=== PATIENT | female | born 1955 | race Caucasian/White ===

== ENCOUNTER → 2017-11-30 16:09 | Outpatient (CLI) | payer OTHER, SELFPAY ==
[2017-11-30 17:14] LABS: Absolute Lymphocyte Count 2.24 X10^3/ul (0.83-4.51); Basophil# 0.03 X10^3/uL; Basophil% 0.5 % (0-1); Eosinophil# 0.04 X10^3/uL; Eosinophils% 0.7 % (0-5); Hemoglobin 11.7 g/dl (12.0-15.0); Lymphocyte # 2.24 X10^3/ul (4.0); Lymphocyte % 40.1 % (19-41); Mean Corp Hgb Conc 31.6 g/gl (32-36); Mean Corpuscular Hgb 29.2 pg (27.0-32.0); Mean Corpuscular Volume 92.3 fL (81-99); Mean Platelet Vol. 9.6 fl (6.2-12.0); Monocyte# 0.33 X10^3/uL; Monocyte% 5.9 % (0-10); Neutrophil # 2.95 X10^3/uL (2.7-7.7); Neutrophil % 52.8 % (47-70); Platelet Count 257 K/mm3 (150-450); RBC Distribution Width CV 13.3 % (11.6-14.6); RBC Distribution Width SD 44.4 fl (35.1-43.9); Red Blood Count 4.01 M/mm3 (4.2-5.4); White Blood Count 5.6 K/mm3 (4.4-11.0)
[2017-11-30 17:18] LABS: POSITIVE COUNT NO; POSITIVE DIFFERENTIAL NO; POSITIVE MORPHOLOGY NO
[2017-11-30 17:43] LABS: ALB/GLOB Ratio 1.3 RATIO (0.9-2.4); AST(SGOT) 21 U/L (15-37); Alanine Aminotransfer ALT/SGPT 30 U/L (13-56); Albumin, Serum 3.9 g/dL (3.2-5.0); Alkaline Phosphatase 46 U/L (45-117); Anion Gap 9 (5-15); BUN 23 mg/dL (7-18); BUN/Creat Ratio 29.6 RATIO (10-20); Calcium,Total 9.3 mg/dL (8.5-10.1); Chloride 105 mmol/L (98-107); Creatinine, Serum 0.78 mg/dL (0.55-1.02); EST Glomerular Filtration Rate 79 mL/min (>60); Est Glom Filt Rate - Afr Amer 96 mL/min (>60); Globulin 3.1 g/dL (2.2-4.2); Glucose 104 mg/dL (74-106); Potassium 4.7 mmol/L (3.5-5.1); Sodium Level 143 mmol/L (136-145); Thyroid Stim Hormone (TSH) 1.74 uIU/mL (0.358-3.74)
[2017-12-02 08:43] LABS: Hep C Antibodies <0.1 s/co ratio (0.0-0.9)
== END ==
PROVIDERS: Family Provider Family Medicine Geriatric Medicine; PCP Family Medicine Geriatric Medicine; Visit Provider Family Medicine Geriatric Medicine
DX: I10 Essential (primary) hypertension (principal); E11.9 Type 2 diabetes mellitus without complications; Z13.89 Encounter for screening for other disorder
CPT/HCPCS: 36415; 80053; 84443; 85025; 86803

== ENCOUNTER → 2017-11-30 18:14 | Outpatient (CLI) | payer OTHER, SELFPAY | PROVIDERS: Family Provider Family Medicine Geriatric Medicine; PCP Family Medicine Geriatric Medicine; Visit Provider Family Medicine Geriatric Medicine | DX: N39.0 Urinary tract infection, site not specified (principal); R63.4 Abnormal weight loss | CPT/HCPCS: 70470; 71260; 74177; 87086; 87088; Q9967 ==

== ENCOUNTER → 2017-12-01 09:45 | Outpatient (CLI) | payer OTHER, SELFPAY ==
[2017-12-01] MEDS: Cosyntropin 0.25 MG Vial IV (10:15)
[2017-12-01 11:11] VITALS: BP 126/64; PULSE 69; RESP 18; TEMP 36.6; O2SAT 100; BMI 17.1
== END ==
PROVIDERS: Family Provider Family Medicine Geriatric Medicine; PCP Family Medicine Geriatric Medicine; Visit Provider Family Medicine Geriatric Medicine
DX: E27.8 Other specified disorders of adrenal gland (principal)
CPT/HCPCS: 96374; 82533; A4216; J0834

== ENCOUNTER → 2018-01-17 12:06 | Outpatient (CLI) | payer OTHER, SELFPAY ==
--- NOTE | 2018-01-17 12:22 | RAD_ITS ---
STUDY: X-RAY - ABDOMEN/PELVIS REASON FOR EXAM: Female, 62 years old. Prominent weight loss from 185-96 pounds in 1 year. Constipation. TECHNIQUE: Frontal abdomen and pelvis upright and supine. COMPARISON: None. FINDINGS: Clear lung bases, no cardiomegaly. Course normal size and position of the solid organs of the abdomen. Prominent distributed stool burden of the large bowel, is consistent with constipation. Next line small bowel pattern unremarkable. Posterior skin folds present as vertical density stripe to the right and left of the spine. There is mild multilevel lumbar spondylosis with mild scoliosis. Mild degenerative changes of the hip joints. RAD/Abd Inc Decub and/or Erect IMPRESSION: Constipation. Electronically Signed: Se Kramer, at 12:42 EDT Tel , Service support ,
== END ==
PROVIDERS: Family Provider Family Medicine Geriatric Medicine; PCP Family Medicine Geriatric Medicine; Visit Provider Family Medicine Geriatric Medicine
DX: R10.9 Unspecified abdominal pain (principal)
CPT/HCPCS: 74019

== ENCOUNTER → 2018-01-24 08:06 | Outpatient (CLI) | payer OTHER, SELFPAY ==
[2018-01-24 09:17] LABS: Erythrocyte Sedimentation Rate 6 mm/hr (0-30)
[2018-01-24 09:56] LABS: ALB/GLOB Ratio 1.1 RATIO (0.9-2.4); AST(SGOT) 44 U/L (15-37); Alanine Aminotransfer ALT/SGPT 42 U/L (13-56); Albumin, Serum 3.6 g/dL (3.2-5.0); Alkaline Phosphatase 43 U/L (45-117); Anion Gap 9 (5-15); BUN 16 mg/dL (7-18); BUN/Creat Ratio 20.7 RATIO (10-20); Calcium,Total 8.8 mg/dL (8.5-10.1); Chloride 104 mmol/L (98-107); Creatinine, Serum 0.77 mg/dL (0.55-1.02); EST Glomerular Filtration Rate 80 mL/min (>60); Est Glom Filt Rate - Afr Amer 97 mL/min (>60); Ferritin 119 ng/mL (8-252); Globulin 3.2 g/dL (2.2-4.2); Glucose 110 mg/dL (74-106); Iron 89 ug/dL (50-170); Iron Binding Capacity,Total 298 ug/dL (250-450); Potassium 3.7 mmol/L (3.5-5.1); Protein, Total 6.8 g/dL (6.4-8.2); Rheumatoid Factor < 10.0 IU/mL (<15); Sodium Level 142 mmol/L (136-145); T4 Free Direct 0.84 ng/dL (0.76-1.46); Thyroid Stim Hormone (TSH) 3.42 uIU/mL (0.358-3.74)
[2018-01-25 14:05] LABS: ANTINUCLEAR ANTIBODIES DIRECT Negative (Negative)
[2018-01-26 14:49] LABS: Adrenocorticotropic Hormone 33.1 pg/mL (7.2-63.3)
== END ==
PROVIDERS: Family Provider Family Medicine Geriatric Medicine; PCP Family Medicine Geriatric Medicine; Referring Provider Internal Medicine Endocrinology, Diabetes & Metabolism; Visit Provider Internal Medicine Endocrinology, Diabetes & Metabolism
DX: R63.4 Abnormal weight loss (principal); E27.8 Other specified disorders of adrenal gland; D53.9 Nutritional anemia, unspecified
CPT/HCPCS: 36415; 80053; 82024; 82533; 82728; 83540; 83550; 84439; 84443; 84481; 85652; 86038; 86431

== ENCOUNTER → 2018-02-07 08:26 | Outpatient (CLI) | payer OTHER, SELFPAY | PROVIDERS: Family Provider Family Medicine Geriatric Medicine; PCP Family Medicine Geriatric Medicine; Referring Provider Internal Medicine Endocrinology, Diabetes & Metabolism; Visit Provider Internal Medicine Endocrinology, Diabetes & Metabolism | DX: E27.8 Other specified disorders of adrenal gland (principal); R79.89 Other specified abnormal findings of blood chemistry | CPT/HCPCS: 36415 ==

== ENCOUNTER → 2018-06-06 13:04 | Outpatient (CLI) | payer OTHER, SELFPAY ==
[2017-12-01 11:11] VITALS: BMI 17.1
[2018-06-06 14:57] LABS: Absolute Lymphocyte Count 2.25 X10^3/ul (0.83-4.51); Absolute Neutrophil Count 2.7 X10^3/uL (2.0-7.7); Basophil# 0.05 X10^3/uL; Basophil% 0.9 % (0-1); Eosinophil# 0.09 X10^3/uL; Eosinophils% 1.6 % (0-5); Hematocrit 39.2 % (37-47); Hemoglobin 12.7 g/dl (12.0-15.0); Lymphocyte # 2.25 X10^3/ul (4.0); Lymphocyte % 40.8 % (19-41); Mean Corp Hgb Conc 32.4 g/gl (32-36); Mean Corpuscular Hgb 30.2 pg (27.0-32.0); Mean Corpuscular Volume 93.1 fL (81-99); Mean Platelet Vol. 9.5 fl (6.2-12.0); Monocyte# 0.38 X10^3/uL; Monocyte% 6.9 % (0-10); Neutrophil # 2.74 X10^3/uL (2.7-7.7); Neutrophil % 49.6 % (47-70); Platelet Count 265 K/mm3 (150-450); RBC Distribution Width CV 12.8 % (11.6-14.6); RBC Distribution Width SD 42.7 fl (35.1-43.9); Red Blood Count 4.21 M/mm3 (4.2-5.4); White Blood Count 5.5 K/mm3 (4.4-11.0)
[2018-06-06 15:06] LABS: POSITIVE COUNT NO; POSITIVE DIFFERENTIAL NO; POSITIVE MORPHOLOGY NO
[2018-06-06 15:18] LABS: AST(SGOT) 34 U/L (15-37); Alanine Aminotransfer ALT/SGPT 56 U/L (13-56); Albumin, Serum 3.9 g/dL (3.2-5.0); Alkaline Phosphatase 95 U/L (45-117); Anion Gap 11 (5-15); BUN 34 mg/dL (7-18); BUN/Creat Ratio 30.9 RATIO (10-20); Calcium,Total 9.1 mg/dL (8.5-10.1); Chloride 95 mmol/L (98-107); EST Glomerular Filtration Rate 53 mL/min (>60); Est Glom Filt Rate - Afr Amer 64 mL/min (>60); Globulin 3.9 g/dL (2.2-4.2); Glucose 340 mg/dL (74-106); Potassium 5.2 mmol/L (3.5-5.1); Protein, Total 7.8 g/dL (6.4-8.2); Sodium Level 133 mmol/L (136-145)
== END ==
PROVIDERS: Family Provider Family Medicine Geriatric Medicine; PCP Family Medicine Geriatric Medicine; Visit Provider Family Medicine Geriatric Medicine
DX: I10 Essential (primary) hypertension (principal); E11.9 Type 2 diabetes mellitus without complications
CPT/HCPCS: 36415; 80053; 84443; 85025

== ENCOUNTER → 2018-07-28 | Outpatient (CLI) | payer OTHER, SELFPAY ==
[2018-07-28 16:16] LABS: Anion Gap 10 (5-15); BUN 24 mg/dL (7-18); BUN/Creat Ratio 20.9 RATIO (10-20); Chloride 101 mmol/L (98-107); Creatinine, Serum 1.15 mg/dL (0.55-1.02); EST Glomerular Filtration Rate 50 mL/min (>60); Est Glom Filt Rate - Afr Amer 61 mL/min (>60); Glucose 193 mg/dL (74-106); Potassium 4.4 mmol/L (3.5-5.1); Sodium Level 138 mmol/L (136-145)
== END | disposition home or self-care (01) ==
LOC: POLAB3 14:19
PROVIDERS: Family Provider Family Medicine Geriatric Medicine; PCP Family Medicine Geriatric Medicine; Visit Provider Family Medicine Geriatric Medicine
DX: E87.6 Hypokalemia (principal)
CPT/HCPCS: 36415; 80048

== ENCOUNTER → 2018-09-19 | Outpatient (CLI) | payer OTHER, SELFPAY ==
[2017-12-01 11:11] VITALS: BMI 17.1
[2018-09-19 12:37] LABS: Absolute Lymphocyte Count 2.25 X10^3/ul (0.83-4.51); Absolute Neutrophil Count 2.8 X10^3/uL (2.0-7.7); Basophil# 0.08 X10^3/uL; Basophil% 1.4 % (0-1); Eosinophil# 0.27 X10^3/uL; Eosinophils% 4.6 % (0-5); Hematocrit 35.5 % (37-47); Hemoglobin 11.3 g/dl (12.0-15.0); Lymphocyte # 2.25 X10^3/ul (4.0); Lymphocyte % 38.3 % (19-41); Mean Corp Hgb Conc 31.8 g/gl (32-36); Mean Corpuscular Hgb 30.1 pg (27.0-32.0); Mean Corpuscular Volume 94.4 fL (81-99); Mean Platelet Vol. 9.4 fl (6.2-12.0); Monocyte% 8.5 % (0-10); Neutrophil # 2.78 X10^3/uL (2.7-7.7); Neutrophil % 47.2 % (47-70); Platelet Count 342 K/mm3 (150-450); RBC Distribution Width CV 14.1 % (11.6-14.6); RBC Distribution Width SD 46.6 fl (35.1-43.9); Red Blood Count 3.76 M/mm3 (4.2-5.4); White Blood Count 5.9 K/mm3 (4.4-11.0)
[2018-09-19 12:42] LABS: POSITIVE COUNT NO; POSITIVE DIFFERENTIAL NO; POSITIVE MORPHOLOGY NO
[2018-09-19 13:07] LABS: AST(SGOT) 31 U/L (15-37); Alanine Aminotransfer ALT/SGPT 59 U/L (13-56); Albumin, Serum 3.7 g/dL (3.2-5.0); Alkaline Phosphatase 72 U/L (45-117); Anion Gap 7 (5-15); BUN 30 mg/dL (7-18); BUN/Creat Ratio 27.8 RATIO (10-20); Calcium,Total 9.2 mg/dL (8.5-10.1); Chloride 97 mmol/L (98-107); Creatinine, Serum 1.08 mg/dL (0.55-1.02); EST Glomerular Filtration Rate 54 mL/min (>60); Est Glom Filt Rate - Afr Amer 66 mL/min (>60); Globulin 3.8 g/dL (2.2-4.2); Glucose 266 mg/dL (74-106); Potassium 4.8 mmol/L (3.5-5.1); Protein, Total 7.5 g/dL (6.4-8.2); Sodium Level 134 mmol/L (136-145); Thyroid Stim Hormone (TSH) 3.04 uIU/mL (0.358-3.74)
== END | disposition home or self-care (01) ==
LOC: POLAB3 10:25
PROVIDERS: Family Provider Family Medicine Geriatric Medicine; PCP Family Medicine Geriatric Medicine; Visit Provider Family Medicine Geriatric Medicine
DX: I10 Essential (primary) hypertension (principal); E11.9 Type 2 diabetes mellitus without complications
CPT/HCPCS: 36415; 80053; 84443; 85025

== ENCOUNTER → 2018-09-27 | Outpatient (CLI) | payer OTHER, SELFPAY ==
--- NOTE | 2018-09-27 10:40 | RAD_ITS ---
STUDY: X-RAY - PELVIS AND RIGHT HIP REASON FOR EXAM: Female, 63 years old. Pain TECHNIQUE: 3 views of the pelvis and hip. One view of the pelvis 2 views of the right hip. COMPARISON: Pelvis CT November 30, 2017 FINDINGS: There is a non-specific bowel gas pattern. Normal visualized soft tissue structures. There is narrowing with cortical sclerosis and osteophyte formation of the sacroiliac joint consistent with degenerative osteoarthritic changes. Normal bilateral superior and inferior pubic rami. Normal pubic symphysis. Normal bilateral ischial tuberosities. There is similar-appearing bilateral right greater than left degenerative change. There is moderate narrowing of the right joint space with subchondral cyst formation. There is [id number] narrowing of the left. There is degenerative change in the visualized lower lumbar spine. RAD/HIP, UNI W/ Pelvis 2-3 Views IMPRESSION: Degenerative change of the bilateral hip joints right greater than left. Moderate degenerative change right hip joint. [id number] left hip joint. Electronically Signed: Bella Mazariegos MD at 17:35 EDT Tel , Service support ,
== END | disposition home or self-care (01) ==
LOC: RAD 10:37
PROVIDERS: Family Provider Family Medicine Geriatric Medicine; PCP Family Medicine Geriatric Medicine; Referring Provider Family Medicine Geriatric Medicine; Visit Provider Family Medicine Geriatric Medicine
DX: M25.551 Pain in right hip (principal)
CPT/HCPCS: 73502

== ENCOUNTER → 2018-12-05 | Outpatient (CLI) | payer OTHER, SELFPAY ==
[2017-12-01 11:11] VITALS: BMI 17.1
[2018-12-05 11:27] LABS: Absolute Lymphocyte Count 2.64 X10^3/uL (0.83-4.51); Absolute Neutrophil Count 2.8 X10^3/uL (2.0-7.7); Basophil# 0.06 X10^3/uL; Eosinophil# 0.16 X10^3/uL; Eosinophils% 2.6 % (0-5); Hemoglobin 11.8 g/dL (12.0-15.0); Lymphocyte # 2.64 X10^3/ul (4.0); Lymphocyte % 42.9 % (19-41); Mean Corp Hgb Conc 31.1 g/dL (32-36); Mean Corpuscular Hgb 29.9 pg (27.0-32.0); Mean Corpuscular Volume 96.2 fL (81-99); Mean Platelet Vol. 10.1 fl (6.2-12.0); Monocyte# 0.46 X10^3/uL; Monocyte% 7.5 % (0-10); NRBC Flagged by Analyzer 0 % (0-5); Neutrophil # 2.81 X10^3/uL (2.7-7.7); Neutrophil % 45.7 % (47-70); Platelet Count 268 K/mm3 (150-450); RBC Distribution Width CV 13.6 % (11.6-14.6); RBC Distribution Width SD 48.3 fl (35.1-43.9); Red Blood Count 3.95 M/mm3 (4.2-5.4); White Blood Count 6.2 K/mm3 (4.4-11.0)
[2018-12-05 11:47] LABS: Vitamin D,25 Hydroxy 48.4 ng/mL (29.95-100.01)
[2018-12-05 11:52] LABS: AST(SGOT) 25 U/L (15-37); Alanine Aminotransfer ALT/SGPT 30 U/L (13-56); Albumin, Serum 3.7 g/dL (3.2-5.0); Alkaline Phosphatase 60 U/L (45-117); Anion Gap 5 (5-15); BUN 23 mg/dL (7-18); BUN/Creat Ratio 21.7 RATIO (10-20); Calcium,Total 9.1 mg/dL (8.5-10.1); Chloride 104 mmol/L (98-107); Creatinine, Serum 1.06 mg/dL (0.55-1.02); EST Glomerular Filtration Rate 55 mL/min (>60); Est Glom Filt Rate - Afr Amer 67 mL/min (>60); Globulin 3.7 g/dL (2.2-4.2); Glucose 121 mg/dL (74-106); Potassium 4.9 mmol/L (3.5-5.1); Protein, Total 7.4 g/dL (6.4-8.2); Sodium Level 137 mmol/L (136-145); Thyroid Stim Hormone (TSH) 3.62 uIU/mL (0.358-3.74)
== END | disposition home or self-care (01) ==
LOC: POLAB3 08:55
PROVIDERS: Family Provider Family Medicine Geriatric Medicine; PCP Family Medicine Geriatric Medicine; Visit Provider Family Medicine Geriatric Medicine
DX: E11.9 Type 2 diabetes mellitus without complications (principal); E55.9 Vitamin D deficiency, unspecified; I10 Essential (primary) hypertension
CPT/HCPCS: 36415; 80053; 82306; 84443; 85025

== ENCOUNTER → 2019-03-06 11:55 | Outpatient (CLI) | payer OTHER, SELFPAY ==
[2017-12-01 11:11] VITALS: BMI 17.1
[2019-03-06 12:22] LABS: Absolute Lymphocyte Count 2.45 X10^3/uL (0.83-4.51); Absolute Neutrophil Count 4.6 X10^3/uL (2.0-7.7); Basophil# 0.07 X10^3/uL; Basophil% 0.9 % (0-1); Eosinophil# 0.07 X10^3/uL; Eosinophils% 0.9 % (0-5); Hematocrit 41.2 % (37-47); Hemoglobin 12.8 g/dL (12.0-15.0); Lymphocyte # 2.45 X10^3/ul (4.0); Lymphocyte % 31.8 % (19-41); Mean Corp Hgb Conc 31.1 g/dL (32-36); Mean Corpuscular Hgb 29.8 pg (27.0-32.0); Mean Platelet Vol. 9.6 fl (6.2-12.0); Monocyte# 0.45 X10^3/uL; Monocyte% 5.8 % (0-10); NRBC Flagged by Analyzer 0 % (0-5); Neutrophil # 4.64 X10^3/uL (2.7-7.7); Neutrophil % 60.3 % (47-70); Platelet Count 309 K/mm3 (150-450); RBC Distribution Width CV 14.2 % (11.6-14.6); RBC Distribution Width SD 49.6 fl (35.1-43.9); Red Blood Count 4.29 M/mm3 (4.2-5.4); White Blood Count 7.7 K/mm3 (4.4-11.0)
[2019-03-06 12:48] LABS: ALB/GLOB Ratio 1.1 RATIO (0.9-2.4); AST(SGOT) 27 U/L (15-37); Alanine Aminotransfer ALT/SGPT 28 U/L (13-56); Albumin, Serum 4.1 g/dL (3.2-5.0); Alkaline Phosphatase 53 U/L (45-117); Anion Gap 12 (5-15); BUN 20 mg/dL (7-18); BUN/Creat Ratio 17.5 RATIO (10-20); Calcium,Total 9.6 mg/dL (8.5-10.1); Chloride 101 mmol/L (98-107); Creatinine, Serum 1.14 mg/dL (0.55-1.02); EST Glomerular Filtration Rate 51 mL/min (>60); Est Glom Filt Rate - Afr Amer 61 mL/min (>60); Globulin 3.7 g/dL (2.2-4.2); Glucose 165 mg/dL (74-106); Potassium 4.5 mmol/L (3.5-5.1); Protein, Total 7.8 g/dL (6.4-8.2); Sodium Level 137 mmol/L (136-145); Thyroid Stim Hormone (TSH) 2.76 uIU/mL (0.358-3.74)
[2019-03-06 13:13] LABS: Vitamin D,25 Hydroxy 74.1 ng/mL (29.95-100.01)
== END ==
PROVIDERS: Family Provider Family Medicine Geriatric Medicine; PCP Family Medicine Geriatric Medicine; Visit Provider Family Medicine Geriatric Medicine
DX: E11.9 Type 2 diabetes mellitus without complications (principal); E55.9 Vitamin D deficiency, unspecified; I10 Essential (primary) hypertension
CPT/HCPCS: 36415; 80053; 82306; 84443; 85025

== ENCOUNTER → 2019-06-12 | Outpatient (CLI) | payer OTHER, SELFPAY ==
[2017-12-01 11:11] VITALS: BMI 17.1
[2019-06-12 12:26] LABS: Absolute Lymphocyte Count 2.79 X10^3/uL (0.83-4.51); Absolute Neutrophil Count 4.3 X10^3/uL (2.0-7.7); Basophil# 0.07 X10^3/uL; Basophil% 0.9 % (0-1); Eosinophil# 0.13 X10^3/uL; Eosinophils% 1.7 % (0-5); Hematocrit 38.3 % (37-47); Hemoglobin 11.9 g/dL (12.0-15.0); Lymphocyte # 2.79 X10^3/ul (4.0); Lymphocyte % 35.5 % (19-41); Mean Corp Hgb Conc 31.1 g/dL (32-36); Mean Corpuscular Hgb 30.1 pg (27.0-32.0); Mean Corpuscular Volume 96.7 fL (81-99); Mean Platelet Vol. 9.5 fl (6.2-12.0); Monocyte# 0.58 X10^3/uL; Monocyte% 7.4 % (0-10); NRBC Flagged by Analyzer 0 % (0-5); Neutrophil # 4.26 X10^3/uL (2.7-7.7); Neutrophil % 54.1 % (47-70); Platelet Count 316 K/mm3 (150-450); RBC Distribution Width SD 49.8 fl (35.1-43.9); Red Blood Count 3.96 M/mm3 (4.2-5.4); White Blood Count 7.9 K/mm3 (4.4-11.0)
[2019-06-12 12:50] LABS: ALB/GLOB Ratio 1.1 RATIO (0.9-2.4); AST(SGOT) 24 U/L (15-37); Alanine Aminotransfer ALT/SGPT 32 U/L (13-56); Alkaline Phosphatase 52 U/L (45-117); Anion Gap 9 (5-15); BUN 28 mg/dL (7-18); BUN/Creat Ratio 22.8 RATIO (10-20); Calcium,Total 9.6 mg/dL (8.5-10.1); Chloride 98 mmol/L (98-107); Creatinine, Serum 1.23 mg/dL (0.55-1.02); EST Glomerular Filtration Rate 46 mL/min (>60); Est Glom Filt Rate - Afr Amer 56 mL/min (>60); Globulin 3.7 g/dL (2.2-4.2); Glucose 118 mg/dL (74-106); Potassium 4.7 mmol/L (3.5-5.1); Protein, Total 7.7 g/dL (6.4-8.2); Sodium Level 136 mmol/L (136-145); Thyroid Stim Hormone (TSH) 3.13 uIU/mL (0.358-3.74)
== END | disposition home or self-care (01) ==
LOC: POLAB3 10:20
PROVIDERS: PCP Family Medicine Geriatric Medicine; Visit Provider Family Medicine Geriatric Medicine
DX: I10 Essential (primary) hypertension (principal); E55.9 Vitamin D deficiency, unspecified; E11.65 Type 2 diabetes mellitus with hyperglycemia
CPT/HCPCS: 36415; 80053; 82306; 84443; 85025

== ENCOUNTER → 2019-12-25 | Outpatient (CLI) | payer MEDICARE, SELFPAY ==
[2019-12-25 12:17] LABS: Absolute Lymphocyte Count 2.74 X10^3/uL (0.83-4.51); Absolute Neutrophil Count 2.7 X10^3/uL (2.0-7.7); Basophil# 0.07 X10^3/uL; Basophil% 1.1 % (0-1); Eosinophil# 0.17 X10^3/uL; Eosinophils% 2.8 % (0-5); Hematocrit 37.9 % (37-47); Hemoglobin 11.5 g/dL (12.0-15.0); Lymphocyte # 2.74 X10^3/ul (4.0); Lymphocyte % 44.7 % (19-41); Mean Corp Hgb Conc 30.3 g/dL (32-36); Mean Corpuscular Volume 95.7 fL (81-99); Mean Platelet Vol. 9.7 fl (6.2-12.0); Monocyte# 0.42 X10^3/uL; Monocyte% 6.9 % (0-10); NRBC Flagged by Analyzer 0 % (0-5); Neutrophil # 2.71 X10^3/uL (2.7-7.7); Neutrophil % 44.2 % (47-70); Platelet Count 312 K/mm3 (150-450); RBC Distribution Width SD 49.6 fl (35.1-43.9); Red Blood Count 3.96 M/mm3 (4.2-5.4); White Blood Count 6.1 K/mm3 (4.4-11.0)
[2019-12-25 12:32] LABS: Vitamin D,25 Hydroxy 70.2 ng/mL
[2019-12-25 14:17] LABS: ALB/GLOB Ratio 0.9 RATIO (0.9-2.4); AST(SGOT) 21 U/L (15-37); Alanine Aminotransfer ALT/SGPT 32 U/L (13-56); Albumin, Serum 3.5 g/dL (3.2-5.0); Alkaline Phosphatase 69 U/L (45-117); Anion Gap 6 (5-15); BUN 16 mg/dL (7-18); BUN/Creat Ratio 16.1 RATIO (10-20); Calcium,Total 9.4 mg/dL (8.5-10.1); Chloride 103 mmol/L (98-107); EST Glomerular Filtration Rate 59 mL/min (>60); Est Glom Filt Rate - Afr Amer 72 mL/min (>60); Glucose 141 mg/dL (74-106); Protein, Total 7.5 g/dL (6.4-8.2); Sodium Level 134 mmol/L (136-145)
== END | disposition home or self-care (01) ==
PROVIDERS: PCP Family Medicine Geriatric Medicine; Visit Provider Family Medicine Geriatric Medicine
DX: E55.9 Vitamin D deficiency, unspecified (principal); I10 Essential (primary) hypertension
CPT/HCPCS: 36415; 80053; 82306; 84443; 85025

== ENCOUNTER → 2020-02-08 | Outpatient (CLI) | payer MEDICARE, SELFPAY ==
[2017-12-01 11:11] VITALS: BMI 17.1
[2020-02-08 16:22] LABS: Thyroid Stim Hormone (TSH) 1.83 uIU/mL (0.358-3.74)
== END | disposition home or self-care (01) ==
LOC: POLAB3 14:29
PROVIDERS: PCP Family Medicine Geriatric Medicine; Visit Provider Family Medicine Geriatric Medicine
DX: E03.9 Hypothyroidism, unspecified (principal)
CPT/HCPCS: 36415; 84443

== ENCOUNTER → 2020-06-24 10:50 | Outpatient (CLI) | payer MEDICARE, SELFPAY ==
[2017-12-01 11:11] VITALS: BMI 17.1
[2020-06-24 12:20] LABS: Absolute Lymphocyte Count 2.41 X10^3/uL (0.83-4.51); Basophil# 0.06 X10^3/uL; Eosinophil# 0.15 X10^3/uL; Eosinophils% 2.5 % (0-5); Hematocrit 38.1 % (37-47); Hemoglobin 11.5 g/dL (12.0-15.0); Lymphocyte # 2.41 X10^3/ul (4.0); Lymphocyte % 40.4 % (19-41); Mean Corp Hgb Conc 30.2 g/dL (32-36); Mean Corpuscular Hgb 28.8 pg (27.0-32.0); Mean Corpuscular Volume 95.5 fL (81-99); Mean Platelet Vol. 9.6 fl (6.2-12.0); Monocyte# 0.39 X10^3/uL; Monocyte% 6.5 % (0-10); NRBC Flagged by Analyzer 0 % (0-5); Neutrophil # 2.95 X10^3/uL (2.7-7.7); Neutrophil % 49.4 % (47-70); Platelet Count 316 K/mm3 (150-450); RBC Distribution Width CV 14.6 % (11.6-14.6); Red Blood Count 3.99 M/mm3 (4.2-5.4)
[2020-06-24 12:31] LABS: Vitamin D,25 Hydroxy 60.3 ng/mL
[2020-06-24 12:33] LABS: AST(SGOT) 20 U/L (15-37); Alanine Aminotransfer ALT/SGPT 32 U/L (13-56); Albumin, Serum 3.8 g/dL (3.2-5.0); Alkaline Phosphatase 63 U/L (45-117); Anion Gap 7 (5-15); BUN 22 mg/dL (7-18); BUN/Creat Ratio 19.6 RATIO (10-20); Calcium,Total 9.6 mg/dL (8.5-10.1); Chloride 101 mmol/L (98-107); Creatinine, Serum 1.12 mg/dL (0.55-1.02); EST Glomerular Filtration Rate 52 mL/min (>60); Est Glom Filt Rate - Afr Amer 62 mL/min (>60); Globulin 3.8 g/dL (2.2-4.2); Glucose 182 mg/dL (74-106); Potassium 4.7 mmol/L (3.5-5.1); Protein, Total 7.6 g/dL (6.4-8.2); Sodium Level 136 mmol/L (136-145); Thyroid Stim Hormone (TSH) 2.87 uIU/mL (0.358-3.74)
== END ==
PROVIDERS: PCP Family Medicine Geriatric Medicine; Visit Provider Family Medicine Geriatric Medicine
DX: E11.9 Type 2 diabetes mellitus without complications (principal); E55.9 Vitamin D deficiency, unspecified; I10 Essential (primary) hypertension
CPT/HCPCS: 36415; 80053; 82306; 84443; 85025

== ENCOUNTER → 2020-12-30 10:31 | Outpatient (CLI) | payer MEDICARE, SELFPAY ==
[2020-12-30 12:03] LABS: Absolute Lymphocyte Count 3.09 X10^3/uL (0.83-4.51); Absolute Neutrophil Count 2.9 X10^3/uL (2.0-7.7); Basophil# 0.16 X10^3/uL; Basophil% 1.7 % (0-1); Eosinophils% 28.6 % (0-5); Hematocrit 36.8 % (37-47); Hemoglobin 11.2 g/dL (12.0-15.0); Lymphocyte # 3.09 X10^3/ul (0.83-4.51); Lymphocyte % 32.6 % (19-41); Mean Corp Hgb Conc 30.4 g/dL (32-36); Mean Corpuscular Hgb 29.2 pg (27.0-32.0); Mean Corpuscular Volume 95.8 fL (81-99); Mean Platelet Vol. 9.1 fl (6.2-12.0); Monocyte# 0.57 X10^3/uL; NRBC Flagged by Analyzer 0 % (0-5); Neutrophil # 2.91 X10^3/uL (2.7-7.7); Neutrophil % 30.8 % (47-70); POSITIVE DIFFERENTIAL YES; Platelet Count 350 K/mm3 (150-450); RBC Distribution Width CV 16.1 % (11.6-14.6); RBC Distribution Width SD 56.7 fl (35.1-43.9); Red Blood Count 3.84 M/mm3 (4.2-5.4); White Blood Count 9.5 K/mm3 (4.4-11.0)
[2020-12-30 12:24] LABS: ALB/GLOB Ratio 0.8 RATIO (0.9-2.4); AST(SGOT) 18 U/L (15-37); Alanine Aminotransfer ALT/SGPT 27 U/L (13-56); Albumin, Serum 3.4 g/dL (3.2-5.0); Alkaline Phosphatase 68 U/L (45-117); Anion Gap 3 (5-15); BUN 21 mg/dL (7-18); BUN/Creat Ratio 19.3 RATIO (10-20); Calcium,Total 9.4 mg/dL (8.5-10.1); Chloride 101 mmol/L (98-107); Creatinine, Serum 1.09 mg/dL (0.55-1.02); EST Glomerular Filtration Rate 53 mL/min (>60); Est Glom Filt Rate - Afr Amer 64 mL/min (>60); Globulin 4.4 g/dL (2.2-4.2); Glucose 236 mg/dL (74-106); Protein, Total 7.8 g/dL (6.4-8.2); Sodium Level 134 mmol/L (136-145); Thyroid Stim Hormone (TSH) 3.01 uIU/mL (0.358-3.74)
[2020-12-30 12:25] LABS: Differential Indicated SCAN CRITERIA MET; Eosinophil# 2.71 X10^3/uL
[2020-12-30 12:36] LABS: Vitamin D,25 Hydroxy 76.7 ng/mL
[2020-12-31 13:27] LABS: Pathologist Review Reviewed
== END ==
PROVIDERS: PCP Family Medicine Geriatric Medicine; Visit Provider Family Medicine Geriatric Medicine
DX: E11.9 Type 2 diabetes mellitus without complications (principal); E55.9 Vitamin D deficiency, unspecified; I10 Essential (primary) hypertension
CPT/HCPCS: 36415; 80053; 82306; 84443; 85025

== ENCOUNTER 2021-06-03 10:39 | Outpatient (CLI) | payer MEDICARE, SELFPAY ==
[2021-06-03 11:40] LABS: Absolute Lymphocyte Count 2.49 X10^3/uL (0.83-4.51); Absolute Neutrophil Count 3.7 X10^3/uL (2.0-7.7); Basophil# 0.06 X10^3/uL; Basophil% 0.9 % (0-1); Eosinophil# 0.12 X10^3/uL; Eosinophils% 1.7 % (0-5); Hematocrit 39.1 % (37-47); Hemoglobin 12.9 g/dL (12.0-15.0); Lymphocyte # 2.49 X10^3/ul (0.83-4.51); Lymphocyte % 35.7 % (19-41); Mean Corpuscular Hgb 29.7 pg (27.0-32.0); Mean Corpuscular Volume 90.1 fL (81-99); Monocyte# 0.54 X10^3/uL; Monocyte% 7.7 % (0-10); NRBC Flagged by Analyzer 0 % (0-5); Neutrophil # 3.74 X10^3/uL (2.7-7.7); Neutrophil % 53.7 % (47-70); Platelet Count 384 K/mm3 (150-450); RBC Distribution Width CV 13.5 % (11.6-14.6); RBC Distribution Width SD 44.7 fl (35.1-43.9); Red Blood Count 4.34 M/mm3 (4.2-5.4)
[2021-06-03 11:56] LABS: Vitamin D,25 Hydroxy 66.6 ng/mL
[2021-06-03 12:02] LABS: ALB/GLOB Ratio 0.9 RATIO (0.9-2.4); AST(SGOT) 22 U/L (15-37); Alanine Aminotransfer ALT/SGPT 30 U/L (13-56); Albumin, Serum 3.8 g/dL (3.2-5.0); Alkaline Phosphatase 57 U/L (45-117); Anion Gap 7 (5-15); BUN 29 mg/dL (7-18); BUN/Creat Ratio 26.9 RATIO (10-20); Calcium,Total 10.1 mg/dL (8.5-10.1); Chloride 99 mmol/L (98-107); Creatinine, Serum 1.08 mg/dL (0.55-1.02); EST Glomerular Filtration Rate 54 mL/min (>60); Est Glom Filt Rate - Afr Amer 65 mL/min (>60); Globulin 4.1 g/dL (2.2-4.2); Glucose 157 mg/dL (74-106); Potassium 4.7 mmol/L (3.5-5.1); Protein, Total 7.9 g/dL (6.4-8.2); Sodium Level 135 mmol/L (136-145); Thyroid Stim Hormone (TSH) 2.28 uIU/mL (0.358-3.74)
== END 2021-06-03 23:59 | disposition home or self-care (01) ==
LOC: POLAB3 10:45
PROVIDERS: PCP Family Medicine Geriatric Medicine; Visit Provider Family Medicine Geriatric Medicine
DX: E11.9 Type 2 diabetes mellitus without complications (principal); E55.9 Vitamin D deficiency, unspecified; I10 Essential (primary) hypertension
CPT/HCPCS: 36415; 80053; 82306; 84443; 85025

== ENCOUNTER → 2021-12-31 | Outpatient (CLI) | payer MEDICARE, SELFPAY ==
[2021-12-31 12:20] LABS: Absolute Lymphocyte Count 2.44 X10^3/uL (0.83-4.51); Absolute Neutrophil Count 4.1 X10^3/uL (2.0-7.7); Basophil# 0.08 X10^3/uL; Basophil% 1.1 % (0-1); Eosinophil# 0.13 X10^3/uL; Eosinophils% 1.8 % (0-5); Hematocrit 38.5 % (37-47); Hemoglobin 12.2 g/dL (12.0-15.0); Lymphocyte # 2.44 X10^3/ul (0.83-4.51); Lymphocyte % 33.6 % (19-41); Mean Corp Hgb Conc 31.7 g/dL (32-36); Mean Corpuscular Hgb 30.1 pg (27.0-32.0); Mean Corpuscular Volume 95.1 fL (81-99); Mean Platelet Vol. 9.5 fl (6.2-12.0); Monocyte% 6.9 % (0-10); NRBC Flagged by Analyzer 0 % (0-5); Neutrophil # 4.09 X10^3/uL (2.7-7.7); Neutrophil % 56.3 % (47-70); Platelet Count 373 K/mm3 (150-450); RBC Distribution Width CV 13.3 % (11.6-14.6); RBC Distribution Width SD 46.6 fl (35.1-43.9); Red Blood Count 4.05 M/mm3 (4.2-5.4); White Blood Count 7.3 K/mm3 (4.4-11.0)
[2021-12-31 12:36] LABS: Vitamin D,25 Hydroxy 73.4 ng/mL
[2021-12-31 12:42] LABS: ALB/GLOB Ratio 0.8 RATIO (0.9-2.4); AST(SGOT) 17 U/L (15-37); Alanine Aminotransfer ALT/SGPT 26 U/L (13-56); Albumin, Serum 3.3 g/dL (3.2-5.0); Alkaline Phosphatase 64 U/L (45-117); Anion Gap 9 (5-15); BUN 24 mg/dL (7-18); BUN/Creat Ratio 24.2 RATIO (10-20); Calcium,Total 9.4 mg/dL (8.5-10.1); Chloride 102 mmol/L (98-107); Creatinine, Serum 0.99 mg/dL (0.55-1.02); EST Glomerular Filtration Rate 59 mL/min (>60); Est Glom Filt Rate - Afr Amer 71 mL/min (>60); Globulin 4.4 g/dL (2.2-4.2); Glucose 151 mg/dL (74-106); Potassium 5.1 mmol/L (3.5-5.1); Protein, Total 7.7 g/dL (6.4-8.2); Sodium Level 136 mmol/L (136-145); Thyroid Stim Hormone (TSH) 2.15 uIU/mL (0.358-3.74)
== END | disposition home or self-care (01) ==
LOC: POLAB3 09:20
PROVIDERS: PCP Family Medicine Geriatric Medicine; Visit Provider Family Medicine Geriatric Medicine
DX: I10 Essential (primary) hypertension (principal); E11.9 Type 2 diabetes mellitus without complications; E55.9 Vitamin D deficiency, unspecified
CPT/HCPCS: 36415; 80053; 82306; 84443; 85025

== ENCOUNTER → 2022-07-23 | Outpatient (CLI) | payer MEDICARE, SELFPAY ==
[2022-07-23 13:11] LABS: Absolute Lymphocyte Count 2.69 X10^3/uL (0.83-4.51); Absolute Neutrophil Count 3.2 X10^3/uL (2.0-7.7); Basophil# 0.08 X10^3/uL; Basophil% 1.2 % (0-1); Eosinophil# 0.13 X10^3/uL; Lymphocyte # 2.69 X10^3/ul (0.83-4.51); Lymphocyte % 40.9 % (19-41); Mean Corp Hgb Conc 30.8 g/dL (32-36); Mean Corpuscular Hgb 28.8 pg (27.0-32.0); Mean Corpuscular Volume 93.5 fL (81-99); Mean Platelet Vol. 9.7 fl (6.2-12.0); Monocyte# 0.43 X10^3/uL; Monocyte% 6.5 % (0-10); NRBC Flagged by Analyzer 0 % (0-5); Neutrophil # 3.22 X10^3/uL (2.7-7.7); Neutrophil % 48.9 % (47-70); Platelet Count 376 K/mm3 (150-450); RBC Distribution Width CV 13.2 % (11.6-14.6); RBC Distribution Width SD 44.9 fl (35.1-43.9); Red Blood Count 4.17 M/mm3 (4.2-5.4); White Blood Count 6.6 K/mm3 (4.4-11.0)
[2022-07-23 13:25] LABS: Vitamin D,25 Hydroxy 66.8 ng/mL
[2022-07-23 13:45] LABS: ALB/GLOB Ratio 1.1 RATIO (0.9-2.4); AST(SGOT) 17 U/L (15-37); Alanine Aminotransfer ALT/SGPT 23 U/L (13-56); Albumin, Serum 3.8 g/dL (3.2-5.0); Alkaline Phosphatase 63 U/L (45-117); Anion Gap 7 (5-15); BUN 19 mg/dL (7-18); BUN/Creat Ratio 20.1 RATIO (10-20); Calcium,Total 9.6 mg/dL (8.5-10.1); Chloride 98 mmol/L (98-107); Creatinine, Serum 0.94 mg/dL (0.55-1.02); EST Glomerular Filtration Rate 63 mL/min (>60); Est Glom Filt Rate - Afr Amer 76 mL/min (>60); Globulin 3.5 g/dL (2.2-4.2); Glucose 271 mg/dL (74-106); Potassium 4.6 mmol/L (3.5-5.1); Protein, Total 7.3 g/dL (6.4-8.2); Sodium Level 133 mmol/L (136-145); Thyroid Stim Hormone (TSH) 2.18 uIU/mL (0.358-3.74)
== END | disposition home or self-care (01) ==
LOC: POLAB3 10:48
PROVIDERS: PCP Family Medicine Geriatric Medicine; Visit Provider Family Medicine Geriatric Medicine
DX: I10 Essential (primary) hypertension (principal); E11.65 Type 2 diabetes mellitus with hyperglycemia; E55.9 Vitamin D deficiency, unspecified
CPT/HCPCS: 36415; 80053; 82306; 84443; 85025

== ENCOUNTER → 2022-10-22 | Outpatient (CLI) | payer MEDICARE, SELFPAY ==
--- NOTE | 2022-10-22 11:27 | RAD_ITS ---
STUDY: X-RAY - PELVIS AND LEFT HIP REASON FOR EXAM: Female, 67 years old. OSTEOARTHRITIS. Left hip pain. No evidence of trauma. TECHNIQUE: 3 views of the pelvis and hip. COMPARISON: Comparison is made with prior study dated September 27, 2018. FINDINGS: There is a non-specific bowel gas pattern. Normal visualized soft tissue structures. There is narrowing with cortical sclerosis and osteophyte formation of the sacroiliac joint consistent with degenerative osteoarthritic changes. Normal bilateral superior and inferior pubic rami. Normal pubic symphysis. Normal bilateral ischial tuberosities. Marked degree of bilateral hip osteoarthritis with spur formation. No fracture seen. RAD/HIP, UNI W/ Pelvis 2-3 Views IMPRESSION: Marked degree of osteoarthritis and joint space narrowing of the hip joints bilaterally. Electronically Signed: Zander Strickland MD at 12:37 EDT ,
[2022-10-22 12:04] LABS: Absolute Lymphocyte Count 2.21 X10^3/uL (0.83-4.51); Absolute Neutrophil Count 4.5 X10^3/uL (2.0-7.7); Basophil% 1.4 % (0-1); Eosinophil# 0.11 X10^3/uL; Eosinophils% 1.5 % (0-5); Hematocrit 41.8 % (37-47); Hemoglobin 13.1 g/dL (12.0-15.0); Lymphocyte # 2.21 X10^3/ul (0.83-4.51); Lymphocyte % 29.9 % (19-41); Mean Corp Hgb Conc 31.3 g/dL (32-36); Mean Corpuscular Hgb 29.1 pg (27.0-32.0); Mean Corpuscular Volume 92.9 fL (81-99); Mean Platelet Vol. 9.9 fl (6.2-12.0); Monocyte# 0.44 X10^3/uL; NRBC Flagged by Analyzer 0 % (0-5); Neutrophil % 60.9 % (47-70); Platelet Count 363 K/mm3 (150-450); RBC Distribution Width CV 12.8 % (11.6-14.6); RBC Distribution Width SD 43.7 fl (35.1-43.9); White Blood Count 7.4 K/mm3 (4.4-11.0)
[2022-10-22 12:22] LABS: Vitamin D,25 Hydroxy 76.1 ng/mL
[2022-10-22 12:34] LABS: ALB/GLOB Ratio 0.9 RATIO (0.9-2.4); AST(SGOT) 15 U/L (15-37); Alanine Aminotransfer ALT/SGPT 25 U/L (13-56); Albumin, Serum 3.7 g/dL (3.2-5.0); Alkaline Phosphatase 73 U/L (45-117); Anion Gap 8 (5-15); BUN 21 mg/dL (7-18); BUN/Creat Ratio 18.9 RATIO (10-20); Calcium,Total 9.4 mg/dL (8.5-10.1); Chloride 100 mmol/L (98-107); Creatinine, Serum 1.11 mg/dL (0.55-1.02); EST Glomerular Filtration Rate 52 mL/min (>60); Est Glom Filt Rate - Afr Amer 63 mL/min (>60); Globulin 4.1 g/dL (2.2-4.2); Glucose 293 mg/dL (74-106); Potassium 4.3 mmol/L (3.5-5.1); Protein, Total 7.8 g/dL (6.4-8.2); Sodium Level 135 mmol/L (136-145); Thyroid Stim Hormone (TSH) 2.73 uIU/mL (0.358-3.74)
== END | disposition home or self-care (01) ==
PROVIDERS: PCP Family Medicine Geriatric Medicine; Referring Provider Family Medicine Geriatric Medicine; Visit Provider Family Medicine Geriatric Medicine
DX: I10 Essential (primary) hypertension (principal); E11.65 Type 2 diabetes mellitus with hyperglycemia; E55.9 Vitamin D deficiency, unspecified
CPT/HCPCS: 36415; 73502; 80053; 82306; 84443; 85025

== ENCOUNTER → 2023-02-17 | Outpatient (CLI) | payer MEDICARE, SELFPAY ==
[2023-02-17 12:14] LABS: Absolute Lymphocyte Count 2.36 X10^3/uL (0.83-4.51); Absolute Neutrophil Count 3.1 X10^3/uL (2.0-7.7); Basophil# 0.07 X10^3/uL; Basophil% 1.2 % (0-1); Eosinophils% 1.6 % (0-5); Hematocrit 37.1 % (37-47); Hemoglobin 11.2 g/dL (12.0-15.0); Lymphocyte # 2.36 X10^3/ul (0.83-4.51); Lymphocyte % 38.9 % (19-41); Mean Corp Hgb Conc 30.2 g/dL (32-36); Mean Corpuscular Hgb 29.1 pg (27.0-32.0); Mean Corpuscular Volume 96.4 fL (81-99); Mean Platelet Vol. 9.4 fl (6.2-12.0); Monocyte# 0.39 X10^3/uL; Monocyte% 6.4 % (0-10); NRBC Flagged by Analyzer 0 % (0-5); Neutrophil # 3.11 X10^3/uL (2.7-7.7); Neutrophil % 51.2 % (47-70); Platelet Count 338 K/mm3 (150-450); RBC Distribution Width CV 12.9 % (11.6-14.6); RBC Distribution Width SD 45.9 fl (35.1-43.9); Red Blood Count 3.85 M/mm3 (4.2-5.4); White Blood Count 6.1 K/mm3 (4.4-11.0)
[2023-02-17 12:18] LABS: Vitamin D,25 Hydroxy 65.2 ng/mL
[2023-02-17 12:28] LABS: ALB/GLOB Ratio 0.9 RATIO (0.9-2.4); AST(SGOT) 16 U/L (15-37); Alanine Aminotransfer ALT/SGPT 22 U/L (13-56); Albumin, Serum 3.5 g/dL (3.2-5.0); Alkaline Phosphatase 56 U/L (45-117); Anion Gap 7 (5-15); BUN 20 mg/dL (7-18); BUN/Creat Ratio 24.4 RATIO (10-20); Calcium,Total 8.9 mg/dL (8.5-10.1); Chloride 105 mmol/L (98-107); Creatinine, Serum 0.82 mg/dL (0.55-1.02); EST Glomerular Filtration Rate 74 mL/min (>60); Est Glom Filt Rate - Afr Amer 89 mL/min (>60); Globulin 3.9 g/dL (2.2-4.2); Glucose 116 mg/dL (74-106); Protein, Total 7.4 g/dL (6.4-8.2); Sodium Level 139 mmol/L (136-145); Thyroid Stim Hormone (TSH) 1.88 uIU/mL (0.358-3.74)
== END | disposition home or self-care (01) ==
LOC: POLAB3 11:15
PROVIDERS: PCP Family Medicine Geriatric Medicine; Visit Provider Family Medicine Geriatric Medicine
DX: I10 Essential (primary) hypertension (principal); E11.65 Type 2 diabetes mellitus with hyperglycemia; E55.9 Vitamin D deficiency, unspecified
CPT/HCPCS: 36415; 80053; 82306; 84443; 85025

== ENCOUNTER → 2023-08-17 | Outpatient (CLI) | payer MEDICARE, SELFPAY ==
[2023-08-17 12:37] LABS: Absolute Lymphocyte Count 2.04 X10^3/uL (0.83-4.51); Absolute Neutrophil Count 3.6 X10^3/uL (2.0-7.7); Basophil# 0.07 X10^3/uL; Basophil% 1.1 % (0-1); Eosinophil# 0.12 X10^3/uL; Eosinophils% 1.9 % (0-5); Hematocrit 37.2 % (37-47); Hemoglobin 11.7 g/dL (12.0-15.0); Lymphocyte # 2.04 X10^3/ul (0.83-4.51); Lymphocyte % 32.5 % (19-41); Mean Corp Hgb Conc 31.5 g/dL (32-36); Mean Corpuscular Hgb 29.2 pg (27.0-32.0); Mean Corpuscular Volume 92.8 fL (81-99); Mean Platelet Vol. 9.5 fl (6.2-12.0); Monocyte# 0.39 X10^3/uL; Monocyte% 6.2 % (0-10); NRBC Flagged by Analyzer 0 % (0-5); Neutrophil # 3.63 X10^3/uL (2.7-7.7); Platelet Count 381 K/mm3 (150-450); RBC Distribution Width SD 44.1 fl (35.1-43.9); Red Blood Count 4.01 M/mm3 (4.2-5.4); White Blood Count 6.3 K/mm3 (4.4-11.0)
[2023-08-17 13:02] LABS: Vitamin D,25 Hydroxy 54.8 ng/mL
[2023-08-17 13:21] LABS: ALB/GLOB Ratio 0.9 RATIO (0.9-2.4); AST(SGOT) 16 U/L (15-37); Alanine Aminotransfer ALT/SGPT 22 U/L (13-56); Albumin, Serum 3.6 g/dL (3.2-5.0); Alkaline Phosphatase 59 U/L (45-117); Anion Gap 6 (5-15); BUN 22 mg/dL (7-18); BUN/Creat Ratio 24.7 RATIO (10-20); Calcium,Total 9.5 mg/dL (8.5-10.1); Chloride 102 mmol/L (98-107); Cholesterol 198 mg/dL (200); Creatinine, Serum 0.89 mg/dL (0.55-1.02); EST Glomerular Filtration Rate 67 mL/min (>60); Est Glom Filt Rate - Afr Amer 81 mL/min (>60); Globulin 3.8 g/dL (2.2-4.2); Glucose 269 mg/dL (74-106); High Density Lipoprotein 93 mg/dL; Potassium 4.2 mmol/L (3.5-5.1); Protein, Total 7.4 g/dL (6.4-8.2); Sodium Level 136 mmol/L (136-145); Thyroid Stim Hormone (TSH) 2.66 uIU/mL (0.358-3.74); Triglycerides 78 mg/dL; Very Low Density Lipoprotein 16 mg/dL (5-40)
[2023-08-17 13:37] LABS: Hemoglobin A1c 7.7 % (3.8-5.6)
== END | disposition home or self-care (01) ==
LOC: LAB 11:25
PROVIDERS: PCP Family Medicine Geriatric Medicine; Referring Provider Family Medicine Geriatric Medicine; Visit Provider Family Medicine Geriatric Medicine
DX: E78.5 Hyperlipidemia, unspecified (principal); E11.65 Type 2 diabetes mellitus with hyperglycemia; I10 Essential (primary) hypertension; E55.9 Vitamin D deficiency, unspecified
CPT/HCPCS: 36415; 80053; 80061; 82306; 83036; 84443; 85025

== ENCOUNTER → 2024-02-21 | Outpatient (CLI) | payer MEDICARE, SELFPAY ==
[2024-02-21 11:05] LABS: Absolute Lymphocyte Count 2.67 X10^3/uL (0.83-4.51); Absolute Neutrophil Count 3.9 X10^3/uL (2.0-7.7); Basophil# 0.08 X10^3/uL; Basophil% 1.1 % (0-1); Eosinophil# 0.12 X10^3/uL; Eosinophils% 1.6 % (0-5); Hematocrit 39.6 % (37-47); Hemoglobin 12.2 g/dL (12.0-15.0); Lymphocyte # 2.67 X10^3/ul (0.83-4.51); Lymphocyte % 36.7 % (19-41); Mean Corp Hgb Conc 30.8 g/dL (32-36); Mean Corpuscular Hgb 28.9 pg (27.0-32.0); Mean Corpuscular Volume 93.8 fL (81-99); Mean Platelet Vol. 9.2 fl (6.2-12.0); Monocyte# 0.49 X10^3/uL; Monocyte% 6.7 % (0-10); NRBC Flagged by Analyzer 0 % (0-5); Neutrophil % 53.6 % (47-70); Platelet Count 413 K/mm3 (150-450); RBC Distribution Width CV 13.3 % (11.6-14.6); RBC Distribution Width SD 45.5 fl (35.1-43.9); Red Blood Count 4.22 M/mm3 (4.2-5.4); White Blood Count 7.3 K/mm3 (4.4-11.0)
[2024-02-21 11:28] LABS: Vitamin D,25 Hydroxy 48.9 ng/mL
[2024-02-21 11:35] LABS: AST(SGOT) 18 U/L (15-37); Alanine Aminotransfer ALT/SGPT 17 U/L (13-56); Albumin, Serum 3.9 g/dL (3.2-5.0); Alkaline Phosphatase 98 U/L (45-117); Anion Gap 8 (5-15); BUN 20 mg/dL (7-18); BUN/Creat Ratio 18.7 RATIO (10-20); Calcium,Total 9.9 mg/dL (8.5-10.1); Chloride 102 mmol/L (98-107); Cholesterol 178 mg/dL (200); Creatinine, Serum 1.07 mg/dL (0.55-1.02); EST Glomerular Filtration Rate 54 mL/min (>60); Est Glom Filt Rate - Afr Amer 65 mL/min (>60); Globulin 4.1 g/dL (2.2-4.2); Glucose 187 mg/dL (74-106); High Density Lipoprotein 88 mg/dL; Potassium 4.8 mmol/L (3.5-5.1); Sodium Level 138 mmol/L (136-145); Triglycerides 83 mg/dL; Very Low Density Lipoprotein 17 mg/dL (5-40)
[2024-02-21 12:05] LABS: Hemoglobin A1c 7.3 % (3.8-5.6)
[2024-02-21 12:58] LABS: Microalbumin,Random Urine 60.1 mg/L (NO RANGE EST.)
== END | disposition home or self-care (01) ==
LOC: POLAB3 10:38
PROVIDERS: PCP Family Medicine Geriatric Medicine; Visit Provider Family Medicine Geriatric Medicine
DX: E78.5 Hyperlipidemia, unspecified (principal); E11.65 Type 2 diabetes mellitus with hyperglycemia; I10 Essential (primary) hypertension; E55.9 Vitamin D deficiency, unspecified
CPT/HCPCS: 36415; 80053; 80061; 82043; 82306; 83036; 84443; 85025

== ENCOUNTER → 2024-03-07 | Outpatient (CLI) | payer MEDICARE, SELFPAY ==
[2024-03-07 11:05] LABS: Absolute Lymphocyte Count 2.66 X10^3/uL (0.83-4.51); Absolute Neutrophil Count 2.8 X10^3/uL (2.0-7.7); Basophil# 0.08 X10^3/uL; Basophil% 1.3 % (0-1); Eosinophil# 0.15 X10^3/uL; Eosinophils% 2.4 % (0-5); Hematocrit 39.3 % (37-47); Hemoglobin 11.8 g/dL (12.0-15.0); Lymphocyte # 2.66 X10^3/ul (0.83-4.51); Lymphocyte % 43.2 % (19-41); Mean Corpuscular Hgb 28.8 pg (27.0-32.0); Mean Corpuscular Volume 95.9 fL (81-99); Monocyte# 0.45 X10^3/uL; Monocyte% 7.3 % (0-10); NRBC Flagged by Analyzer 0 % (0-5); Neutrophil % 45.5 % (47-70); Platelet Count 374 K/mm3 (150-450); RBC Distribution Width CV 13.4 % (11.6-14.6); RBC Distribution Width SD 47.6 fl (35.1-43.9); White Blood Count 6.2 K/mm3 (4.4-11.0)
[2024-03-07 11:38] LABS: ALB/GLOB Ratio 0.9 RATIO (0.9-2.4); AST(SGOT) 21 U/L (15-37); Alanine Aminotransfer ALT/SGPT 21 U/L (13-56); Albumin, Serum 3.6 g/dL (3.2-5.0); Alkaline Phosphatase 69 U/L (45-117); Anion Gap 6 (5-15); BUN 28 mg/dL (7-18); BUN/Creat Ratio 25.7 RATIO (10-20); Calcium,Total 9.1 mg/dL (8.5-10.1); Chloride 105 mmol/L (98-107); Cholesterol 180 mg/dL (200); Creatinine, Serum 1.09 mg/dL (0.55-1.02); EST Glomerular Filtration Rate 53 mL/min (>60); Est Glom Filt Rate - Afr Amer 64 mL/min (>60); Globulin 3.9 g/dL (2.2-4.2); Glucose 154 mg/dL (74-106); High Density Lipoprotein 81 mg/dL; Potassium 4.6 mmol/L (3.5-5.1); Protein, Total 7.5 g/dL (6.4-8.2); Sodium Level 140 mmol/L (136-145); T4 Free Direct 0.86 ng/dL (0.76-1.46); Triglycerides 70 mg/dL; Very Low Density Lipoprotein 14 mg/dL (5-40)
== END | disposition home or self-care (01) ==
LOC: LAB 10:26
PROVIDERS: PCP Family Medicine Geriatric Medicine
DX: F33.1 Major depressive disorder, recurrent, moderate (principal); E88.810 Metabolic syndrome
CPT/HCPCS: 36415; 80053; 80061; 84439; 84443; 85025

== ENCOUNTER 2025-01-02 05:00 | Inpatient (IN) | payer MEDICARE, SELFPAY ==
[2025-01-02] VITALS (11 sets, daily range): BP systolic 119–152; BP diastolic 48–71; PULSE 74–96; RESP 16–18; TEMP 36.6–36.9; O2SAT 99–100; BMI 21.4; BMI 20.7
--- OUTSIDE RECORDS SUMMARY | 2025-01-02 05:28 | XMS RPT_ITS | CCD ---
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 Name Role Phone Gurjit, John Chi Primary [facility] Unavailable Gurjit, John Chi Referring Unavailable Gurjit, John Chi Attending Unavailable Gurjit, John Chi [facility] Unavailable CRISTÓBAL HERNANDEZ Referring Unavailable CRISTÓBAL HERNANDEZ Attending Unavailable Gurjit, John Chi Primary [facility] Unavailable Gurjit, John Chi Attending Unavailable Allergies Allergy Classification Reported Allergen(s) Allergy Type Date of Onset Reaction(s) Facility (3 sources) Penicillins Allergy to substance 12-01-2017 Rash [facility] (1 source) Penicillins Drug allergy (disorder) 12-01-2017 [facility] Repository Problems Problem Classification Problem Date Documented Da te Episodic/Chronic Disorders of lipid metabolism (1 source) Hyperlipidemia, unspecified; Translations: [Hyperlipidemia, unspecified] Onset: 03-20-2024 Chronic Mood disorders (1 source) Major depressive disorder, recurrent, moderate; Translations: [Major depressive disorder, recurrent, moderate] Onset: 04-04-2024 Chronic Results Test Name Value Interpretation Reference Range Facility CBC W/Diff, Automatedon 11-2 Absolute Lymph 2.66 X10 3/uL Normal 0.83-4.51 [facility] Comment on above: Performed By: #### L 506.0400, L100.0100, L500.4050, L500.4100, L501.9520 #### [facility] [address] [place], [address] Absolute Neut 2.8 X10 3/uL Normal 2.0-7.7 [facility] Comment on above: Performed By: #### L 506.0400, L100.0100, L500.4050, L500.4100, L501.9520 #### [facility] [address] [place], [address] Basophils/100 WBC (Bld) 1.3 % High 0-1 [facility] Comment on above: Performed By: #### L 506.0400, L100.0100, L500.4050, L500.4100, L501.9520 #### [facility] [address] [place], [address] Eosinophils/100 WBC (Bld) 2.4 % Normal 0-5 [facility] Comment on above: Performed By: #### L 506.0400, L100.0100, L500.4050, L500.4100, L501.9520 #### [facility] [address] [place], [address] Erythrocyte distribution width (RBC) [Ratio] 13.4 % Normal 11.6-14.6 [facility] Comment on above: Performed By: #### L 506.0400, L100.0100, L500.4050, L500.4100, L501.9520 #### [facility] [address] [place], [address] Hematocrit (Bld) [Volume fraction] 39.3 % Normal 37-47 [facility] Comment on above: Performed By: #### L 506.0400, L100.0100, L500.4050, L500.4100, L501.9520 #### [facility] [address] [place], [address] Hemoglobin (Bld) [Mass/Vol] 11.8 g/dL Low 12.0-15.0 [facility] Comment on above: Performed By: #### L 506.0400, L100.0100, L500.4050, L500.4100, L501.9520 #### [facility] [address] [place], [address] IG% 0.300 Normal 0.0-0.9 [facility] Comment on above: Result Comment: IG% - Immature Granulocytes (promyelocytes, myelocytes and metamyelocytes) > 1% indicates that a LEFT SHIFT is Present. Performed By: #### L 506.0400, L100.0100, L500.4050, L500.4100, L501.9520 #### [facility] [address] [place], [address] Lymphocytes/100 WBC (Bld) 43.2 % High 19-41 [facility] Comment on above: Performed By: #### L 506.0400, L100.0100, L500.4050, L500.4100, L501.9520 #### [facility] [address] [place], [address] MCH (RBC) [Entitic mass] 28.8 pg Normal 27.0-32.0 [facility] Comment on above: Performed By: #### L 506.0400, L100.0100, L500.4050, L500.4100, L501.9520 #### [facility] [address] [place], [address] MCHC (RBC) [Mass/Vol] 30.0 g/dL Low 32-36 [facility] Comment on above: Performed By: #### L 506.0400, L100.0100, L500.4050, L500.4100, L501.9520 #### [facility] [address] [place], [address] MCV (RBC) [Entitic vol] 95.9 fL Normal 81-99 [facility] Comment on above: Performed By: #### L 506.0400, L100.0100, L500.4050, L500.4100, L501.9520 #### [facility] [address] [place], [address] Monocytes/100 WBC (Bld) 7.3 % Normal 0-10 [facility] Comment on above: Performed By: #### L 506.0400, L100.0100, L500.4050, L500.4100, L501.9520 #### [facility] [address] [place], [address] Neutrophils/100 WBC (Bld) 45.5 % Low 47-70 [facility] Comment on above: Performed By: #### L 506.0400, L100.0100, L500.4050, L500.4100, L501.9520 #### [facility] [address] [place], [address] Nucleated RBC (Bld) [#/Vol] 0 10*3/uL Normal 0-5 [facility] Comment on above: Performed By: #### L 506.0400, L100.0100, L500.4050, L500.4100, L501.9520 #### [facility] [address] [place], [address] Platelet mean volume (Bld) [Entitic vol] 9.0 fL Normal 6.2-12.0 [facility] Comment on above: Performed By: #### L 506.0400, L100.0100, L500.4050, L500.4100, L501.9520 #### [facility] [address] [place], [address] Platelets (Bld) [#/Vol] 374 10*3/uL Normal 150-450 [facility] Comment on above: Performed By: #### L 506.0400, L100.0100, L500.4050, L500.4100, L501.9520 #### [facility] [address] [place], [address] RBC (Bld) [#/Vol] 4.10 10*6/uL Low 4.2-5.4 [facility] Comment on above: Performed By: #### L 506.0400, L100.0100, L500.4050, L500.4100, L501.9520 #### [facility] [address] [place], [address] RDW SD 47.6 fl High 35.1-43.9 [facility] Comment on above: Performed By: #### L 506.0400, L100.0100, L500.4050, L500.4100, L501.9520 #### [facility] [address] [place], [address] WBC (Bld) [#/Vol] 6.2 10*3/uL Normal 4.4-11.0 [facility] Comment on above: Performed By: #### L 506.0400, L100.0100, L500.4050, L500.4100, L501.9520 #### [facility] [address] [place], [address] Comprehensive Metabolic [facility] 03-07-2024 Albumin [Mass/Vol] 3.6 g/dL Normal 3.2-5.0 [facility] Comment on above: Performed By: #### L 506.0400, L100.0100, L500.4050, L500.4100, L501.9520 #### [facility] [address] [place], [address] Albumin/Globulin [Mass ratio] 0.9 {ratio} Normal 0.9-2.4 [facility] Comment on above: Performed By: #### L 506.0400, L100.0100, L500.4050, L500.4100, L501.9520 #### [facility] [address] [place], [address] ALK P 69 U/L Normal 45-117 [facility] Comment on above: Performed By: #### L 506.0400, L100.0100, L500.4050, L500.4100, L501.9520 #### [facility] [address] [place], [address] ALT [Catalytic activity/Vol] 21 U/L Normal 13-56 [facility] Comment on above: Performed By: #### L 506.0400, L100.0100, L500.4050, L500.4100, L501.9520 #### [facility] [address] [place], [address] AST [Catalytic activity/Vol] 21 U/L Normal 15-37 [facility] Comment on above: Result Comment: Mode rate Hemolysis, Result may be falsely increased. Performed By: #### L 506.0400, L100.0100, L500.4050, L500.4100, L501.9520 #### [facility] [address] [place], [address] Bilirubin [Mass/Vol] 0.40 mg/dL Normal 0.20-1.00 [facility] Comment on above: Result Comment: For patients on eltrombopag therapy, use of Dimension [place] TBIL is not recommended. Performed By: #### L 506.0400, L100.0100, L500.4050, L500.4100, L501.9520 #### [facility] [address] [place], [address] BUN/CRE 25.7 RATIO High 10-20 [facility] Comment on above: Performed By: #### L 506.0400, L100.0100, L500.4050, L500.4100, L501.9520 #### [facility] [address] [place], [address] CA,Total 9.1 mg/dL Normal 8.5-10.1 [facility] Comment on above: Performed By: #### L 506.0400, L100.0100, L500.4050, L500.4100, L501.9520 #### [facility] [address] [place], [address] Chloride [Moles/Vol] 105 mmol/L Normal 98-107 [facility] Comment on above: Performed By: #### L 506.0400, L100.0100, L500.4050, L500.4100, L501.9520 #### [facility] [address] [place], [address] CO2 [Moles/Vol] 29.0 mmol/L Normal 21.0-32.0 [facility] Comment on above: Performed By: #### L 506.0400, L100.0100, L500.4050, L500.4100, L501.9520 #### [facility] [address] [place], [address] Creatinine [Mass/Vol] 1.09 mg/dL High 0.55-1.02 [facility] Comment on above: Result Comment: The validity of the calculated GFR GFRAA in patients over 70 years has not been determined. Clinical correlation is essential. Performed By: #### L 506.0400, L100.0100, L500.4050, L500.4100, L501.9520 #### [facility] [address] [place], [address] EST GFR - AA 64 mL/min Normal >60 [facility] Comment on above: Result Comment: Afri can Macedonian GFR Calc Performed By: #### L 506.0400, L100.0100, L500.4050, L500.4100, L501.9520 #### [facility] [address] [place], [address] GAP 6 Normal 5-15 [facility] Comment on above: Performed By: #### L 506.0400, L100.0100, L500.4050, L500.4100, L501.9520 #### [facility] [address] [place], [address] GFR/1.73 sq M.predicted among non-blacks MDRD (S/P/Bld) [Vol rate/Area] 53 mL/min/{1.73_m2} Low >60 [facility] Comment on above: Result Comment: Non- GFR Calc Performed By: #### L 506.0400, L100.0100, L500.4050, L500.4100, L501.9520 #### [facility] [address] [place], [address] Globulin (S) [Mass/Vol] 3.9 g/dL Normal 2.2-4.2 [facility] Comment on above: Performed By: #### L 506.0400, L100.0100, L500.4050, L500.4100, L501.9520 #### [facility] [address] [place], [address] Glucose [Mass/Vol] 154 mg/dL High 74-106 [facility] Comment on above: Result Comment: Fast ing Glucose result greater than or equal to 126 mg/dL suggests DIABETES MELLITUS per A.D.A. criteria. Performed By: #### L 506.0400, L100.0100, L500.4050, L500.4100, L501.9520 #### [facility] [address] [place], [address] Potassium [Moles/Vol] 4.6 mmol/L Normal 3.5-5.1 [facility] Comment on above: Result Comment: Mode rate Hemolysis, Result may be falsely increased. Performed By: #### L 506.0400, L100.0100, L500.4050, L500.4100, L501.9520 #### [facility] [address] [place], [address] Sodium [Moles/Vol] 140 mmol/L Normal 136-145 [facility] Comment on above: Performed By: #### L 506.0400, L100.0100, L500.4050, L500.4100, L501.9520 #### [facility] [address] [place], [address] T PROT 7.5 g/dL Normal 6.4-8.2 [facility] Comment on above: Performed By: #### L 506.0400, L100.0100, L500.4050, L500.4100, L501.9520 #### [facility] [address] [place], [address] Urea nitrogen [Mass/Vol] 28 mg/dL High 10-27 [facility] Comment on above: Performed By: #### L 506.0400, L100.0100, L500.4050, L500.4100, L501.9520 #### [facility] [address] [place], [address] Lipid Profileon 03-07-2024 Cholesterol [Mass/Vol] 180 mg/dL Normal 200 [facility] Comment on above: Result Comment: <200 mg/dL Desirable 200-240 mg/dL Borderline >240 mg/dL High Risk Performed By: #### L 506.0400, L100.0100, L500.4050, L500.4100, L501.9520 #### [facility] [address] [place], [address] Cholesterol in HDL [Mass/Vol] 81 mg/dL Normal [facility] Comment on above: Result Comment: The drugs N-Acetylcysteine and Metamizole may falsely depress this assay. Reference Range HDL <40 mg/dL Low HDL Cholesterol HDL >or= 60 mg/dL High HDL Cholesterol Performed By: #### L 506.0400, L100.0100, L500.4050, L500.4100, L501.9520 #### [facility] [address] [place], [address] Cholesterol in LDL [Mass/Vol] 85 mg/dL Normal 0-130 [facility] Comment on above: Performed By: #### L 506.0400, L100.0100, L500.4050, L500.4100, L501.9520 #### [facility] [address] [place], [address] Cholesterol in VLDL [Mass/Vol] 14 mg/dL Normal 5-40 [facility] Comment on above: Performed By: #### L 506.0400, L100.0100, L500.4050, L500.4100, L501.9520 #### [facility] [address] [place], [address] Triglyceride [Mass/Vol] 70 mg/dL Normal [facility] Comment on above: Result Comment: The drugs N-Acetylcysteine and Metamizole may falsely depress this assay. Serum Triglycerides Reference Interval Normal <150 mg/dL Borderline high 150 - 199 mg/dL High 200 - 499 mg/dL Very High > or = 500 mg/dL Performed By: #### L 506.0400, L100.0100, L500.4050, L500.4100, L501.9520 #### [facility] [address] [place], [address] T4 Free Directon 03-07-2024 T4 FREE DIRECT 0.86 ng/dL Normal 0.76-1.46 [facility] Comment on above: Performed By: #### L 100.0100, L501.9985, L501.9520, L506.1000, L500.4100, L500.4050 #### [facility] [address] [place], [address] Thyroid Stim Hormone (TSH)on 03-07-2024 TSH 1.610 uIU/mL Normal 0.358-3.740 [facility] Comment on above: Performed By: #### L 506.0400, L100.0100, L500.4050, L500.4100, L501.9520 #### [facility] [address] [place], [address] CBC W/Diff, Automatedon 11-04 12-2023 Absolute Lymph 2.67 X10 3/uL Normal 0.83-4.51 [facility] Comment on above: Performed By: #### L 100.0100, L501.9985, L501.9520, L506.1000, L500.4100, L500.4050 #### [facility] [address] [place], [address] Absolute Neut 3.9 X10 3/uL Normal 2.0-7.7 [facility] Comment on above: Performed By: #### L 100.0100, L501.9985, L501.9520, L506.1000, L500.4100, L500.4050 #### [facility] [address] [place], [address] Basophils/100 WBC (Bld) 1.1 % High 0-1 [facility] Comment on above: Performed By: #### L 100.0100, L501.9985, L501.9520, L506.1000, L500.4100, L500.4050 #### [facility] [address] [place], [address] Eosinophils/100 WBC (Bld) 1.6 % Normal 0-5 [facility] Comment on above: Performed By: #### L 100.0100, L501.9985, L501.9520, L506.1000, L500.4100, L500.4050 #### [facility] [address] [place], [address] Erythrocyte distribution width (RBC) [Ratio] 13.3 % Normal 11.6-14.6 [facility] Comment on above: Performed By: #### L 100.0100, L501.9985, L501.9520, L506.1000, L500.4100, L500.4050 #### [facility] [address] [place], [address] Hematocrit (Bld) [Volume fraction] 39.6 % Normal 37-47 [facility] Comment on above: Performed By: #### L 100.0100, L501.9985, L501.9520, L506.1000, L500.4100, L500.4050 #### [facility] [address] [place], [address] Hemoglobin (Bld) [Mass/Vol] 12.2 g/dL Normal 12.0-15.0 [facility] Comment on above: Performed By: #### L 100.0100, L501.9985, L501.9520, L506.1000, L500.4100, L500.4050 #### [facility] [address] [place], [address] IG% 0.300 Normal 0.0-0.9 [facility] Comment on above: Result Comment: IG% - Immature Granulocytes (promyelocytes, myelocytes and metamyelocytes) > 1% indicates that a LEFT SHIFT is Present. Performed By: #### L 100.0100, L501.9985, L501.9520, L506.1000, L500.4100, L500.4050 #### [facility] [address] [place], [address] Lymphocytes/100 WBC (Bld) 36.7 % Normal 19-41 [facility] Comment on above: Performed By: #### L 100.0100, L501.9985, L501.9520, L506.1000, L500.4100, L500.4050 #### [facility] [address] [place], [address] MCH (RBC) [Entitic mass] 28.9 pg Normal 27.0-32.0 [facility] Comment on above: Performed By: #### L 100.0100, L501.9985, L501.9520, L506.1000, L500.4100, L500.4050 #### [facility] [address] [place], [address] MCHC (RBC) [Mass/Vol] 30.8 g/dL Low 32-36 [facility] Comment on above: Performed By: #### L 100.0100, L501.9985, L501.9520, L506.1000, L500.4100, L500.4050 #### [facility] [address] [place], [address] MCV (RBC) [Entitic vol] 93.8 fL Normal 81-99 [facility] Comment on above: Performed By: #### L 100.0100, L501.9985, L501.9520, L506.1000, L500.4100, L500.4050 #### [facility] [address] [place], [address] Monocytes/100 WBC (Bld) 6.7 % Normal 0-10 [facility] Comment on above: Performed By: #### L 100.0100, L501.9985, L501.9520, L506.1000, L500.4100, L500.4050 #### [facility] [address] [place], [address] Neutrophils/100 WBC (Bld) 53.6 % Normal 47-70 [facility] Comment on above: Performed By: #### L 100.0100, L501.9985, L501.9520, L506.1000, L500.4100, L500.4050 #### [facility] [address] [place], [address] Nucleated RBC (Bld) [#/Vol] 0 10*3/uL Normal 0-5 [facility] Comment on above: Performed By: #### L 100.0100, L501.9985, L501.9520, L506.1000, L500.4100, L500.4050 #### [facility] [address] [place], [address] Platelet mean volume (Bld) [Entitic vol] 9.2 fL Normal 6.2-12.0 [facility] Comment on above: Performed By: #### L 100.0100, L501.9985, L501.9520, L506.1000, L500.4100, L500.4050 #### [facility] [address] [place], [address] Platelets (Bld) [#/Vol] 413 10*3/uL Normal 150-450 [facility] Comment on above: Performed By: #### L 100.0100, L501.9985, L501.9520, L506.1000, L500.4100, L500.4050 #### [facility] [address] [place], [address] RBC (Bld) [#/Vol] 4.22 10*6/uL Normal 4.2-5.4 [facility] Comment on above: Performed By: #### L 100.0100, L501.9985, L501.9520, L506.1000, L500.4100, L500.4050 #### [facility] [address] [place], [address] RDW SD 45.5 fl High 35.1-43.9 [facility] Comment on above: Performed By: #### L 100.0100, L501.9985, L501.9520, L506.1000, L500.4100, L500.4050 #### [facility] [address] [place], [address] WBC (Bld) [#/Vol] 7.3 10*3/uL Normal 4.4-11.0 [facility] Comment on above: Performed By: #### L 100.0100, L501.9985, L501.9520, L506.1000, L500.4100, L500.4050 #### [facility] [address] [place], [address] Comprehensive Metabolic Prof ilon 02-21-2024 Albumin [Mass/Vol] 3.9 g/dL Normal 3.2-5.0 [facility] Comment on above: Performed By: #### L 100.0100, L501.9985, L501.9520, L506.1000, L500.4100, L500.4050 #### [facility] [address] [place], [address] Albumin/Globulin [Mass ratio] 1.0 {ratio} Normal 0.9-2.4 [facility] Comment on above: Performed By: #### L 100.0100, L501.9985, L501.9520, L506.1000, L500.4100, L500.4050 #### [facility] [address] [place], [address] ALK P 98 U/L Normal 45-117 [facility] Comment on above: Performed By: #### L 100.0100, L501.9985, L501.9520, L506.1000, L500.4100, L500.4050 #### [facility] [address] [place], [address] ALT [Catalytic activity/Vol] 17 U/L Normal 13-56 [facility] Comment on above: Performed By: #### L 100.0100, L501.9985, L501.9520, L506.1000, L500.4100, L500.4050 #### [facility] [address] [place], [address] AST [Catalytic activity/Vol] 18 U/L Normal 15-37 [facility] Comment on above: Performed By: #### L 100.0100, L501.9985, L501.9520, L506.1000, L500.4100, L500.4050 #### [facility] [address] [place], [address] Bilirubin [Mass/Vol] 0.40 mg/dL Normal 0.20-1.00 [facility] Comment on above: Result Comment: For patients on eltrombopag therapy, use of Dimension [place] TBIL is not recommended. Performed By: #### L 100.0100, L501.9985, L501.9520, L506.1000, L500.4100, L500.4050 #### [facility] [address] [place], [address] BUN/CRE 18.7 RATIO Normal 10-20 [facility] Comment on above: Performed By: #### L 100.0100, L501.9985, L501.9520, L506.1000, L500.4100, L500.4050 #### [facility] [address] [place], [address] CA,Total 9.9 mg/dL Normal 8.5-10.1 [facility] Comment on above: Performed By: #### L 100.0100, L501.9985, L501.9520, L506.1000, L500.4100, L500.4050 #### [facility] [address] [place], [address] Chloride [Moles/Vol] 102 mmol/L Normal 98-107 [facility] Comment on above: Performed By: #### L 100.0100, L501.9985, L501.9520, L506.1000, L500.4100, L500.4050 #### [facility] [address] [place], [address] CO2 [Moles/Vol] 27.0 mmol/L Normal 21.0-32.0 [facility] Comment on above: Performed By: #### L 100.0100, L501.9985, L501.9520, L506.1000, L500.4100, L500.4050 #### [facility] [address] [place], [place], [id number] ([phone]) Creatinine [Mass/Vol] 1.07 mg/dL High 0.55-1.02 [facility] Comment on above: Result Comment: The validity of the calculated GFR GFRAA in patients over 70 years has not been determined. Clinical correlation is essential. Performed By: #### L 100.0100, L501.9985, L501.9520, L506.1000, L500.4100, L500.4050 #### [facility] [address] [place], [place], [id number] ([phone]) EST GFR - AA 65 mL/min Normal >60 [facility] Comment on above: Result Comment: Afri can Macedonian GFR Calc Performed By: #### L 100.0100, L501.9985, L501.9520, L506.1000, L500.4100, L500.4050 #### [facility] [address] [place], [place], [id number] [phone] Normal 5-15 [facility] Comment on above: Performed By: #### L 100.0100, L501.9985, L501.9520, L506.1000, L500.4100, L500.4050 #### [facility] [address] [place], [place], [id number] (806) GFR/1.73 sq M.predicted among non-blacks MDRD (S/P/Bld) [Vol rate/Area] 54 mL/min/{1.73_m2} Low >60 [facility] Comment on above: Result Comment: Non- GFR Calc Performed By: #### L 100.0100, L501.9985, L501.9520, L506.1000, L500.4100, L500.4050 #### [facility] [address] [place], [address] Globulin (S) [Mass/Vol] 4.1 g/dL Normal 2.2-4.2 [facility] Comment on above: Performed By: #### L 100.0100, L501.9985, L501.9520, L506.1000, L500.4100, L500.4050 #### [facility] [address] [place], [address] Glucose [Mass/Vol] 187 mg/dL High 74-106 [facility] Comment on above: Result Comment: Fast ing Glucose result greater than or equal to 126 mg/dL suggests DIABETES MELLITUS per A.D.A. criteria. Performed By: #### L 100.0100, L501.9985, L501.9520, L506.1000, L500.4100, L500.4050 #### [facility] [address] [place], [address] Potassium [Moles/Vol] 4.8 mmol/L Normal 3.5-5.1 [facility] Comment on above: Performed By: #### L 100.0100, L501.9985, L501.9520, L506.1000, L500.4100, L500.4050 #### [facility] [address] [place], [address] Sodium [Moles/Vol] 138 mmol/L Normal 136-145 [facility] Comment on above: Performed By: #### L 100.0100, L501.9985, L501.9520, L506.1000, L500.4100, L500.4050 #### [facility] [address] [place], [address] T PROT 8.0 g/dL Normal 6.4-8.2 [facility] Comment on above: Performed By: #### L 100.0100, L501.9985, L501.9520, L506.1000, L500.4100, L500.4050 #### [facility] [address] [place], [address] Urea nitrogen [Mass/Vol] 20 mg/dL High 7-18 [facility] Comment on above: Performed By: #### L 100.0100, L501.9985, L501.9520, L506.1000, L500.4100, L500.4050 #### [facility] [address] [place], [address] Hemoglobin A1con 02-21-2024 HbA1c (Bld) [Mass fraction] 7.3 % High 3.8-5.6 [facility] Comment on above: Result Comment: Norm al < 5.7 % Prediabetic 5.7 - 6.4 % Diabetic >or= 6.5 % Please note range changes. Performed By: #### L 100.0100, L501.9985, L501.9520, L506.1000, L500.4100, L500.4050 #### [facility] [address] [place], [address] Lipid Profileon 02-21-2024 Cholesterol [Mass/Vol] 178 mg/dL Normal 200 [facility] Comment on above: Result Comment: <200 mg/dL Desirable 200-240 mg/dL Borderline >240 mg/dL High Risk Performed By: #### L 100.0100, L501.9985, L501.9520, L506.1000, L500.4100, L500.4050 #### [facility] [address] [place], [address] Cholesterol in HDL [Mass/Vol] 88 mg/dL Normal [facility] Comment on above: Result Comment: The drugs N-Acetylcysteine and Metamizole may falsely depress this assay. Reference Range HDL <40 mg/dL Low HDL Cholesterol HDL >or= 60 mg/dL High HDL Cholesterol Performed By: #### L 100.0100, L501.9985, L501.9520, L506.1000, L500.4100, L500.4050 #### [facility] [address] [place], [address] Cholesterol in LDL [Mass/Vol] 73 mg/dL Normal 0-130 [facility] Comment on above: Performed By: #### L 100.0100, L501.9985, L501.9520, L506.1000, L500.4100, L500.4050 #### [facility] [address] [place], [address] Cholesterol in VLDL [Mass/Vol] 17 mg/dL Normal 5-40 [facility] Comment on above: Performed By: #### L 100.0100, L501.9985, L501.9520, L506.1000, L500.4100, L500.4050 #### [facility] [address] [place], [address] Triglyceride [Mass/Vol] 83 mg/dL Normal [facility] Comment on above: Result Comment: The drugs N-Acetylcysteine and Metamizole may falsely depress this assay. Serum Triglycerides Reference Interval Normal <150 mg/dL Borderline high 150 - 199 mg/dL High 200 - 499 mg/dL Very High > or = 500 mg/dL Performed By: #### L 100.0100, L501.9985, L501.9520, L506.1000, L500.4100, L500.4050 #### [facility] [address] [place], [address] Microalbumin,Random Urineon 02-21-2024 MICROALBUMIN,UR 60.1 mg/L Normal NO RANGE EST. [facility] Comment on above: Performed By: #### L 100.0100, L501.9985, L501.9520, L506.1000, L500.4100, L500.4050 #### [facility] [address] [place], [address] Thyroid Stim Hormone (TSH)on 02-21-2024 TSH 3.250 uIU/mL Normal 0.358-3.740 [facility] Comment on above: Performed By: #### L 100.0100, L501.9985, L501.9520, L506.1000, L500.4100, L500.4050 #### [facility] [address] [place], [address] Vitamin D,25 Hydroxyon 02-20 Vitamin D 25-OH 48.9 ng/mL Normal [facility] Comment on above: Result Comment: Nela min D 25(OH) Status Range Deficiency <20 ng/mL (50nmol/L) Insufficiency 20 - 30 ng/mL (50 - 75 nmol/L) Sufficiency 30 - 100 ng/mL (75 - 250 nmol/L) Toxicity >100 ng/mL (>250 nmol/L) Performed By: #### L 100.0100, L501.9985, L501.9520, L506.1000, L500.4100, L500.4050 #### [facility] [address] [place], [address] CBC W/Diff, Automatedon 05-0 -2023 Absolute Lymph 2.04 X10 3/uL Normal 0.83-4.51 [facility] Comment on above: Performed By: #### L 100.0100, L501.9985, L501.9520, L506.1000, L500.4100, L500.4050 #### [facility] [address] [place], [address] Absolute Neut 3.6 X10 3/uL Normal 2.0-7.7 [facility] Comment on above: Performed By: #### L 100.0100, L501.9985, L501.9520, L506.1000, L500.4100, L500.4050 #### [facility] [address] [place], [address] Basophils/100 WBC (Bld) 1.1 % High 0-1 [facility] Comment on above: Performed By: #### L 100.0100, L501.9985, L501.9520, L506.1000, L500.4100, L500.4050 #### [facility] [address] [place], [address] Eosinophils/100 WBC (Bld) 1.9 % Normal 0-5 [facility] Comment on above: Performed By: #### L 100.0100, L501.9985, L501.9520, L506.1000, L500.4100, L500.4050 #### [facility] [address] [place], [address] Erythrocyte distribution width (RBC) [Ratio] 13.0 % Normal 11.6-14.6 [facility] Comment on above: Performed By: #### L 100.0100, L501.9985, L501.9520, L506.1000, L500.4100, L500.4050 #### [facility] [address] [place], [address] Hematocrit (Bld) [Volume fraction] 37.2 % Normal 37-47 [facility] Comment on above: Performed By: #### L 100.0100, L501.9985, L501.9520, L506.1000, L500.4100, L500.4050 #### [facility] [address] [place], [address] Hemoglobin (Bld) [Mass/Vol] 11.7 g/dL Low 12.0-15.0 [facility] Comment on above: Performed By: #### L 100.0100, L501.9985, L501.9520, L506.1000, L500.4100, L500.4050 #### [facility] [address] [place], [address] IG% 0.300 Normal 0.0-0.9 [facility] Comment on above: Result Comment: IG% - Immature Granulocytes (promyelocytes, myelocytes and metamyelocytes) > 1% indicates that a LEFT SHIFT is Present. Performed By: #### L 100.0100, L501.9985, L501.9520, L506.1000, L500.4100, L500.4050 #### [facility] [address] [place], [address] Lymphocytes/100 WBC (Bld) 32.5 % Normal 19-41 [facility] Comment on above: Performed By: #### L 100.0100, L501.9985, L501.9520, L506.1000, L500.4100, L500.4050 #### [facility] [address] [place], [address] MCH (RBC) [Entitic mass] 29.2 pg Normal 27.0-32.0 [facility] Comment on above: Performed By: #### L 100.0100, L501.9985, L501.9520, L506.1000, L500.4100, L500.4050 #### [facility] [address] [place], [address] MCHC (RBC) [Mass/Vol] 31.5 g/dL Low 32-36 [facility] Comment on above: Performed By: #### L 100.0100, L501.9985, L501.9520, L506.1000, L500.4100, L500.4050 #### [facility] [address] [place], [address] MCV (RBC) [Entitic vol] 92.8 fL Normal 81-99 [facility] Comment on above: Performed By: #### L 100.0100, L501.9985, L501.9520, L506.1000, L500.4100, L500.4050 #### [facility] [address] [place], [address] Monocytes/100 WBC (Bld) 6.2 % Normal 0-10 [facility] Comment on above: Performed By: #### L 100.0100, L501.9985, L501.9520, L506.1000, L500.4100, L500.4050 #### [facility] [address] [place], [address] Neutrophils/100 WBC (Bld) 58.0 % Normal 47-70 [facility] Comment on above: Performed By: #### L 100.0100, L501.9985, L501.9520, L506.1000, L500.4100, L500.4050 #### [facility] [address] [place], [address] Nucleated RBC (Bld) [#/Vol] 0 10*3/uL Normal 0-5 [facility] Comment on above: Performed By: #### L 100.0100, L501.9985, L501.9520, L506.1000, L500.4100, L500.4050 #### [facility] [address] [place], [address] Platelet mean volume (Bld) [Entitic vol] 9.5 fL Normal 6.2-12.0 [facility] Comment on above: Performed By: #### L 100.0100, L501.9985, L501.9520, L506.1000, L500.4100, L500.4050 #### [facility] [address] [place], [address] Platelets (Bld) [#/Vol] 381 10*3/uL Normal 150-450 [facility] Comment on above: Performed By: #### L 100.0100, L501.9985, L501.9520, L506.1000, L500.4100, L500.4050 #### [facility] [address] [place], [address] RBC (Bld) [#/Vol] 4.01 10*6/uL Low 4.2-5.4 [facility] Comment on above: Performed By: #### L 100.0100, L501.9985, L501.9520, L506.1000, L500.4100, L500.4050 #### [facility] [address] [place], [address] RDW SD 44.1 fl High 35.1-43.9 [facility] Comment on above: Performed By: #### L 100.0100, L501.9985, L501.9520, L506.1000, L500.4100, L500.4050 #### [facility] [address] [place], [address] WBC (Bld) [#/Vol] 6.3 10*3/uL Normal 4.4-11.0 [facility] Comment on above: Performed By: #### L 100.0100, L501.9985, L501.9520, L506.1000, L500.4100, L500.4050 #### [facility] [address] [place], [address] [facility] 08-17-2023 Albumin [Mass/Vol] 3.6 g/dL Normal 3.2-5.0 [facility] Comment on above: Performed By: #### L 100.0100, L501.9985, L501.9520, L506.1000, L500.4100, L500.4050 #### [facility] [address] [place], [address] Albumin/Globulin [Mass ratio] 0.9 {ratio} Normal 0.9-2.4 [facility] Comment on above: Performed By: #### L 100.0100, L501.9985, L501.9520, L506.1000, L500.4100, L500.4050 #### [facility] [address] [place], [address] ALK P 59 U/L Normal 45-117 [facility] Comment on above: Performed By: #### L 100.0100, L501.9985, L501.9520, L506.1000, L500.4100, L500.4050 #### [facility] [address] [place], [address] ALT [Catalytic activity/Vol] 22 U/L Normal 13-56 [facility] Comment on above: Performed By: #### L 100.0100, L501.9985, L501.9520, L506.1000, L500.4100, L500.4050 #### [facility] [address] [place], [address] AST [Catalytic activity/Vol] 16 U/L Normal 15-37 [facility] Comment on above: Performed By: #### L 100.0100, L501.9985, L501.9520, L506.1000, L500.4100, L500.4050 #### [facility] [address] [place], [address] Bilirubin [Mass/Vol] 0.30 mg/dL Normal 0.20-1.00 [facility] Comment on above: Result Comment: For patients on eltrombopag therapy, use of Dimension [place] TBIL is not recommended. Performed By: #### L 100.0100, L501.9985, L501.9520, L506.1000, L500.4100, L500.4050 #### [facility] [address] [place], [address] BUN/CRE 24.7 RATIO High 10-20 [facility] Comment on above: Performed By: #### L 100.0100, L501.9985, L501.9520, L506.1000, L500.4100, L500.4050 #### [facility] [address] [place], [address] CA,Total 9.5 mg/dL Normal 8.5-10.1 [facility] Comment on above: Performed By: #### L 100.0100, L501.9985, L501.9520, L506.1000, L500.4100, L500.4050 #### [facility] [address] [place], [address] Chloride [Moles/Vol] 102 mmol/L Normal 98-107 [facility] Comment on above: Performed By: #### L 100.0100, L501.9985, L501.9520, L506.1000, L500.4100, L500.4050 #### [facility] [address] [place], [address] CO2 [Moles/Vol] 28.0 mmol/L Normal 21.0-32.0 [facility] Comment on above: Performed By: #### L 100.0100, L501.9985, L501.9520, L506.1000, L500.4100, L500.4050 #### [facility] [address] [place], [address] Creatinine [Mass/Vol] 0.89 mg/dL Normal 0.55-1.02 [facility] Comment on above: Result Comment: The validity of the calculated GFR GFRAA in patients over 70 years has not been determined. Clinical correlation is essential. Performed By: #### L 100.0100, L501.9985, L501.9520, L506.1000, L500.4100, L500.4050 #### [facility] [address] [place], [address] EST GFR - AA 81 mL/min Normal >60 [facility] Comment on above: Result Comment: Afri can Macedonian GFR Calc Performed By: #### L 100.0100, L501.9985, L501.9520, L506.1000, L500.4100, L500.4050 #### [facility] [address] [place], [address] GAP 6 Normal 5-15 [facility] Comment on above: Performed By: #### L 100.0100, L501.9985, L501.9520, L506.1000, L500.4100, L500.4050 #### [facility] [address] [place], [address] GFR/1.73 sq M.predicted among non-blacks MDRD (S/P/Bld) [Vol rate/Area] 67 mL/min/{1.73_m2} Normal >60 [facility] Comment on above: Result Comment: Non- GFR Calc Performed By: #### L 100.0100, L501.9985, L501.9520, L506.1000, L500.4100, L500.4050 #### [facility] [address] [place], [address] Globulin (S) [Mass/Vol] 3.8 g/dL Normal 2.2-4.2 [facility] Comment on above: Performed By: #### L 100.0100, L501.9985, L501.9520, L506.1000, L500.4100, L500.4050 #### [facility] [address] [place], [address] Glucose [Mass/Vol] 269 mg/dL High 74-106 [facility] Comment on above: Result Comment: Gluc ose result greater than or equal to 200 mg/dL suggests DIABETES MELLITUS per A.D.A. criteria. Performed By: #### L 100.0100, L501.9985, L501.9520, L506.1000, L500.4100, L500.4050 #### [facility] [address] [place], [address] Potassium [Moles/Vol] 4.2 mmol/L Normal 3.5-5.1 [facility] Comment on above: Performed By: #### L 100.0100, L501.9985, L501.9520, L506.1000, L500.4100, L500.4050 #### [facility] [address] [place], [address] Sodium [Moles/Vol] 136 mmol/L Normal 136-145 [facility] Comment on above: Performed By: #### L 100.0100, L501.9985, L501.9520, L506.1000, L500.4100, L500.4050 #### [facility] [address] [place], [address] T PROT 7.4 g/dL Normal 6.4-8.2 [facility] Comment on above: Performed By: #### L 100.0100, L501.9985, L501.9520, L506.1000, L500.4100, L500.4050 #### [facility] [address] [place], [address] Urea nitrogen [Mass/Vol] 22 mg/dL High 7-18 [facility] Comment on above: Performed By: #### L 100.0100, L501.9985, L501.9520, L506.1000, L500.4100, L500.4050 #### [facility] [address] [place], [address] Hemoglobin A1con 08-17-2023 HbA1c (Bld) [Mass fraction] 7.7 % High 3.8-5.6 [facility] Comment on above: Result Comment: Norm al < 5.7 % Prediabetic 5.7 - 6.4 % Diabetic >or= 6.5 % Please note range changes. Performed By: #### L 100.0100, L501.9985, L501.9520, L506.1000, L500.4100, L500.4050 #### [facility] [address] [place], [address] Lipid Profileon 08-17-2023 Cholesterol [Mass/Vol] 198 mg/dL Normal 200 [facility] Comment on above: Result Comment: <200 mg/dL Desirable 200-240 mg/dL Borderline >240 mg/dL High Risk Performed By: #### L 100.0100, L501.9985, L501.9520, L506.1000, L500.4100, L500.4050 #### [facility] [address] [place], [address] Cholesterol in HDL [Mass/Vol] 93 mg/dL Normal [facility] Comment on above: Result Comment: The drugs N-Acetylcysteine and Metamizole may falsely depress this assay. Reference Range HDL <40 mg/dL Low HDL Cholesterol HDL >or= 60 mg/dL High HDL Cholesterol Performed By: #### L 100.0100, L501.9985, L501.9520, L506.1000, L500.4100, L500.4050 #### [facility] [address] [place], [address] Cholesterol in LDL [Mass/Vol] 89 mg/dL Normal 0-130 [facility] Comment on above: Performed By: #### L 100.0100, L501.9985, L501.9520, L506.1000, L500.4100, L500.4050 #### [facility] [address] [place], [address] Cholesterol in VLDL [Mass/Vol] 16 mg/dL Normal 5-40 [facility] Comment on above: Performed By: #### L 100.0100, L501.9985, L501.9520, L506.1000, L500.4100, L500.4050 #### [facility] [address] [place], [address] Triglyceride [Mass/Vol] 78 mg/dL Normal [facility] Comment on above: Result Comment: The drugs N-Acetylcysteine and Metamizole may falsely depress this assay. Serum Triglycerides Reference Interval Normal <150 mg/dL Borderline high 150 - 199 mg/dL High 200 - 499 mg/dL Very High > or = 500 mg/dL Performed By: #### L 100.0100, L501.9985, L501.9520, L506.1000, L500.4100, L500.4050 #### [facility] [address] [place], [address] Thyroid Stim Hormone (TSH)on 08-17-2023 TSH 2.66 uIU/mL Normal 0.358-3.74 [facility] Comment on above: Performed By: #### L 100.0100, L501.9985, L501.9520, L506.1000, L500.4100, L500.4050 #### [facility] [address] [place], [address] Vitamin D,25 Hydroxyon 08-16 Vitamin D 25-OH 54.8 ng/mL Normal [facility] Comment on above: Result Comment: Nela min D 25(OH) Status Range Deficiency <20 ng/mL (50nmol/L) Insufficiency 20 - 30 ng/mL (50 - 75 nmol/L) Sufficiency 30 - 100 ng/mL (75 - 250 nmol/L) Toxicity >100 ng/mL (>250 nmol/L) Performed By: #### L 100.0100, L501.9985, L501.9520, L506.1000, L500.4100, L500.4050 #### [facility] [address] [place], [address] Absolute lymphocyte countOrd ered By: John Cagle on 02-17-2023 Lymphocytes Auto (Unsp spec) [#/Vol] 2.36 10*3/uL 0.83-4.51 [facility] Basophil percentageOrdered B y: John Cagle on 02-17-2023 Basophils/100 WBC (Bld) 1.2 % 0-1 [facility] Bilirubin [Mass/Vol] 0.30 mg/dL 0.20-1.00 [facility] Comment on above: For patients on eltr ombopag therapy, use of Dimension [place] TBIL is not recommended. Chloride [Moles/Vol] 105 mmol/L 98-107 [facility] Eosinophils/100 WBC (Bld) 1.6 % 0-5 [facility] Glucose [Mass/Vol] 116 mg/dL 74-106 [facility] Comment on above: Fasting Glucose resu lt from 100 to 125 mg/dL suggests IMPAIRED HOMEOSTASIS per A.D.A. criteria. Neutrophils (Bld) [#/Vol] 3.1 10*3/uL 2.0-7.7 [facility] Neutrophils/100 WBC (Bld) 51.2 % 47-70 [facility] Potassium [Moles/Vol] 4.0 mmol/L 3.5-5.1 [facility] Protein [Mass/Vol] 7.4 g/dL 6.4-8.2 [facility] Sodium [Moles/Vol] 139 mmol/L 136-145 [facility] WBC (Bld) [#/Vol] 6.1 10*3/uL 4.4-11.0 [facility] Blood erythrocytes count (nu mber/volume)Ordered By: John Cagle on 02-17-2023 RBC (Bld) [#/Vol] 3.85 10*6/uL 4.2-5.4 [facility] Blood hemoglobin measurement (mass/volume)Ordered By: John Cagle on 02-17-2023 Hemoglobin (Bld) [Mass/Vol] 11.2 g/dL 12.0-15.0 [facility] Blood lymphocytes/100 leukoc ytesOrdered By: John Cagle on 02-17-2023 Lymphocytes/100 WBC (Bld) 38.9 % 19-41 [facility] Blood monocytes/100 leukocyt esOrdered By: John Cagle on 02-17-2023 Monocytes/100 WBC (Bld) 6.4 % 0-10 [facility] Blood platelet mean volumeOr dered By: John Cagle on 02-17-2023 Platelet mean volume (Bld) [Entitic vol] 9.4 fL 6.2-12.0 [facility] Determination of erythrocyte mean corpuscular volume (MCV)Ordered By: John Cagle on 02-17-2023 MCV (RBC) [Entitic vol] 96.4 fL 81-99 [facility] Hematocrit Auto (Bld) [Volum e fraction]Ordered By: John Cagle on 02-17-2023 Hematocrit (Bld) [Volume fraction] 37.1 % 37-47 [facility] - Chemistry and C hemistry - challengeOrdered By: John Calge on 02-17-2023 ALP [Catalytic activity/Vol] 56 U/L 45-117 [facility] ALT [Catalytic activity/Vol] 22 U/L 13-56 [facility] CO2 [Moles/Vol] 27.0 mmol/L 21.0-32.0 [facility] Globulin (S) [Mass/Vol] 3.9 g/dL 2.2-4.2 [facility] Urea nitrogen/Creatinine [Mass ratio] 24.4 mg/mg 10-20 [facility] - Hematology and Cell countsOrdered By: John Cagle on 02-17-2023 Erythrocyte distribution width (RBC) [Entitic vol] 45.9 fL 35.1-43.9 [facility] Erythrocyte distribution width (RBC) [Ratio] 12.9 % 11.6-14.6 [facility] Immature granulocytes/100 WBC (Bld) 0.700 % 0.0-0.9 [facility] Comment on above: IG% - Immature Granu locytes (promyelocytes, myelocytes and metamyelocytes) > 1% indicates that a LEFT SHIFT is Present. MCH (RBC) [Entitic mass] 29.1 pg 27.0-32.0 [facility] Nucleated RBC/100 WBC (Bld) [Ratio] 0 % 0-5 [facility] MCHC Auto (RBC) [Mass/Vol]Or dered By: John Cagle on 02-17-2023 MCHC (RBC) [Mass/Vol] 30.2 g/dL 32-36 [facility] No Panel InformationOrdered By: John Cagle on 02-17-2023 Estimated GFR (MDRD) Amer 89 mL/min >60 [facility] Comment on above: GFR Calc Estimated GFR (MDRD) Non-Af Amer 74 mL/min >60 [facility] Comment on above: Non- GFR Calc Thyroid Stimulating Hormone (TSH) 1.88 uIU/mL 0.358-3.74 [facility] Vitamin D 25-Hydroxy 65.2 ng/mL [facility] Comment on above: Vitamin D 25(OH) Sta tus Range Deficiency <20 ng/mL (50nmol/L) Insufficiency 20 - 30 ng/mL (50 - 75 nmol/L) Sufficiency 30 - 100 ng/mL (75 - 250 nmol/L) Toxicity >100 ng/mL (>250 nmol/L) Platelets bldOrdered By: John Cagle on 02-17-2023 Platelets (Bld) [#/Vol] 338 10*3/uL 150-450 [facility] Serum or plasma albumin rony urement (mass/volume)Ordered By: John Cagle on 02-17-2023 Albumin [Mass/Vol] 3.5 g/dL 3.2-5.0 [facility] Serum or plasma albumin/glob ulin mass ratioOrdered By: John Cagle on 02-17-2023 Albumin/Globulin [Mass ratio] 0.9 {ratio} 0.9-2.4 [facility] Serum or plasma calcium rony urement (mass/volume)Ordered By: John Cagle on 02-17-2023 Calcium [Mass/Vol] 8.9 mg/dL 8.5-10.1 [facility] Serum or plasma creatinine m easurement (mass/volume)Ordered By: John Cagle on 02-17-2023 Creatinine [Mass/Vol] 0.82 mg/dL 0.55-1.02 [facility] Comment on above: The validity of the calculated GFR & GFRAA in patients over 70 years has not been determined. Clinical correlation is essential. Serum or plasma urea nitroge n measurement (mass/volume)Ordered By: John Cagle on 02-17-2023 Urea nitrogen [Mass/Vol] 20 mg/dL 7-18 [facility] Thin prep Papanicolaou smear with manual screeningOrdered By: John Cagle on 02-17-2023 Thin prep Papanicolaou smear with manual screening 16 U/L 15-37 [facility] Thin prep Papanicolaou smear with manual screening 7 5-15 [facility] Absolute lymphocyte countOrd ered By: John Cagle on 10-22-2022 Lymphocytes Auto (Unsp spec) [#/Vol] 2.21 10*3/uL 0.83-4.51 [facility] Basophil percentageOrdered B y: John Cagle on 10-22-2022 Basophils/100 WBC (Bld) 1.4 % 0-1 [facility] Bilirubin [Mass/Vol] 0.40 mg/dL 0.20-1.00 [facility] Comment on above: For patients on eltr ombopag therapy, use of Dimension [place] TBIL is not recommended. Chloride [Moles/Vol] 100 mmol/L 98-107 [facility] Eosinophils/100 WBC (Bld) 1.5 % 0-5 [facility] Glucose [Mass/Vol] 293 mg/dL 74-106 [facility] Comment on above: Glucose result great er than or equal to 200 mg/dLsuggests DIABETES MELLITUS per A.D.A. criteria. Neutrophils (Bld) [#/Vol] 4.5 10*3/uL 2.0-7.7 [facility] Neutrophils/100 WBC (Bld) 60.9 % 47-70 [facility] Potassium [Moles/Vol] 4.3 mmol/L 3.5-5.1 [facility] Protein [Mass/Vol] 7.8 g/dL 6.4-8.2 [facility] Sodium [Moles/Vol] 135 mmol/L 136-145 [facility] WBC (Bld) [#/Vol] 7.4 10*3/uL 4.4-11.0 [facility] Blood erythrocytes count (nu mber/volume)Ordered By: John Cagle on 10-22-2022 RBC (Bld) [#/Vol] 4.50 10*6/uL 4.2-5.4 [facility] Blood hemoglobin measurement (mass/volume)Ordered By: John Cagle on 10-22-2022 Hemoglobin (Bld) [Mass/Vol] 13.1 g/dL 12.0-15.0 [facility] Blood lymphocytes/100 leukoc ytesOrdered By: John Cagle on 10-22-2022 Lymphocytes/100 WBC (Bld) 29.9 % 19-41 [facility] Blood monocytes/100 leukocyt esOrdered By: John Cagle on 10-22-2022 Monocytes/100 WBC (Bld) 6.0 % 0-10 [facility] Blood platelet mean volumeOr dered By: John Cagle on 10-22-2022 Platelet mean volume (Bld) [Entitic vol] 9.9 fL 6.2-12.0 [facility] Determination of erythrocyte mean corpuscular volume (MCV)Ordered By: John Cagle 10-22-2022 MCV (RBC) [Entitic vol] 92.9 fL 81-99 [facility] Hematocrit Auto (Bld) [Volum e fraction]Ordered By: John Cagle on 10-22-2022 Hematocrit (Bld) [Volume fraction] 41.8 % 37-47 [facility] Laboratory - Chemistry and C hemistry - challengeOrdered By: John Cagle 10-22-2022 ALP [Catalytic activity/Vol] 73 U/L 45-117 [facility] ALT [Catalytic activity/Vol] 25 U/L 13-56 [facility] CO2 [Moles/Vol] 27.0 mmol/L 21.0-32.0 [facility] Globulin (S) [Mass/Vol] 4.1 g/dL 2.2-4.2 [facility] Urea nitrogen/Creatinine [Mass ratio] 18.9 mg/mg 10-20 [facility] Laboratory - Hematology and Cell countsOrdered By: John Cagle 10-22-2022 Erythrocyte distribution width (RBC) [Entitic vol] 43.7 fL 35.1-43.9 [facility] Erythrocyte distribution width (RBC) [Ratio] 12.8 % 11.6-14.6 [facility] Immature granulocytes/100 WBC (Bld) 0.300 % 0.0-0.9 [facility] Comment on above: IG% - Immature Granu locytes (promyelocytes, myelocytes and metamyelocytes) > 1% indicates that a LEFT SHIFT is Present. MCH (RBC) [Entitic mass] 29.1 pg 27.0-32.0 [facility] Nucleated RBC/100 WBC (Bld) [Ratio] 0 % 0-5 [facility] MCHC Auto (RBC) [Mass/Vol]Or dered By: John Cagle on 10-22-2022 MCHC (RBC) [Mass/Vol] 31.3 g/dL 32-36 [facility] No Panel InformationOrdered By: John Cagle on 10-22-2022 Estimated GFR (MDRD) Amer 63 mL/min >60 [facility] Comment on above: GFR Calc Estimated GFR (MDRD) Non-Af Amer 52 mL/min >60 [facility] Comment on above: Non- GFR Calc Thyroid Stimulating Hormone (TSH) 2.73 uIU/mL 0.358-3.74 [facility] Vitamin D 25-Hydroxy 76.1 ng/mL [facility] Comment on above: Vitamin D 25(OH) Sta tus Range Deficiency <20 ng/mL (50nmol/L) Insufficiency 20 - 30 ng/mL (50 - 75 nmol/L) Sufficiency 30 - 100 ng/mL (75 - 250 nmol/L) Toxicity >100 ng/mL (>250 nmol/L) Platelets bldOrdered By: John Cagle on 10-22-2022 Platelets (Bld) [#/Vol] 363 10*3/uL 150-450 [facility] Serum or plasma albumin rony urement (mass/volume)Ordered By: John Cagle on 10-22-2022 Albumin [Mass/Vol] 3.7 g/dL 3.2-5.0 [facility] Serum or plasma albumin/glob ulin mass ratioOrdered By: John Cagle 10-22-2022 Albumin/Globulin [Mass ratio] 0.9 {ratio} 0.9-2.4 [facility] Serum or plasma calcium rony urement (mass/volume)Ordered By: John Cagle on 10-22-2022 Calcium [Mass/Vol] 9.4 mg/dL 8.5-10.1 [facility] Serum or plasma creatinine m easurement (mass/volume)Ordered By: John Cagle 10-22-2022 Creatinine [Mass/Vol] 1.11 mg/dL 0.55-1.02 [facility] Comment on above: The validity of the calculated GFR & GFRAA in patients over 70 years has not been determined. Clinical correlation is essential. Serum or plasma urea nitroge n measurement (mass/volume)Ordered By: John Cagle on 07-13-2023 Urea nitrogen [Mass/Vol] 21 mg/dL 7-18 [facility] Thin prep Papanicolaou smear with manual screeningOrdered By: John Cagle on 10-22-2022 Thin prep Papanicolaou smear with manual screening 15 U/L 15-37 [facility] Thin prep Papanicolaou smear with manual screening 8 5-15 [facility] Absolute lymphocyte countOrd ered By: John Cagle on 07-23-2022 Lymphocytes Auto (Unsp spec) [#/Vol] 2.69 10*3/uL 0.83-4.51 [facility] Basophil percentageOrdered B y: John Cagle on 07-23-2022 Basophils/100 WBC (Bld) 1.2 % 0-1 [facility] Bilirubin [Mass/Vol] 0.30 mg/dL 0.20-1.00 [facility] Comment on above: For patients on eltr ombopag therapy, use of Dimension [place] TBIL is not recommended. Chloride [Moles/Vol] 98 mmol/L 98-107 [facility] Eosinophils/100 WBC (Bld) 2.0 % 0-5 [facility] Glucose [Mass/Vol] 271 mg/dL 74-106 [facility] Comment on above: Glucose result great er than or equal to 200 mg/dLsuggests DIABETES MELLITUS per A.D.A. criteria. Neutrophils (Bld) [#/Vol] 3.2 10*3/uL 2.0-7.7 [facility] Neutrophils/100 WBC (Bld) 48.9 % 47-70 [facility] Potassium [Moles/Vol] 4.6 mmol/L 3.5-5.1 [facility] Protein [Mass/Vol] 7.3 g/dL 6.4-8.2 [facility] Sodium [Moles/Vol] 133 mmol/L 136-145 [facility] WBC (Bld) [#/Vol] 6.6 10*3/uL 4.4-11.0 [facility] Blood erythrocytes count (nu mber/volume)Ordered By: John Cagle on 07-23-2022 RBC (Bld) [#/Vol] 4.17 10*6/uL 4.2-5.4 [facility] Blood hemoglobin measurement (mass/volume)Ordered By: [facility] Gurjit on 07-23-2022 Hemoglobin (Bld) [Mass/Vol] 12.0 g/dL 12.0-15.0 [facility] Blood lymphocytes/100 leukoc ytesOrdered By: [facility] Gurjit on 07-23-2022 Lymphocytes/100 WBC (Bld) 40.9 % 19-41 [facility] Blood monocytes/100 leukocyt esOrdered By: [facility] Monocytes/100 WBC (Bld) 6.5 % 0-10 [facility] Blood platelet mean volumeOr dered By: [facility]22 Platelet mean volume (Bld) [Entitic vol] 9.7 fL 6.2-12.0 [facility] Determination of erythrocyte mean corpuscular volume (MCV)Or[facility] 07-[facility] MCV (RBC) [Entitic vol] 93.5 fL 81-99 [facility] Hematocrit Auto (Bld) [Volum e fraction][facility]: [facility]22 Hematocrit (Bld) [Volume fraction] 39.0 % 37-47 [facility] Laboratory - Chemistry and C hemistry - challengeOrdered By: [facility] 07-23-2022 ALP [Catalytic activity/Vol] 63 U/L 45-117 [facility] ALT [Catalytic activity/Vol] 23 U/L 13-56 [facility] CO2 [Moles/Vol] 28.0 mmol/L 21.0-32.0 [facility] Globulin (S) [Mass/Vol] 3.5 g/dL 2.2-4.2 [facility] Urea nitrogen/Creatinine [Mass ratio] 20.1 mg/mg 10-20 [facility] Laboratory - Hematology and Cell countsOrdered By: [facility] 07-23-2022 Erythrocyte distribution width (RBC) [Entitic vol] 44.9 fL 35.1-43.9 [facility] Erythrocyte distribution width (RBC) [Ratio] 13.2 % 11.6-14.6 [facility] Immature granulocytes/100 WBC (Bld) 0.500 % 0.0-0.9 [facility] Comment on above: IG% - Immature Granu locytes (promyelocytes, myelocytes and metamyelocytes) > 1% indicates that a LEFT SHIFT is Present. MCH (RBC) [Entitic mass] 28.8 pg 27.0-32.0 [facility] Nucleated RBC/100 WBC (Bld) [Ratio] 0 % 0-5 [facility] MCHC Auto (RBC) [Mass/Vol]Or dered By: John Cagle on 07-23-2022 MCHC (RBC) [Mass/Vol] 30.8 g/dL 32-36 [facility] No Panel InformationOrdered By: John Cagle on 07-23-2022 Estimated GFR (MDRD) Amer 76 mL/min >60 [facility] Comment on above: GFR Calc Estimated GFR (MDRD) Non-Af Amer 63 mL/min >60 [facility] Comment on above: Non- GFR Calc Thyroid Stimulating Hormone (TSH) 2.18 uIU/mL 0.358-3.74 [facility] Vitamin D 25-Hydroxy 66.8 ng/mL [facility] Comment on above: Vitamin D 25(OH) Sta tus Range Deficiency <20 ng/mL (50nmol/L) Insufficiency 20 - 30 ng/mL (50 - 75 nmol/L) Sufficiency 30 - 100 ng/mL (75 - 250 nmol/L) Toxicity >100 ng/mL (>250 nmol/L) Platelets bldOrdered By: John Cagle on 07-23-2022 Platelets (Bld) [#/Vol] 376 10*3/uL 150-450 [facility] Serum or plasma albumin rony urement (mass/volume)Ordered By: John Cagle on 07-23-2022 Albumin [Mass/Vol] 3.8 g/dL 3.2-5.0 [facility] Serum or plasma albumin/glob ulin mass ratioOrdered By: John Cagle 07-23-2022 Albumin/Globulin [Mass ratio] 1.1 {ratio} 0.9-2.4 [facility] Serum or plasma calcium rony urement (mass/volume)Ordered By: John Cagle 07-23-2022 Calcium [Mass/Vol] 9.6 mg/dL 8.5-10.1 [facility] Serum or plasma creatinine m easurement (mass/volume)Ordered By: Jhon Cagle on 07-23-2022 Creatinine [Mass/Vol] 0.94 mg/dL 0.55-1.02 [facility] Comment on above: The validity of the calculated GFR & GFRAA in patients over 70 years has not been determined. Clinical correlation is essential. Serum or plasma urea nitroge n measurement (mass/volume)Ordered By: John Cagle on 07-23-2022 Urea nitrogen [Mass/Vol] 19 mg/dL 7-18 [facility] Thin prep Papanicolaou smear with manual screeningOrdered By: John Cagle on 07-23-2022 Thin prep Papanicolaou smear with manual screening 17 U/L 15-37 [facility] Thin prep Papanicolaou smear with manual screening 7 5-15 [facility] Absolute lymphocyte counton 12-31-2021 Lymphocytes Auto (Unsp spec) [#/Vol] 2.44 10*3/uL 0.83-4.51 [facility] Work Phone: Basophil percentageon 2021 Basophils/100 WBC (Bld) 1.1 % 0-1 [facility] Work Phone: Bilirubin [Mass/Vol] 0.20 mg/dL 0.20-1.00 [facility] Work Phone: Comment on above: For patients on eltr ombopag therapy, use of Dimension [place] TBIL is not recommended. Chloride [Moles/Vol] 102 mmol/L 98-107 [facility] Work Phone: Eosinophils/100 WBC (Bld) 1.8 % 0-5 [facility] Work Phone: Glucose [Mass/Vol] 151 mg/dL 74-106 [facility] Work Phone: Comment on above: Fasting Glucose resu lt greater than or equal to 126 mg/dL suggests DIABETES MELLITUS per A.D.A. criteria. Neutrophils (Bld) [#/Vol] 4.1 10*3/uL 2.0-7.7 [facility] Work Phone: Neutrophils/100 WBC (Bld) 56.3 % 47-70 [facility] Work Phone: Potassium [Moles/Vol] 5.1 mmol/L 3.5-5.1 [facility] Work Phone: Protein [Mass/Vol] 7.7 g/dL 6.4-8.2 [facility] Work Phone: Sodium [Moles/Vol] 136 mmol/L 136-[facility] Work Phone: WBC (Bld) [#/Vol] 7.3 10*3/uL 4.4-11.0 [facility] Work Phone: Blood erythrocytes count (nu mber/volume)on 12-31-2021 RBC (Bld) [#/Vol] 4.05 10*6/uL 4.2-5.4 [facility]: Blood hemoglobin measurement (mass/volume)on 12-31-2021 Hemoglobin (Bld) [Mass/Vol] 12.2 g/dL 12.0-15.0 [facility] Work Phone: Blood lymphocytes/100 leukoc yteson 12-31-2021 Lymphocytes/100 WBC (Bld) 33.6 % 19-41 [facility] Work Phone: Blood monocytes/100 leukocyt eson 12-31-2021 Monocytes/100 WBC (Bld) 6.9 % 0-10 [facility] Work Phone: Blood platelet mean volumeon 12-31-2021 Platelet mean volume (Bld) [Entitic vol] 9.5 fL 6.2-12.0 [facility] Work Phone: Determination of erythrocyte mean corpuscular volume (MCV)on 12-31-2021 MCV (RBC) [Entitic vol] 95.1 fL 81-99 [facility] Work Phone: Hematocrit Auto (Bld) [Volum e fraction]on 12-31-2021 Hematocrit (Bld) [Volume fraction] 38.5 % 37-47 [facility] Work Phone: Laboratory - Chemistry and C hemistry - challengeon 12-31-2021 ALP [Catalytic activity/Vol] 64 U/L 45-117 [facility] Work Phone: ALT [Catalytic activity/Vol] 26 U/L 13-56 [facility] Work Phone: CO2 [Moles/Vol] 25.0 mmol/L 21.0-32.0 [facility] Work Phone: Globulin (S) [Mass/Vol] 4.4 g/dL 2.2-4.2 [facility] Work Phone: Urea nitrogen/Creatinine [Mass ratio] 24.2 mg/mg 10-20 [facility] Work Phone: Laboratory - Hematology and Cell countson 12-31-2021 Erythrocyte distribution width (RBC) [Entitic vol] 46.6 fL 35.1-43.9 [facility] Work Phone: Erythrocyte distribution width (RBC) [Ratio] 13.3 % 11.6-14.6 [facility] Work Phone: Immature granulocytes/100 WBC (Bld) 0.300 % 0.0-0.9 [facility] Work Phone: Comment on above: IG% - Immature Granu locytes (promyelocytes, myelocytes and metamyelocytes) > 1% indicates that a LEFT SHIFT is Present. MCH (RBC) [Entitic mass] 30.1 pg 27.0-32.0 [facility] Work Phone: Nucleated RBC/100 WBC (Bld) [Ratio] 0 % 0-5 [facility] Work Phone: MCHC Auto (RBC) [Mass/Vol]on 12-31-2021 MCHC (RBC) [Mass/Vol] 31.7 g/dL 32-36 [facility] Work Phone: No Panel Informationon 12-31 Estimated GFR (MDRD) Amer 71 mL/min >60 [facility] Work Phone: Comment on above: GFR Calc Estimated GFR (MDRD) Non-Af Amer 59 mL/min >60 [facility] Work Phone: Comment on above: Non- GFR Calc Thyroid Stimulating Hormone (TSH) 2.15 uIU/mL 0.358-3.74 [facility] Work Phone: Vitamin D 25-Hydroxy 73.4 ng/mL [facility] Work Phone: Comment on above: Vitamin D 25(OH) Sta tus Range Deficiency <20 ng/mL (50nmol/L) Insufficiency 20 - 30 ng/mL (50 - 75 nmol/L) Sufficiency 30 - 100 ng/mL (75 - 250 nmol/L) Toxicity >100 ng/mL (>250 nmol/L) Platelets bldon 12-31-2021 Platelets (Bld) [#/Vol] 373 10*3/uL 150-450 [facility] Work Phone: Serum or plasma albumin rony urement (mass/volume)on 12-31-2021 Albumin [Mass/Vol] 3.3 g/dL 3.2-5.0 [facility] Work Phone: Serum or plasma albumin/glob ulin mass ratioon 12-31-2021 Albumin/Globulin [Mass ratio] 0.8 {ratio} 0.9-2.4 [facility] Work Phone: Serum or plasma calcium rony urement (mass/volume)on 12-31-2021 Calcium [Mass/Vol] 9.4 mg/dL 8.5-10.1 [facility] Work Phone: Serum or plasma creatinine m easurement (mass/volume)on 12-31-2021 Creatinine [Mass/Vol] 0.99 mg/dL 0.55-1.02 [facility] Work Phone: Comment on above: The validity of the calculated GFR & GFRAA in patients over 70 years has not been determined. Clinical correlation is essential. Serum or plasma urea nitroge n measurement (mass/volume)on 12-31-2021 Urea nitrogen [Mass/Vol] 24 mg/dL 7-18 [facility] Work Phone: Thin prep Papanicolaou smear with manual screeningon 12-31-2021 Thin prep Papanicolaou smear with manual screening 17 U/L 15-37 [facility] Work Phone: Thin prep Papanicolaou smear with manual screening 9 5-15 [facility] Work Phone: Encounters Encounter Date Encounter Type Care Provider Facility Start: 03-07-2024 End: 03-07-2024 ambulatory [facility] Facility:[facility] Start: 02-21-2024 End: 02-21-2024 ambulatory [facility] Facility:[facility] Start: 08-17-2023 End: 08-17-2023 ambulatory [facility] Facility:[facility] Start: 02-17-2023 End: 02-17-2023 ambulatory [facility] [employer] Work Phone: Start: 02-17-2023 End: 02-17-[facility]23 [facility] Start: 10-22-2022 End: 10-22-2022 ambulatory [facility] Work Phone: Start: 10-22-2022 End: 10-22-2022 [facility] Start: 07-23-2022 End: 07-23-2022 [facility] Start: 12-31-2021 End: 12-31-2021 ambulatory [facility] Work Phone: Start: 12-31-2021 End: 12-31-2021 [facility] Procedures Date Procedure Procedure Detail Performing Clinician Start: 10-22-2022 Plain x-ray of pelvi s and lower extremity Payers Date Payer Category Payer Medicare [id number] 2023 Self-pay [id number] 2011 Private Health Insurance [employer] [id number] Unknown [id number] Unknown [id number] Unknown [id number] Social History Date Type Detail [facility] Work Phone: Start: 1955 Sex Assigned At Female [facility] Evaluation note Note Date & Type Note Facility Evaluation note No assessment information availa ble [facility] Work Phone: Summary Purpose Family History No Family History Records Found Advance Directives No Advanced Directives Records Found Additional Source Comments Goals (unrecognized section and content) Goals may be documented in a n alternate sectionGoals may be documented in an alternate sectionGoals may be documented in an alternate section Care Teams (unrecognized sec tion and content) Team Status: Active Member Role Status Dates Dr. John Cagle MD Family Provider Active Dr. John Cagle MD Primary Care Provider Active Team Status: Inactive Member Role Status Dates Dr. John Cagle MD Primary Care Provider, Attending Provider Active Team Status: Inactive Member Role Status Dates Dr. John Cagle MD Primary Care Provi micah, Attending Provider, Referring Provider Active INFORMATION SOURCE (unrecogn ized section and content) DATE CREATED AUTHOR 04/06/2024 [facility] FOR RECORDS PERTAINING TO PATIENTS WHO ARE OR HAVE BEEN ENROLLED IN A CHEMICAL DEPENDENCY/SUBSTANCEABUSE PROGRAM, SOME INFORMATION MAY BE OMITTED. This clinical summary was aggregated from multiple sources. Caution should be exercised in using it in the provision of clinical care. This summary normalizes information from multiple sources, and as a consequence, information in this document may materially change the coding, format and clinical context of patient data. In addition, data may be omitted in some cases. CLINICAL DECISIONS SHOULD BE BASED ON THE PRIMARY CLINICAL RECORDS. [employer] [facility]. provides no warranty or guarantee of the accuracy or completeness of information in this document.
[2025-01-02 05:48] LABS: Hematocrit 29.3 % (37-47); Hemoglobin 9.5 g/dL (12.0-15.0); Immature Granulocytes Count 0.040 X10^3/uL (0.0-0.0); Mean Corp Hgb Conc 32.4 g/dL (32-36); Mean Corpuscular Volume 91.8 fL (81-99); Mean Platelet Vol. 9.6 fl (6.2-12.0); NRBC Flagged by Analyzer 0 % (0-5); Platelet Count 312 K/mm3 (150-450); RBC Distribution Width CV 13.5 % (11.6-14.6); RBC Distribution Width SD 45.5 fl (35.1-43.9); Red Blood Count 3.19 M/mm3 (4.2-5.4); White Blood Count 7.0 K/mm3 (4.4-11.0)
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
[2025-01-02 05:57] LABS: Mucous, Urine 0 SEEN /hpf (<or=2+)
[2025-01-02 05:58] LABS: Color, Urine Yellow (Yellow); Glucose, Dipstick Normal (Normal); Ketone-Dipstick Negative (Negative); Leukocyte Esterase-Dipstick 500 /ul (Negative); Nitrite-Dipstick Positive (Negative); Occult Blood-Urine 25 /ul (Negative); Protein-Dipstick 30 mg/dl (Negative); Specific Gravity, Urine 1.020 (1.002-1.030); Urine Bilirubin Dipstick Negative (Negative)
--- NOTE | 2025-01-02 06:03 | CT_ITS ---
EXAM: NONCONTRAST CT SCAN OF THE HEAD CLINICAL HISTORY: Altered mental status COMPARISON: None TECHNIQUE: Serial axial series through the head were obtained without contrast. 2-D coronal and sagittal reformats were then obtained. FINDINGS: Brain: There is no acute large territorial infarct, intracranial hemorrhage, midline shift or mass effect. There are atherosclerotic vascular calcifications involving the bilateral carotid siphons. The sella and pineal gland regions appear unremarkable. There is no evidence of cerebellar tonsillar herniation. Ventricles: There is no acute hydrocephalus. Basilar cisterns are patent. Paranasal sinuses: There is complete opacification of the right maxillary sinus and a portion of the right ethmoid air cells and right frontal sinus. Mucosal thickening is noted in the left maxillary sinus and left aspect of the sphenoid sinus. Mastoid air cells: Well-aerated. Calvarium: The bony calvarium is intact. Orbits: The bilateral globes are symmetric, without retrobulbar compressive mass lesion or hemorrhage. CT/Brain/Head without Contrast IMPRESSION: There is complete opacification of the right maxillary sinus and a portion of t he right ethmoid air cells and right frontal sinus. Mucosal thickening is noted in the left maxillary sinus and left aspect of the sphenoid sinus. No acute intracranial pathology. Reading Location: [facility]
[2025-01-02 06:04] LABS: Acetaminophen (Tylenol) Level < 5.0 ug/mL (8.0-19.0); Alcohol, Blood (Medical)-Serum < 10.1 mg/dL (<=10.0); Salicylate < 0.5 mg/dL (2.8-20.0)
[2025-01-02 06:10] LABS: Magnesium 1.8 mg/dL (1.5-2.2)
[2025-01-02 06:17] LABS: AST(SGOT) 20 U/L (<=31); Alanine Aminotransfer ALT/SGPT 10 U/L (<=34); Albumin, Serum 4.0 g/dL (3.4-4.8); Alkaline Phosphatase 50 U/L (35-104); Anion Gap 16 (5-15); BUN 27 mg/dL (4-19); BUN/Creat Ratio 18.8 RATIO (10-20); Bilirubin, Direct < 0.08 mg/dL (0.00-0.30); Calcium,Total 9.5 mg/dL (7.6-11.0); Carbon Dioxide 21.6 mmol/L (21.0-32.0); Chloride 98 mmol/L (98-108); Estimated Creatinine Clearance 32.24 ml/min (50-250); Globulin 2.7 g/dL (2.2-4.2); Glucose 222 mg/dL (70-99); Potassium 4.5 mmol/L (3.3-5.1)
--- NOTE | 2025-01-02 06:20 | RAD_ITS ---
PROCEDURE: KNEE 3 VIEWS 01/02/2025 REASON FOR EXAM: PAIN TECHNIQUE: Procedure Code: RADPAT Modality: DX Procedure: KNEE 3 VIEWS Left knee three views COMPARISON: None FINDINGS: There is no fracture or dislocation identified there is mild medial joint space narrowing. Mineralization is normal. There is no visible effusion. There is no visible atherosclerosis. RAD/Knee 3 Views IMPRESSION: There is no fracture or dislocation identified. Reading Location: [facility]
--- NOTE | 2025-01-02 06:20 | RAD_ITS ---
PROCEDURE: KNEE 3 VIEWS 01/02/2025 REASON FOR EXAM: PAIN TECHNIQUE: Procedure Code: RADPAT Modality: DX Procedure: KNEE 3 VIEWS Laterality: Right COMPARISON: None FINDINGS: Bones: No fracture or suspicious osseous lesion Joints: Mild narrowing of the medial and posterior patellar joint spaces, the lateral compartment is well-maintained Effusion: No effusion Soft tissues: No suspicious soft tissue swelling or foreign body Other: RAD/Knee 3 Views IMPRESSION: Mild, age consistent changes, no acute abnormalities Reading Location: [id number]
[2025-01-02 06:23] LABS: Ammonia < 10.0 umol/L (11-51)
[2025-01-02 06:24] LABS: Barbiturate Urine NEGATIVE (< 200 ng/mL); Benzodiazepine Urine NEGATIVE (< 200 ng/mL); PCP Urine PRESUMPTIVE POSITIVE (< 25 ng/mL); THC Urine NEGATIVE (< 50 ng/mL)
[2025-01-02 06:40] LABS: Red Blood Cells-Urine 0-5 SEEN /hpf (0-5); Squamous Epithelial Cells - UA 0-5 SEEN /hpf (5-10)
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
--- NOTE | 2025-01-02 16:02 | CHAPLAIN ---
Type of Pastoral Visit _x__ Initial Visit ___ Follow-up Visit ___ On-call Visit ___ General Patient Visit ___ Spiritual Assessment ___ Family Conference ___ Bereavement ___ Rapid Response ___ Code Blue ___ Other (describe below) Pastoral Care Referral From _x__ Patient ___ Family ___ Nurse ___ Physician ___ Collateral Analyst ___ Cigarette Catcher ___ Other (describe below) Sacrament/Intervention _x__ Active listening ___ Anointing ___ Faith ___ Bereavement ___ Communion ___ Priyanka exploration ___ ___ Life review _x__ Prayer ___ Reconciliation ___ Sacrament of Sick _x__ Supportive presence ___ Wedding ___ Other (describe below) Pastoral Comments patient admits to some anxious moments thinking about coming to the hospital but is feeling some better and more settled at this time; pt requests prayer and presence
[2025-01-03 02:59] VITALS: BP 113/60; PULSE 81; RESP 15; TEMP 36.2; O2SAT 100
[2025-01-03 03:00] VITALS: O2SAT 99
[2025-01-03 06:56] LABS: Hematocrit 29.6 % (37-47); Hemoglobin 9.5 g/dL (12.0-15.0); Immature Granulocytes Count 0.010 X10^3/uL (0.0-0.0); Mean Corp Hgb Conc 32.1 g/dL (32-36); Mean Corpuscular Volume 91.9 fL (81-99); Mean Platelet Vol. 9.3 fl (6.2-12.0); NRBC Flagged by Analyzer 0 % (0-5); Platelet Count 302 K/mm3 (150-450); RBC Distribution Width CV 13.5 % (11.6-14.6); RBC Distribution Width SD 45.4 fl (35.1-43.9); Red Blood Count 3.22 M/mm3 (4.2-5.4); White Blood Count 6.0 K/mm3 (4.4-11.0)
[2025-01-03 07:45] LABS: Anion Gap 11 (5-15); BUN 20 mg/dL (4-19); BUN/Creat Ratio 22.1 RATIO (10-20); Calcium,Total 9.1 mg/dL (7.6-11.0); Carbon Dioxide 25.6 mmol/L (21.0-32.0); Chloride 100 mmol/L (98-108); Estimated Creatinine Clearance 50.75 ml/min (50-250); Glucose 159 mg/dL (70-99); Potassium 4.0 mmol/L (3.3-5.1)
[2025-01-03 08:10] VITALS: BP 134/63; PULSE 80; RESP 16; TEMP 37; O2SAT 100
--- NOTE | 2025-01-03 09:22 | PN.HOSP_ITS ---
Subjective Subjective Doing much better today, still little bit confused, she tells 2025 however much better than when she presented to the ER yesterday morning Objective Data Objective Data Vital Signs: Vital Signs Temp Pulse Resp BP Pulse Ox O2 Del Method 98.6 F 80 16 134/63 H 100 Room Air 01/03/25 08:10 01/03/25 08:10 01/03/25 08:10 01/03/25 08:10 01/03/25 08:10 01/03/25 08:13 Oxygen Delivery Method Room Air Weight: 125 lb 0.034 oz Body Mass Index (BMI) 20.7 Intake & Output: Intake and Output for Last 24 Hours 01/02/25 01/03/25 01/04/25 03:59 03:59 03:59 Intake Total 110 / 110 Balance 110 / 110 Lab / Micro Data 01/03/25 06:22 01/03/25 06:22 Labs: Laboratory Results - last 24 hr 01/02/25 15:55: POC Glucose 111 H 01/02/25 20:50: POC Glucose 224 H 01/03/25 06:18: POC Glucose 158 H 01/03/25 06:22: WBC 6.0, RBC 3.22 L, Hgb 9.5 L, Hct 29.6 L, MCV 91.9, MCH 29.5, MCHC 32.1, RDW Std Deviation 45.4 H, RDW Coeff of Radha 13.5, Plt Count 302, MPV 9.3, Immature Gran % (Auto) 0.200, Neut % (Auto) 58.3, Lymph % (Auto) 27.5, [place] % (Auto) 8.7, Eos % (Auto) 4.3, Baso % (Auto) 1.0, Absolute Neuts (auto) 3.5, Absolute Lymphs (auto) 1.65, Nucleated RBC % 0, Sodium 137, Potassium 4.0, Chloride 100, Carbon Dioxide 25.6, Anion Gap 11, BUN 20 H, Creatinine 0.91, Estim Creat Clear Calc 50.75, Est GFR (MDRD) Non-Af 68, BUN/Creatinine Ratio 22.1 H, Glucose 159 H, Calcium 9.1 Physical Exam Narrative General: Alert, Oriented x2, Cooperative, No apparent distress HEENT: Atraumatic, PERRLA, EOMI, Normocephalic Oral: Moist Mucosa Neck: Supple, No JVD Lungs: Diminished, Normal air movement, No rhonchi, No wheeze, No rales Cardiovascular: Regular rate, Regular Rhythm, Normal S1, Normal S2, No murmurs Abdomen: Soft, Non Tender, Non-Distended, No Hepato-splenomegaly Extremities: No edema, Capillary Refill Less than 3 Seconds Skin: No rashes, No breakdown Musculoskeletal: No Tenderness to Palpation of Joints or Extremities Neurological: No focal neurological deficits, moves all extremities Psych/Mental Status: Normal Affect, Appropriate Assessment & Plan Assessment/Plan (1) Urinary tract infection: (2) Altered mental status: PLAN: Plan 1. Acute metabolic encephalopathy secondary to UTI ? Continue with Rocephin, not septic ? Urine cultures pending ? Consult case management for discharge planning ?Encephalopathy has essentially resolved 2. DM2 ? Hold her home medications ? Sliding scale insulin ? Accu-Cheks ACHS ? Will monitor make adjustments as necessary 3. Hyperlipidemia ? Stable ? Continue with statin 4. Hypothyroidism ? Stable Continue Synthroid 5. Anxiety/depression ? Stable ? Continue with her home medications DVT: Lovenox Charges/Coding Visit Charges Inpatient E&M: 27933 Subs Hosp L2
[2025-01-03] MEDS: buPROPion (XL) 300 MG TABLET.XL PO (09:51)
[2025-01-03] MEDS: 0.9% Saline Lock 10 ML Syringe IV (09:51)
[2025-01-03] MEDS: 0.9% Normal Saline (250mL Bag) 250 ML 15 ML IV (09:51)
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
--- NOTE | 2025-01-03 13:35 | CASEMGMT ---
Addendum entered by Heather Powers 01/03/25 14:29: Provided pt with medic alert information at this time. Original Note: RN CM into pt room, pt dtr visiting. Discussed options with pt and dtr. Pt is adamant to return home. She denies any services. Pt and dtr are agreeable to taking medic alert information. Pt states she feels that it is time to give up driving. Pt and dtr discussed pt moving her bedroom downstairs where pt has a full bathroom. Pt is agreeable to doing this at some point. Pt and dtr deny any further needs at this time.
[2025-01-03 14:25] VITALS: BP 92/63; PULSE 84; RESP 16; TEMP 36.9; O2SAT 99
[2025-01-03 20:40] VITALS: BP 119/57; PULSE 78; RESP 17; TEMP 36.9; O2SAT 100
[2025-01-04 00:39] VITALS: BP 130/48; PULSE 80; RESP 16; TEMP 36.7; O2SAT 100
[2025-01-04 06:30] VITALS: BP 129/65; PULSE 77; RESP 15; TEMP 36.7; O2SAT 100
[2025-01-04] MEDS: 0.9% Saline Lock 10 ML Syringe IV ×2 (06:30→10:27)
[2025-01-04 08:16] VITALS: BP 147/63; PULSE 80; RESP 16; TEMP 36.7; O2SAT 100
[2025-01-04] MEDS: Glucerna Shake 120 ML LIQUID PO ×2 (08:43→11:16)
--- NOTE | 2025-01-04 10:00 | DCINST_ITS ---
Discharge Instructions DC O2, CPAP, BIPAP needs Home O2 Discharge instructions: No Dressing / Incision Discharge Activity: Return to Normal Activity Dressing / Incision Call your doctor if you observe: Fever of 101 or Higher, Shortness of breath, Dizziness, Fainting spells, Swelling in the ankles, Chest pain and Increased palpitations (irregular heartbeat) Follow Up Care Test Results: Test results from this visit will be discussed in further detail at your follow- up appointment, if applicable. Discharge Plan Admission Admit Date/Time: 01/02/25 09:37 Attending Provider: Colby Mendoza Primary Care Provider: John Cagle Chi Discharge Orders/Prescriptions Prescriptions: New cefdinir 300 mg capsule 300 mg PO BID 4 Days Qty: 8 0RF Continued bupropion HCl 300 mg tablet extended release 24 hr 300 mg PO DAILY levothyroxine 25 mcg tablet 25 mcg PO DAILY pioglitazone 30 mg tablet 30 mg PO DAILY pravastatin 40 mg tablet 40 mg PO DAILY metformin 1,000 mg tablet 1,000 mg PO BID venlafaxine 150 mg capsule,extended release 24hr 300 mg PO QHS Referrals / Follow Up: John Cagle Chi, MD [Primary Care Provider, Geriatrics] - Within 1 Week Disposition Disposition (needs filled in before D/C Order can be placed): Home, Self Care
[2025-01-04] MEDS: buPROPion (XL) 300 MG TABLET.XL PO (10:29)
--- NOTE | 2025-01-04 10:57 | PHA.DC.COU.R ---
Pharmacy [facility] has performed discharge medication counseling for this patient. The patient was counseled on the following discharge medications and changes in medications for homegoing review. - Cefdinir 300 mg capsule The Reason for Use, instructions for use, and potential side effects were reviewed for all new medications. The patient's questions regarding all of their medications were answered. The patient was able to verbally demonstrate an understanding of their discharge medications. Medications at Discharge Home Medications bupropion HCl 300 mg 24 hr tablet, extended release 300 mg PO DAILY Dep 01/02/25 levothyroxine 25 mcg tablet 25 mcg PO DAILY thyroid 01/02/25 metformin 1,000 mg tablet 1,000 mg PO BID DM 01/02/25 pioglitazone 30 mg tablet 30 mg PO DAILY DM 01/02/25 pravastatin 40 mg tablet 40 mg PO DAILY cholesterol 01/02/25 venlafaxine 150 mg capsule,extended release 24 hr 300 mg PO QHS ANXIETY 01/02/25 cefdinir 300 mg capsule 300 mg PO BID 4 days #8 caps 01/04/25
--- NOTE | 2025-01-04 13:08 | CASEMGMT ---
Spoke with Pt regarding eval. RN CM into pt room, pt sitting up in chair and dtr at bedside. Pt is declining any type of therapy, states she will be fine once home. Pt very adamant about the happenings in the last couple of days. Pt dtr expressed concerns regarding pt confusion. She is aware that it is recommended for someone to be with pt at all times for safety. Pt states she does not want anyone at her home all the time. Pt dtr interested in private duty options, provided. Discussed AL options and pt adamantly denied need for this. Pt and dtr deny any further questions. Pt ready for dc.
--- NOTE | 2025-01-04 15:01 | PCM.DC.SUM ---
Providers Date of Admission: 01/02/25 Primary Care Physician: Dr. John Cagle MD Reason For Visit: UTI WITH AMS Diagnosis Discharge Diagnosis (1) Urinary tract infection: Status: Acute Code(s): N39.0 - Urinary tract infection, site not specified (2) Altered mental status: Status: Acute Code(s): R41.82 - Altered mental status, unspecified Medications at Discharge Home Medications bupropion HCl 300 mg 24 hr tablet, extended release 300 mg PO DAILY Dep 01/02/25 levothyroxine 25 mcg tablet 25 mcg PO DAILY thyroid 01/02/25 metformin 1,000 mg tablet 1,000 mg PO BID DM 01/02/25 pioglitazone 30 mg tablet 30 mg PO DAILY DM 01/02/25 pravastatin 40 mg tablet 40 mg PO DAILY cholesterol 01/02/25 venlafaxine 150 mg capsule,extended release 24 hr 300 mg PO QHS ANXIETY 01/02/25 cefdinir 300 mg capsule 300 mg PO BID 4 days #8 caps 01/04/25 Hospital Course Operations None Procedures None Summary of Care Provided Minutes Spent on Discharge: 36 Hospital Course: Per HPI: ABBY JAEGER, is a 69 F who presents to the hospital confused and found wandering the streets. She did not know where her house was and she was making statements that her nephew had been kidnapped when in fact he was in OB with his for the of his child. According to family this is not her baseline and that she is slowly becoming more confused over the last week. In the emergency room she had a white count of 7 but was found to have a UTI on UA. And given her confusion and her altered mental status she was started on Rocephin. Urine cultures pending. She does appear little bit dry with a creatinine of 1.44 though her baseline is 1.07 so does not meet criteria for an NILDA. Ammonia was less than 10 and her TSH was 4.42. Tox screen was also negative. Hospital Course: 1. Acute metabolic encephalopathy secondary to UTI? 69-year-old female presented to the hospital with acute metabolic encephalopathy. The initial impetus in the emergency room was to consult [facility] given her behaviors, as she was found wandering and could not figure out where her home was. Urine analysis in the emergency room was significant for UTI, cultures showed a mixed rosey as well as E. coli 1000-10,000 CFU's however she had received 2 doses of antibiotics with significant improvement in her mental status therefore elected to continue to treat her with cefdinir 300 mg p.o. twice daily for 4 more days to complete treatment. I discussed with her the plan for discharge today she expressed understanding of the risks and benefits of going home and would like to go home today, I do feel like she may be better served with staying with one of her children for the weekend prior to going home alone however with physical therapy standpoint she does not meet criteria for SNF. I do recommend that she follow-up with her PCP in 3 to 5 days. 2. Type 2 diabetes, hyperlipidemia, hypothyroidism, anxiety, depression are all chronic medical conditions which complicate her care. Her home medications were continued where appropriate. Physical Exam Narrative General: Alert, Oriented x3, Cooperative, No apparent distress HEENT: Atraumatic, PERRLA, EOMI, Normocephalic Oral: Moist Mucosa Neck: Supple, No JVD Lungs: Diminished, Normal air movement, No rhonchi, No wheeze, No rales Cardiovascular: Regular rate, Regular Rhythm, Normal S1, Normal S2, No murmurs Abdomen: Soft, Non Tender, Non-Distended, No Hepato-splenomegaly Extremities: No edema, Capillary Refill Less than 3 Seconds Skin: No rashes, No breakdown Musculoskeletal: No Tenderness to Palpation of Joints or Extremities Neurological: No focal neurological deficits, moves all extremities Psych/Mental Status: Normal Affect, Appropriate Weight / BMI Weight Weight: 125 lb 0.034 oz Body Mass Index (BMI) 20.7 ABG / Lab / Microbiology Data 01/03/25 06:22 01/03/25 06:22 Laboratory: Laboratory Results - last 24 hr 01/03/25 16:27: POC Glucose 125 H 01/03/25 21:40: POC Glucose 145 H 01/04/25 06:33: POC Glucose 201 H 01/04/25 11:14: POC Glucose 204 H Microbiology: Microbiology 01/02/25 05:45 Urine, Clean Catch Urine Culture - Final Presumptive E. coli Mixed Gram Positive Organisms D/C Instructions Call your doctor if you observe: Fever of 101 or Higher, Shortness of breath, Dizziness, Fainting spells, Swelling in the ankles, Chest pain and Increased palpitations (irregular heartbeat) DC O2, CPAP, BIPAP Needs Home O2 Discharge instructions: No Meaningful Use Info Meaningful Use Meaningful Use Diagnoses (Choose all that apply): None applicable Discharge Plan Admission Admit Date/Time: 01/02/25 09:37 Attending Provider: Colby Mendoza Primary Care Provider: John Cagle Chi Discharge Orders/Prescriptions Prescriptions: New cefdinir 300 mg capsule 300 mg PO BID 4 Days Qty: 8 0RF Continued bupropion HCl 300 mg tablet extended release 24 hr 300 mg PO DAILY levothyroxine 25 mcg tablet 25 mcg PO DAILY pioglitazone 30 mg tablet 30 mg PO DAILY pravastatin 40 mg tablet 40 mg PO DAILY metformin 1,000 mg tablet 1,000 mg PO BID venlafaxine 150 mg capsule,extended release 24hr 300 mg PO QHS Referrals / Follow Up: John Cagle Chi, MD [Primary Care Provider, Geriatrics] - Within 1 Week Disposition Disposition (needs filled in before D/C Order can be placed): Home, Self Care Charges/Coding Visit Charges Inpatient E&M: 58580 Disch Hosp >30min
== END 2025-01-04 13:28 | disposition home or self-care (01) | DRG 689 ==
LOC: ED 05:57 → MS3 09:47
PROVIDERS: Admitting Provider Family Medicine; Emergency Provider Emergency Medicine; PCP Family Medicine Geriatric Medicine; Visit Provider Family Medicine
DX: N39.0 Urinary tract infection, site not specified (principal); G93.41 Metabolic encephalopathy; E11.9 Type 2 diabetes mellitus without complications; E03.9 Hypothyroidism, unspecified; F32.A Depression, unspecified; E78.5 Hyperlipidemia, unspecified; S80.211A Abrasion, right knee, initial encounter; S80.212A Abrasion, left knee, initial encounter; F41.9 Anxiety disorder, unspecified; W19.XXXA Unspecified fall, initial encounter; S00.81XA Abrasion of other part of head, initial encounter; Z87.891 Personal history of nicotine dependence; Z79.84 Long term (current) use of oral hypoglycemic drugs
CPT/HCPCS: 36415; 70450; 73562; 80048; 80076; 80143; 80179; 80307; 81001; 82077; 82140; 82962; 83735; 84443; 85025; 87086; 87088; 97161; 97166; 97802; 99283; A4216; J2405

== ENCOUNTER → 2025-01-13 | Outpatient (CLI) | payer MEDICARE, SELFPAY ==
--- OUTSIDE RECORDS SUMMARY | 2025-01-13 10:19 | XMS RPT_ITS | CCD ---
Author Organization [facility] CliniSyfl Care Team Providers Care Remarketing Manager Name Role Phone Colby Mendoza Admitting Unavailable Gurjit, John Chi Primary Care Unavailable Colby Mendoza Consulting Unavailable Colby Mendoza Attending Unavailable Colby Mendoza Admitting Unavailable Gurjit, John Chi Primary Care Unavailable Colby Mendoza Attending Unavailable DY, FERNIE Attending Unavailable DY, FERNIE Referring Unavailable Gurjit, John Chi Primary Care Unavailable Gurjit, John Chi Attending Unavailable Gurjit, John Chi Primary Care Unavailable Colby Mendoza Admitting Unavailable Gurjit, John Chi Primary Care Unavailable Colby Mendoza Consulting Unavailable Colby Mendoza Attending Unavailable Gurjit, John Chi Primary Care Unavailable Colby Mendoza Admitting Unavailable Colby Mendoza Consulting Unavailable Colby Mendoza Attending Unavailable GurjitDr. John alonso MD, Chi Primary Care Physician [phone] Dr. David Lemos DO Emergency Department Physic yu Dr. Colby Mendoza MD Admitting Physician Dr. Colby Mendoza MD Attending Physician Dr. Colby Mendoza MD Nurse Practitioner Allergies Allergy Classification Reported Allergen(s) Allergy Type Date of Onset Reaction(s) Facility (5 sources) Penicillins Allergy to substance 12-01-2017 Rash [facility] Comment on above: TOLERATED ER CEFTRIA XONE 01/02/25 (1 source) Penicillins Drug allergy (disorder) 01-02-2025 [facility] Repository Medications Current Medications Medication Drug Class(es) Dates Sig (Normalized) Sig (Original) 24 hr buPROPion hydrochloride 300 mg extended release oral tablet (2 sources) Aminoketone Start: 01-02-2025 take 1 tablet by mouth once daily cefdinir 300 mg oral capsule (2 sources) Cephalosporin Antibacterial Start: 01-04-2025 take 1 capsule by mouth twice daily Start: 01-04-2025 take 1 capsule by mouth twice daily levothyroxine sodium 0.025 mg oral tablet (2 sources) l-Thyroxine Start: 01-02-2025 take 1 tablet by mouth once daily metFORMIN hydrochloride 1000 mg oral tablet (2 sources) Biguanide Start: 01-02-2025 take 1 tablet by mouth twice daily pioglitazone 30 mg oral tablet (2 sources) Peroxisome Proliferator Receptor alpha Agonist, Peroxisome Proliferator Receptor gamma Agonist, Thiazolidinedione Start: 01-02-2025 take 1 tablet by mouth once daily pravastatin sodium 40 mg oral tablet (2 sources) HMG-CoA Reductase Inhibitor Start: 01-02-2025 take 1 tablet by mouth once daily 24 hr venlafaxine 150 mg extended release oral capsule (2 sources) Serotonin and Norepinephrine Reuptake Inhibitor Start: 01-02-2025 take 1 capsule by mouth every twenty-four hours at bedtime Problems Problem Classification Problem Date Documented Da te Episodic/Chronic Disorders of lipid metabolism (1 source) Hyperlipidemia, unspecified; Translations: [Hyperlipidemia, unspecified] Onset: 03-20-2024 Chronic Mood disorders (1 source) Major depressive disorder, recurrent, moderate; Translations: [Major depressive disorder, recurrent, moderate] Onset: 04-04-2024 Chronic Residual codes; unclassified (2 sources) Altered mental status, unspecified; Translations: [Altered mental status, unspecified] Onset: 01-04-2025 Episodic Residual codes; unclassified (4 sources) Altered mental status; Translations: [Altered mental status, unspecified] 01-02-2025 Episodic Urinary tract infections (6 sources) Urinary tract infection, site not specified; Translations: [Urinary tract infectious disease] Onset: 01-04-2025 01-02-2025 Episodic Results Test Name Value Interpretation Reference Range Facility Bedside Glucoseon 01-04-2025 FINGERSTICK GLU 204 mg/dL High 74-106 [facility] Comment on above: Result Comment: WOODY MERINO OF PATIENT CARE PER NURSING PROTOCOL Performed By: #### L 501.9520, L501.9985, L500.4100, L100.0100, L502.0500, L500.4050, L506.1000 #### [facility] [address] [place], [address] FINGERSTICK GLU 201 mg/dL High 74-106 [facility] Comment on above: Result Comment: WOODY MERINO OF PATIENT CARE PER NURSING PROTOCOL Performed By: #### L [id number], L501.9985, L500.4100, L100.0100, L502.0500, L500.4050, L506.1000 #### [facility] [address] [place], [address] Discharge Instructionon 12-12 Discharge Instruction [facility] Medical Records Department [address] [place] [address] Instructions for Home/Discharge Instructions 01/04/25 1000 MR#: [id number] Acct: [id number] Name: ABBY JAEGER Rep #: [id number] : 1955 69 From: Colby Mendoza MD PCP: Dr. John Cagle MD Status:ADM IN Discharge Instructions DC O2, CPAP, BIPAP needs Home O2 Discharge instructions: No Dressing / Incision Discharge Activity: Return to Normal Activity Dressing / Incision Call your doctor if you observe: Fever of 101 or Higher, Shortness of breath, Dizziness, Fainting spells, Swelling in the ankles, Chest pain and Increased palpitations (irregular heartbeat) Follow Up Care Test Results: Test results from this visit will be discussed in further detail at your follow-up appointment, if applicable. Discharge Plan Admission Admit Date/Time: 01/02/25 09:37 Attending Provider: Colby Mendoza Primary Care Provider: John Cagle Chi Discharge Orders/Prescriptions Prescriptions: New cefdinir 300 mg capsule 300 mg PO BID 4 Days Qty: 8 0RF Continued bupropion HCl 300 mg tablet extended release 24 hr 300 mg PO DAILY levothyroxine 25 mcg tablet 25 mcg PO DAILY pioglitazone 30 mg tablet 30 mg PO DAILY pravastatin 40 mg tablet 40 mg PO DAILY metformin 1,000 mg tablet 1,000 mg PO BID venlafaxine 150 mg capsule,extended release 24hr 300 mg PO QHS Referrals / Follow Up: John Cagle Chi, MD [Primary Care Provider, Geriatrics] - Within 1 Week Disposition Disposition (needs filled in before D/C Order can be placed): Home, Self Care 01/04/25 1004 Colby Mendoza MD CC: Dr. John Cagle MD Signed Normal [facility] Glucose measurement at [facility] deOrdered By: Colby Mendoza on 01-04-2025 Glucose [Mass/Vol] 204 mg/dL High 74-106 [facility] Comment on above: MANAGEMENT OF PATIEN T CARE PER NURSING PROTOCOL Urine Cultureon 01-04-2025 URC #1 Below infection level. Presumptive E. coli [place] Count 1000-10,000 Mixed Gram Positive Organisms Mixed Gram Positive Organisms MIXC Mixed contaminants. Submit a new specimen if indicated. Normal [facility] Comment on above: Performed By: #### L 501.9520, L501.9985, L500.4100, L100.0100, L502.0500, L500.4050, L506.1000 #### [facility] [address] [place], [address] Absolute lymphocyte countOrd ered By: Colby Mendoza on 01-03-2025 Lymphocytes Auto (Unsp spec) [#/Vol] 1.65 10*3/uL 0.83-4.51 [facility] Absolute neutrophil countOrd ered By: Colby Mendoza on 01-03-2025 Neutrophils (Bld) [#/Vol] 3.5 10*3/uL 2.0-7.7 [facility] Anion gap in Serum or Plasma Ordered By: Colby Mendoza on 01-03-2025 Anion gap [Moles/Vol] 11 mmol/L 5-[address] [facility] Automated lymphocyte count a s percentage of total leukocytesOrdered By: Colby Mendoza on 01-03-2025 Lymphocytes/100 WBC Auto (Unsp spec) 27.5 % 19-41 [facility] BUN/creatinine ratioOrdered By: Colby Mendoza on 01-03-2025 Urea nitrogen/Creatinine [Mass ratio] 22.1 mg/mg High 01-29 [facility] Basic Metabolic Profile (BMP )on 01-03-2025 BUN/CRE 22.1 RATIO High 01-29 [facility] Comment on above: Performed By: #### L 501.9520, L501.9985, L500.4100, L100.0100, L502.0500, L500.4050, L506.1000 #### [facility] [address] [place], [address] Calcium [Mass/Vol] 9.1 mg/dL Normal 7.6-11.0 [facility] Comment on above: Performed By: #### L 501.9520, L501.9985, L500.4100, L100.0100, L502.0500, L500.4050, L506.1000 #### [facility] [address] [place], [address] Chloride [Moles/Vol] 100 mmol/L Normal 98-108 [facility] Comment on above: Performed By: #### L 501.9520, L501.9985, L500.4100, L100.0100, L502.0500, L500.4050, L506.1000 #### [facility] [address] [place], [address] CO2 [Moles/Vol] 25.6 mmol/L Normal 21.0-32.0 [facility] Comment on above: Performed By: #### L 501.9520, L501.9985, L500.4100, L100.0100, L502.0500, L500.4050, L506.1000 #### [facility] [address] [place], [address] Creatinine [Mass/Vol] 0.91 mg/dL Normal 0.70-1.[address] [facility] Comment on above: Performed By: #### L 501.9520, L501.9985, L500.4100, L100.0100, L502.0500, L500.4050, L506.1000 #### [facility] [address] [place], [address] ECRCL 50.75 ml/min Normal 50-250 [facility] Comment on above: Performed By: #### L 501.9520, L501.9985, L500.4100, L100.0100, L502.0500, L500.4050, L506.1000 #### [facility] [address] [place], [address] GAP 11 Normal 5-15 [facility] Comment on above: Performed By: #### L 501.9520, L501.9985, L500.4100, L100.0100, L502.0500, L500.4050, L506.1000 #### [facility] [address] [place], [address] GFR/1.73 sq M.predicted among non-blacks MDRD (S/P/Bld) [Vol rate/Area] 68 mL/min/{1.73_m2} Normal >60 [facility] Comment on above: Result Comment: mL/m in/1.73m2 CKD-EPI Creatinine Equation (2020) Performed By: #### L 501.9520, L501.9985, L500.4100, L100.0100, L502.0500, L500.4050, L506.1000 #### [facility] [address] [place], [address] Glucose [Mass/Vol] 159 mg/dL High 70-99 [facility] Comment on above: Performed By: #### L 501.9520, L501.9985, L500.4100, L100.0100, L502.0500, L500.4050, L506.1000 #### [facility] [address] [place], [address] Potassium [Moles/Vol] 4.0 mmol/L Normal 3.3-5.[address] [facility] Comment on above: Performed By: #### L 501.9520, L501.9985, L500.4100, L100.0100, L502.0500, L500.4050, L506.1000 #### [facility] [address] [place], [address] Sodium [Moles/Vol] 137 mmol/L Normal 133-145 [facility] Comment on above: Performed By: #### L 501.9520, L501.9985, L500.4100, L100.0100, L502.0500, L500.4050, L506.1000 #### [facility] [address] [place], [address] Urea nitrogen [Mass/Vol] 20 mg/dL High 4-19 [facility] Comment on above: Performed By: #### L 501.9520, L501.9985, L500.4100, L100.0100, L502.0500, L500.4050, L506.1000 #### [facility] [address] [place], [address] Basophil percentageOrdered B y: Colby Mendoza on 01-03-2025 Basophils/100 WBC (Bld) 1.0 % 0-1 [facility] Bedside Glucoseon 01-03-2025 FINGERSTICK GLU 145 mg/dL High 74-106 [facility] Comment on above: Result Comment: WOODY MERINO OF PATIENT CARE PER NURSING PROTOCOL Performed By: #### L 501.9520, L501.9985, L500.4100, L100.0100, L502.0500, L500.4050, L506.1000 #### [facility] [address] [place], [address] FINGERSTICK GLU 125 mg/dL High 74-106 [facility] Comment on above: Result Comment: WOODY GEMENT OF PATIENT CARE PER NURSING PROTOCOL Performed By: #### L 501.9520, L501.9985, L500.4100, L100.0100, L502.0500, L500.4050, L506.1000 #### [facility] [address] [place], [address] FINGERSTICK GLU 181 mg/dL High 74-106 [facility] Comment on above: Result Comment: WOODY GEMENT OF PATIENT CARE PER NURSING PROTOCOL Performed By: #### L 501.9520, L501.9985, L500.4100, L100.0100, L502.0500, L500.4050, L506.1000 #### [facility] [address] [place], [address] FINGERSTICK GLU 158 mg/dL High 74-106 [facility] Comment on above: Result Comment: WOODY GEMENT OF PATIENT CARE PER NURSING PROTOCOL Performed By: #### L 501.080 #### [facility] [address] [place], [address] CBC W/Diff, Automatedon 09-2 -2024 Absolute Lymph 1.65 X10 3/uL Normal 0.83-4.51 [facility] Comment on above: Performed By: #### L 500.2500, L100.0100 #### [facility] [address] [place], [address] Absolute Neut 3.5 X10 3/uL Normal 2.0-7.7 [facility] Comment on above: Performed By: #### L 500.2500, L100.0100 #### [facility] [address] [place], [address] Basophils/100 WBC (Bld) 1.0 % Normal 0-1 [facility] Comment on above: Performed By: #### L 500.2500, L100.0100 #### [facility] [address] [place], [address] Eosinophils/100 WBC (Bld) 4.3 % Normal 0-5 [facility] Comment on above: Performed By: #### L 500.2500, L100.0100 #### [facility] [address] [place], [address] Erythrocyte distribution width (RBC) [Ratio] 13.5 % Normal 11.6-14.6 [facility] Comment on above: Performed By: #### L 500.2500, L100.0100 #### [facility] [address] [place], [address] Hematocrit (Bld) [Volume fraction] 29.6 % Low 37-47 [facility] Comment on above: Performed By: #### L 500.2500, L100.0100 #### [facility] [address] [place], [address] Hemoglobin (Bld) [Mass/Vol] 9.5 g/dL Low 12.0-15.0 [facility] Comment on above: Performed By: #### L 500.2500, L100.0100 #### [facility] [address] [place], [address] IG% 0.200 Normal 0.0-0.9 [facility] Comment on above: Result Comment: IG% - Immature Granulocytes (promyelocytes, myelocytes and metamyelocytes) > 1% indicates that a LEFT SHIFT is Present. Performed By: #### L 500.2500, L100.0100 #### [facility] [address] [place], [address] Lymphocytes/100 WBC (Bld) 27.5 % Normal 19-41 [facility] Comment on above: Performed By: #### L 500.2500, L100.0100 #### [facility] [address] [place], [address] MCH (RBC) [Entitic mass] 29.5 pg Normal 27.0-32.0 [facility] Comment on above: Performed By: #### L 500.2500, L100.0100 #### [facility] [address] [place], [address] MCHC (RBC) [Mass/Vol] 32.1 g/dL Normal 32-[address] [facility] Comment on above: Performed By: #### L 500.2500, L100.0100 #### [facility] [address] [place], [address] MCV (RBC) [Entitic vol] 91.9 fL Normal 81-99 [facility] Comment on above: Performed By: #### L 500.2500, L100.0100 #### [facility] [address] [place], [address] Monocytes/100 WBC (Bld) 8.7 % Normal 0-10 [facility] Comment on above: Performed By: #### L 500.2500, L100.0100 #### [facility] [address] [place], [address] Neutrophils/100 WBC (Bld) 58.3 % Normal 47-70 [facility] Comment on above: Performed By: #### L 500.2500, L100.0100 #### [facility] [address] [place], [address] Nucleated RBC (Bld) [#/Vol] 0 10*3/uL Normal 0-5 [facility] Comment on above: Performed By: #### L 500.2500, L100.0100 #### [facility] [address] [place], [address] Platelet mean volume (Bld) [Entitic vol] 9.3 fL Normal 6.2-12.0 [facility] Comment on above: Performed By: #### L 500.2500, L100.0100 #### [facility] [address] [place], [address] Platelets (Bld) [#/Vol] 302 10*3/uL Normal 150-450 [facility] Comment on above: Performed By: #### L 500.2500, L100.0100 #### [facility] [address] [place], [address] RBC (Bld) [#/Vol] 3.22 10*6/uL Low 4.2-5.4 [facility] Comment on above: Performed By: #### L 500.2500, L100.0100 #### [facility] [address] [place], [address] RDW SD 45.4 fl High 35.1-43.9 [facility] Comment on above: Performed By: #### L 500.2500, L100.0100 #### [facility] [address] [place], [address] WBC (Bld) [#/Vol] 6.0 10*3/uL Normal 4.4-11.0 [facility] Comment on above: Performed By: #### L 500.2500, L100.0100 #### [facility] [address] [place], [address] Carbon dioxide, total [Moles /volume] in Central venous bloodOrdered By: Colby Mendoza on 01-03-2025 CO2 [Moles/Vol] 25.6 mmol/L 21.0-32.0 [facility] Chloride assayOrdered By: Kailey Mendoza on 01-03-2025 Chloride [Moles/Vol] 100 mmol/L 98-108 [facility] Eosinophil percentageOrdered By: Colby Mendoza on 01-03-2025 Eosinophils/100 WBC (Bld) 4.3 % 0-5 [facility] Erythrocyte distribution wid th ratioOrdered By: Colby Mendoza on 01-03-2025 Erythrocyte distribution width (RBC) [Ratio] 13.5 % 11.6-14.6 [facility] Erythrocyte distribution wid th standard deviationOrdered By: Colby Mendoza on 01-03-2025 Erythrocyte distribution width (RBC) [Ratio] 45.4 fl High 35.1-43.9 [facility] Glomerular filtration rate ( GFR) estimation/1.73 sq m using serum, plasma, or whole bOrdered By: Colby Mendoza on 01-03-2025 GFR/1.73 sq M.predicted among non-blacks MDRD (S/P/Bld) [Vol rate/Area] 68 mL/min/{1.73_m2} >60 [facility] Comment on above: mL/min/1.73m2 CKD-EP I Creatinine Equation (2020) Hematocrit Auto (Bld) [Volum e fraction]Ordered By: Colby Mendoza on 01-03-2025 Hematocrit (Bld) [Volume fraction] 29.6 % Low 37-47 [facility] Hemoglobin measurementOrdere d By: Colby Mendoza on 01-03-2025 Hemoglobin (Bld) [Mass/Vol] 9.5 g/dL Low 12.0-15.0 [facility] Immature granulocytes/100 WB C Auto (Bld)Ordered By: Colby Mendoza on 01-03-2025 Immature granulocytes/100 WBC (Bld) 0.200 % 0.0-0.9 [facility] Comment on above: IG% - Immature Granu locytes (promyelocytes, myelocytes and metamyelocytes) > 1% indicates that a LEFT SHIFT is Present. MCV (mean corpuscular volume ) determinationOrdered By: Colby Mendoza on 01-03-2025 MCV (RBC) [Entitic vol] 91.9 fL 81-99 [facility] Mean corpuscular hemoglobin (MCH) determinationOrdered By: Colby Mendoza on 01-03-2025 MCH (RBC) [Entitic mass] 29.5 pg 27.0-32.0 [facility] Mean corpuscular hemoglobin concentration (MCHC) determinationOrdered By: Colby Mendoza on 01-03-2025 MCHC (RBC) [Mass/Vol] 32.1 g/dL 32-[address] [facility] Mean platelet volume determi nationOrdered By: Colby Mendoza on 01-03-2025 Platelet mean volume (Bld) [Entitic vol] 9.3 fL 6.2-12.0 [facility] Monocyte percentageOrdered B y: Colby Mendoza on 01-03-2025 Monocytes/100 WBC (Bld) 8.7 % 0-10 [facility] Neutrophil percentageOrdered By: Colby Mendoza on 01-03-2025 Neutrophils/100 WBC (Bld) 58.3 % 47-70 [facility] Nucleated red blood cell per centageOrdered By: Colby Mendoza on 01-03-2025 Nucleated RBC/100 WBC (Bld) [Ratio] 0 % 0-5 [facility] Platelet countOrdered By: Kailey Mendoza on 01-03-2025 Platelets (Bld) [#/Vol] 302 10*3/uL 150-450 [facility] Potassium measurement (mass/ volume)Ordered By: Colby Mendoza on 01-03-2025 Potassium (Unsp spec) [Mass/Vol] 4.0 mmol/L 3.3-5.1 [facility] RBC Auto (Bld) [#/Vol]Ordere d By: Colby Mendoza on 01-03-2025 RBC (Bld) [#/Vol] 3.22 10*6/uL Low 4.2-5.4 [facility] Serum creatinine measurement (mass/volume)Ordered By: Colby Mendoza on 01-03-2025 Creatinine [Mass/Vol] 0.91 mg/dL 0.70-1.[address] [facility] Serum glucose measurement (m ass/volume)Ordered By: Colby Mendoza on 01-03-2025 Glucose [Mass/Vol] 159 mg/dL High 70-99 [facility] Serum or plasma calcium rony urement (mass/volume)Ordered By: Colby Mendoza on 01-03-2025 Calcium [Mass/Vol] 9.1 mg/dL 7.6-11.0 [facility] Serum or plasma urea nitroge n measurement (mass/volume)Ordered By: Colby Mendoza on 01-03-2025 Urea nitrogen [Mass/Vol] 20 mg/dL High 4-19 [facility] Sodium levelOrdered By: Endy Mendoza on 01-03-2025 Sodium [Moles/Vol] 137 mmol/L 133-145 [facility] White blood cell (WBC) count Ordered By: Colby Mendoza on 01-03-2025 WBC (Bld) [#/Vol] 6.0 10*3/uL 4.4-11.0 [facility] Acetaminophen (Tylenol) Leve yfn 01-02-2025 Acetaminophen [Mass/Vol] ug/mL Low 8.0-19.0 [facility] Comment on above: Result Comment: Acet aminophen concentrations > 200 ug/mL four hours after ingestion, > 100 ug/mL eight hours after ingestion, and > 50 ug/mL 12 hours after ingestion are potentially toxic. Performed By: #### L 501.9520, L501.9985, L500.4100, L100.0100, L502.0500, L500.4050, L506.1000 #### [facility] [address] [place], [place], [address] Alcohol, Blood (Medical)-Ser umon 01-02-2025 SERUM ETOH < 10.1 Normal <=10.0 [facility] Comment on above: Result Comment: This test is for medical purposes only. The legal definition of intoxication varies according to local law. Performed By: #### L 501.9520, L501.9985, L500.4100, L100.0100, L502.0500, L500.4050, L506.1000 #### [facility] [address] [place], [address] Ammoniaon 01-02-2025 Ammonia (P) [Mass/Vol] ug/dL Low 11-51 [facility] Comment on above: Performed By: #### L 501.9520, L501.9985, L500.4100, L100.0100, L502.0500, L500.4050, L506.1000 #### [facility] [address] [place], [address] Amphetamine detection with 1 000 ng/mL as cutoffOrdered By: David Lemos on 01-02-2025 Amphetamines Screen method >1000 ng/mL Ql (U) Negative < 200 ng/mL [facility] Basic Metabolic Profile (BMP )on 01-02-2025 BUN/CRE 18.8 RATIO Normal 10-20 [facility] Comment on above: Performed By: #### L 501.9520, L501.9985, L500.4100, L100.0100, L502.0500, L500.4050, L506.1000 #### [facility] [address] [place], [address] Calcium [Mass/Vol] 9.5 mg/dL Normal 7.6-11.0 [facility] Comment on above: Performed By: #### L 501.9520, L501.9985, L500.4100, L100.0100, L502.0500, L500.4050, L506.1000 #### [facility] [address] [place], [address] Chloride [Moles/Vol] 98 mmol/L Normal 98-108 [facility] Comment on above: Performed By: #### L 501.9520, L501.9985, L500.4100, L100.0100, L502.0500, L500.4050, L506.1000 #### [facility] [address] [place], [address] CO2 [Moles/Vol] 21.6 mmol/L Normal 21.0-32.0 [facility] Comment on above: Performed By: #### L 501.9520, L501.9985, L500.4100, L100.0100, L502.0500, L500.4050, L506.1000 #### [facility] [address] [place], [address] Creatinine [Mass/Vol] 1.44 mg/dL High 0.70-1.[address] [facility] Comment on above: Performed By: #### L 501.9520, L501.9985, L500.4100, L100.0100, L502.0500, L500.4050, L506.1000 #### [facility] [address] [place], [address] ECRCL 32.24 ml/min Low 50-250 [facility] Comment on above: Performed By: #### L 501.9520, L501.9985, L500.4100, L100.0100, L502.0500, L500.4050, L506.1000 #### [facility] [address] [place], [address] GAP 16 High 5-15 [facility] Comment on above: Performed By: #### L 501.9520, L501.9985, L500.4100, L100.0100, L502.0500, L500.4050, L506.1000 #### [facility] [address] [place], [address] GFR/1.73 sq M.predicted among non-blacks MDRD (S/P/Bld) [Vol rate/Area] 39 mL/min/{1.73_m2} Low >60 [facility] Comment on above: Result Comment: mL/m in/1.73m2 CKD-EPI Creatinine Equation (2020) Performed By: #### L 501.9520, L501.9985, L500.4100, L100.0100, L502.0500, L500.4050, L506.1000 #### [facility] [address] [place], [address] Glucose [Mass/Vol] 222 mg/dL High 70-99 [facility] Comment on above: Performed By: #### L 501.9520, L501.9985, L500.4100, L100.0100, L502.0500, L500.4050, L506.1000 #### [facility] [address] [place], [address] Potassium [Moles/Vol] 4.5 mmol/L Normal 3.3-5.[address] [facility] Comment on above: Result Comment: Hemo lysis present, Results??could be affected. ?? Performed By: #### L 501.9520, L501.9985, L500.4100, L100.0100, L502.0500, L500.4050, L506.1000 #### [facility] [address] [place], [address] Sodium [Moles/Vol] 136 mmol/L Normal 133-145 [facility] Comment on above: Performed By: #### L 501.9520, L501.9985, L500.4100, L100.0100, L502.0500, L500.4050, L506.1000 #### [facility] [address] [place], [address] Urea nitrogen [Mass/Vol] 27 mg/dL High 4-19 [facility] Comment on above: Performed By: #### L 501.9520, L501.9985, L500.4100, L100.0100, L502.0500, L500.4050, L506.1000 #### [facility] [address] [place], [address] Bedside Glucoseon 01-02-2025 FINGERSTICK GLU 224 mg/dL High 74-106 [facility] Comment on above: Result Comment: WOODY MERINO OF PATIENT CARE PER NURSING PROTOCOL Performed By: #### L 501.9520, L501.9985, L500.4100, L100.0100, L502.0500, L500.4050, L506.1000 #### [facility] [address] [place], [address] FINGERSTICK GLU 111 mg/dL High 74-106 [facility] Comment on above: Result Comment: WOODY WILBER OF PATIENT CARE PER NURSING PROTOCOL Performed By: #### L 501.9520, L501.9985, L500.4100, L100.0100, L502.0500, L500.4050, L506.1000 #### [facility] [address] [place], [address] Bilirubin Test strip Ql (U)O rdered By: David Lemos on 01-02-2025 Bilirubin Ql (U) Negative Negative [facility] Bilirubin directOrdered By: David Lemos on 01-02-2025 Bilirubin.direct [Mass/Vol] mg/dL 0.00-0.30 [facility] Comment on above: Hemolysis present, R esults could be affected. Bilirubin, totalOrdered By: David Lemos on 01-02-2025 Bilirubin [Mass/Vol] 0.30 mg/dL 0.00-1.30 [facility] Brain/Head without Contrasto n 01-02-2025 Brain/Head without Contrast [facility] [address] [place], [place] [address] Brain/Head without Contrast MR#: [id number] Acct: [id number] Name: ABBY JAEGER Rep #: [id number] : 1955 F 69 From: Paul Johnson MD PCP: Dr. John Cagle MD Status: REG ER Study: Brain/Head without Contrast Date of Exam: 12/12 07/04 Exam# [id number] Ordering Dr: David Lemos DO EXAM: NONCONTRAST CT SCAN OF THE HEAD CLINICAL HISTORY: Altered mental status COMPARISON: None TECHNIQUE: Serial axial series through the head were obtained without contrast. 2-D coronal and sagittal reformats were then obtained. FINDINGS: Brain: There is no acute large territorial infarct, intracranial hemorrhage, midline shift or mass effect. There are atherosclerotic vascular calcifications involving the bilateral carotid siphons. The sella and pineal gland regions appear unremarkable. There is no evidence of cerebellar tonsillar herniation. Ventricles: There is no acute hydrocephalus. Basilar cisterns are patent. Paranasal sinuses: There is complete opacification of the right maxillary sinus and a portion of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 Comment on above: Performed By: #### L 501.9520, L501.9985, L500.4100, L100.0100, L502.0500, L500.4050, L506.1000 #### [facility] [address] [place], [facility] BARBITIURATES Negative Normal < 200 ng/mL [facility] Comment on above: Performed By: #### L 501.9520, L501.9985, L500.4100, L100.0100, L502.0500, L500.4050, L506.1000 #### [facility] [address] [place], [facility] BENZODIAZIPINE Negative Normal < 200 ng/mL [facility] Comment on above: Performed By: #### L 501.9520, L501.9985, L500.4100, L100.0100, L502.0500, L500.4050, L506.1000 #### [facility] [place], [place], [facility] BUP Ur Drug Scr Negative Normal < 200 ng/mL [facility] Comment on above: Performed By: #### L 501.9520, L501.9985, L500.4100, L100.0100, L502.0500, L500.4050, L506.1000 #### [facility] [place], [facility] COCAINE Negative Normal < 300 ng/mL [facility] Comment on above: Performed By: #### L 501.9520, L501.9985, L500.4100, L100.0100, L502.0500, L500.4050, L506.1000 #### [facility] [address] [place], [facility] Fentanyl Negative Normal <5 ng/mL [facility] Comment on above: Result Comment: CONF IRMATORY TESTING FOR ALL POSITIVE URINE DRUG SCREEN RESULTS WILL ONLY BE SENT OUT UPON PHYSICIAN ORDER. Lazaro Pro Urine Drug Screen methods provide only preliminary analytical test results. A more specific alternate chemical method must be used in order to obtain a confirmed analytical result. Gas chromatography/mass spectrometery (GC/MS) is the preferred confirmatory method. Clinical consideration and professional judgement should be applied to any drug of abuse test result, particularly when preliminary positive results are used. Urine TCA testing must be ordered separately. Use test mnemonic: UTCA Performed By: #### L 501.9520, L501.9985, L500.4100, L100.0100, L502.0500, L500.4050, L506.1000 #### [facility] [address] [place], [address] METHADONE Negative Normal < 300 ng/mL [facility] Comment on above: Performed By: #### L 501.9520, L501.9985, L500.4100, L100.0100, L502.0500, L500.4050, L506.1000 #### [facility] [address] [place] [address] OPIATES Negative Normal < 300 ng/mL [facility] Comment on above: Performed By: #### L 501.9520, L501.9985, L500.4100, L100.0100, L502.0500, L500.4050, L506.1000 #### [facility] [address] [place], [address] OXYCODONE Negative Normal < 100 ng/mL [facility] Comment on above: Performed By: #### L 501.9520, L501.9985, L500.4100, L100.0100, L502.0500, L500.4050, L506.1000 #### [facility] [address] [place], [address] PCP Positive Normal < 25 ng/mL [facility] Comment on above: Result Comment: If c onfirmation testing is needed, a separate order will be required to send out testing to the reference laboratory. Performed By: #### L 501.9520, L501.9985, L500.4100, L100.0100, L502.0500, L500.4050, L506.1000 #### [facility] [address] [place], [place], [address] THC Negative Normal < 50 ng/mL [facility] Comment on above: Performed By: #### L 501.9520, L501.9985, L500.4100, L100.0100, L502.0500, L500.4050, L506.1000 #### [facility] [address] [place], [place], [id number] Urine benzodiazepine levelOr dered By: David Lemos on 01-02-2025 Benzodiazepines Ql (U) Negative < 200 ng/mL [facility] Urine clarityOrdered By: Christian Lemos on 01-02-2025 Clarity (U) Clear Clear [facility] Urine cocaine levelOrdered B y: David Lemos on 01-02-2025 Cocaine Ql (U) Negative < 300 ng/mL [facility] Urine color determinationOrd ered By: David Lemos on 01-02-2025 Color (U) Yellow Yellow [facility] Urine cultureOrdered By: Christian Lemos on 01-02-2025 Bacteria identified Cx Nom (U) Presumptive E. coli Abnormal [facility] Bacteria identified Cx Nom (U) Positive Abnormal [facility] Urine agkfz-2-vylbvvxzvijpvh abinol (THC) measurementOrdered By: David Lemos on 01-02-2025 Cannabinoids Screen Ql (U) Negative < 50 ng/mL [facility] Urine glucose detectionOrder ed By: David Lemos on 01-02-2025 Glucose Ql (U) Normal mg/dl Normal [facility] Urine leukocyte esterase det ection by dipstickOrdered By: David Lemos on 01-02-2025 Leukocyte esterase Test strip Ql (U) 500 /ul High Negative [facility] Urine pHOrdered By: David Poe ndes on 01-02-2025 pH (U) 5.0 [pH] 5.0 - 8.0 [facility] Urine phencyclidine (PCP) de tectionOrdered By: David Lemos on 01-02-2025 Phencyclidine Ql (U) Positive < 25 ng/mL [facility] Comment on above: If confirmation test ing is needed, a separate order will be required to send out testing to the reference laboratory. Urine sediment bacteria coun t by microscopy (number/high power field)Ordered By: David Lemos on 01-02-2025 Bacteria LM.HPF (Urine sed) [#/Area] 3 /[HPF] None Seen [facility] Urine specific gravity measu rementOrdered By: David Lemos on 01-02-2025 Specific gravity (U) [Rel density] 1.020 1.002-1.030 [facility] Urine urobilinogen measureme ntOrdered By: David Lemos on 01-02-2025 Urobilinogen Ql (U) Normal mg/dl Normal [facility] Venous blood ammonia measure mentOrdered By: David Lemos on 01-02-2025 Venous blood ammonia measurement < 10.0 umol/L Low 11-51 [facility] White blood cell countOrdere d By: David Lemos on 01-02-2025 White blood cell count 25-50 SEEN /hpf 0-5 [facility] CBC W/Diff, Automatedon 02-11 Absolute Lymph 2.66 X10 3/uL Normal 0.83-4.51 [facility] Comment on above: Performed By: #### L 501.9520, L501.9985, L500.4100, L100.0100, L502.0500, L500.4050, L506.1000 #### [facility] [address] [place], [place], [id number] Absolute Neut 2.8 X10 3/uL Normal 2.0-7.7 [facility] Comment on above: Performed By: #### L 501.9520, L501.9985, L500.4100, L100.0100, L502.0500, L500.4050, L506.1000 #### [facility] [address] [place], [address] Basophils/100 WBC (Bld) 1.3 % High 0-1 [facility] Comment on above: Performed By: #### L 501.9520, L501.9985, L500.4100, L100.0100, L502.0500, L500.4050, L506.1000 #### [facility] [address] [place], [address] Eosinophils/100 WBC (Bld) 2.4 % Normal 0-5 [facility] Comment on above: Performed By: #### L 501.9520, L501.9985, L500.4100, L100.0100, L502.0500, L500.4050, L506.1000 #### [facility] [address] [place], [address] Erythrocyte distribution width (RBC) [Ratio] 13.4 % Normal 11.6-14.6 [facility] Comment on above: Performed By: #### L 501.9520, L501.9985, L500.4100, L100.0100, L502.0500, L500.4050, L506.1000 #### [facility] [address] [place], [address] Hematocrit (Bld) [Volume fraction] 39.3 % Normal 37-47 [facility] Comment on above: Performed By: #### L 501.9520, L501.9985, L500.4100, L100.0100, L502.0500, L500.4050, L506.1000 #### [facility] [address] [place], [address] Hemoglobin (Bld) [Mass/Vol] 11.8 g/dL Low 12.0-15.0 [facility] Comment on above: Performed By: #### L 501.9520, L501.9985, L500.4100, L100.0100, L502.0500, L500.4050, L506.1000 #### [facility] [address] [place], [address] IG% 0.300 Normal 0.0-0.9 [facility] Comment on above: Result Comment: IG% - Immature Granulocytes (promyelocytes, myelocytes and metamyelocytes) > 1% indicates that a LEFT SHIFT is Present. Performed By: #### L 501.9520, L501.9985, L500.4100, L100.0100, L502.0500, L500.4050, L506.1000 #### [facility] [address] [place], [address] Lymphocytes/100 WBC (Bld) 43.2 % High 19-41 [facility] Comment on above: Performed By: #### L 501.9520, L501.9985, L500.4100, L100.0100, L502.0500, L500.4050, L506.1000 #### [facility] [address] [place], [address] MCH (RBC) [Entitic mass] 28.8 pg Normal 27.0-32.0 [facility] Comment on above: Performed By: #### L 501.9520, L501.9985, L500.4100, L100.0100, L502.0500, L500.4050, L506.1000 #### [facility] [address] [place], [address] MCHC (RBC) [Mass/Vol] 30.0 g/dL Low 32-[address] [facility] Comment on above: Performed By: #### L 501.9520, L501.9985, L500.4100, L100.0100, L502.0500, L500.4050, L506.1000 #### [facility] [address] [place], [address] MCV (RBC) [Entitic vol] 95.9 fL Normal 81-99 [facility] Comment on above: Performed By: #### L 501.9520, L501.9985, L500.4100, L100.0100, L502.0500, L500.4050, L506.1000 #### [facility] [address] [place], [address] Monocytes/100 WBC (Bld) 7.3 % Normal 0-10 [facility] Comment on above: Performed By: #### L 501.9520, L501.9985, L500.4100, L100.0100, L502.0500, L500.4050, L506.1000 #### [facility] [address] [place], [address] Neutrophils/100 WBC (Bld) 45.5 % Low 47-70 [facility] Comment on above: Performed By: #### L 501.9520, L501.9985, L500.4100, L100.0100, L502.0500, L500.4050, L506.1000 #### [facility] [address] [place], [address] Nucleated RBC (Bld) [#/Vol] 0 10*3/uL Normal 0-5 [facility] Comment on above: Performed By: #### L 501.9520, L501.9985, L500.4100, L100.0100, L502.0500, L500.4050, L506.1000 #### [facility] [address] [place], [address] Platelet mean volume (Bld) [Entitic vol] 9.0 fL Normal 6.2-12.0 [facility] Comment on above: Performed By: #### L 501.9520, L501.9985, L500.4100, L100.0100, L502.0500, L500.4050, L506.1000 #### [facility] [address] [place], [address] Platelets (Bld) [#/Vol] 374 10*3/uL Normal 150-450 [facility] Comment on above: Performed By: #### L 501.9520, L501.9985, L500.4100, L100.0100, L502.0500, L500.4050, L506.1000 #### [facility] [address] [place], [address] RBC (Bld) [#/Vol] 4.10 10*6/uL Low 4.2-5.4 [facility] Comment on above: Performed By: #### L 501.9520, L501.9985, L500.4100, L100.0100, L502.0500, L500.4050, L506.1000 #### [facility] [address] [place], [address] RDW SD 47.6 fl High 35.1-43.9 [facility] Comment on above: Performed By: #### L 501.9520, L501.9985, L500.4100, L100.0100, L502.0500, L500.4050, L506.1000 #### [facility] [address] [place], [address] WBC (Bld) [#/Vol] 6.2 10*3/uL Normal 4.4-11.0 [facility] Comment on above: Performed By: #### L 501.9520, L501.9985, L500.4100, L100.0100, L502.0500, L500.4050, L506.1000 #### [facility] [address] [place], [address] Comprehensive Metabolic Prof ilon 03-07-2024 Albumin [Mass/Vol] 3.6 g/dL Normal 3.2-5.0 [facility] Comment on above: Performed By: #### L 501.9520, L501.9985, L500.4100, L100.0100, L502.0500, L500.4050, L506.1000 #### [facility] [address] [place], [address] Albumin/Globulin [Mass ratio] 0.9 {ratio} Normal 0.9-2.4 [facility] Comment on above: Performed By: #### L 501.9520, L501.9985, L500.4100, L100.0100, L502.0500, L500.4050, L506.1000 #### [facility] [address] [place], [address] ALK P 69 U/L Normal 45-117 [facility] Comment on above: Performed By: #### L 501.9520, L501.9985, L500.4100, L100.0100, L502.0500, L500.4050, L506.1000 #### [facility] [address] [place], [address] ALT [Catalytic activity/Vol] 21 U/L Normal 13-56 [facility] Comment on above: Performed By: #### L 501.9520, L501.9985, L500.4100, L100.0100, L502.0500, L500.4050, L506.1000 #### [facility] [address] [place], [address] AST [Catalytic activity/Vol] 21 U/L Normal 15-37 [facility] Comment on above: Result Comment: Mode rate Hemolysis, Result may be falsely increased. Performed By: #### L 501.9520, L501.9985, L500.4100, L100.0100, L502.0500, L500.4050, L506.1000 #### [facility] [address] [place], [address] Bilirubin [Mass/Vol] 0.40 mg/dL Normal 0.20-1.00 [facility] Comment on above: Result Comment: For patients on eltrombopag therapy, use of Dimension [place] TBIL is not recommended. Performed By: #### L 501.9520, L501.9985, L500.4100, L100.0100, L502.0500, L500.4050, L506.1000 #### [facility] [address] [place], [address] BUN/CRE 25.7 RATIO High 10-20 [facility] Comment on above: Performed By: #### L 501.9520, L501.9985, L500.4100, L100.0100, L502.0500, L500.4050, L506.1000 #### [facility] [address] [place], [address] CA,Total 9.1 mg/dL Normal 8.5-10.1 [facility] Comment on above: Performed By: #### L 501.9520, L501.9985, L500.4100, L100.0100, L502.0500, L500.4050, L506.1000 #### [facility] [address] [place], [address] Chloride [Moles/Vol] 105 mmol/L Normal 98-107 [facility] Comment on above: Performed By: #### L 501.9520, L501.9985, L500.4100, L100.0100, L502.0500, L500.4050, L506.1000 #### [facility] [address] [place], [address] CO2 [Moles/Vol] 29.0 mmol/L Normal 21.0-32.0 [facility] Comment on above: Performed By: #### L 501.9520, L501.9985, L500.4100, L100.0100, L502.0500, L500.4050, L506.1000 #### [facility] [address] [facility] [id number] ([phone]) Creatinine [Mass/Vol] 1.09 mg/dL High 0.55-1.[address] [facility] Comment on above: Result Comment: The validity of the calculated GFR GFRAA in patients over 70 years has not been determined. Clinical correlation is essential. Performed By: #### L 501.9520, L501.9985, L500.4100, L100.0100, L502.0500, L500.4050, L506.1000 #### [facility] [address] [place], [address] EST GFR - AA 64 mL/min Normal >60 [facility] Comment on above: Result Comment: Afri can Ukrainian GFR Calc Performed By: #### L 501.9520, L501.9985, L500.4100, L100.0100, L502.0500, L500.4050, L506.1000 #### [facility] [address] [place], [place], [phone] (702) GAP 6 Normal 5-15 [facility] Comment on above: Performed By: #### L 501.9520, L501.9985, L500.4100, L100.0100, L502.0500, L500.4050, L506.1000 #### [facility] [address] [place], [place], [phone] (412) GFR/1.73 sq M.predicted among non-blacks MDRD (S/P/Bld) [Vol rate/Area] 53 mL/min/{1.73_m2} Low >60 [facility] Comment on above: Result Comment: Non- GFR Calc Performed By: #### L 501.9520, L501.9985, L500.4100, L100.0100, L502.0500, L500.4050, L506.1000 #### [facility] [address] [place], [place], [id number] (633) Globulin (S) [Mass/Vol] 3.9 g/dL Normal 2.2-4.2 [facility] Comment on above: Performed By: #### L 501.9520, L501.9985, L500.4100, L100.0100, L502.0500, L500.4050, L506.1000 #### [facility] [address] [place], [address] Glucose [Mass/Vol] 154 mg/dL High 74-106 [facility] Comment on above: Result Comment: Fast ing Glucose result greater than or equal to 126 mg/dL suggests DIABETES MELLITUS per A.D.A. criteria. Performed By: #### L 501.9520, L501.9985, L500.4100, L100.0100, L502.0500, L500.4050, L506.1000 #### [facility] [address] [place], [address] Potassium [Moles/Vol] 4.6 mmol/L Normal 3.5-5.[address] [facility] Comment on above: Result Comment: Mode rate Hemolysis, Result may be falsely increased. Performed By: #### L 501.9520, L501.9985, L500.4100, L100.0100, L502.0500, L500.4050, L506.1000 #### [facility] [address] [place], [address] Sodium [Moles/Vol] 140 mmol/L Normal 136-145 [facility] Comment on above: Performed By: #### L 501.9520, L501.9985, L500.4100, L100.0100, L502.0500, L500.4050, L506.1000 #### [facility] [address] [place], [address] T PROT 7.5 g/dL Normal 6.4-8.2 [facility] Comment on above: Performed By: #### L [id number], L501.9985, L500.4100, L100.0100, L502.0500, L500.4050, L506.1000 #### [facility] [address] [place], [address] Urea nitrogen [Mass/Vol] 28 mg/dL High 7-18 [facility] Comment on above: Performed By: #### L [id number], L501.9985, L500.4100, L100.0100, L502.0500, L500.4050, L506.1000 #### [facility] [address] [place], [address] Lipid Profileon 03-07-2024 Cholesterol [Mass/Vol] 180 mg/dL Normal 200 [facility] Comment on above: Result Comment: <200 mg/dL Desirable 200-240 mg/dL Borderline >240 mg/dL High Risk Performed By: #### L [id number], L501.9985, L500.4100, L100.0100, L502.0500, L500.4050, L506.1000 #### [facility] [address] [place], [address] Cholesterol in HDL [Mass/Vol] 81 mg/dL Normal [facility] Comment on above: Result Comment: The drugs N-Acetylcysteine and Metamizole may falsely depress this assay. Reference Range HDL <40 mg/dL Low HDL Cholesterol HDL >or= 60 mg/dL High HDL Cholesterol Performed By: #### L 501.9520, L501.9985, L500.4100, L100.0100, L502.0500, L500.4050, L506.1000 #### [facility] [address] [place], [address] Cholesterol in LDL [Mass/Vol] 85 mg/dL Normal 0-130 [facility] Comment on above: Performed By: #### L [id number], L501.9985, L500.4100, L100.0100, L502.0500, L500.4050, L506.1000 #### [facility] [address] [place], [address] Cholesterol in VLDL [Mass/Vol] 14 mg/dL Normal 5-40 [facility] Comment on above: Performed By: #### L [id number], L501.9985, L500.4100, L100.0100, L502.0500, L500.4050, L506.1000 #### [facility] [address] [place], [address] Triglyceride [Mass/Vol] 70 mg/dL Normal [facility] Comment on above: Result Comment: The drugs N-Acetylcysteine and Metamizole may falsely depress this assay. Serum Triglycerides Reference Interval Normal <150 mg/dL Borderline high 150 - 199 mg/dL High 200 - 499 mg/dL Very High > or = 500 mg/dL Performed By: #### L [id number], L501.9985, L500.4100, L100.0100, L502.0500, L500.4050, L506.1000 #### [facility] [address] [place], [address] T4 Free Directon 03-07-2024 T4 FREE DIRECT 0.86 ng/dL Normal 0.76-1.46 [facility] Comment on above: Performed By: #### L [id number], L501.9985, L500.4100, L100.0100, L502.0500, L500.4050, L506.1000 #### [facility] [address] [place], [address] Thyroid Stim Hormone (TSH)on 03-07-2024 TSH 1.610 uIU/mL Normal 0.358-3.740 [facility] Comment on above: Performed By: #### L 501.9520, L501.9985, L500.4100, L100.0100, L502.0500, L500.4050, L506.1000 #### [facility] [address] [place], [address] CBC W/Diff, Automatedon 11-1 -2023 Absolute Lymph 2.67 X10 3/uL Normal 0.83-4.51 [facility] Comment on above: Performed By: #### L [id number], L501.9985, L500.4100, L100.0100, L502.0500, L500.4050, L506.1000 #### [facility] [address] [place], [address] Absolute Neut 3.9 X10 3/uL Normal 2.0-7.7 [facility] Comment on above: Performed By: #### L [id number], L501.9985, L500.4100, L100.0100, L502.0500, L500.4050, L506.1000 #### [facility] [address] [place], [address] Basophils/100 WBC (Bld) 1.1 % High 0-1 [facility] Comment on above: Performed By: #### L [id number], L501.9985, L500.4100, L100.0100, L502.0500, L500.4050, L506.1000 #### [facility] [address] [place], [address] Eosinophils/100 WBC (Bld) 1.6 % Normal 0-5 [facility] Comment on above: Performed By: #### L 501.9520, L501.9985, L500.4100, L100.0100, L502.0500, L500.4050, L506.1000 #### [facility] [address] [place], [address] Erythrocyte distribution width (RBC) [Ratio] 13.3 % Normal 11.6-14.6 [facility] Comment on above: Performed By: #### L 501.9520, L501.9985, L500.4100, L100.0100, L502.0500, L500.4050, L506.1000 #### [facility] [address] [place], [address] Hematocrit (Bld) [Volume fraction] 39.6 % Normal 37-47 [facility] Comment on above: Performed By: #### L [id number], L501.9985, L500.4100, L100.0100, L502.0500, L500.4050, L506.1000 #### [facility] [address] [place], [address] Hemoglobin (Bld) [Mass/Vol] 12.2 g/dL Normal 12.0-15.0 [facility] Comment on above: Performed By: #### L [id number], L501.9985, L500.4100, L100.0100, L502.0500, L500.4050, L506.1000 #### [facility] [address] [facility], [address] IG% 0.300 Normal 0.0-0.9 [facility] Comment on above: Result Comment: IG% - Immature Granulocytes (promyelocytes, myelocytes and metamyelocytes) > 1% indicates that a LEFT SHIFT is Present. Performed By: #### L 501.9520, L501.9985, L500.4100, L100.0100, L502.0500, L500.4050, L506.1000 #### [facility] [address] [place], [address] Lymphocytes/100 WBC (Bld) 36.7 % Normal 19-41 [facility] Comment on above: Performed By: #### L [id number], L501.9985, L500.4100, L100.0100, L502.0500, L500.4050, L506.1000 #### [facility] [address] [place], [address] MCH (RBC) [Entitic mass] 28.9 pg Normal 27.0-32.0 [facility] Comment on above: Performed By: #### L 501.9520, L501.9985, L500.4100, L100.0100, L502.0500, L500.4050, L506.1000 #### [facility] [address] [place], [address] MCHC (RBC) [Mass/Vol] 30.8 g/dL Low 32-[address] [facility] Comment on above: Performed By: #### L 501.9520, L501.9985, L500.4100, L100.0100, L502.0500, L500.4050, L506.1000 #### [facility] [address] [place], [address] MCV (RBC) [Entitic vol] 93.8 fL Normal 81-99 [facility] Comment on above: Performed By: #### L 501.9520, L501.9985, L500.4100, L100.0100, L502.0500, L500.4050, L506.1000 #### [facility] [address] [place], [address] Monocytes/100 WBC (Bld) 6.7 % Normal 0-10 [facility] Comment on above: Performed By: #### L 501.9520, L501.9985, L500.4100, L100.0100, L502.0500, L500.4050, L506.1000 #### [facility] [address] [place], [address] Neutrophils/100 WBC (Bld) 53.6 % Normal 47-70 [facility] Comment on above: Performed By: #### L 501.9520, L501.9985, L500.4100, L100.0100, L502.0500, L500.4050, L506.1000 #### [facility] [address] [place], [address] Nucleated RBC (Bld) [#/Vol] 0 10*3/uL Normal 0-5 [facility] Comment on above: Performed By: #### L 501.9520, L501.9985, L500.4100, L100.0100, L502.0500, L500.4050, L506.1000 #### [facility] [address] [place], [address] Platelet mean volume (Bld) [Entitic vol] 9.2 fL Normal 6.2-12.0 [facility] Comment on above: Performed By: #### L 501.9520, L501.9985, L500.4100, L100.0100, L502.0500, L500.4050, L506.1000 #### [facility] [address] [place], [address] Platelets (Bld) [#/Vol] 413 10*3/uL Normal 150-450 [facility] Comment on above: Performed By: #### L 501.9520, L501.9985, L500.4100, L100.0100, L502.0500, L500.4050, L506.1000 #### [facility] [address] [place], [address] RBC (Bld) [#/Vol] 4.22 10*6/uL Normal 4.2-5.4 [facility] Comment on above: Performed By: #### L 501.9520, L501.9985, L500.4100, L100.0100, L502.0500, L500.4050, L506.1000 #### [facility] [address] [place], [address] RDW SD 45.5 fl High 35.1-43.9 [facility] Comment on above: Performed By: #### L 501.9520, L501.9985, L500.4100, L100.0100, L502.0500, L500.4050, L506.1000 #### [facility] [address] [place], [address] WBC (Bld) [#/Vol] 7.3 10*3/uL Normal 4.4-11.0 [facility] Comment on above: Performed By: #### L 501.9520, L501.9985, L500.4100, L100.0100, L502.0500, L500.4050, L506.1000 #### [facility] [address] [place], [address] Comprehensive Metabolic Prof [facility] 02-21-2024 Albumin [Mass/Vol] 3.9 g/dL Normal 3.2-5.0 [facility] Comment on above: Performed By: #### L 501.9520, L501.9985, L500.4100, L100.0100, L502.0500, L500.4050, L506.1000 #### [facility] [address] [place], [address] Albumin/Globulin [Mass ratio] 1.0 {ratio} Normal 0.9-2.4 [facility] Comment on above: Performed By: #### L 501.9520, L501.9985, L500.4100, L100.0100, L502.0500, L500.4050, L506.1000 #### [facility] [address] [place], [address] ALK P 98 U/L Normal 45-117 [facility] Comment on above: Performed By: #### L 501.9520, L501.9985, L500.4100, L100.0100, L502.0500, L500.4050, L506.1000 #### [facility] [address] [place], [address] ALT [Catalytic activity/Vol] 17 U/L Normal 13-56 [facility] Comment on above: Performed By: #### L 501.9520, L501.9985, L500.4100, L100.0100, L502.0500, L500.4050, L506.1000 #### [facility] [address] [place], [address] AST [Catalytic activity/Vol] 18 U/L Normal 15-37 [facility] Comment on above: Performed By: #### L 501.9520, L501.9985, L500.4100, L100.0100, L502.0500, L500.4050, L506.1000 #### [facility] [address] [place], [address] Bilirubin [Mass/Vol] 0.40 mg/dL Normal 0.20-1.00 [facility] Comment on above: Result Comment: For patients on eltrombopag therapy, use of Dimension [place] TBIL is not recommended. Performed By: #### L 501.9520, L501.9985, L500.4100, L100.0100, L502.0500, L500.4050, L506.1000 #### [facility] [address] [place], [address] BUN/CRE 18.7 RATIO Normal 10-20 [facility] Comment on above: Performed By: #### L 501.9520, L501.9985, L500.4100, L100.0100, L502.0500, L500.4050, L506.1000 #### [facility] [address] [place], [address] CA,Total 9.9 mg/dL Normal 8.5-10.1 [facility] Comment on above: Performed By: #### L 501.9520, L501.9985, L500.4100, L100.0100, L502.0500, L500.4050, L506.1000 #### [facility] [address] [place], [address] Chloride [Moles/Vol] 102 mmol/L Normal 98-107 [facility] Comment on above: Performed By: #### L 501.9520, L501.9985, L500.4100, L100.0100, L502.0500, L500.4050, L506.1000 #### [facility] [address] [place], [address] CO2 [Moles/Vol] 27.0 mmol/L Normal 21.0-32.0 [facility] Comment on above: Performed By: #### L 501.9520, L501.9985, L500.4100, L100.0100, L502.0500, L500.4050, L506.1000 #### [facility] [address] [place], [address] Creatinine [Mass/Vol] 1.07 mg/dL High 0.55-1.[address] [facility] Comment on above: Result Comment: The validity of the calculated GFR GFRAA in patients over 70 years has not been determined. Clinical correlation is essential. Performed By: #### L 501.9520, L501.9985, L500.4100, L100.0100, L502.0500, L500.4050, L506.1000 #### [facility] [address] [place], [address] EST GFR - AA 65 mL/min Normal >60 [facility] Comment on above: Result Comment: Afri can Ukrainian GFR Calc Performed By: #### L 501.9520, L501.9985, L500.4100, L100.0100, L502.0500, L500.4050, L506.1000 #### [facility] [address] [place], [address] GAP 8 Normal 5-15 [facility] Comment on above: Performed By: #### L 501.9520, L501.9985, L500.4100, L100.0100, L502.0500, L500.4050, L506.1000 #### [facility] [address] [place], [address] GFR/1.73 sq M.predicted among non-blacks MDRD (S/P/Bld) [Vol rate/Area] 54 mL/min/{1.73_m2} Low >60 [facility] Comment on above: Result Comment: Non- GFR Calc Performed By: #### L 501.9520, L501.9985, L500.4100, L100.0100, L502.0500, L500.4050, L506.1000 #### [facility] [address] [place], [address] Globulin (S) [Mass/Vol] 4.1 g/dL Normal 2.2-4.2 [facility] Comment on above: Performed By: #### L 501.9520, L501.9985, L500.4100, L100.0100, L502.0500, L500.4050, L506.1000 #### [facility] [address] [place], [address] Glucose [Mass/Vol] 187 mg/dL High 74-106 [facility] Comment on above: Result Comment: Fast ing Glucose result greater than or equal to 126 mg/dL suggests DIABETES MELLITUS per A.D.A. criteria. Performed By: #### L 501.9520, L501.9985, L500.4100, L100.0100, L502.0500, L500.4050, L506.1000 #### [facility] [address] [place], [address] Potassium [Moles/Vol] 4.8 mmol/L Normal 3.5-5.[address] [facility] Comment on above: Performed By: #### L 501.9520, L501.9985, L500.4100, L100.0100, L502.0500, L500.4050, L506.1000 #### [facility] [address] [place], [address] Sodium [Moles/Vol] 138 mmol/L Normal 136-145 [facility] Comment on above: Performed By: #### L 501.9520, L501.9985, L500.4100, L100.0100, L502.0500, L500.4050, L506.1000 #### [facility] [address] [place], [address] T PROT 8.0 g/dL Normal 6.4-8.2 [facility] Comment on above: Performed By: #### L 501.9520, L501.9985, L500.4100, L100.0100, L502.0500, L500.4050, L506.1000 #### [facility] [address] [place], [address] Urea nitrogen [Mass/Vol] 20 mg/dL High 7-18 [facility] Comment on above: Performed By: #### L 501.9520, L501.9985, L500.4100, L100.0100, L502.0500, L500.4050, L506.1000 #### [facility] [address] [place], [address] Hemoglobin A1con 02-21-2024 HbA1c (Bld) [Mass fraction] 7.3 % High 3.8-5.6 [facility] Comment on above: Result Comment: Norm al < 5.7 % Prediabetic 5.7 - 6.4 % Diabetic >or= 6.5 % Please note range changes. Performed By: #### L 501.9520, L501.9985, L500.4100, L100.0100, L502.0500, L500.4050, L506.1000 #### [facility] [address] [place], [address] Lipid Profileon 02-21-2024 Cholesterol [Mass/Vol] 178 mg/dL Normal 200 [facility] Comment on above: Result Comment: <200 mg/dL Desirable 200-240 mg/dL Borderline >240 mg/dL High Risk Performed By: #### L 501.9520, L501.9985, L500.4100, L100.0100, L502.0500, L500.4050, L506.1000 #### [facility] [address] [place], [address] Cholesterol in HDL [Mass/Vol] 88 mg/dL Normal [facility] Comment on above: Result Comment: The drugs N-Acetylcysteine and Metamizole may falsely depress this assay. Reference Range HDL <40 mg/dL Low HDL Cholesterol HDL >or= 60 mg/dL High HDL Cholesterol Performed By: #### L 501.9520, L501.9985, L500.4100, L100.0100, L502.0500, L500.4050, L506.1000 #### [facility] [address] [place], [address] Cholesterol in LDL [Mass/Vol] 73 mg/dL Normal 0-130 [facility] Comment on above: Performed By: #### L 501.9520, L501.9985, L500.4100, L100.0100, L502.0500, L500.4050, L506.1000 #### [facility] [address] [place], [address] Cholesterol in VLDL [Mass/Vol] 17 mg/dL Normal 5-40 [facility] Comment on above: Performed By: #### L 501.9520, L501.9985, L500.4100, L100.0100, L502.0500, L500.4050, L506.1000 #### [facility] [address] [place], [address] Triglyceride [Mass/Vol] 83 mg/dL Normal [facility] Comment on above: Result Comment: The drugs N-Acetylcysteine and Metamizole may falsely depress this assay. Serum Triglycerides Reference Interval Normal <150 mg/dL Borderline high 150 - 199 mg/dL High 200 - 499 mg/dL Very High > or = 500 mg/dL Performed By: #### L 501.9520, L501.9985, L500.4100, L100.0100, L502.0500, L500.4050, L506.1000 #### [facility] [address] [place], [address] Microalbumin,Random Urineon 02-21-2024 MICROALBUMIN,UR 60.1 mg/L Normal NO RANGE EST. [facility] Comment on above: Performed By: #### L 501.9520, L501.9985, L500.4100, L100.0100, L502.0500, L500.4050, L506.1000 #### [facility] [address] [place], [address] Thyroid Stim Hormone (TSH)on 02-21-2024 TSH 3.250 uIU/mL Normal 0.358-3.740 [facility] Comment on above: Performed By: #### L 501.9520, L501.9985, L500.4100, L100.0100, L502.0500, L500.4050, L506.1000 #### [facility] [address] [place], [address] Vitamin D,25 Hydroxyon 02-20 Vitamin D 25-OH 48.9 ng/mL Normal [facility] Comment on above: Result Comment: Nela min D 25(OH) Status Range Deficiency <20 ng/mL (50nmol/L) Insufficiency 20 - 30 ng/mL (50 - 75 nmol/L) Sufficiency 30 - 100 ng/mL (75 - 250 nmol/L) Toxicity >100 ng/mL (>250 nmol/L) Performed By: #### L 501.9520, L501.9985, L500.4100, L100.0100, L502.0500, L500.4050, L506.1000 #### [facility] [address] [place], [address] Absolute lymphocyte countOrd ered By: John Cagle on 02-17-2023 Lymphocytes Auto (Unsp spec) [#/Vol] 2.36 10*3/uL 0.83-4.51 [facility] Basophil percentageOrdered B y: John Cagle on 02-17-2023 Basophils/100 WBC (Bld) 1.2 % 0-1 [facility] Bilirubin [Mass/Vol] 0.30 mg/dL 0.20-1.00 [facility] Comment on above: For patients on eltr ombopag therapy, use of Dimension [place] TBIL is not recommended. Chloride [Moles/Vol] 105 mmol/L 98-107 [facility] Eosinophils/100 WBC (Bld) 1.6 % 0-5 [facility] Glucose [Mass/Vol] 116 mg/dL 74-106 [facility] Comment on above: Fasting Glucose resu lt from 100 to 125 mg/dL suggests IMPAIRED HOMEOSTASIS per A.D.A. criteria. Neutrophils (Bld) [#/Vol] 3.1 10*3/uL 2.0-7.7 [facility] Neutrophils/100 WBC (Bld) 51.2 % 47-70 [facility] Potassium [Moles/Vol] 4.0 mmol/L 3.5-5.[address] [facility] Protein [Mass/Vol] 7.4 g/dL 6.4-8.2 [facility] Sodium [Moles/Vol] 139 mmol/L 136-145 [facility] WBC (Bld) [#/Vol] 6.1 10*3/uL 4.4-11.0 [facility] Blood erythrocytes count (nu mber/volume)Ordered By: John Cagle on 02-17-2023 RBC (Bld) [#/Vol] 3.85 10*6/uL 4.2-5.4 [facility] Blood hemoglobin measurement (mass/volume)Ordered By: John Cagle on 02-17-2023 Hemoglobin (Bld) [Mass/Vol] 11.2 g/dL 12.0-15.0 [facility] Blood lymphocytes/100 leukoc ytesOrdered By: [facility] Lymphocytes/100 WBC (Bld) 38.9 % 19-41 [facility] Blood monocytes/100 leukocyt esOrdered By: [facility] on [facility]23 Monocytes/100 WBC (Bld) 6.4 % 0-10 [facility] Blood platelet mean volumeOr dered By: [facility] on 02-17-2023 Platelet mean volume (Bld) [Entitic vol] 9.4 fL 6.2-12.0 [facility] Determination of erythrocyte mean corpuscular volume (MCV)Ordered By[facility]23 MCV (RBC) [Entitic vol] 96.4 fL 81-99 [facility] Hematocrit Auto (Bld) [Volum e fraction]Ordered By: [facility]23 Hematocrit (Bld) [Volume fraction] 37.1 % 37-47 [facility] - Chemistry and C hemistry - challengeOrdered By: [facility] on 02-17-2023 ALP [Catalytic activity/Vol] 56 U/L 45-117 [facility] ALT [Catalytic activity/Vol] 22 U/L 13-56 [facility] CO2 [Moles/Vol] 27.0 mmol/L 21.0-32.0 [facility] Globulin (S) [Mass/Vol] 3.9 g/dL 2.2-4.2 [facility] Urea nitrogen/Creatinine [Mass ratio] 24.4 mg/mg 10-20 [facility] - Hematology and Cell countsOrdered By: [facility] on 02-17-2023 Erythrocyte distribution width (RBC) [Entitic vol] 45.9 fL 35.1-43.9 [facility] Erythrocyte distribution width (RBC) [Ratio] 12.9 % 11.6-14.6 [facility] Immature granulocytes/100 WBC (Bld) 0.700 % 0.0-0.9 [facility] Comment on above: IG% - Immature Granu locytes (promyelocytes, myelocytes and metamyelocytes) > 1% indicates that a LEFT SHIFT is Present. MCH (RBC) [Entitic mass] 29.1 pg 27.0-32.0 [facility] Nucleated RBC/100 WBC (Bld) [Ratio] 0 % 0-5 [facility] MCHC Auto (RBC) [Mass/Vol]Or dered By: John Cagle on 02-17-2023 MCHC (RBC) [Mass/Vol] 30.2 g/dL 32-[address] [facility] No Panel InformationOrdered By: John Cagle on 02-17-2023 Estimated GFR (MDRD) Amer 89 mL/min >60 [facility] Comment on above: GFR Calc Estimated GFR (MDRD) Non-Af Amer 74 mL/min >60 [facility] Comment on above: Non- GFR Calc Thyroid Stimulating Hormone (TSH) 1.88 uIU/mL 0.358-3.74 [facility] Vitamin D 25-Hydroxy 65.2 ng/mL [facility] Comment on above: Vitamin D 25(OH) Sta tus Range Deficiency <20 ng/mL (50nmol/L) Insufficiency 20 - 30 ng/mL (50 - 75 nmol/L) Sufficiency 30 - 100 ng/mL (75 - 250 nmol/L) Toxicity >100 ng/mL (>250 nmol/L) Platelets bldOrdered By: John Cagle on 02-17-2023 Platelets (Bld) [#/Vol] 338 10*3/uL 150-450 [facility] Serum or plasma albumin rony urement (mass/volume)Ordered By: John Cagle on 02-17-2023 Albumin [Mass/Vol] 3.5 g/dL 3.2-5.0 [facility] Serum or plasma albumin/glob ulin mass ratioOrdered By: John Cagle on 02-17-2023 Albumin/Globulin [Mass ratio] 0.9 {ratio} 0.9-2.4 [facility] Serum or plasma calcium rony urement (mass/volume)Ordered By: John Cagle on 02-17-2023 Calcium [Mass/Vol] 8.9 mg/dL 8.5-10.1 [facility] Serum or plasma creatinine m easurement (mass/volume)Ordered By: John Cagle on 02-17-2023 Creatinine [Mass/Vol] 0.82 mg/dL 0.55-1.[address] [facility] Comment on above: The validity of the calculated GFR & GFRAA in patients over 70 years has not been determined. Clinical correlation is essential. Serum or plasma urea nitroge n measurement (mass/volume)Ordered By: John Gurjit on 02-17-2023 Urea nitrogen [Mass/Vol] 20 mg/dL 7-18 [facility] Thin prep Papanicolaou smear with manual screeningOrdered By: John Cagle on 02-17-2023 Thin prep Papanicolaou smear with manual screening 16 U/L 15-37 [facility] Thin prep Papanicolaou smear with manual screening 7 5-15 [facility] Absolute lymphocyte countOrd ered By: John Cagle on 10-22-2022 Lymphocytes Auto (Unsp spec) [#/Vol] 2.21 10*3/uL 0.83-4.51 [facility] Basophil percentageOrdered B y: John Cagle on 10-22-2022 Basophils/100 WBC (Bld) 1.4 % 0-1 [facility] Bilirubin [Mass/Vol] 0.40 mg/dL 0.20-1.00 [facility] Comment on above: For patients on eltr ombopag therapy, use of Dimension [place] TBIL is not recommended. Chloride [Moles/Vol] 100 mmol/L 98-107 [facility] Eosinophils/100 WBC (Bld) 1.5 % 0-5 [facility] Glucose [Mass/Vol] 293 mg/dL 74-106 [facility] Comment on above: Glucose result great er than or equal to 200 mg/dLsuggests DIABETES MELLITUS per A.D.A. criteria. Neutrophils (Bld) [#/Vol] 4.5 10*3/uL 2.0-7.7 [facility] Neutrophils/100 WBC (Bld) 60.9 % 47-70 [facility] Potassium [Moles/Vol] 4.3 mmol/L 3.5-5.[address] [facility] Protein [Mass/Vol] 7.8 g/dL 6.4-8.2 [facility] Sodium [Moles/Vol] 135 mmol/L 136-145 [facility] WBC (Bld) [#/Vol] 7.4 10*3/uL 4.4-11.0 [facility] Blood erythrocytes count (nu mber/volume)Ordered By: John Cagle on 10-22-2022 RBC (Bld) [#/Vol] 4.50 10*6/uL 4.2-5.4 [facility] Blood hemoglobin measurement (mass/volume)Ordered By: John Cagle on 10-22-2022 Hemoglobin (Bld) [Mass/Vol] 13.1 g/dL 12.0-15.0 [facility] Blood lymphocytes/100 leukoc ytesOrdered By: John Cagle on 10-22-2022 Lymphocytes/100 WBC (Bld) 29.9 % 19-41 [facility] Blood monocytes/100 leukocyt esOrdered By: [facility] on 10-[facility]22 Monocytes/100 WBC (Bld) 6.0 % 0-10 [facility] Blood platelet mean volumeOr dered By: John Cagle on 10-22-2022 Platelet mean volume (Bld) [Entitic vol] 9.9 fL 6.2-12.0 [facility] Determination of erythrocyte mean corpuscular volume (MCV)Ordered By: John Cagle on 10-22-2022 MCV (RBC) [Entitic vol] 92.9 fL 81-99 [facility] Hematocrit Auto (Bld) [Volum e fraction]Ordered By: [facility] 10-22-2022 Hematocrit (Bld) [Volume fraction] 41.8 % 37-47 [facility] Laboratory - Chemistry and C hemistry - challengeOrdered By: John Gurjit 10-22-2022 ALP [Catalytic activity/Vol] 73 U/L 45-117 [facility] ALT [Catalytic activity/Vol] 25 U/L 13-56 [facility] CO2 [Moles/Vol] 27.0 mmol/L 21.0-32.0 [facility] Globulin (S) [Mass/Vol] 4.1 g/dL 2.2-4.2 [facility] Urea nitrogen/Creatinine [Mass ratio] 18.9 mg/mg 10-20 [facility] Laboratory - Hematology and Cell countsOrdered By: John Gurjit 10-22-2022 Erythrocyte distribution width (RBC) [Entitic vol] 43.7 fL 35.1-43.9 [facility] Erythrocyte distribution width (RBC) [Ratio] 12.8 % 11.6-14.6 [facility] Immature granulocytes/100 WBC (Bld) 0.300 % 0.0-0.9 [facility] Comment on above: IG% - Immature Granu locytes (promyelocytes, myelocytes and metamyelocytes) > 1% indicates that a LEFT SHIFT is Present. MCH (RBC) [Entitic mass] 29.1 pg 27.0-32.0 [facility] Nucleated RBC/100 WBC (Bld) [Ratio] 0 % 0-5 [facility] MCHC Auto (RBC) [Mass/Vol]Or dered By: John Cagle on 10-22-2022 MCHC (RBC) [Mass/Vol] 31.3 g/dL 32-[address] [facility] No Panel InformationOrdered By: John Cagle on 10-22-2022 Estimated GFR (MDRD) Amer 63 mL/min >60 [facility] Comment on above: GFR Calc Estimated GFR (MDRD) Non-Af Amer 52 mL/min >60 [facility] Comment on above: Non- GFR Calc Thyroid Stimulating Hormone (TSH) 2.73 uIU/mL 0.358-3.74 [facility] Vitamin D 25-Hydroxy 76.1 ng/mL [facility] Comment on above: Vitamin D 25(OH) Sta tus Range Deficiency <20 ng/mL (50nmol/L) Insufficiency 20 - 30 ng/mL (50 - 75 nmol/L) Sufficiency 30 - 100 ng/mL (75 - 250 nmol/L) Toxicity >100 ng/mL (>250 nmol/L) Platelets bldOrdered By: John Cagle on 10-22-2022 Platelets (Bld) [#/Vol] 363 10*3/uL 150-450 [facility] Serum or plasma albumin rony urement (mass/volume)Ordered By: John aCgle on 10-22-2022 Albumin [Mass/Vol] 3.7 g/dL 3.2-5.0 [facility] Serum or plasma albumin/glob ulin mass ratioOrdered By: John Cagle on 10-22-2022 Albumin/Globulin [Mass ratio] 0.9 {ratio} 0.9-2.4 [facility] Serum or plasma calcium rony urement (mass/volume)Ordered By: John Cagle on 10-22-2022 Calcium [Mass/Vol] 9.4 mg/dL 8.5-10.1 [facility] Serum or plasma creatinine m easurement (mass/volume)Ordered By: John Cagle on 10-22-2022 Creatinine [Mass/Vol] 1.11 mg/dL 0.55-1.[address] [facility] Comment on above: The validity of the calculated GFR & GFRAA in patients over 70 years has not been determined. Clinical correlation is essential. Serum or plasma urea nitroge n measurement (mass/volume)Ordered By: John Cagle on 10-22-2022 Urea nitrogen [Mass/Vol] 21 mg/dL 7-18 [facility] Thin prep Papanicolaou smear with manual screeningOrdered By: John Cagle on 10-22-2022 Thin prep Papanicolaou smear with manual screening 15 U/L 15-37 [facility] Thin prep Papanicolaou smear with manual screening 8 5-15 [facility] Absolute lymphocyte countOrd ered By: John Cagle on 07-23-2022 Lymphocytes Auto (Unsp spec) [#/Vol] 2.69 10*3/uL 0.83-4.51 [facility] Basophil percentageOrdered B y: John Cagle on 07-23-2022 Basophils/100 WBC (Bld) 1.2 % 0-1 [facility] Bilirubin [Mass/Vol] 0.30 mg/dL 0.20-1.00 [facility] Comment on above: For patients on eltr ombopag therapy, use of Dimension [place] TBIL is not recommended. Chloride [Moles/Vol] 98 mmol/L 98-107 [facility] Eosinophils/100 WBC (Bld) 2.0 % 0-5 [facility] Glucose [Mass/Vol] 271 mg/dL 74-106 [facility] Comment on above: Glucose result great er than or equal to 200 mg/dLsuggests DIABETES MELLITUS per A.D.A. criteria. Neutrophils (Bld) [#/Vol] 3.2 10*3/uL 2.0-7.7 [facility] Neutrophils/100 WBC (Bld) 48.9 % 47-70 [facility] Potassium [Moles/Vol] 4.6 mmol/L 3.5-5.[address] [facility] Protein [Mass/Vol] 7.3 g/dL 6.4-8.2 [facility] Sodium [Moles/Vol] 133 mmol/L 136-145 [facility] WBC (Bld) [#/Vol] 6.6 10*3/uL 4.4-11.0 [facility] Blood erythrocytes count (nu mber/volume)Ordered By: John Cagle on 07-23-2022 RBC (Bld) [#/Vol] 4.17 10*6/uL 4.2-5.4 [facility] Blood hemoglobin measurement (mass/volume)Ordered By: John Cagle on 07-23-2022 Hemoglobin (Bld) [Mass/Vol] 12.0 g/dL 12.0-15.0 [facility] Blood lymphocytes/100 leukoc ytesOrdered By: John Cagle on 07-23-2022 Lymphocytes/100 WBC (Bld) 40.9 % 19-41 [facility] Blood monocytes/100 leukocyt esOrdered By: John Cagle on 07-23-2022 Monocytes/100 WBC (Bld) 6.5 % 0-10 [facility] Blood platelet mean volumeOr dered By: John Cagle on 07-23-2022 Platelet mean volume (Bld) [Entitic vol] 9.7 fL 6.2-12.0 [facility] Determination of erythrocyte mean corpuscular volume (MCV)Ordered By: John Cagle 07-23-2022 MCV (RBC) [Entitic vol] 93.5 fL 81-99 [facility] Hematocrit Auto (Bld) [Volum e fraction]Ordered By: John Cagle on 07-23-2022 Hematocrit (Bld) [Volume fraction] 39.0 % 37-47 [facility] Laboratory - Chemistry and C hemistry - challengeOrdered By: John Cagle on 07-23-2022 ALP [Catalytic activity/Vol] 63 U/L 45-117 [facility] ALT [Catalytic activity/Vol] 23 U/L 13-56 [facility] CO2 [Moles/Vol] 28.0 mmol/L 21.0-32.0 [facility] Globulin (S) [Mass/Vol] 3.5 g/dL 2.2-4.2 [facility] Urea nitrogen/Creatinine [Mass ratio] 20.1 mg/mg 10-20 [facility] Laboratory - Hematology and Cell countsOrdered By: John Cagle on 07-23-2022 Erythrocyte distribution width (RBC) [Entitic vol] 44.9 fL 35.1-43.9 [facility] Erythrocyte distribution width (RBC) [Ratio] 13.2 % 11.6-14.6 [facility] Immature granulocytes/100 WBC (Bld) 0.500 % 0.0-0.9 [facility] Comment on above: IG% - Immature Granu locytes (promyelocytes, myelocytes and metamyelocytes) > 1% indicates that a LEFT SHIFT is Present. MCH (RBC) [Entitic mass] 28.8 pg 27.0-32.0 [facility] Nucleated RBC/100 WBC (Bld) [Ratio] 0 % 0-5 [facility] MCHC Auto (RBC) [Mass/Vol]Or dered By: John Cagle on 07-23-2022 MCHC (RBC) [Mass/Vol] 30.8 g/dL 32-[address] [facility] No Panel InformationOrdered By: John Cagle on 07-23-2022 Estimated GFR (MDRD) Amer 76 mL/min >60 [facility] Comment on above: GFR Calc Estimated GFR (MDRD) Non-Af Amer 63 mL/min >60 [facility] Comment on above: Non- GFR Calc Thyroid Stimulating Hormone (TSH) 2.18 uIU/mL 0.358-3.74 [facility] Vitamin D 25-Hydroxy 66.8 ng/mL [facility] Comment on above: Vitamin D 25(OH) Sta tus Range Deficiency <20 ng/mL (50nmol/L) Insufficiency 20 - 30 ng/mL (50 - 75 nmol/L) Sufficiency 30 - 100 ng/mL (75 - 250 nmol/L) Toxicity >100 ng/mL (>250 nmol/L) Platelets bldOrdered By: John Cagle on 07-23-2022 Platelets (Bld) [#/Vol] 376 10*3/uL 150-450 [facility] Serum or plasma albumin rony urement (mass/volume)Ordered By: John Cagle on 07-23-2022 Albumin [Mass/Vol] 3.8 g/dL 3.2-5.0 [facility] Serum or plasma albumin/glob ulin mass ratioOrdered By: John Cagle on 07-23-2022 Albumin/Globulin [Mass ratio] 1.1 {ratio} 0.9-2.4 [facility] Serum or plasma calcium rony urement (mass/volume)Ordered By: John Cagle on 07-23-2022 Calcium [Mass/Vol] 9.6 mg/dL 8.5-10.1 [facility] Serum or plasma creatinine m easurement (mass/volume)Ordered By: John Cagle on 07-23-2022 Creatinine [Mass/Vol] 0.94 mg/dL 0.55-1.[address] [facility] Comment on above: The validity of the calculated GFR & GFRAA in patients over 70 years has not been determined. Clinical correlation is essential. Serum or plasma urea nitroge n measurement (mass/volume)Ordered By: John Cagle on 07-23-2022 Urea nitrogen [Mass/Vol] 19 mg/dL 7-18 [facility] Thin prep Papanicolaou smear with manual screeningOrdered By: John Cagle 07-23-2022 Thin prep Papanicolaou smear with manual screening 17 U/L 15-37 [facility] Thin prep Papanicolaou smear with manual screening 7 5-15 [facility] Absolute lymphocyte counton 12-31-2021 Lymphocytes Auto (Unsp spec) [#/Vol] 2.44 10*3/uL 0.83-4.51 [facility] Work Phone: Basophil percentageon 2021 Basophils/100 WBC (Bld) 1.1 % 0-1 [facility] Work Phone: Bilirubin [Mass/Vol] 0.20 mg/dL 0.20-1.00 [facility] Work Phone: Comment on above: For patients on eltr ombopag therapy, use of Dimension [place] TBIL is not recommended. Chloride [Moles/Vol] 102 mmol/L 98-107 [facility] Work Phone: Eosinophils/100 WBC (Bld) 1.8 % 0-5 [facility] Work Phone: Glucose [Mass/Vol] 151 mg/dL 74-106 [facility] Work Phone: Comment on above: Fasting Glucose resu lt greater than or equal to 126 mg/dL suggests DIABETES MELLITUS per A.D.A. criteria. Neutrophils (Bld) [#/Vol] 4.1 10*3/uL 2.0-7.7 [facility] Work Phone: Neutrophils/100 WBC (Bld) 56.3 % 47-70 [facility] Work Phone: Potassium [Moles/Vol] 5.1 mmol/L 3.5-5.[address] [facility] Work Phone: Protein [Mass/Vol] 7.7 g/dL 6.4-8.2 [facility] Work Phone: Sodium [Moles/Vol] 136 mmol/L 136-145 [facility] Work Phone: WBC (Bld) [#/Vol] 7.3 10*3/uL 4.4-11.0 [facility] Work Phone: [phone] Blood erythrocytes count (nu mber/volume)on 12-31-2021 RBC (Bld) [#/Vol] 4.05 10*6/uL 4.2-5.4 [facility]: Blood hemoglobin measurement (mass/volume)on 12-31-2021 Hemoglobin (Bld) [Mass/Vol] 12.2 g/dL 12.0-15.0 [facility] Work Phone: [phone] Blood lymphocytes/100 leukoc yteson 12-31-2021 Lymphocytes/100 WBC (Bld) 33.6 % 19-41 [facility] Work Phone: [phone] Blood monocytes/100 leukocyt eson 12-31-2021 Monocytes/100 WBC (Bld) 6.9 % 0-10 [facility] Work Phone: Blood platelet mean volumeon 12-31-2021 Platelet mean volume (Bld) [Entitic vol] 9.5 fL 6.2-12.0 [facility] Work Phone: Determination of erythrocyte mean corpuscular volume (MCV)on 12-31-2021 MCV (RBC) [Entitic vol] 95.1 fL 81-99 [facility] Work Phone: Hematocrit Auto (Bld) [Volum e fraction]on 12-31-2021 Hematocrit (Bld) [Volume fraction] 38.5 % 37-47 [facility] Work Phone: Laboratory - Chemistry and C hemistry - challengeon 12-31-2021 ALP [Catalytic activity/Vol] 64 U/L 45-117 [facility] Work Phone: ALT [Catalytic activity/Vol] 26 U/L 13-56 [facility] Work Phone: CO2 [Moles/Vol] 25.0 mmol/L 21.0-32.0 [facility] Work Phone: Globulin (S) [Mass/Vol] 4.4 g/dL 2.2-4.2 [facility] Work Phone: Urea nitrogen/Creatinine [Mass ratio] 24.2 mg/mg 10-20 [facility] Work Phone: Laboratory - Hematology and Cell countson 12-31-2021 Erythrocyte distribution width (RBC) [Entitic vol] 46.6 fL 35.1-43.9 [facility] Work Phone: Erythrocyte distribution width (RBC) [Ratio] 13.3 % 11.6-14.6 [facility] Work Phone: Immature granulocytes/100 WBC (Bld) 0.300 % 0.0-0.9 [facility] Work Phone: Comment on above: IG% - Immature Granu locytes (promyelocytes, myelocytes and metamyelocytes) > 1% indicates that a LEFT SHIFT is Present. MCH (RBC) [Entitic mass] 30.1 pg 27.0-32.0 [facility] Work Phone: Nucleated RBC/100 WBC (Bld) [Ratio] 0 % 0-5 [facility] Work Phone: MCHC Auto (RBC) [Mass/Vol]on 12-31-2021 MCHC (RBC) [Mass/Vol] 31.7 g/dL 32-[address] [facility] Work Phone: No Panel Informationon 12-31 Estimated GFR (MDRD) Amer 71 mL/min >60 [facility] Work Phone: Comment on above: GFR Calc Estimated GFR (MDRD) Non-Af Amer 59 mL/min >60 [facility] Work Phone: Comment on above: Non- GFR Calc Thyroid Stimulating Hormone (TSH) 2.15 uIU/mL 0.358-3.74 [facility] Work Phone: Vitamin D 25-Hydroxy 73.4 ng/mL [facility] Work Phone: Comment on above: Vitamin D 25(OH) Sta tus Range Deficiency <20 ng/mL (50nmol/L) Insufficiency 20 - 30 ng/mL (50 - 75 nmol/L) Sufficiency 30 - 100 ng/mL (75 - 250 nmol/L) Toxicity >100 ng/mL (>250 nmol/L) Platelets bldon 12-31-2021 Platelets (Bld) [#/Vol] 373 10*3/uL 150-450 [facility] Work Phone: Serum or plasma albumin rony urement (mass/volume)on 12-31-2021 Albumin [Mass/Vol] 3.3 g/dL 3.2-5.0 [facility] Work Phone: Serum or plasma albumin/glob ulin mass ratioon 12-31-2021 Albumin/Globulin [Mass ratio] 0.8 {ratio} 0.9-2.4 [facility] Work Phone: Serum or plasma calcium rony urement (mass/volume)on 12-31-2021 Calcium [Mass/Vol] 9.4 mg/dL 8.5-10.1 [facility] Work Phone: Serum or plasma creatinine m easurement (mass/volume)on 12-31-2021 Creatinine [Mass/Vol] 0.99 mg/dL 0.55-1.[address] [facility] Work Phone: Comment on above: The validity of the calculated GFR & GFRAA in patients over 70 years has not been determined. Clinical correlation is essential. Serum or plasma urea nitroge n measurement (mass/volume)on 12-31-2021 Urea nitrogen [Mass/Vol] 24 mg/dL 7-18 [facility] Work Phone: Thin prep Papanicolaou smear with manual screeningon 12-31-2021 Thin prep Papanicolaou smear with manual screening 17 U/L 15-37 [facility] Work Phone: Thin prep Papanicolaou smear with manual screening 9 5-15 [facility] Work Phone: Vital Signs Date Time Vital Sign Value Performing Clinician Faci lity 01-04-2025 08:16-0400 Body temperature 98.1 [degF] Dr. John Cagle MD Work Phone: [facility] 01-04-2025 08:16-0400 Diastolic blood pressure 63 mm[Hg] Dr. John Cagle MD Work Phone: [facility] 01-04-2025 08:16-0400 Heart rate 80 /min Dr. John Cagle MD Work Phone: [facility] 01-04-2025 08:16-0400 Respiratory rate 16 /min Dr. John Cagle MD Work Phone: [facility] 01-04-2025 08:16-0400 SaO2% (BldA) [Mass fraction] 100 % Dr. John Cagle MD Work Phone: [facility] 01-04-2025 08:16-0400 Systolic blood pressure 147 mm[Hg] Dr. John Cagle MD Work Phone: [facility] 01-02-2025 11:58-0400 Body height 165.[address] John Cagle MD Work Phone: [facility] 01-02-2025 11:58-0400 Body weight 56.[address] John Cagle MD Work Phone: [facility] 01-02-2025 10:02-0400 Body mass index (BMI) [Ratio] 20.7 kg/m2 Dr. John Cagle MD Work Phone: [facility] Encounters Encounter Date Encounter Type Care Provider Facility Start: 01-04-2025 Non-patient / Non-visit Dr. Kailey Mendoza MD [facility] Work Phone: Start: 01-03-2025 Non-patient / Non-visit Dr. Kailey Mendoza MD [facility] Work Phone: Start: 01-02-2025 Non-patient / Non-visit Dr. Kailey Mendoza MD [facility] Work Phone: Start: 01-02-2025 ambulatory Colby Mendoza Fac ility:[facility] Start: 01-02-2025 End: 01-04-2025 Evaluation and management of inpatient Colby Mendoza Facility:[facility] Start: 03-07-2024 End: 03-07-2024 ambulatory FERNIE LAI Facility:[facility] Start: 02-21-2024 End: 02-21-2024 ambulatory John Garcia Gurjit Facility:[facility] Start: 02-17-2023 End: 02-17-2023 ambulatory [facility] Work Phone: Start: 02-17-2023 End: 02-17-2023 Patient encounter procedure [facility] Phy Office 3rd Flr Start: 10-22-2022 End: 10-22-2022 ambulatory [facility] Work Phone: Start: 10-22-2022 End: 10-22-2022 Patient encounter procedure [facility], Phy Office 3rd Nyr Start: 07-23-2022 End: 07-23-2022 Patient encounter procedure [facility], y Office 3rd Flr Start: 12-31-2021 End: 12-31-2021 ambulatory [facility] Work Phone: Start: 12-31-2021 End: 12-31-2021 Patient encounter procedure [facility], [facility] Office 3rd Flr Procedures Date Procedure Procedure Detail Performing Clinician Start: 01-03-[address] John Cagle MD Work Phone: Start: 01-02-[address] John loya MD Work Phone: Start: 01-02-2025 Radiologic examinati on knee [address] John Cagle MD Work Phone: Start: 01-02-2025 CT of head without contrast Dr. John Cagle MD Work Phone: Start: 01-02-2025 Methadone measuremen t, urine Dr. John Cagle MD Work Phone: Start: 01-02-2025 Urnls dip stick/tabl et reagent auto microscopy Dr. John Cagle MD Work Phone: Start: 10-22-2022 Plain x-ray of pelvi s and lower extremity Plan of Treatment Date Care Activity Detail Author Start: 01-04-2025 Patient discharge [facility] Start: 01-03-2025 [facility] Start: 01-03-2025 Referral to occupati onal therapist [facility] Start: 01-03-2025 Referral for physical therapy [facility] Start: 01-02-2025 End: 01-02-2025 [facility] Start: 01-02-2025 Care regimes management [facility] Start: 01-02-2025 Notification of physician [facility] Start: 01-02-2025 End: 01-02-2025 Following clinical pathway protocol [facility] Start: 01-02-2025 Ambulation without limitation [facility] Start: 01-02-2025 Assessment of risk o f venous thromboembolism [facility] Start: 01-02-2025 Insertion of cathete r into peripheral vein [facility] Start: 01-02-2025 Providing care accor ding to standard [facility] Start: 01-02-2025 Referral to service [facility] Start: 01-02-2025 [facility] Start: 01-02-2025 Admission procedure [facility] Start: 01-02-2025 Consultation [facility] Start: 01-02-2025 Patient referral to dietitian [facility] Payers Date Payer Category Payer Medicare [id number] 2024 Self-pay [id number] 2011 Private Health Insurance [facility] [id number] Unknown [id number] [id number] Unknown [id number] Unknown [id number] [id number] Unknown [id number] [id number] [id number] Unknown [id number] 2.16.8 [id number] Unknown [id number] 2.16.8 [id number] Social History Date Type Detail [facility] Work Phone: Start: 1955 Sex Assigned At Female [facility] Start: 01-02-2025 [facility] Sex Female [facility] Goals Date Patient Goal Desired Activity /State Functional Status Date Assessment Result Facility 01-04-2025 Functional status Ambulates [facility] Work Phone: Mental Status Date Assessment Result Facility 01-04-2025 Cognitive function Voice/Name [facility] Work Phone: Clinical Notes 01-02-2025 to 01-04-2025 Note Date & Type Note Facility 01-04-2025 Note [facility] Medical Records Department [address] [place] [address] Discharge Summary 01/04/25 1501 MR#: [id number] Acct: [id number] Name: ABBY JAEGER Rep #: [id number] : 1955 69 From: Colby Mendoza MD PCP: Dr. John Cagle MD Status:DIS IN Location: [facility] CM782-3 Providers Date of Admission: 01/02/25 Primary Care Physician: Dr. John Cagle MD Reason For Visit: UTI WITH AMS Diagnosis Discharge Diagnosis (1) Urinary tract infection: Status: Acute Code(s): N39.0 - Urinary tract infection, site not specified (2) Altered mental status: Status: Acute Code(s): R41.82 - Altered mental status, unspecified Medications at Discharge Home Medications bupropion HCl 300 mg 24 hr tablet, extended release 300 mg PO DAILY Dep 01/02/25 levothyroxine 25 mcg tablet 25 mcg PO DAILY thyroid 01/02/25 metformin 1,000 mg tablet 1,000 mg PO BID DM 01/02/25 pioglitazone 30 mg tablet 30 mg PO DAILY DM 01/02/25 pravastatin 40 mg tablet 40 mg PO DAILY cholesterol 01/02/25 venlafaxine 150 mg capsule,extended release 24 hr 300 mg PO QHS ANXIETY 01/02/25 cefdinir 300 mg capsule 300 mg PO BID 4 days #8 caps 01/04/25 Hospital Course Operations None Procedures None Summary of Care Provided Minutes Spent on Discharge: 36 Hospital Course: Per HPI: ABBY JAEGER, is a 69 F who presents to the hospital confused and found wandering the streets. She did not know where her house was and she was making statements that her nephew had been kidnapped when in fact he was in OB with his for the of his child. According to family this is not her baseline and that she is slowly becoming more confused over the last week. In the emergency room she had a white count of 7 but was found to have a UTI on UA. And given her confusion and her altered mental status she was started on Rocephin. Urine cultures pending. She does appear little bit dry with a creatinine of 1.44 though her baseline is 1.07 so does not meet criteria for an NILDA. Ammonia was less than 10 and her TSH was 4.42. Tox screen was also negative. Hospital Course: 1. Acute metabolic encephalopathy secondary to UTI??? 69-year-old female presented to the hospital with acute metabolic encephalopathy. The initial impetus in the emergency room was to consult [facility] given her behaviors, as she was found wandering and could not figure out where her home was. Urine analysis in the emergency room was significant for UTI, cultures showed a mixed rosey as well as E. coli 1000-10,000 CFU's however she had received 2 doses of antibiotics with significant improvement in her mental status therefore elected to continue to treat her with cefdinir 300 mg p.o. twice daily for 4 more days to complete treatment. I discussed with her the plan for discharge today she expressed understanding of the risks and benefits of going home and would like to go home today, I do feel like she may be better served with staying with one of her children for the weekend prior to going home alone however with physical therapy standpoint she does not meet criteria for SNF. I do recommend that she follow-up with her PCP in 3 to 5 days. 2. Type 2 diabetes, hyperlipidemia, hypothyroidism, anxiety, depression are all chronic medical conditions which complicate her care. Her home medications were continued where appropriate. Physical Exam Narrative General: Alert, Oriented x3, Cooperative, No apparent distress HEENT: Atraumatic, PERRLA, EOMI, Normocephalic Oral: Moist Mucosa Neck: Supple, No JVD Lungs: Diminished, Normal air movement, No rhonchi, No wheeze, No rales Cardiovascular: Regular rate, Regular Rhythm, Normal S1, Normal S2, No murmurs Abdomen: Soft, Non Tender, Non-Distended, No Hepato-splenomegaly Extremities: No edema, Capillary Refill Less than 3 Seconds Skin: No rashes, No breakdown Musculoskeletal: No Tenderness to Palpation of Joints or Extremities Neurological: No focal neurological deficits, moves all extremities Psych/Mental Status: Normal Affect, Appropriate Weight / BMI Weight Weight: 125 lb 0.034 oz Body Mass Index (BMI) 20.7 ABG / Lab / Microbiology Data 01/03/25 06:22 01/03/25 06:22 Laboratory: Laboratory Results - last 24 hr 01/03/25 16:27: POC Glucose 125 H 01/03/25 21:40: POC Glucose 145 H 01/04/25 06:33: POC Glucose 201 H 01/04/25 11:14: POC Glucose 204 H Microbiology: Microbiology 01/02/25 05:45 Urine, Clean Catch Urine Culture - Final Presumptive E. coli Mixed Gram Positive Organisms D/C Instructions Call your doctor if you observe: Fever of 101 or Higher, Shortness of breath, Dizziness, Fainting spells, Swelling in the ankles, Chest pain and Increased palpitations (irregular heartbeat) DC O2, CPAP, BIPAP Needs Home O2 Discharge instructions: No Meaningful Use Info (more content not included)... [facility] 01-04-2025 Consult note [facility] 01-04-2025 Consult note Note Date/Time January 04, 2025 1:28pm [facility] Medical Records Department [address] [place] [address] Counseling Note - Pharmacy 01/04/25 1057 MR#: [id number] Acct: [id number] Name: ABBY JAEGER Rep #:[id number] : 1955 69 From: Roger gray PCP: Dr. John Cagle MD Status:ADM I N Y Location: [place] [address] [facility]acy [place] [facility] has performed discharge medication counseling for this patient. The patient was counseled on the following discharge medications and changes in medications for homegoing review. - Cefdinir 300 mg capsule The Reason for Use, instructions for use, and potential side effects were reviewed for all new medications. The patient's questions regarding all of their medications were answered. The patient was able to verbally demonstrate an understanding of their dischargemedications. Medications at Discharge Home Medications bupropion HCl 300 mg 24 hr tablet, extended release 300 mg PO DAILY Dep 01/02/25 levothyroxine 25 mcg tablet 25 mcg PO DAILY thyroid 01/02/25 metformin 1,000 mg tablet 1,000 mg PO BID DM 01/02/25 pioglitazone 30 mg tablet 30 mg PO DAILY DM 01/02/25 pravastatin 40 mg tablet 40 mg PO DAILY cholesterol 01/02/25 venlafaxine 150 mg capsule,extended release 24 hr 300 mg PO QHS ANXIETY 01/02/25 cefdinir 300 mg capsule 300 mg PO BID 4 days #8 caps 01/04/25 01/04/25 1057 <Electronically signed by Roger Quinonez> Date _ Roger Wang Signature (if applicable): Date CC: ~ Signed [facility] Work Phone: 1(917) 219-653209-25-2025 Discharge summary Author Colby Mendoza [facility] Note Date/Time January 04, 2025 10:04am [facility] Medical Records Department [address] [place] [address] Instructions for Home/Discharge Instructions 01/04/25 1000 MR#: [id number] Acct: [id number] Name: ABBY JAEGER Rep #:[id number] : 1955 69 From: Colby urena MD PCP: Dr. John Cagle MD Status:ADM I N Discharge Instructions DC O2, CPAP, BIPAP needs Home O2 Discharge instructions: No Dressing / Incision Discharge Activity: Return to Normal Activity Dressing / Incision Call your doctor if you observe: Fever of 101 or Higher, Shortness of breath, Dizziness, Fainting spells, Swelling in the ankles, Chest pain and Increased palpitations (irregular heartbeat) Follow Up Care Test Results: Test results from this visit will be discussed in further detail at your follow- up appointment, if applicable. Discharge Plan Admission Admit Date/Time: 01/02/25 09:37 Attending Provider: Colby Mendoza Primary Care Provider: John Cagle Chi Discharge Orders/Prescriptions Prescriptions: New cefdinir 300 mg capsule 300 mg PO BID 4 Days Qty: 8 0RF Continued bupropion HCl 300 mg tablet extended release 24 hr 300 mg PO DAILY levothyroxine 25 mcg tablet 25 mcg PO DAILY pioglitazone 30 mg tablet 30 mg PO DAILY pravastatin 40 mg tablet 40 mg PO DAILY metformin 1,000 mg tablet 1,000 mg PO BID venlafaxine 150 mg capsule,extended release 24hr 300 mg PO QHS Referrals / Follow Up: John Cagle Chi, MD [Primary Care Provider, Geriatrics] - Within 1 Week Disposition Disposition (needs filled in before D/C Order can be placed): Home, Self Care 01/04/25 1004<Electronically signed by Colby Mendoza MD>Colby Mendoza MD CC: Dr. John Cagle MD ~ Signed [facility] Work Phone: 1([phone]) 656-306909-25-2025 Discharge summary [facility] Medical Records Department [address] [place] [address] Instructions for Home/Discharge Instructions 01/04/25 1000 MR#: [id number] Acct: [id number] Name: ABBY JAEGER Rep #:[id number] : 1955 69 From: Colby urena MD PCP: Dr. John Cagle MD Status:ADM I N Discharge Instructions DC O2, CPAP, BIPAP needs Home O2 Discharge instructions: No Dressing / Incision Discharge Activity: Return to Normal Activity Dressing / Incision Call your doctor if you observe: Fever of 101 or Higher, Shortness of breath, Dizziness, Fainting spells, Swelling in the ankles, Chest pain and Increased palpitations (irregular heartbeat) Follow Up Care Test Results: Test results from this visit will be discussed in further detail at your follow- up appointment, if applicable. Discharge Plan Admission Admit Date/Time: 01/02/25 09:37 Attending Provider: Colby Mendoza Primary Care Provider: John Cagle Chi Discharge Orders/Prescriptions Prescriptions: New cefdinir 300 mg capsule 300 mg PO BID 4 Days Qty: 8 0RF Continued bupropion HCl 300 mg tablet extended release 24 hr 300 mg PO DAILY levothyroxine 25 mcg tablet 25 mcg PO DAILY pioglitazone 30 mg tablet 30 mg PO DAILY pravastatin 40 mg tablet 40 mg PO DAILY metformin 1,000 mg tablet 1,000 mg PO BID venlafaxine 150 mg capsule,extended release 24hr 300 mg PO QHS Referrals / Follow Up: John Cagle Chi, MD [Primary Care Provider, Geriatrics] - Within 1 Week Disposition Disposition (needs filled in before D/C Order can be placed): Home, Self Care 01/04/25 1004Colby Mendoza MD CC: Dr. John Cagle MD ~ Signed [facility]09-24-2025 Progress note Author Colby Mendoza [facility] Note Date/Time January 03, 2025 9:30am [facility] Medical Records Department [address] [facility] [place] [address] Progress Note - Hospitalist 01/03/25921 MR#: [id number] Acct: [id number] Name: ABBY JAEGER Rep #:[id number] : 1955 69 From: Colby urena MD PCP: Dr. John Cagle MD Status:ADM I N Location: [place] [id number] Subjective Subjective Doing much better today, still little bit confused, she tells 2025 however much better than when she presented to the ER yesterday morning Objective Data Objective Data Vital Signs: Vital Signs Temp Pulse Resp BP Pulse Ox O2 Del Method 98.6 F 80 16 134/63 H 100 Room Air 01/03/25 08:10 01/03/25 08:10 01/03/25 08:10 01/03/25 08:10 01/03/25 08:10 01/03/25 08:13 Oxygen Delivery Method Room Air Weight: 125 lb 0.034 oz Body Mass Index (BMI) 20.7 Intake & Output: Intake and Output for Last 24 Hours 01/02/25 01/03/25 01/04/25 03:59 03:59 03:59 Intake Total 110 / 110 Balance 110 / 110 Lab / Micro Data 01/03/25 06:22 01/03/25 06:22 Labs: Laboratory Results - last 24 hr 01/02/25 15:55: POC Glucose 111 H 01/02/25 20:50: POC Glucose 224 H 01/03/25 06:18: POC Glucose 158 H 01/03/25 06:22: WBC 6.0, RBC 3.22 L, Hgb 9.5 L, Hct 29.6 L, MCV 91.9, MCH 29.5, MCHC 32.1, RDW Std Deviation 45.4 H, RDW Coeff of Radha 13.5, Plt Count 302, MPV 9.3, Immature Gran % (Auto) 0.200, Neut % (Auto) 58.3, Lymph % (Auto) 27.5, Swift% (Auto) 8.7, Eos % (Auto) 4.3, Baso % (Auto) 1.0, Absolute Neuts (auto) 3.5, Absolute Lymphs (auto) 1.65, Nucleated RBC % 0, Sodium 137, Potassium 4.0, Chloride 100, Carbon Dioxide 25.6, Anion Gap 11, BUN 20 H, Creatinine 0.91, Estim Creat Clear Calc 50.75, Est GFR (MDRD) Non-Af 68, BUN/Creatinine Ratio 22.1 H, Glucose 159 H, Calcium 9.1 Physical Exam Narrative General: Alert, Oriented x2, Cooperative, No apparent distress HEENT: Atraumatic, PERRLA, EOMI, Normocephalic Oral: Moist Mucosa Neck: Supple, No JVD Lungs: Diminished, Normal air movement, No rhonchi, No wheeze, No rales Cardiovascular: Regular rate, Regular Rhythm, Normal S1, Normal S2, No murmurs Abdomen: Soft, Non Tender, Non-Distended, No Hepato-splenomegaly Extremities: No edema, Capillary Refill Less than 3 Seconds Skin: No rashes, No breakdown Musculoskeletal: No Tenderness to Palpation of Joints or Extremities Neurological: No focal neurological deficits, moves all extremities Psych/Mental Status: Normal Affect, Appropriate Assessment & Plan Assessment/Plan (1) Urinary tract infection: (2) Altered mental status: PLAN: Plan 1. Acute metabolic encephalopathy secondary to UTI ? Continue with Rocephin, not septic ? Urine cultures pending ? Consult case management for discharge planning ?Encephalopathy has essentially resolved 2. DM2 ? Hold her home medications ? Sliding scale insulin ? Accu-Cheks ACHS ? Will monitor make adjustments as necessary 3. Hyperlipidemia ? Stable ? Continue with statin 4. Hypothyroidism ? Stable Continue Synthroid 5. Anxiety/depression ? Stable ? Continue with her home medications DVT: Lovenox Charges/Coding Visit Charges Inpatient E&M: 05899 Subs Hosp L2 01/03/25929 <Electronically signed by Colby Mendoza MD> Cosigner Signature (if applicable): CC: ~ Signed [facility] Work Phone: 1(583) 270-691309-24-2025 Progress note [facility] Medical Records Department [address] [place] [address] Progress Note - Hospitalist 01/03/25921 MR#: [id number] Acct: [id number] Name: ABBY JAEGER Rep #:[id number] : 1955 69 From: Colby urena MD PCP: Dr. John Cagle MD Status:ADM I N Location: [facility] UQ856-3 Subjective Subjective Doing much better today, still little bit confused, she tells 2025 however much better than when she presented to the ER yesterday morning Objective Data Objective Data Vital Signs: Vital Signs Temp Pulse Resp BP Pulse Ox O2 Del Method 98.6 F 80 16 134/63 H 100 Room Air 01/03/25 08:10 01/03/25 08:10 01/03/25 08:10 01/03/25 08:10 01/03/25 08:10 01/03/25 08:13 Oxygen Delivery Method Room Air Weight: 125 lb 0.034 oz Body Mass Index (BMI) 20.7 Intake & Output: Intake and Output for Last 24 Hours 01/02/25 01/03/25 01/04/25 03:59 03:59 03:59 Intake Total 110 / 110 Balance 110 / 110 Lab / Micro Data 01/03/25 06:22 01/03/25 06:22 Labs: Laboratory Results - last 24 hr 01/02/25 15:55: POC Glucose 111 H 01/02/25 20:50: POC Glucose 224 H 01/03/25 06:18: POC Glucose 158 H 01/03/25 06:22: WBC 6.0, RBC 3.22 L, Hgb 9.5 L, Hct 29.6 L, MCV 91.9, MCH 29.5, MCHC 32.1, RDW Std Deviation 45.4 H, RDW Coeff of Radha 13.5, Plt Count 302, MPV 9.3, Immature Gran % (Auto) 0.200, Neut % (Auto) 58.3, Lymph % (Auto) 27.5, Swift% (Auto) 8.7, Eos % (Auto) 4.3, Baso % (Auto) 1.0, Absolute Neuts (auto) 3.5, Absolute Lymphs (auto) 1.65, Nucleated RBC % 0, Sodium 137, Potassium 4.0, Chloride 100, Carbon Dioxide 25.6, Anion Gap 11, BUN 20 H, Creatinine 0.91, Estim Creat Clear Calc 50.75, Est GFR (MDRD) Non-Af 68, BUN/Creatinine Ratio 22.1 H, Glucose 159 H, Calcium 9.1 Physical Exam Narrative General: Alert, Oriented x2, Cooperative, No apparent distress HEENT: Atraumatic, PERRLA, EOMI, Normocephalic Oral: Moist Mucosa Neck: Supple, No JVD Lungs: Diminished, Normal air movement, No rhonchi, No wheeze, No rales Cardiovascular: Regular rate, Regular Rhythm, Normal S1, Normal S2, No murmurs Abdomen: Soft, Non Tender, Non-Distended, No Hepato-splenomegaly Extremities: No edema, Capillary Refill Less than 3 Seconds Skin: No rashes, No breakdown Musculoskeletal: No Tenderness to Palpation of Joints or Extremities Neurological: No focal neurological deficits, moves all extremities Psych/Mental Status: Normal Affect, Appropriate Assessment & Plan Assessment/Plan (1) Urinary tract infection: (2) Altered mental status: PLAN: Plan 1. Acute metabolic encephalopathy secondary to UTI ? Continue with Rocephin, not septic ? Urine cultures pending ? Consult case management for discharge planning ?Encephalopathy has essentially resolved 2. DM2 ? Hold her home medications ? Sliding scale insulin ? Accu-Cheks ACHS ? Will monitor make adjustments as necessary 3. Hyperlipidemia ? Stable ? Continue with statin 4. Hypothyroidism ? Stable Continue Synthroid 5. Anxiety/depression ? Stable ? Continue with her home medications DVT: Lovenox Charges/Coding Visit Charges Inpatient E&M: 06101 Subs Hosp L2 01/03/25 7458 Cosigner Signature (if applicable): CC: ~ Signed [facility]09-23-2025 History and physical note [facility] Note Date/Time January 02, 2025 3:56pm [facility] Medical Records Department [address] [place] [address] H&P Exam - Hospitalist 01/02/25 1517 MR#: [id number] Acct: [id number] Name: ABBY JAEGER Rep #:[id number] : 1955 69 From: Colby urena MD PCP: Dr. John Cagle MD Status:ADM I N Location: [place] [id number] HPI - General General Date of Admission: 01/02/25 HPI Narrative ABBY JAEGER, is a 69 F who presents to the hospital confused and found wandering the streets. She did not know where her house was and she was making statements that her nephew had been kidnapped when in fact he was in OB with hiswife for the of his child. According to family this is not her baseline and that she is slowly becoming more confused over the last week. In the emergency room she had a white count of 7 but was found to have a UTI on UA. And given her confusion and her altered mental status she was started on Rocephin. Urine cultures pending. She does appear little bit dry with a creatinine of 1.44 though her baseline is 1.07 so does not meet criteria for an NILDA. Ammonia was less than 10 and her TSH was 4.42. Talk screen was also negative. [facility] Medical History (Updated 01/02/25 @ 07:[address] David Lemos, DO) Diabetes Anxiety Home Medications ?Medication ?Instructions ?Recorded ?Last Taken ?Type bupropion HCl 300 mg 24 hr tablet, 300 mg PO DAILY Dep 01/02/25 Unknown History extended release levothyroxine 25 mcg tablet 25 mcg PO DAILY thyroid Unknown History metformin 1,000 mg tablet 1,000 mg PO BID DM 01/02/25 Unknown History pioglitazone 30 mg tablet 30 mg PO DAILY DM 01/02/25 U nknown History pravastatin 40 mg tablet 40 mg PO DAILY cholesterol 0 01/02/25 Unknown History venlafaxine 150 mg 300 mg PO QHS ANXIETY Unknown History capsule,extended release 24 hr Allergy/AdvReac Type Severity Reaction Status Date / Time Penicillins Allergy Intermediate Rash Verified 01/02/25 10:04 Family History (Updated 01/02/25 @ 15:[address] Colby Mendoza MD) Other Cancer Surgical History (Updated 01/02/25 @ 15:[address] Colby Mendoza MD) H/O section Social History Smoking Status: Former smoker ROS Constitutional Constitutional: Denies chills, fatigue, fever(s) or malaise Eyes Eyes: Denies blurry vision ENT HEENT: Denies headache(s) or nasal discharge Cardiovascular Cardiovascular: Denies chest pain, dyspnea on exertion or syncope Respiratory/Chest Respiratory/Chest: Denies cough, shortness of breath at rest or shortness of breath with exertion Gastrointestinal Gastrointestinal: Denies constipation, diarrhea, nausea or vomiting Genitourinary Genitourinary: Denies dysuria Neurologic Neurologic: Denies focal weakness, numbness or tremor(s) Psychiatric Psychiatric: Denies anxiety or depression Vital Signs Vital Signs Vital Signs: 01/02/25 05:01 01/02/25 05:04 01/02/25 06:01 Temperature 98.2 F 98.2 F Temperature Source Oral Oral Pulse Rate 95 96 87 Respiratory Rate 16 16 18 Respiratory Effort Respiratory Depth Respiratory Pattern Blood Pressure 152/58 H 152/58 H 136/60 H Blood Pressure Mean 89 89 85 Blood Pressure Source Blood Pressure Position Blood Pressure Location Pulse Ox 100 100 100 Oxygen Delivery Method Room Air Room Air Room Air 01/02/25 06:04 01/02/25 07:00 01/02/25 07:00 Temperature 98.2 F 98.3 F Temperature Source Oral Oral Pulse Rate 87 88 88 Respiratory Rate 16 16 18 Respiratory Effort Respiratory Depth Respiratory Pattern Blood Pressure 136/60 H 142/65 H 142/65 H Blood Pressure Mean 85 90 90 Blood Pressure Source Blood Pressure Position Blood Pressure Location Pulse Ox 100 100 100 Oxygen Delivery Method Room Air Room Air Room Air 01/02/25 08:00 01/02/25 09:00 01/02/25 09:49 Temperature 98.3 F 98.3 F 98 F Temperature Source Oral Oral Pulse Rate 82 83 83 Respiratory Rate 18 18 18 Respiratory Effort Respiratory Depth Respiratory Pattern Blood Pressure 128/62 H 147/71 H 147/71 H Blood Pressure Mean 84 96 96 Blood Pressure Source Blood Pressure Position Blood Pressure Location Pulse Ox 100 100 100 Oxygen Delivery Method Room Air Room Air 01/02/25 10:02 01/02/25 10:20 Temperature 98.5 F Temperature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 10, Alkaline Phosphatase 50, Total Protein 6.7, Albumin 4.0, Globulin 2.7, TSH 4.420 H, Salicylates < 0.5 L, Acetaminophen < 5.0L, Ethyl Alcohol < 10.1 01/02/25 05:45: Ammonia < 10.0 L, Urine Color Yellow, Urine Clarity Clear, UrinepH 5.0, Ur Specific [place] 1.020, Urine Protein 30 H, Urine Glucose (UA) Normal, Urine Ketones Negative, Urine Occult Blood 25 H, Urine Nitrite Positive H, Urine Bilirubin Negative, Urine Urobilinogen Normal, Ur Leukocyte Esterase 500 H, Urine RBC 0-5 SEEN, Urine WBC 25-50 SEEN, Ur Squamous Epith Cells 0-5 SEEN, Urine Bacteria 3+, Hyaline Casts 0-5 SEEN, Urine Mucus 0 SEEN, Urine Opiates Screen NEGATIVE, U Buprenorphine Qual NEGATIVE, Ur Oxycodone Screen NEGATIVE, Urine Methadone Screen NEGATIVE, Urine Fentanyl Screen NEGATIVE, Ur Barbiturates Screen NEGATIVE, Ur Phencyclidine Scrn PRESUMPTIVE POSITIVE, Ur Amphetamines Screen NEGATIVE, U Benzodiazepines Scrn NEGATIVE, Urine Cocaine Screen NEGATIVE, U Cannabinoids Screen NEGATIVE Imaging Radiology Impression Brain CT 01/02/25 06:03 IMPRESSION: There is complete opacification of the right maxillary sinus and a portion of the right ethmoid air cells and right frontal sinus. Mucosal thickening is noted in the left maxillary sinus and left aspect of the sphenoid sinus. No acute intracranial pathology. Reading Location: [facility] Knee X-Ray 01/02/25 06:20 IMPRESSION: Mild, age consistent changes, no acute abnormalities Reading Location: [id number] Knee X-Ray 01/02/25 06:20 IMPRESSION: There is no fracture or dislocation identified. Reading Location: [facility] Assessment & Plan Assessment/Plan (1) Urinary tract infection: (2) Altered mental status: PLAN: Plan 1. Acute metabolic encephalopathy secondary to UTI ? Continue with Rocephin, not septic ? Urine cultures pending ? Consult case management for discharge planning ? Based on ammonia level and urine tox screen the best explanation for her encephalopathy is her urinary tract infection 2. DM2 ? Hold her home medications ? Sliding scale insulin ? Accu-Cheks ACHS ? Will monitor make adjustments as necessary 3. Hyperlipidemia ? Stable ? Continue with statin 4. Hypothyroidism ? Stable Continue Synthroid 5. Anxiety/depression ? Stable ? Continue with her home medications DVT: Lovenox 75 minutes was spent on direct patient care, including documentation as well as chart review and collaboration with colleagues Charges/Coding Visit Charges Inpatient E&M: 54132 Init Hosp L3 01/02/25 1556 <Electronically signed by Colby Mendoza MD> Cosigner Signature (if applicable): CC: Dr. Colby Mendoza MD; Dr. John Cagle MD~ Signed [facility] Work Phone: Progress note Author Colby Mendoza [facility] Note Date/Time January 03, 2025 9:30am [facility] Medical Records Department [address] [place] [address] Progress Note - Hospitalist 01/03/25921 MR#: [id number] Acct: [id number] Name: ABBY JAEGER Rep #:[id number] : 1955 69 From: Colby urena MD PCP: Dr. John Cagle MD Status:ADM I N Location: [place] [address] Subjective Subjective Doing much better today, still little bit confused, she tells 2025 however much better than when she presented to the ER yesterday morning Objective Data Objective Data Vital Signs: Vital Signs Temp Pulse Resp BP Pulse Ox O2 Del Method 98.6 F 80 16 134/63 H 100 Room Air 01/03/25 08:10 01/03/25 08:10 01/03/25 08:10 01/03/25 08:10 01/03/25 08:10 01/03/25 08:13 Oxygen Delivery Method Room Air Weight: 125 lb 0.034 oz Body Mass Index (BMI) 20.7 Intake & Output: Intake and Output for Last 24 Hours 01/02/25 01/03/25 01/04/25 03:59 03:59 03:59 Intake Total 110 / 110 Balance 110 / 110 Lab / Micro Data 01/03/25 06:22 01/03/25 06:22 Labs: Laboratory Results - last 24 hr 01/02/25 15:55: POC Glucose 111 H 01/02/25 20:50: POC Glucose 224 H 01/03/25 06:18: POC Glucose 158 H 01/03/25 06:22: WBC 6.0, RBC 3.22 L, Hgb 9.5 L, Hct 29.6 L, MCV 91.9, MCH 29.5, MCHC 32.1, RDW Std Deviation 45.4 H, RDW Coeff of Radha 13.5, Plt Count 302, MPV 9.3, Immature Gran % (Auto) 0.200, Neut % (Auto) 58.3, Lymph % (Auto) 27.5, Swift% (Auto) 8.7, Eos % (Auto) 4.3, Baso % (Auto) 1.0, Absolute Neuts (auto) 3.5, Absolute Lymphs (auto) 1.65, Nucleated RBC % 0, Sodium 137, Potassium 4.0, Chloride 100, Carbon Dioxide 25.6, Anion Gap 11, BUN 20 H, Creatinine 0.91, Estim Creat Clear Calc 50.75, Est GFR (MDRD) Non-Af 68, BUN/Creatinine Ratio 22.1 H, Glucose 159 H, Calcium 9.1 Physical Exam Narrative General: Alert, Oriented x2, Cooperative, No apparent distress HEENT: Atraumatic, PERRLA, EOMI, Normocephalic Oral: Moist Mucosa Neck: Supple, No JVD Lungs: Diminished, Normal air movement, No rhonchi, No wheeze, No rales Cardiovascular: Regular rate, Regular Rhythm, Normal S1, Normal S2, No murmurs Abdomen: Soft, Non Tender, Non-Distended, No Hepato-splenomegaly Extremities: No edema, Capillary Refill Less than 3 Seconds Skin: No rashes, No breakdown Musculoskeletal: No Tenderness to Palpation of Joints or Extremities Neurological: No focal neurological deficits, moves all extremities Psych/Mental Status: Normal Affect, Appropriate Assessment & Plan Assessment/Plan (1) Urinary tract infection: (2) Altered mental status: PLAN: Plan 1. Acute metabolic encephalopathy secondary to UTI ? Continue with Rocephin, not septic ? Urine cultures pending ? Consult case management for discharge planning ?Encephalopathy has essentially resolved 2. DM2 ? Hold her home medications ? Sliding scale insulin ? Accu-Cheks ACHS ? Will monitor make adjustments as necessary 3. Hyperlipidemia ? Stable ? Continue with statin 4. Hypothyroidism ? Stable Continue Synthroid 5. Anxiety/depression ? Stable ? Continue with her home medications DVT: Lovenox Charges/Coding Visit Charges Inpatient E&M: 78274 Subs Hosp L2 01/03/25 3507 <Electronically signed by Colby Mendoza MD> Cosigner Signature (if applicable): CC: ~ Signed [facility] Work Phone: Reason for referral (narrative)No reason for referral information availableWOhioHealth [facility] Work Phone: Summary Purpose Family History Relationship Condition Age at Onset Recorded Date/T mona Not Specified Malignant neoplasm Unknown Advance Directives Advance Directive Response Recorded Date/ Time Do you have a Healthcare Power of Cable Reeler? No January 02, 2025 10:02am Chief Complaint and Reason for Visit Chief Complaint Admit Date UTI WITH AMS January 02, 2025 9:37am UTI WITH AMS January 02, 2025 3:17pm UTI WITH AMS January 03, 2025 9:22am UTI WITH AMS January 04, 2025 3:01pm Reason for Visit Admit Date Altered mental status January 02 9:37am Urinary tract infection January 02, 2025 9:37am Additional Source Comments Goals (unrecognized section and [...] Provi micah, Attending Provider, Referring Provider Active Team Status: Active Member Role/Relationship Status Dates Dr. John Cagle MD Primary care physician Active Team Status: Inactive Member Role/Relationship Status Dates Dr. John Cagle MD Primary care physician Active Start: January 02, 2025 End: January 04, 2025 Dr. David Lemos DO Emergency Departme nt Physician Active Start: January 02, 2025 End: January 04, 2025 Dr. Colby Mendoza MD Admitting physician Active Start: December End: January 04, 2025 Dr. Colby Mendoza MD Attending physician Active Start: December End: January 04, 2025 Team Status: Active Member Role/Relationship Status Dates Dr. John Cagle MD Primary care physician Active Start: January 02, 2025 Dr. David Lemos , Emergency Departme nt Physician Active Start: January 02, 2025 Dr. Colby Mendoza MD Admitting physician Active Start: December Dr. Colby Mendoza MD Attending physician Active Start: December Dr. Colby Mendoza MD Nurse Practitioner Active Start: December Team Status: Active Member Role/Relationship Status Dates Dr. John Cagle MD Primary care physician Active Start: January 03, 2025 Dr. David Lemos , Emergency Departme nt Physician Active Start: January 03, 2025 Dr. Colby Mendoza MD Admitting physician Active Start: December Dr. Colby Mendoza MD Attending physician Active Start: December Dr. Colby Mendoza MD Nurse Practitioner Active Start: December Team Status: Active Member Role/Relationship Status Dates Dr. John Cagle MD Primary care physician Active Start: January 04, 2025 Dr. David Lemos , Emergency Departme nt Physician Active Start: January 04, 2025 Dr. Colby Mendoza MD Admitting physician Active Start: December Dr. Colby Mendoza MD Attending physician Active Start: December Dr. Colby Mendoza MD Nurse Practitioner Active Start: December INFORMATION SOURCE (unrecogn ized section and content) DATE CREATED AUTHOR 01/05/2025 [facility] FOR RECORDS PERTAINING TO PATIENTS WHO [...] BE BASED ON THE PRIMARY CLINICAL RECORDS. [employer] provides no warranty or guarantee of the accuracy or completeness of information in this document.
--- OUTSIDE RECORDS SUMMARY | 2025-01-13 10:19 | XMS RPT_ITS | CCD ---
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 David Lemos DO Emergency Department Physic yu Dr. Colby Mendoza MD Admitting Physician Dr. Colby Mendoza MD Attending Physician Dr. Colby Mendoza MD Nurse Practitioner Allergies Allergy Classification Reported Allergen(s) Allergy Type Date of Onset Reaction(s) Facility (5 sources) Penicillins Allergy to substance 12-01-2017 Rash [facility] Comment on above: TOLERATED ER CEFTRIA XONE 01/02/25 (1 source) Penicillins Drug allergy (disorder) 01-02-2025 [facility] Repository Medications Current Medications Medication Drug [...] 01-04-2025 FINGERSTICK GLU 204 mg/dL High 74-106 [facility] Comment on above: Result Comment: WOODY MERINO OF PATIENT CARE PER NURSING PROTOCOL Performed By: #### L 501.9520, L501.9985, L500.4100, L100.0100, L502.0500, L500.4050, L506.1000 #### [facility] [address] [place], [address] FINGERSTICK GLU 201 mg/dL High 74-106 [facility] Comment on above: Result Comment: WOODY MERINO OF PATIENT CARE PER NURSING PROTOCOL Performed By: #### L 501.9520, L501.9985, L500.4100, L100.0100, L502.0500, L500.4050, L506.1000 #### [facility] [address] [place], [address] Discharge Instructionon 12-12 Discharge Instruction [facility] Medical Records Department [address] [place] [address] Instructions for Home/Discharge Instructions 01/04/25 1000 MR#: [id number] Acct: [id number] Name: ABBY JAEGER Rep #: [id number] : 1955 69 From: Colby Mendoza MD [...] CC: Dr. John Cagle MD Signed Normal [facility] Gl[facility] at [facility] deOrdered By: Colby Mendoza on 01-04-2025 Glucose [Mass/Vol] 204 mg/dL High 74-106 [facility] Comment on above: MANAGEMENT OF PATIEN T CARE PER NURSING PROTOCOL Urine Cultureon 01-04-2025 URC #1 Below infection level. Presumptive E. coli Leota Count 1000-10,000 Mixed Gram Positive Organisms Mixed Gram Positive Organisms MIXC Mixed contaminants. Submit a new specimen if indicated. Normal [facility] Comment on above: Performed By: #### L 501.9520, L501.9985, L500.4100, L100.0100, L502.0500, L500.4050, L506.1000 #### [facility] [address] [place], [address] Absolute lymphocyte countOrd ered By: Colby Mnedoza on 01-03-2025 Lymphocytes Auto (Unsp spec) [#/Vol] 1.65 10*3/uL 0.83-4.51 [facility] Absolute neutrophil countOrd ered By: Colby Mendoza on 01-03-2025 Neutrophils (Bld) [#/Vol] 3.5 10*3/uL 2.0-7.7 [facility] Anion gap in Serum or Plasma Ordered By: Colby Mendoza on 01-03-2025 Anion gap [Moles/Vol] 11 mmol/L 5-15 [facility] Automated lymphocyte count a s percentage of total leukocytesOrdered By: Colby Mendoza on 01-03-2025 Lymphocytes/100 WBC Auto (Unsp spec) 27.5 % 19-41 [facility] BUN/creatinine ratioOrdered By: Colby Mendoza on 01-03-2025 Urea nitrogen/Creatinine [Mass ratio] 22.1 mg/mg High 01-29 [facility] Basic Metabolic Profile (BMP )on 01-03-2025 BUN/CRE 22.1 RATIO High 01-29 [facility] Comment on above: Performed By: #### L 501.9520, L501.9985, L500.4100, L100.0100, L502.0500, L500.4050, L506.1000 #### [facility] [address] [place], [address] Calcium [Mass/Vol] 9.1 mg/dL Normal 7.6-11.0 [facility] Comment on above: Performed By: #### L 501.9520, L501.9985, L500.4100, L100.0100, L502.0500, L500.4050, L506.1000 #### [facility] [address] [place], [address] Chloride [Moles/Vol] 100 mmol/L Normal 98-[address] [facility] Comment on above: Performed By: #### L 501.9520, L501.9985, L500.4100, L100.0100, L502.0500, L500.4050, L506.1000 #### [facility] [address] [place], [address] CO2 [Moles/Vol] 25.6 mmol/L Normal 21.0-32.0 [facility] Comment on above: Performed By: #### L 501.9520, L501.9985, L500.4100, L100.0100, L502.0500, L500.4050, L506.1000 #### [facility] [address] [place], [address] Creatinine [Mass/Vol] 0.91 mg/dL Normal 0.70-1.20 [facility] Comment on above: Performed By: #### L 501.9520, L501.9985, L500.4100, L100.0100, L502.0500, L500.4050, L506.1000 #### [facility] [address] [place], [address] ECRCL 50.75 ml/min Normal 50-250 [facility] Comment on above: Performed By: #### L 501.9520, L501.9985, L500.4100, L100.0100, L502.0500, L500.4050, L506.1000 #### [facility] [address] [place], [address] GAP 11 Normal 5-15 [facility] Comment on above: Performed By: #### L 501.9520, L501.9985, L500.4100, L100.0100, L502.0500, L500.4050, L506.1000 #### [facility] [address] [place], [address] GFR/1.73 sq M.predicted among non-blacks MDRD (S/P/Bld) [Vol rate/Area] 68 mL/min/{1.73_m2} Normal >60 [facility] Comment on above: Result Comment: mL/m in/1.73m2 CKD-EPI Creatinine Equation (2020) Performed By: #### L 501.9520, L501.9985, L500.4100, L100.0100, L502.0500, L500.4050, L506.1000 #### [facility] [address] [place], [address] Glucose [Mass/Vol] 159 mg/dL High 70-99 [facility] Comment on above: Performed By: #### L 501.9520, L501.9985, L500.4100, L100.0100, L502.0500, L500.4050, L506.1000 #### [facility] [address] [place], [address] Potassium [Moles/Vol] 4.0 mmol/L Normal 3.3-5.1 [facility] Comment on above: Performed By: #### L 501.9520, L501.9985, L500.4100, L100.0100, L502.0500, L500.4050, L506.1000 #### [facility] [address] [place], [address] Sodium [Moles/Vol] 137 mmol/L Normal 133-145 [facility] Comment on above: Performed By: #### L 501.9520, L501.9985, L500.4100, L100.0100, L502.0500, L500.4050, L506.1000 #### [facility] [address] [place], [address] Urea nitrogen [Mass/Vol] 20 mg/dL High 4-19 [facility] Comment on above: Performed By: #### L 501.9520, L501.9985, L500.4100, L100.0100, L502.0500, L500.4050, L506.1000 #### [facility] [address] [place], [address] Basophil percentageOrdered B y: Colby Mendoza on 01-03-2025 Basophils/100 WBC (Bld) 1.0 % 0-1 [facility] Bedside Glucoseon 01-03-2025 FINGERSTICK GLU 145 mg/dL High 74-106 [facility] Comment on above: Result Comment: WOODY MERINO OF PATIENT CARE PER NURSING PROTOCOL Performed By: #### L 501.9520, L501.9985, L500.4100, L100.0100, L502.0500, L500.4050, L506.1000 #### [facility] [address] [place], [address] FINGERSTICK GLU 125 mg/dL High 74-106 [facility] Comment on above: Result Comment: WOODY GEMENT OF PATIENT CARE PER NURSING PROTOCOL Performed By: #### L 501.9520, L501.9985, L500.4100, L100.0100, L502.0500, L500.4050, L506.1000 #### [facility] [address] [place], [address] FINGERSTICK GLU 181 mg/dL High 74-106 [facility] Comment on above: Result Comment: WOODY GEMENT OF PATIENT CARE PER NURSING PROTOCOL Performed By: #### L 501.9520, L501.9985, L500.4100, L100.0100, L502.0500, L500.4050, L506.1000 #### [facility] [address] [place], [address] FINGERSTICK GLU 158 mg/dL High 74-106 [facility] Comment on above: Result Comment: WOODY GEMENT OF PATIENT CARE PER NURSING PROTOCOL Performed By: #### L 501.080 #### [facility] [address] [place], [address] CBC W/Diff, Automatedon 09-2 -2024 Absolute Lymph 1.65 X10 3/uL Normal 0.83-4.51 [facility] Comment on above: Performed By: #### L 500.2500, L100.0100 #### [facility] [address] [place], [address] Absolute Neut 3.5 X10 3/uL Normal 2.0-7.7 [facility] Comment on above: Performed By: #### L 500.2500, L100.0100 #### [facility] [address] [place], [address] Basophils/100 WBC (Bld) 1.0 % Normal 0-1 [facility] Comment on above: Performed By: #### L 500.2500, L100.0100 #### [facility] [address] [place], [address] Eosinophils/100 WBC (Bld) 4.3 % Normal 0-5 [facility] Comment on above: Performed By: #### L 500.2500, L100.0100 #### [facility] [address] [place], [address] Erythrocyte distribution width (RBC) [Ratio] 13.5 % Normal 11.6-14.6 [facility] Comment on above: Performed By: #### L 500.2500, L100.0100 #### [facility] [address] [place], [address] Hematocrit (Bld) [Volume fraction] 29.6 % Low 37-47 [facility] Comment on above: Performed By: #### L 500.2500, L100.0100 #### [facility] [address] [place], [address] Hemoglobin (Bld) [Mass/Vol] 9.5 g/dL Low 12.0-15.0 [facility] Comment on above: Performed By: #### L 500.2500, L100.0100 #### [facility] [address] [place], [address] IG% 0.200 Normal 0.0-0.9 [facility] Comment on above: Result Comment: IG% - Immature Granulocytes (promyelocytes, myelocytes and metamyelocytes) > 1% indicates that a LEFT SHIFT is Present. Performed By: #### L 500.2500, L100.0100 #### [facility] [address] [place], [address] Lymphocytes/100 WBC (Bld) 27.5 % Normal 19-41 [facility] Comment on above: Performed By: #### L 500.2500, L100.0100 #### [facility] [address] [place], [address] MCH (RBC) [Entitic mass] 29.5 pg Normal 27.0-32.0 [facility] Comment on above: Performed By: #### L 500.2500, L100.0100 #### [facility] [address] [place], [address] MCHC (RBC) [Mass/Vol] 32.1 g/dL Normal 32-36 [facility] Comment on above: Performed By: #### L 500.2500, L100.0100 #### [facility] [address] [place], [address] MCV (RBC) [Entitic vol] 91.9 fL Normal 81-99 [facility] Comment on above: Performed By: #### L 500.2500, L100.0100 #### [facility] [address] [place], [address] Monocytes/100 WBC (Bld) 8.7 % Normal 0-10 [facility] Comment on above: Performed By: #### L 500.2500, L100.0100 #### [facility] [address] [place], [address] Neutrophils/100 WBC (Bld) 58.3 % Normal 47-70 [facility] Comment on above: Performed By: #### L 500.2500, L100.0100 #### [facility] [address] [place], [address] Nucleated RBC (Bld) [#/Vol] 0 10*3/uL Normal 0-5 [facility] Comment on above: Performed By: #### L 500.2500, L100.0100 #### [facility] [address] [place], [address] Platelet mean volume (Bld) [Entitic vol] 9.3 fL Normal 6.2-12.0 [facility] Comment on above: Performed By: #### L 500.2500, L100.0100 #### [facility] [address] [place], [address] Platelets (Bld) [#/Vol] 302 10*3/uL Normal 150-450 [facility] Comment on above: Performed By: #### L 500.2500, L100.0100 #### [facility] [address] [place], [address] RBC (Bld) [#/Vol] 3.22 10*6/uL Low 4.2-5.4 [facility] Comment on above: Performed By: #### L 500.2500, L100.0100 #### [facility] [address] [place], [address] RDW SD 45.4 fl High 35.1-43.9 [facility] Comment on above: Performed By: #### L 500.2500, L100.0100 #### [facility] [address] [place], [address] WBC (Bld) [#/Vol] 6.0 10*3/uL Normal 4.4-11.0 [facility] Comment on above: Performed By: #### L 500.2500, L100.0100 #### [facility] [address] [place], [address] Carbon dioxide, total [Moles /volume] in Central venous bloodOrdered By: Colby Mendoza on 01-03-2025 CO2 [Moles/Vol] 25.6 mmol/L 21.0-32.0 [facility] Chloride assayOrdered By: Kailey Mendoza on 01-03-2025 Chloride [Moles/Vol] 100 mmol/L 98-[address] [facility] Eosinophil percentageOrdered By: Colby Mendoza on 01-03-2025 Eosinophils/100 WBC (Bld) 4.3 % 0-5 [facility] Erythrocyte distribution wid th ratioOrdered By: Colby Mendoza on 01-03-2025 Erythrocyte distribution width (RBC) [Ratio] 13.5 % 11.6-14.6 [facility] Erythrocyte distribution wid th standard deviationOrdered By: Colby Mendoza on 01-03-2025 Erythrocyte distribution width (RBC) [Ratio] 45.4 fl High 35.1-43.9 [facility] Glomerular filtration rate ( GFR) estimation/1.73 sq m using serum, plasma, or whole bOrdered By: Colby Mendoza on 01-03-2025 GFR/1.73 sq M.predicted among non-blacks MDRD (S/P/Bld) [Vol rate/Area] 68 mL/min/{1.73_m2} >60 [facility] Comment on above: mL/min/1.73m2 CKD-EP I Creatinine Equation (2020) Hematocrit Auto (Bld) [Volum e fraction]Ordered By: Colby Mendoza on 01-03-2025 Hematocrit (Bld) [Volume fraction] 29.6 % Low 37-47 [facility] Hemoglobin measurementOrdere d By: Colby Mendoza on 01-03-2025 Hemoglobin (Bld) [Mass/Vol] 9.5 g/dL Low 12.0-15.0 [facility] Immature granulocytes/100 WB C Auto (Bld)Ordered By: Colby Mendoza on 01-03-2025 Immature granulocytes/100 WBC (Bld) 0.200 % 0.0-0.9 [facility] Comment on above: IG% - Immature Granu locytes (promyelocytes, myelocytes and metamyelocytes) > 1% indicates that a LEFT SHIFT is Present. MCV (mean corpuscular volume ) determinationOrdered By: Colby Mendoza on 01-03-2025 MCV (RBC) [Entitic vol] 91.9 fL 81-99 [facility] Mean corpuscular hemoglobin (MCH) determinationOrdered By: Colby Mendoza on 01-03-2025 MCH (RBC) [Entitic mass] 29.5 pg 27.0-32.0 [facility] Mean corpuscular hemoglobin concentration (MCHC) determinationOrdered By: Colby Mendoza on 01-03-2025 MCHC (RBC) [Mass/Vol] 32.1 g/dL 32-36 [facility] Mean platelet volume determi nationOrdered By: Colby Mendoza on 01-03-2025 Platelet mean volume (Bld) [Entitic vol] 9.3 fL 6.2-12.0 [facility] Monocyte percentageOrdered B y: Colby Mendoza on 01-03-2025 Monocytes/100 WBC (Bld) 8.7 % 0-10 [facility] Neutrophil percentageOrdered By: Colby Mendoza on 01-03-2025 Neutrophils/100 WBC (Bld) 58.3 % 47-70 [facility] Nucleated red blood cell per centageOrdered By: Colby Mendoza on 01-03-2025 Nucleated RBC/100 WBC (Bld) [Ratio] 0 % 0-5 [facility] Platelet countOrdered By: Kailey Mendoza on 01-03-2025 Platelets (Bld) [#/Vol] 302 10*3/uL 150-450 [facility] Potassium measurement (mass/ volume)Ordered By: Colby Mendoza on 01-03-2025 Potassium (Unsp spec) [Mass/Vol] 4.0 mmol/L 3.3-5.1 [facility] RBC Auto (Bld) [#/Vol]Ordere d By: Colby Mendoza on 01-03-2025 RBC (Bld) [#/Vol] 3.22 10*6/uL Low 4.2-5.4 [facility] Serum creatinine measurement (mass/volume)Ordered By: Colby Mendoza on 01-03-2025 Creatinine [Mass/Vol] 0.91 mg/dL 0.70-1.20 [facility] Serum glucose measurement (m ass/volume)Ordered By: Colby Mendoza on 01-03-2025 Glucose [Mass/Vol] 159 mg/dL High 70-99 [facility] Serum or plasma calcium rony urement (mass/volume)Ordered By: Colby Mendoza on 01-03-2025 Calcium [Mass/Vol] 9.1 mg/dL 7.6-11.0 [facility] Serum or plasma urea nitroge n measurement (mass/volume)Ordered By: Colby Mendoza on 01-03-2025 Urea nitrogen [Mass/Vol] 20 mg/dL High 4-19 [facility] Sodium levelOrdered By: Endy Mendoza on 01-03-2025 Sodium [Moles/Vol] 137 mmol/L 133-145 [facility] White blood cell (WBC) count Ordered By: Colby Mendoza on 01-03-2025 WBC (Bld) [#/Vol] 6.0 10*3/uL 4.4-11.0 [facility] Acetaminophen (Tylenol) Leve yfn 01-02-2025 Acetaminophen [Mass/Vol] ug/mL Low 8.0-19.0 [facility] Comment on above: Result Comment: Acet aminophen concentrations > 200 ug/mL four hours after ingestion, > 100 ug/mL eight hours after ingestion, and > 50 ug/mL 12 hours after ingestion are potentially toxic. Performed By: #### L 501.9520, L501.9985, L500.4100, L100.0100, L502.0500, L500.4050, L506.1000 #### [facility] [address] [facility] [place], [place], [id number] Alcohol, Blood (Medical)-Ser umon 01-02-2025 SERUM ETOH < 10.1 Normal <=10.0 [facility] Comment on above: Result Comment: This test is for medical purposes only. The legal definition of intoxication varies according to local law. Performed By: #### L 501.9520, L501.9985, L500.4100, L100.0100, L502.0500, L500.4050, L506.1000 #### [facility] [address] [facility] [place], [address] Ammoniaon 01-02-2025 Ammonia (P) [Mass/Vol] ug/dL Low 11-51 [facility] Comment on above: Performed By: #### L 501.9520, L501.9985, L500.4100, L100.0100, L502.0500, L500.4050, L506.1000 #### [facility] [address] [place], [address] Amphetamine detection with 1 000 ng/mL as cutoffOrdered By: David Lemos on 01-02-2025 Amphetamines Screen method >1000 ng/mL Ql (U) Negative < 200 ng/mL [facility] Basic Metabolic Profile (BMP )on 01-02-2025 BUN/CRE 18.8 RATIO Normal 10-20 [facility] Comment on above: Performed By: #### L 501.9520, L501.9985, L500.4100, L100.0100, L502.0500, L500.4050, L506.1000 #### [facility] [address] [place], [address] Calcium [Mass/Vol] 9.5 mg/dL Normal 7.6-11.0 [facility] Comment on above: Performed By: #### L 501.9520, L501.9985, L500.4100, L100.0100, L502.0500, L500.4050, L506.1000 #### [facility] [address] [place], [address] Chloride [Moles/Vol] 98 mmol/L Normal 98-[address] [facility] Comment on above: Performed By: #### L 501.9520, L501.9985, L500.4100, L100.0100, L502.0500, L500.4050, L506.1000 #### [facility] [address] [place], [address] CO2 [Moles/Vol] 21.6 mmol/L Normal 21.0-32.0 [facility] Comment on above: Performed By: #### L 501.9520, L501.9985, L500.4100, L100.0100, L502.0500, L500.4050, L506.1000 #### [facility] [address] [place], [address] Creatinine [Mass/Vol] 1.44 mg/dL High 0.70-1.20 [facility] Comment on above: Performed By: #### L 501.9520, L501.9985, L500.4100, L100.0100, L502.0500, L500.4050, L506.1000 #### [facility] [address] [place], [address] ECRCL 32.24 ml/min Low 50-250 [facility] Comment on above: Performed By: #### L 501.9520, L501.9985, L500.4100, L100.0100, L502.0500, L500.4050, L506.1000 #### [facility] [address] [place], [address] GAP 16 High 5-15 [facility] Comment on above: Performed By: #### L 501.9520, L501.9985, L500.4100, L100.0100, L502.0500, L500.4050, L506.1000 #### [facility] [address] [place], [address] GFR/1.73 sq M.predicted among non-blacks MDRD (S/P/Bld) [Vol rate/Area] 39 mL/min/{1.73_m2} Low >60 [facility] Comment on above: Result Comment: mL/m in/1.73m2 CKD-EPI Creatinine Equation (2020) Performed By: #### L 501.9520, L501.9985, L500.4100, L100.0100, L502.0500, L500.4050, L506.1000 #### [facility] [address] [place], [address] Glucose [Mass/Vol] 222 mg/dL High 70-99 [facility] Comment on above: Performed By: #### L 501.9520, L501.9985, L500.4100, L100.0100, L502.0500, L500.4050, L506.1000 #### [facility] [address] [place], [address] Potassium [Moles/Vol] 4.5 mmol/L Normal 3.3-5.1 [facility] Comment on above: Result Comment: Hemo lysis present, Results??could be affected. ?? Performed By: #### L 501.9520, L501.9985, L500.4100, L100.0100, L502.0500, L500.4050, L506.1000 #### [facility] [address] [place], [address] Sodium [Moles/Vol] 136 mmol/L Normal 133-145 [facility] Comment on above: Performed By: #### L 501.9520, L501.9985, L500.4100, L100.0100, L502.0500, L500.4050, L506.1000 #### [facility] [address] [place], [address] Urea nitrogen [Mass/Vol] 27 mg/dL High 4-19 [facility] Comment on above: Performed By: #### L 501.9520, L501.9985, L500.4100, L100.0100, L502.0500, L500.4050, L506.1000 #### [facility] [address] [place], [address] Bedside Glucoseon 01-02-2025 FINGERSTICK GLU 224 mg/dL High 74-106 [facility] Comment on above: Result Comment: WOODY MERINO OF PATIENT CARE PER NURSING PROTOCOL Performed By: #### L 501.9520, L501.9985, L500.4100, L100.0100, L502.0500, L500.4050, L506.1000 #### [facility] [address] [place], [address] FINGERSTICK GLU 111 mg/dL High 74-106 [facility] Comment on above: Result Comment: WOODY WILBER OF PATIENT CARE PER NURSING PROTOCOL Performed By: #### L 501.9520, L501.9985, L500.4100, L100.0100, L502.0500, L500.4050, L506.1000 #### [facility] [address] [place], [address] Bilirubin Test strip Ql (U)O rdered By: David Lemos on 01-02-2025 Bilirubin Ql (U) Negative Negative [facility] Bilirubin directOrdered By: David Lemos on 01-02-2025 Bilirubin.direct [Mass/Vol] mg/dL 0.00-0.30 [facility] Comment on above: Hemolysis present, R esults could be affected. Bilirubin, totalOrdered By: David Lemos on 01-02-2025 Bilirubin [Mass/Vol] 0.30 mg/dL 0.00-1.[address] [facility] Brain/Head without Contrasto n 01-02-2025 Brain/Head without Contrast [facility] Imaging Services [address] [place], [place] [address] Brain/Head without Contrast MR#: [id number] Acct: [id number] Name: ABBY JAEGER Rep #: [id number] : 1955 F 69 From: Paul Johnson MD PCP: Dr. John Cagle MD Status: REG ER Study: Brain/Head without Contrast Date of Exam: 12/12 07/04 Exam# [id number] Ordering Dr: David Lemos DO EXAM: NONCONTRAST [...] Dr. John Cagle MD; David Lemos DO Telehealth Nurse Educator: Signed Normal [facility] CBC W/Diff, Automatedon 12-12 Absolute Lymph 1.23 X10 3/uL Normal 0.83-4.51 [facility] Comment on above: Performed By: #### L 501.9520, L501.9985, L500.4100, L100.0100, L502.0500, L500.4050, L506.1000 #### [facility] [address] [place], [place], [id number] ([address]) Absolute Neut 5.2 X10 3/uL Normal 2.0-7.7 [facility] Comment on above: Performed By: #### L 501.9520, L501.9985, L500.4100, L100.0100, L502.0500, L500.4050, L506.1000 #### [facility] [address] [place], [address] Basophils/100 WBC (Bld) 0.7 % Normal 0-1 [facility] Comment on above: Performed By: #### L 501.9520, L501.9985, L500.4100, L100.0100, L502.0500, L500.4050, L506.1000 #### [facility] [address] [place], [address] Eosinophils/100 WBC (Bld) 1.3 % Normal 0-5 [facility] Comment on above: Performed By: #### L 501.9520, L501.9985, L500.4100, L100.0100, L502.0500, L500.4050, L506.1000 #### [facility] [address] [place], [address] Erythrocyte distribution width (RBC) [Ratio] 13.5 % Normal 11.6-14.6 [facility] Comment on above: Performed By: #### L 501.9520, L501.9985, L500.4100, L100.0100, L502.0500, L500.4050, L506.1000 #### [facility] [address] [place], [address] Hematocrit (Bld) [Volume fraction] 29.3 % Low 37-47 [facility] Comment on above: Performed By: #### L 501.9520, L501.9985, L500.4100, L100.0100, L502.0500, L500.4050, L506.1000 #### [facility] [address] [place], [address] Hemoglobin (Bld) [Mass/Vol] 9.5 g/dL Low 12.0-15.0 [facility] Comment on above: Performed By: #### L 501.9520, L501.9985, L500.4100, L100.0100, L502.0500, L500.4050, L506.1000 #### [facility] [address] [place], [address] IG% 0.600 Normal 0.0-0.9 [facility] Comment on above: Result Comment: IG% - Immature Granulocytes (promyelocytes, myelocytes and metamyelocytes) > 1% indicates that a LEFT SHIFT is Present. Performed By: #### L 501.9520, L501.9985, L500.4100, L100.0100, L502.0500, L500.4050, L506.1000 #### [facility] [address] [place], [address] Lymphocytes/100 WBC (Bld) 17.5 % Low 19-41 [facility] Comment on above: Performed By: #### L 501.9520, L501.9985, L500.4100, L100.0100, L502.0500, L500.4050, L506.1000 #### [facility] [address] [place], [address] MCH (RBC) [Entitic mass] 29.8 pg Normal 27.0-32.0 [facility] Comment on above: Performed By: #### L 501.9520, L501.9985, L500.4100, L100.0100, L502.0500, L500.4050, L506.1000 #### [facility] [address] [place], [address] MCHC (RBC) [Mass/Vol] 32.4 g/dL Normal 32-36 [facility] Comment on above: Performed By: #### L 501.9520, L501.9985, L500.4100, L100.0100, L502.0500, L500.4050, L506.1000 #### [facility] [address] [place], [address] MCV (RBC) [Entitic vol] 91.8 fL Normal 81-99 [facility] Comment on above: Performed By: #### L 501.9520, L501.9985, L500.4100, L100.0100, L502.0500, L500.4050, L506.1000 #### [facility] [address] [place], [address] Monocytes/100 WBC (Bld) 5.7 % Normal 0-10 [facility] Comment on above: Performed By: #### L 501.9520, L501.9985, L500.4100, L100.0100, L502.0500, L500.4050, L506.1000 #### [facility] [address] [place], [address] Neutrophils/100 WBC (Bld) 74.2 % High 47-70 [facility] Comment on above: Performed By: #### L 501.9520, L501.9985, L500.4100, L100.0100, L502.0500, L500.4050, L506.1000 #### [facility] [address] [place], [address] Nucleated RBC (Bld) [#/Vol] 0 10*3/uL Normal 0-5 [facility] Comment on above: Performed By: #### L 501.9520, L501.9985, L500.4100, L100.0100, L502.0500, L500.4050, L506.1000 #### [facility] [address] [place], [address] Platelet mean volume (Bld) [Entitic vol] 9.6 fL Normal 6.2-12.0 [facility] Comment on above: Performed By: #### L 501.9520, L501.9985, L500.4100, L100.0100, L502.0500, L500.4050, L506.1000 #### [facility] [address] [place], [address] Platelets (Bld) [#/Vol] 312 10*3/uL Normal 150-450 [facility] Comment on above: Performed By: #### L 501.9520, L501.9985, L500.4100, L100.0100, L502.0500, L500.4050, L506.1000 #### [facility] [address] [place], [address] RBC (Bld) [#/Vol] 3.19 10*6/uL Low 4.2-5.4 [facility] Comment on above: Performed By: #### L 501.9520, L501.9985, L500.4100, L100.0100, L502.0500, L500.4050, L506.1000 #### [facility] [address] [place], [address] RDW SD 45.5 fl High 35.1-43.9 [facility] Comment on above: Performed By: #### L 501.9520, L501.9985, L500.4100, L100.0100, L502.0500, L500.4050, L506.1000 #### [facility] [address] [place], [address] WBC (Bld) [#/Vol] 7.0 10*3/uL Normal 4.4-11.0 [facility] Comment on above: Performed By: #### L 501.9520, L501.9985, L500.4100, L100.0100, L502.0500, L500.4050, L506.1000 #### [facility] [address] [place], [address] Emergency Department Summary on 01-02-2025 Emergency Department Summary [facility] Medical Records Department [address] [place] [address] Emergency Department Summary 01/02/25 MR#: [id number] Acct: [id number] Name: ABBY JAEGER Rep #: [id number] : 1955 69 From: David Lemos DO PCP: Dr. John Cagle MD Status:[facility]M [id number] [address] 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 [facility] Medical History Diabetes Anxiety Allergy/AdvReac Type [...] rigidity or (more content not included)... Normal [facility] H AND P Exam - Hospitaliston 01-02-2025 H&P Exam - Hospitalist [facility] Medical Records Department [address] [place] [address] H P Exam - Hospitalist 01/02/25 1517 MR#: [id number] Acct: [id number] Name: ABBY JAEGER Rep #: [id number] : 1955 69 From: Colby Mendoza MD PCP: Dr. John Cagle MD Status:ADM IN Location: [facility] [id number] HPI - General General Date of Admission: [...] was 4.42. Talk screen was also negative. [facility] Medical History (Updated 01/02/25 @ 07:27 by [...] Weight Weight: (more content not included)... Normal [facility] Hyaline casts LM.LPF (Urine sed) [#/Area]Ordered By: David Lemos on 01-02-2025 Hyaline casts (Urine sed) [#/Area] 0 /[LPF] 0-5 [facility] Ketones Test strip Ql (U)Ord ered By: David Lemos on 01-02-2025 Ketones Ql (U) Negative Negative [facility] Knee 3 Viewson 01-02-2025 Knee 3 Views [facility] Imaging Services [address] [place], [place] [id number] Knee 3 Views MR#: [id number] Acct: [id number] Name: ABBY JAEGER Rep #: [id number] : 1955 F 69 From: Jermaine Flores MD PCP: Dr. John Cagle MD Status: REG ER Study: Knee 3 Views Date of Exam: 01/02/25 Exam# [id number] Ordering Dr: David Lemos DO PROCEDURE: KNEE [...] consistent changes, no acute abnormalities Reading Location: [id number] CC: Dr. John Cagle MD; David Lemos DO Telehealth Nurse Educator: Signed Normal [facility] Knee 3 Views [facility] Imaging Services [address] [place], [place] [id number] Knee 3 Views MR#: [id number] Acct: [id number] Name: ABBY JAEGER Rep #: [id number] : 1955 F 69 From: Paul Johnson MD PCP: Dr. John Cagle MD Status: REG ER Study: Knee 3 Views Date of Exam: 01/02/25 Exam# [id number] Ordering Dr: David Lemos DO PROCEDURE: KNEE [...] Dr. John Cagle MD; David Lemos DO Telehealth Nurse Educator: Signed Normal [facility] - Chemistry and C hemistry - challengeOrdered By: David Lemos on 01-02-2025 AST [Catalytic activity/Vol] 20 U/L <32 [facility] Comment on above: Hemolysis present, R esults could be affected. Liver Profileon 01-02-2025 Albumin [Mass/Vol] 4.0 g/dL Normal 3.4-4.8 [facility] Comment on above: Performed By: #### L 501.9520, L501.9985, L500.4100, L100.0100, L502.0500, L500.4050, L506.1000 #### [facility] [address] [place], [address] ALK PHOS 50 U/L Normal 35-104 [facility] Comment on above: Performed By: #### L 501.9520, L501.9985, L500.4100, L100.0100, L502.0500, L500.4050, L506.1000 #### [facility] [address] [place], [address] ALT [Catalytic activity/Vol] 10 U/L Normal <=34 [facility] Comment on above: Performed By: #### L 501.9520, L501.9985, L500.4100, L100.0100, L502.0500, L500.4050, L506.1000 #### [facility] [address] [place], [address] AST [Catalytic activity/Vol] 20 U/L Normal <=31 [facility] Comment on above: Result Comment: Hemo lysis present, Results??could be affected. ?? Performed By: #### L 501.9520, L501.9985, L500.4100, L100.0100, L502.0500, L500.4050, L506.1000 #### [facility] [address] [place], [address] Bilirubin [Mass/Vol] 0.30 mg/dL Normal 0.00-1.[address] [facility] Comment on above: Performed By: #### L 501.9520, L501.9985, L500.4100, L100.0100, L502.0500, L500.4050, L506.1000 #### [facility] [address] [place], [address] D BILI < 0.08 Normal 0.00-0.30 [facility] Comment on above: Result Comment: Hemo lysis present, Results??could be affected. ?? Performed By: #### L 501.9520, L501.9985, L500.4100, L100.0100, L502.0500, L500.4050, L506.1000 #### [facility] [address] [place], [address] Globulin (S) [Mass/Vol] 2.7 g/dL Normal 2.2-4.2 [facility] Comment on above: Performed By: #### L 501.9520, L501.9985, L500.4100, L100.0100, L502.0500, L500.4050, L506.1000 #### [facility] [address] [place], [address] T PROT 6.7 g/dL Normal 5.9-8.4 [facility] Comment on above: Performed By: #### L 501.9520, L501.9985, L500.4100, L100.0100, L502.0500, L500.4050, L506.1000 #### [facility] [address] [place], [address] Magnesiumon 01-02-2025 Magnesium [Mass/Vol] 1.8 mg/dL Normal 1.5-2.[address] [facility] Comment on above: Performed By: #### L 501.9520, L501.9985, L500.4100, L100.0100, L502.0500, L500.4050, L506.1000 #### [facility] [address] [place], [address] Magnesium measurement (mass/ volume)Ordered By: David Lemos on 01-02-2025 Magnesium (Unsp spec) [Mass/Vol] 1.8 mg/dL 1.5-2.2 [facility] Microscopic analysis of urin e for red blood cells (RBC)Ordered By: David Lemos on 01-02-2025 Microscopic analysis of urine for red blood cells (RBC) 0-5 SEEN /hpf 0-5 [facility] Mucus LM Ql (Urine sed)Order ed By: David Lemos on 01-02-2025 Mucus Ql (Urine sed) 0 SEEN /hpf [facility] Nitrite Test strip Ql (U)Ord ered By: David Lemos on 01-02-2025 Nitrite Ql (U) Positive High Negative [facility] No Panel InformationOrdered By: David Lemos on 01-02-2025 Urine Buprenorphine Qualitative Negative < 200 ng/mL [facility] Urine Oxycodone Screen Negative < 100 ng/mL [facility] Protein Test strip Ql (U)Ord ered By: David Lemos on 01-02-2025 Protein Ql (U) 30 mg/dl High Negative [facility] Quantitative urine opiates m easurementOrdered By: David Lemos on 01-02-2025 Opiates Ql (U) Negative < 300 ng/mL [facility] Salicylateon 01-02-2025 SALICYLATE < 0.5 Low 2.8-20.0 [facility] Comment on above: Result Comment: Sali cylate concentrations > 30 mg/dL are potentially toxic. Salicylate concentrations exceeding 60 mg/dL can be lethal. Performed By: #### L 501.9520, L501.9985, L500.4100, L100.0100, L502.0500, L500.4050, L506.1000 #### [facility] [address] [place], [address] Screening urine fentanyl isabel surementOrdered By: David Lemos on 01-02-2025 fentaNYL Screen Ql (U) Negative <5 ng/mL [facility] Comment on above: CONFIRMATORY TESTING FOR [...] Globulin (S) [Mass/Vol] 2.7 g/dL 2.2-4.2 [facility] Serum or plasma acetaminophe n measurement (mass/volume)Ordered By: David Lemos on 01-02-2025 Acetaminophen [Mass/Vol] ug/mL Low 8.0-19.0 [facility] Comment on above: Acetaminophen concen trations > 200 ug/mL four hours after ingestion, > 100 ug/mL eight hours after ingestion, and > 50 ug/mL 12 hours after ingestion are potentially toxic. Serum or plasma alanine bentley otransferase (ALT) measurementOrdered By: David Lemos on 01-02-2025 ALT [Catalytic activity/Vol] 10 U/L <35 [facility] Serum or plasma albumin rony urement (mass/volume)Ordered By: David Lemos on 01-02-2025 Albumin [Mass/Vol] 4.0 g/dL 3.4-4.8 [facility] Serum or plasma alkaline anaya sphatase measurementOrdered By: David Lemos on 01-02-2025 ALP [Catalytic activity/Vol] 50 U/L 35-104 [facility] Serum or plasma ethanol rony urement (mass/volume)Ordered By: David Lemos on 01-02-2025 Ethanol [Mass/Vol] mg/dL <10.1 [facility] Comment on above: This test is for med ical purposes only. The legal definition of intoxication varies according to local law. Serum or plasma salicylates measurement (mass/volume)Ordered By: David Lemos on 01-02-2025 Salicylates [Mass/Vol] mg/dL Low 2.8-20.0 [facility] Comment on above: Salicylate concentra tions > 30 mg/dL are potentially toxic.Salicylate concentrations exceeding 60 mg/dL can be lethal. Squamous epithelial cells de tection in urine sediment by light microscopyOrdered By: David Lemos on 01-02-2025 Epithelial cells.squamous LM Ql (Urine sed) 0-5 SEEN /hpf 5-10 [facility] TSH DL <= 0.005 mIU/L QnOrde red By: David Lemos on 01-02-2025 TSH Qn 4.420 uIU/mL High 0.300-4.200 [facility] Thyroid Stim Hormone (TSH)on 01-02-2025 TSH 4.420 uIU/mL High 0.300-4.200 [facility] Comment on above: Performed By: #### L 501.9520, L501.9985, L500.4100, L100.0100, L502.0500, L500.4050, L506.1000 #### [facility] [place], [address] Total proteinOrdered By: Christian Lemos on 01-02-2025 Protein [Mass/Vol] 6.7 g/dL 5.9-8.4 [facility] Urinalysis, Completeon 01-02 BACTERIA 3+ /hpf Normal None Seen [facility] Comment on above: Order Comment: VELVET CTOR TO SPECIFY Performed By: #### L 400.0001 #### [facility] [address] [place], [address] CAST,HYALINE 0-5 SEEN Normal 0-5 [facility] Comment on above: Order Comment: VELVET CTOR TO SPECIFY Performed By: #### L 400.0001 #### [facility] [address] [place], [address] EPI,SQUAMOUS 0-5 SEEN Normal 5-10 [facility] Comment on above: Order Comment: VELVET CTOR TO SPECIFY Performed By: #### L 400.0001 #### [facility] [address] [place], [address] RBC 0-5 SEEN Normal 0-5 [facility] Comment on above: Order Comment: VELVET CTOR TO SPECIFY Performed By: #### L 400.0001 #### [facility] [address] [place], [address] WBC 25-50 SEEN Normal 0-5 [facility] Comment on above: Order Comment: VELVET CTOR TO SPECIFY Performed By: #### L 400.0001 #### [facility] [address] [place], [address] Mucus Ql (Urine sed) 0 SEEN Normal [facility] Comment on above: Order Comment: VELVET CTOR TO SPECIFY Performed By: #### L 400.0001 #### [facility] [address] [place], [address] Urine Drug Screen (VISTA)on 01-02-2025 AMPHETAMINES Negative Normal <1000 ng/mL [facility] Comment on above: Performed By: #### L 501.9520, L501.9985, L500.4100, L100.0100, L502.0500, L500.4050, L506.1000 #### [facility] [address] [place], [place], [facility] BARBITIURATES Negative Normal < 200 ng/mL [facility] Comment on above: Performed By: #### L 501.9520, L501.9985, L500.4100, L100.0100, L502.0500, L500.4050, L506.1000 #### [facility] [address] [place], [place], [facility] BENZODIAZIPINE Negative Normal < 200 ng/mL [facility] Comment on above: Performed By: #### L 501.9520, L501.9985, L500.4100, L100.0100, L502.0500, L500.4050, L506.1000 #### [facility] [place], [place], [facility] BUP Ur Drug Scr Negative Normal < 200 ng/mL [facility] Comment on above: Performed By: #### L 501.9520, L501.9985, L500.4100, L100.0100, L502.0500, L500.4050, L506.1000 #### [facility] [place], [place], [facility] COCAINE Negative Normal < 300 ng/mL [facility] Comment on above: Performed By: #### L 501.9520, L501.9985, L500.4100, L100.0100, L502.0500, L500.4050, L506.1000 #### [facility] [address] [place], [place], [facility] Fentanyl Negative Normal <5 ng/mL [facility] Comment on above: Result Comment: CONF [...] L501.9985, L500.4100, L100.0100, L502.0500, L500.4050, L506.1000 #### [facility] [address] [place], [address] METHADONE Negative Normal < 300 ng/mL [facility] Comment on above: Performed By: #### L 501.9520, L501.9985, L500.4100, L100.0100, L502.0500, L500.4050, L506.1000 #### [facility] [address] [place] [address] OPIATES Negative Normal < 300 ng/mL [facility] Comment on above: Performed By: #### L 501.9520, L501.9985, L500.4100, L100.0100, L502.0500, L500.4050, L506.1000 #### [facility] [address] [place], [address] OXYCODONE Negative Normal < 100 ng/mL [facility] Comment on above: Performed By: #### L 501.9520, L501.9985, L500.4100, L100.0100, L502.0500, L500.4050, L506.1000 #### [facility] [address] [place], [address] PCP Positive Normal < 25 ng/mL [facility] Comment on above: Result Comment: If c onfirmation testing is needed, a separate order will be required to send out testing to the reference laboratory. Performed By: #### L 501.9520, L501.9985, L500.4100, L100.0100, L502.0500, L500.4050, L506.1000 #### [facility] [address] [place], [place], [address] THC Negative Normal < 50 ng/mL [facility] Comment on above: Performed By: #### L 501.9520, L501.9985, L500.4100, L100.0100, L502.0500, L500.4050, L506.1000 #### [facility] [address] [place], [place], [id number] Urine benzodiazepine levelOr dered By: David Lemos on 01-02-2025 Benzodiazepines Ql (U) Negative < 200 ng/mL [facility] Urine clarityOrdered By: Christian Lemos on 01-02-2025 Clarity (U) Clear Clear [facility] Urine cocaine levelOrdered B y: David Lemos on 01-02-2025 Cocaine Ql (U) Negative < 300 ng/mL [facility] Urine color determinationOrd ered By: David Lemos on 01-02-2025 Color (U) Yellow Yellow [facility] Urine cultureOrdered By: Christian Lemos on 01-02-2025 Bacteria identified Cx Nom (U) Presumptive E. coli Abnormal [facility] Bacteria identified Cx Nom (U) Positive Abnormal [facility] Urine myjdg-8-lciswekwabxiud abinol (THC) measurementOrdered By: David Lemos on 01-02-2025 Cannabinoids Screen Ql (U) Negative < 50 ng/mL [facility] Urine glucose detectionOrder ed By: David Lemos on 01-02-2025 Glucose Ql (U) Normal mg/dl Normal [facility] Urine leukocyte esterase det ection by dipstickOrdered By: David Lemos on 01-02-2025 Leukocyte esterase Test strip Ql (U) 500 /ul High Negative [facility] Urine pHOrdered By: David Poe ndes on 01-02-2025 pH (U) 5.0 [pH] 5.0 - 8.0 [facility] Urine phencyclidine (PCP) de tectionOrdered By: David Lemos on 01-02-2025 Phencyclidine Ql (U) Positive < 25 ng/mL [facility] Comment on above: If confirmation test ing is needed, a separate order will be required to send out testing to the reference laboratory. Urine sediment bacteria coun t by microscopy (number/high power field)Ordered By: David Lemos on 01-02-2025 Bacteria LM.HPF (Urine sed) [#/Area] 3 /[HPF] None Seen [facility] Urine specific gravity measu rementOrdered By: David Lemos on 01-02-2025 Specific gravity (U) [Rel density] 1.020 1.002-1.030 [facility] Urine urobilinogen measureme ntOrdered By: David Lemos on 01-02-2025 Urobilinogen Ql (U) Normal mg/dl Normal [facility] Venous blood ammonia measure mentOrdered By: David Lemos on 01-02-2025 Venous blood ammonia measurement < 10.0 umol/L Low 11-51 [facility] White blood cell countOrdere d By: David Lemos on 01-02-2025 White blood cell count 25-50 SEEN /hpf 0-5 [facility] CBC W/Diff, Automatedon 02-11 Absolute Lymph 2.66 X10 3/uL Normal 0.83-4.51 [facility] Comment on above: Performed By: #### L 501.9520, L501.9985, L500.4100, L100.0100, L502.0500, L500.4050, L506.1000 #### [facility] [address] [place], [place], [id number] Absolute Neut 2.8 X10 3/uL Normal 2.0-7.7 [facility] Comment on above: Performed By: #### L 501.9520, L501.9985, L500.4100, L100.0100, L502.0500, L500.4050, L506.1000 #### [facility] [address] [place], [address] Basophils/100 WBC (Bld) 1.3 % High 0-1 [facility] Comment on above: Performed By: #### L 501.9520, L501.9985, L500.4100, L100.0100, L502.0500, L500.4050, L506.1000 #### [facility] [address] [place], [address] Eosinophils/100 WBC (Bld) 2.4 % Normal 0-5 [facility] Comment on above: Performed By: #### L 501.9520, L501.9985, L500.4100, L100.0100, L502.0500, L500.4050, L506.1000 #### [facility] [address] [place], [address] Erythrocyte distribution width (RBC) [Ratio] 13.4 % Normal 11.6-14.6 [facility] Comment on above: Performed By: #### L 501.9520, L501.9985, L500.4100, L100.0100, L502.0500, L500.4050, L506.1000 #### [facility] [address] [place], [address] Hematocrit (Bld) [Volume fraction] 39.3 % Normal 37-47 [facility] Comment on above: Performed By: #### L 501.9520, L501.9985, L500.4100, L100.0100, L502.0500, L500.4050, L506.1000 #### [facility] [address] [place], [address] Hemoglobin (Bld) [Mass/Vol] 11.8 g/dL Low 12.0-15.0 [facility] Comment on above: Performed By: #### L 501.9520, L501.9985, L500.4100, L100.0100, L502.0500, L500.4050, L506.1000 #### [facility] [address] [place], [address] IG% 0.300 Normal 0.0-0.9 [facility] Comment on above: Result Comment: IG% - Immature Granulocytes (promyelocytes, myelocytes and metamyelocytes) > 1% indicates that a LEFT SHIFT is Present. Performed By: #### L 501.9520, L501.9985, L500.4100, L100.0100, L502.0500, L500.4050, L506.1000 #### [facility] [address] [place], [address] Lymphocytes/100 WBC (Bld) 43.2 % High 19-41 [facility] Comment on above: Performed By: #### L 501.9520, L501.9985, L500.4100, L100.0100, L502.0500, L500.4050, L506.1000 #### [facility] [address] [place], [address] MCH (RBC) [Entitic mass] 28.8 pg Normal 27.0-32.0 [facility] Comment on above: Performed By: #### L 501.9520, L501.9985, L500.4100, L100.0100, L502.0500, L500.4050, L506.1000 #### [facility] [address] [place], [address] MCHC (RBC) [Mass/Vol] 30.0 g/dL Low 32-36 [facility] Comment on above: Performed By: #### L 501.9520, L501.9985, L500.4100, L100.0100, L502.0500, L500.4050, L506.1000 #### [facility] [address] [place], [address] MCV (RBC) [Entitic vol] 95.9 fL Normal 81-99 [facility] Comment on above: Performed By: #### L 501.9520, L501.9985, L500.4100, L100.0100, L502.0500, L500.4050, L506.1000 #### [facility] [address] [place], [address] Monocytes/100 WBC (Bld) 7.3 % Normal 0-10 [facility] Comment on above: Performed By: #### L 501.9520, L501.9985, L500.4100, L100.0100, L502.0500, L500.4050, L506.1000 #### [facility] [address] [place], [address] Neutrophils/100 WBC (Bld) 45.5 % Low 47-70 [facility] Comment on above: Performed By: #### L 501.9520, L501.9985, L500.4100, L100.0100, L502.0500, L500.4050, L506.1000 #### [facility] [address] [place], [address] Nucleated RBC (Bld) [#/Vol] 0 10*3/uL Normal 0-5 [facility] Comment on above: Performed By: #### L 501.9520, L501.9985, L500.4100, L100.0100, L502.0500, L500.4050, L506.1000 #### [facility] [address] [place], [address] Platelet mean volume (Bld) [Entitic vol] 9.0 fL Normal 6.2-12.0 [facility] Comment on above: Performed By: #### L 501.9520, L501.9985, L500.4100, L100.0100, L502.0500, L500.4050, L506.1000 #### [facility] [address] [place], [address] Platelets (Bld) [#/Vol] 374 10*3/uL Normal 150-450 [facility] Comment on above: Performed By: #### L 501.9520, L501.9985, L500.4100, L100.0100, L502.0500, L500.4050, L506.1000 #### [facility] [address] [place], [address] RBC (Bld) [#/Vol] 4.10 10*6/uL Low 4.2-5.4 [facility] Comment on above: Performed By: #### L 501.9520, L501.9985, L500.4100, L100.0100, L502.0500, L500.4050, L506.1000 #### [facility] [address] [place], [address] RDW SD 47.6 fl High 35.1-43.9 [facility] Comment on above: Performed By: #### L 501.9520, L501.9985, L500.4100, L100.0100, L502.0500, L500.4050, L506.1000 #### [facility] [address] [place], [address] WBC (Bld) [#/Vol] 6.2 10*3/uL Normal 4.4-11.0 [facility] Comment on above: Performed By: #### L 501.9520, L501.9985, L500.4100, L100.0100, L502.0500, L500.4050, L506.1000 #### [facility] [address] [place], [address] Comprehensive Metabolic Prof ilon 03-07-2024 Albumin [Mass/Vol] 3.6 g/dL Normal 3.2-5.0 [facility] Comment on above: Performed By: #### L 501.9520, L501.9985, L500.4100, L100.0100, L502.0500, L500.4050, L506.1000 #### [facility] [address] [place], [address] Albumin/Globulin [Mass ratio] 0.9 {ratio} Normal 0.9-2.4 [facility] Comment on above: Performed By: #### L 501.9520, L501.9985, L500.4100, L100.0100, L502.0500, L500.4050, L506.1000 #### [facility] [address] [place], [address] ALK P 69 U/L Normal 45-117 [facility] Comment on above: Performed By: #### L 501.9520, L501.9985, L500.4100, L100.0100, L502.0500, L500.4050, L506.1000 #### [facility] [address] [place], [address] ALT [Catalytic activity/Vol] 21 U/L Normal 13-56 [facility] Comment on above: Performed By: #### L 501.9520, L501.9985, L500.4100, L100.0100, L502.0500, L500.4050, L506.1000 #### [facility] [address] [place], [address] AST [Catalytic activity/Vol] 21 U/L Normal 15-37 [facility] Comment on above: Result Comment: Mode rate Hemolysis, Result may be falsely increased. Performed By: #### L 501.9520, L501.9985, L500.4100, L100.0100, L502.0500, L500.4050, L506.1000 #### [facility] [address] [place], [address] Bilirubin [Mass/Vol] 0.40 mg/dL Normal 0.20-1.[address] [facility] Comment on above: Result Comment: For patients on eltrombopag therapy, use of Dimension [place] TBIL is not recommended. Performed By: #### L 501.9520, L501.9985, L500.4100, L100.0100, L502.0500, L500.4050, L506.1000 #### [facility] [address] [place], [address] BUN/CRE 25.7 RATIO High 10-20 [facility] Comment on above: Performed By: #### L 501.9520, L501.9985, L500.4100, L100.0100, L502.0500, L500.4050, L506.1000 #### [facility] [address] [place], [address] CA,Total 9.1 mg/dL Normal 8.5-10.1 [facility] Comment on above: Performed By: #### L 501.9520, L501.9985, L500.4100, L100.0100, L502.0500, L500.4050, L506.1000 #### [facility] [address] [place], [address] Chloride [Moles/Vol] 105 mmol/L Normal 98-[address] [facility] Comment on above: Performed By: #### L 501.9520, L501.9985, L500.4100, L100.0100, L502.0500, L500.4050, L506.1000 #### [facility] [address] [place], [address] CO2 [Moles/Vol] 29.0 mmol/L Normal 21.0-32.0 [facility] Comment on above: Performed By: #### L 501.9520, L501.9985, L500.4100, L100.0100, L502.0500, L500.4050, L506.1000 #### [facility] [address] [facility] [phone] ([phone] Creatinine [Mass/Vol] 1.09 mg/dL High 0.55-1.02 [facility] Comment on above: Result Comment: The validity of the calculated GFR GFRAA in patients over 70 years has not been determined. Clinical correlation is essential. Performed By: #### L 501.9520, L501.9985, L500.4100, L100.0100, L502.0500, L500.4050, L506.1000 #### [facility] [address] [place], [address] EST GFR - AA 64 mL/min Normal >60 [facility] Comment on above: Result Comment: Afri can Cymraes GFR Calc Performed By: #### L 501.9520, L501.9985, L500.4100, L100.0100, L502.0500, L500.4050, L506.1000 #### [facility] [address] [place], [place], [phone] ([phone]) GAP 6 Normal 5-15 [facility] Comment on above: Performed By: #### L 501.9520, L501.9985, L500.4100, L100.0100, L502.0500, L500.4050, L506.1000 #### [facility] [address] [place], [place], [phone] (049) GFR/1.73 sq M.predicted among non-blacks MDRD (S/P/Bld) [Vol rate/Area] 53 mL/min/{1.73_m2} Low >60 [facility] Comment on above: Result Comment: Non- GFR Calc Performed By: #### L 501.9520, L501.9985, L500.4100, L100.0100, L502.0500, L500.4050, L506.1000 #### [facility] [address] [place], [place], [phone] ([phone]) Globulin (S) [Mass/Vol] 3.9 g/dL Normal 2.2-4.2 [facility] Comment on above: Performed By: #### L 501.9520, L501.9985, L500.4100, L100.0100, L502.0500, L500.4050, L506.1000 #### [facility] [address] [place], [address] Glucose [Mass/Vol] 154 mg/dL High 74-106 [facility] Comment on above: Result Comment: Fast ing Glucose result greater than or equal to 126 mg/dL suggests DIABETES MELLITUS per A.D.A. criteria. Performed By: #### L 501.9520, L501.9985, L500.4100, L100.0100, L502.0500, L500.4050, L506.1000 #### [facility] [address] [place], [address] Potassium [Moles/Vol] 4.6 mmol/L Normal 3.5-5.1 [facility] Comment on above: Result Comment: Mode rate Hemolysis, Result may be falsely increased. Performed By: #### L 501.9520, L501.9985, L500.4100, L100.0100, L502.0500, L500.4050, L506.1000 #### [facility] [address] [place], [address] Sodium [Moles/Vol] 140 mmol/L Normal 136-145 [facility] Comment on above: Performed By: #### L 501.9520, L501.9985, L500.4100, L100.0100, L502.0500, L500.4050, L506.1000 #### [facility] [address] [place], [address] T PROT 7.5 g/dL Normal 6.4-8.2 [facility] Comment on above: Performed By: #### L 501.9520, L501.9985, L500.4100, L100.0100, L502.0500, L500.4050, L506.1000 #### [facility] [address] [place], [address] Urea nitrogen [Mass/Vol] 28 mg/dL High 7-18 [facility] Comment on above: Performed By: #### L 501.9520, L501.9985, L500.4100, L100.0100, L502.0500, L500.4050, L506.1000 #### [facility] [address] [place], [address] Lipid Profileon 03-07-2024 Cholesterol [Mass/Vol] 180 mg/dL Normal 200 [facility] Comment on above: Result Comment: <200 mg/dL Desirable 200-240 mg/dL Borderline >240 mg/dL High Risk Performed By: #### L 501.9520, L501.9985, L500.4100, L100.0100, L502.0500, L500.4050, L506.1000 #### [facility] [address] [place], [address] Cholesterol in HDL [Mass/Vol] 81 mg/dL Normal [facility] Comment on above: Result Comment: The drugs N-Acetylcysteine and Metamizole may falsely depress this assay. Reference Range HDL <40 mg/dL Low HDL Cholesterol HDL >or= 60 mg/dL High HDL Cholesterol Performed By: #### L 501.9520, L501.9985, L500.4100, L100.0100, L502.0500, L500.4050, L506.1000 #### [facility] [address] [place], [address] Cholesterol in LDL [Mass/Vol] 85 mg/dL Normal 0-130 [facility] Comment on above: Performed By: #### L 501.9520, L501.9985, L500.4100, L100.0100, L502.0500, L500.4050, L506.1000 #### [facility] [address] [place], [address] Cholesterol in VLDL [Mass/Vol] 14 mg/dL Normal 5-40 [facility] Comment on above: Performed By: #### L 501.9520, L501.9985, L500.4100, L100.0100, L502.0500, L500.4050, L506.1000 #### [facility] [address] [place], [address] Triglyceride [Mass/Vol] 70 mg/dL Normal [facility] Comment on above: Result Comment: The drugs N-Acetylcysteine and Metamizole may falsely depress this assay. Serum Triglycerides Reference Interval Normal <150 mg/dL Borderline high 150 - 199 mg/dL High 200 - 499 mg/dL Very High > or = 500 mg/dL Performed By: #### L 501.9520, L501.9985, L500.4100, L100.0100, L502.0500, L500.4050, L506.1000 #### [facility] [address] [place], [address] T4 Free Directon 03-07-2024 T4 FREE DIRECT 0.86 ng/dL Normal 0.76-1.46 [facility] Comment on above: Performed By: #### L 501.9520, L501.9985, L500.4100, L100.0100, L502.0500, L500.4050, L506.1000 #### [facility] [address] [place], [address] Thyroid Stim Hormone (TSH)on 03-07-2024 TSH 1.610 uIU/mL Normal 0.358-3.740 [facility] Comment on above: Performed By: #### L 501.9520, L501.9985, L500.4100, L100.0100, L502.0500, L500.4050, L506.1000 #### [facility] [address] [place], [address] CBC W/Diff, Automatedon 11-1 -2023 Absolute Lymph 2.67 X10 3/uL Normal 0.83-4.51 [facility] Comment on above: Performed By: #### L 501.9520, L501.9985, L500.4100, L100.0100, L502.0500, L500.4050, L506.1000 #### [facility] [address] [place], [address] Absolute Neut 3.9 X10 3/uL Normal 2.0-7.7 [facility] Comment on above: Performed By: #### L 501.9520, L501.9985, L500.4100, L100.0100, L502.0500, L500.4050, L506.1000 #### [facility] [address] [place], [address] Basophils/100 WBC (Bld) 1.1 % High 0-1 [facility] Comment on above: Performed By: #### L 501.9520, L501.9985, L500.4100, L100.0100, L502.0500, L500.4050, L506.1000 #### [facility] [address] [place], [address] Eosinophils/100 WBC (Bld) 1.6 % Normal 0-5 [facility] Comment on above: Performed By: #### L 501.9520, L501.9985, L500.4100, L100.0100, L502.0500, L500.4050, L506.1000 #### [facility] [address] [place], [address] Erythrocyte distribution width (RBC) [Ratio] 13.3 % Normal 11.6-14.6 [facility] Comment on above: Performed By: #### L 501.9520, L501.9985, L500.4100, L100.0100, L502.0500, L500.4050, L506.1000 #### [facility] [address] [place], [address] Hematocrit (Bld) [Volume fraction] 39.6 % Normal 37-47 [facility] Comment on above: Performed By: #### L 501.9520, L501.9985, L500.4100, L100.0100, L502.0500, L500.4050, L506.1000 #### [facility] [address] [place], [address] Hemoglobin (Bld) [Mass/Vol] 12.2 g/dL Normal 12.0-15.0 [facility] Comment on above: Performed By: #### L 501.9520, L501.9985, L500.4100, L100.0100, L502.0500, L500.4050, L506.1000 #### [facility] [address] [place], [address] IG% 0.300 Normal 0.0-0.9 [facility] Comment on above: Result Comment: IG% - Immature Granulocytes (promyelocytes, myelocytes and metamyelocytes) > 1% indicates that a LEFT SHIFT is Present. Performed By: #### L 501.9520, L501.9985, L500.4100, L100.0100, L502.0500, L500.4050, L506.1000 #### [facility] [address] [place], [address] Lymphocytes/100 WBC (Bld) 36.7 % Normal 19-41 [facility] Comment on above: Performed By: #### L 501.9520, L501.9985, L500.4100, L100.0100, L502.0500, L500.4050, L506.1000 #### [facility] [address] [place], [address] MCH (RBC) [Entitic mass] 28.9 pg Normal 27.0-32.0 [facility] Comment on above: Performed By: #### L 501.9520, L501.9985, L500.4100, L100.0100, L502.0500, L500.4050, L506.1000 #### [facility] [address] [place], [address] MCHC (RBC) [Mass/Vol] 30.8 g/dL Low 32-36 [facility] Comment on above: Performed By: #### L 501.9520, L501.9985, L500.4100, L100.0100, L502.0500, L500.4050, L506.1000 #### [facility] [address] [place], [address] MCV (RBC) [Entitic vol] 93.8 fL Normal 81-99 [facility] Comment on above: Performed By: #### L 501.9520, L501.9985, L500.4100, L100.0100, L502.0500, L500.4050, L506.1000 #### [facility] [address] [place], [address] Monocytes/100 WBC (Bld) 6.7 % Normal 0-10 [facility] Comment on above: Performed By: #### L 501.9520, L501.9985, L500.4100, L100.0100, L502.0500, L500.4050, L506.1000 #### [facility] [address] [place], [address] Neutrophils/100 WBC (Bld) 53.6 % Normal 47-70 [facility] Comment on above: Performed By: #### L 501.9520, L501.9985, L500.4100, L100.0100, L502.0500, L500.4050, L506.1000 #### [facility] [address] [place], [address] Nucleated RBC (Bld) [#/Vol] 0 10*3/uL Normal 0-5 [facility] Comment on above: Performed By: #### L 501.9520, L501.9985, L500.4100, L100.0100, L502.0500, L500.4050, L506.1000 #### [facility] [address] [place], [address] Platelet mean volume (Bld) [Entitic vol] 9.2 fL Normal 6.2-12.0 [facility] Comment on above: Performed By: #### L 501.9520, L501.9985, L500.4100, L100.0100, L502.0500, L500.4050, L506.1000 #### [facility] [address] [place], [address] Platelets (Bld) [#/Vol] 413 10*3/uL Normal 150-450 [facility] Comment on above: Performed By: #### L 501.9520, L501.9985, L500.4100, L100.0100, L502.0500, L500.4050, L506.1000 #### [facility] [address] [place], [address] RBC (Bld) [#/Vol] 4.22 10*6/uL Normal 4.2-5.4 [facility] Comment on above: Performed By: #### L 501.9520, L501.9985, L500.4100, L100.0100, L502.0500, L500.4050, L506.1000 #### [facility] [address] [place], [address] RDW SD 45.5 fl High 35.1-43.9 [facility] Comment on above: Performed By: #### L 501.9520, L501.9985, L500.4100, L100.0100, L502.0500, L500.4050, L506.1000 #### [facility] [address] [place], [address] WBC (Bld) [#/Vol] 7.3 10*3/uL Normal 4.4-11.0 [facility] Comment on above: Performed By: #### L 501.9520, L501.9985, L500.4100, L100.0100, L502.0500, L500.4050, L506.1000 #### [facility] [address] [place], [address] Comprehensive Metabolic Prof [facility] 02-21-2024 Albumin [Mass/Vol] 3.9 g/dL Normal 3.2-5.0 [facility] Comment on above: Performed By: #### L 501.9520, L501.9985, L500.4100, L100.0100, L502.0500, L500.4050, L506.1000 #### [facility] [address] [place], [address] Albumin/Globulin [Mass ratio] 1.0 {ratio} Normal 0.9-2.4 [facility] Comment on above: Performed By: #### L 501.9520, L501.9985, L500.4100, L100.0100, L502.0500, L500.4050, L506.1000 #### [facility] [address] [place], [address] ALK P 98 U/L Normal 45-117 [facility] Comment on above: Performed By: #### L 501.9520, L501.9985, L500.4100, L100.0100, L502.0500, L500.4050, L506.1000 #### [facility] [address] [place], [address] ALT [Catalytic activity/Vol] 17 U/L Normal 13-56 [facility] Comment on above: Performed By: #### L 501.9520, L501.9985, L500.4100, L100.0100, L502.0500, L500.4050, L506.1000 #### [facility] [address] [place], [address] AST [Catalytic activity/Vol] 18 U/L Normal 15-37 [facility] Comment on above: Performed By: #### L 501.9520, L501.9985, L500.4100, L100.0100, L502.0500, L500.4050, L506.1000 #### [facility] [address] [place], [address] Bilirubin [Mass/Vol] 0.40 mg/dL Normal 0.20-1.[address] [facility] Comment on above: Result Comment: For patients on eltrombopag therapy, use of Dimension [place] TBIL is not recommended. Performed By: #### L 501.9520, L501.9985, L500.4100, L100.0100, L502.0500, L500.4050, L506.1000 #### [facility] [address] [place], [address] BUN/CRE 18.7 RATIO Normal 10-20 [facility] Comment on above: Performed By: #### L 501.9520, L501.9985, L500.4100, L100.0100, L502.0500, L500.4050, L506.1000 #### [facility] [address] [place], [address] CA,Total 9.9 mg/dL Normal 8.5-10.1 [facility] Comment on above: Performed By: #### L 501.9520, L501.9985, L500.4100, L100.0100, L502.0500, L500.4050, L506.1000 #### [facility] [address] [place], [address] Chloride [Moles/Vol] 102 mmol/L Normal 98-[address] [facility] Comment on above: Performed By: #### L 501.9520, L501.9985, L500.4100, L100.0100, L502.0500, L500.4050, L506.1000 #### [facility] [address] [place], [address] CO2 [Moles/Vol] 27.0 mmol/L Normal 21.0-32.0 [facility] Comment on above: Performed By: #### L 501.9520, L501.9985, L500.4100, L100.0100, L502.0500, L500.4050, L506.1000 #### [facility] [address] [place], [address] Creatinine [Mass/Vol] 1.07 mg/dL High 0.55-1.02 [facility] Comment on above: Result Comment: The validity of the calculated GFR GFRAA in patients over 70 years has not been determined. Clinical correlation is essential. Performed By: #### L 501.9520, L501.9985, L500.4100, L100.0100, L502.0500, L500.4050, L506.1000 #### [facility] [address] [place], [address] EST GFR - AA 65 mL/min Normal >60 [facility] Comment on above: Result Comment: Afri can Cymraes GFR Calc Performed By: #### L 501.9520, L501.9985, L500.4100, L100.0100, L502.0500, L500.4050, L506.1000 #### [facility] [address] [place], [address] GAP 8 Normal 5-15 [facility] Comment on above: Performed By: #### L 501.9520, L501.9985, L500.4100, L100.0100, L502.0500, L500.4050, L506.1000 #### [facility] [address] [place], [address] GFR/1.73 sq M.predicted among non-blacks MDRD (S/P/Bld) [Vol rate/Area] 54 mL/min/{1.73_m2} Low >60 [facility] Comment on above: Result Comment: Non- GFR Calc Performed By: #### L 501.9520, L501.9985, L500.4100, L100.0100, L502.0500, L500.4050, L506.1000 #### [facility] [address] [place], [address] Globulin (S) [Mass/Vol] 4.1 g/dL Normal 2.2-4.2 [facility] Comment on above: Performed By: #### L 501.9520, L501.9985, L500.4100, L100.0100, L502.0500, L500.4050, L506.1000 #### [facility] [address] [place], [address] Glucose [Mass/Vol] 187 mg/dL High 74-106 [facility] Comment on above: Result Comment: Fast ing Glucose result greater than or equal to 126 mg/dL suggests DIABETES MELLITUS per A.D.A. criteria. Performed By: #### L 501.9520, L501.9985, L500.4100, L100.0100, L502.0500, L500.4050, L506.1000 #### [facility] [address] [place], [address] Potassium [Moles/Vol] 4.8 mmol/L Normal 3.5-5.1 [facility] Comment on above: Performed By: #### L 501.9520, L501.9985, L500.4100, L100.0100, L502.0500, L500.4050, L506.1000 #### [facility] [address] [place], [address] Sodium [Moles/Vol] 138 mmol/L Normal 136-145 [facility] Comment on above: Performed By: #### L 501.9520, L501.9985, L500.4100, L100.0100, L502.0500, L500.4050, L506.1000 #### [facility] [address] [place], [address] T PROT 8.0 g/dL Normal 6.4-8.2 [facility] Comment on above: Performed By: #### L 501.9520, L501.9985, L500.4100, L100.0100, L502.0500, L500.4050, L506.1000 #### [facility] [address] [place], [address] Urea nitrogen [Mass/Vol] 20 mg/dL High 7-18 [facility] Comment on above: Performed By: #### L 501.9520, L501.9985, L500.4100, L100.0100, L502.0500, L500.4050, L506.1000 #### [facility] [address] [place], [address] Hemoglobin A1con 02-21-2024 HbA1c (Bld) [Mass fraction] 7.3 % High 3.8-5.6 [facility] Comment on above: Result Comment: Norm al < 5.7 % Prediabetic 5.7 - 6.4 % Diabetic >or= 6.5 % Please note range changes. Performed By: #### L [id number], [id number], L500.4100, L100.0100, L502.0500, L500.4050, L506.1000 #### [facility] [address] [place], [address] Lipid Profileon 02-21-2024 Cholesterol [Mass/Vol] 178 mg/dL Normal 200 [facility] Comment on above: Result Comment: <200 mg/dL Desirable 200-240 mg/dL Borderline >240 mg/dL High Risk Performed By: #### L [id number], [id number], L500.4100, L100.0100, L502.0500, L500.4050, L506.1000 #### [facility] [address] [place], [address] Cholesterol in HDL [Mass/Vol] 88 mg/dL Normal [facility] Comment on above: Result Comment: The drugs N-Acetylcysteine and Metamizole may falsely depress this assay. Reference Range HDL <40 mg/dL Low HDL Cholesterol HDL >or= 60 mg/dL High HDL Cholesterol Performed By: #### L [id number], [id number], L500.4100, L100.0100, L502.0500, L500.4050, L506.1000 #### [facility] [address] [place], [address] Cholesterol in LDL [Mass/Vol] 73 mg/dL Normal 0-130 [facility] Comment on above: Performed By: #### L [id number], [id number], L500.4100, L100.0100, L502.0500, L500.4050, L506.1000 #### [facility] [address] [place], [address] Cholesterol in VLDL [Mass/Vol] 17 mg/dL Normal 5-40 [facility] Comment on above: Performed By: #### L [id number], [id number], L500.4100, L100.0100, L502.0500, L500.4050, L506.1000 #### [facility] [address] [place], [address] Triglyceride [Mass/Vol] 83 mg/dL Normal [facility] Comment on above: Result Comment: The drugs N-Acetylcysteine and Metamizole may falsely depress this assay. Serum Triglycerides Reference Interval Normal <150 mg/dL Borderline high 150 - 199 mg/dL High 200 - 499 mg/dL Very High > or = 500 mg/dL Performed By: #### L [id number], [id number], L500.4100, L100.0100, L502.0500, L500.4050, L506.1000 #### [facility] [address] [place], [address] Microalbumin,Random Urineon 02-21-2024 MICROALBUMIN,UR 60.1 mg/L Normal NO RANGE EST. [facility] Comment on above: Performed By: #### L [id number], [id number], L500.4100, L100.0100, L502.0500, L500.4050, L506.1000 #### [facility] [address] [place], [address] Thyroid Stim Hormone (TSH)on 02-21-2024 TSH 3.250 uIU/mL Normal 0.358-3.740 [facility] Comment on above: Performed By: #### L [id number], [id number], L500.4100, L100.0100, L502.0500, L500.4050, L506.1000 #### [facility] [address] [place], [address] Vitamin D,25 Hydroxyon 02-20 Vitamin D 25-OH 48.9 ng/mL Normal [facility] Comment on above: Result Comment: Nela min D 25(OH) Status Range Deficiency <20 ng/mL (50nmol/L) Insufficiency 20 - 30 ng/mL (50 - 75 nmol/L) Sufficiency 30 - 100 ng/mL (75 - 250 nmol/L) Toxicity >100 ng/mL (>250 nmol/L) Performed By: #### L [id number], [id number], L500.4100, L100.0100, L502.0500, L500.4050, L506.1000 #### [facility] [address] [place], [address] Absolute lymphocyte countOrd ered By: John Cagle on 02-17-2023 Lymphocytes Auto (Unsp spec) [#/Vol] 2.36 10*3/uL 0.83-4.51 [facility] Basophil percentageOrdered B y: John Cagle on 02-17-2023 Basophils/100 WBC (Bld) 1.2 % 0-1 [facility] Bilirubin [Mass/Vol] 0.30 mg/dL 0.20-1.[address] [facility] Comment on above: For patients on eltr ombopag therapy, use of Dimension [place] TBIL is not recommended. Chloride [Moles/Vol] 105 mmol/L 98-[address] [facility] Eosinophils/100 WBC (Bld) 1.6 % 0-5 [facility] Glucose [Mass/Vol] 116 mg/dL 74-106 [facility] Comment on above: Fasting Glucose resu lt from 100 to 125 mg/dL suggests IMPAIRED HOMEOSTASIS per A.D.A. criteria. Neutrophils (Bld) [#/Vol] 3.1 10*3/uL 2.0-7.7 [facility] Neutrophils/100 WBC (Bld) 51.2 % 47-70 [facility] Potassium [Moles/Vol] 4.0 mmol/L 3.5-5.1 [facility] Protein [Mass/Vol] 7.4 g/dL 6.4-8.2 [facility] Sodium [Moles/Vol] 139 mmol/L 136-145 [facility] WBC (Bld) [#/Vol] 6.1 10*3/uL 4.4-11.0 [facility] Blood erythrocytes count (nu mber/volume)Ordered By: John Cagle on 02-17-2023 RBC (Bld) [#/Vol] 3.85 10*6/uL 4.2-5.4 [facility] Blood hemoglobin measurement (mass/volume)Ordered By: John Cagle on 02-17-2023 Hemoglobin (Bld) [Mass/Vol] 11.2 g/dL 12.0-15.0 [facility] Blood lymphocytes/[address] leukoc [address]tesOrdered By: [facility] Lymphocytes/100 WBC (Bld) 38.9 % 19-41 [facility] Blood monocytes/100 leukocyt esOrdered By: [facility] Monocytes/100 WBC (Bld) 6.4 % 0-10 [facility] Blood platelet mean volumeOr dered By: [facility] on 02-17-2023 Platelet mean volume (Bld) [Entitic vol] 9.4 fL 6.2-12.0 [facility] Determination of erythrocyte mean corpuscular volume (MCV)[facility] MCV (RBC) [Entitic vol] 96.4 fL 81-99 [facility] Hematocrit Auto (Bld) [Volum e fraction][facility]23 Hematocrit (Bld) [Volume fraction] 37.1 % 37-47 [facility] - Chemistry and C hemistry - challengeOrdered By: [facility] on 02-17-2023 ALP [Catalytic activity/Vol] 56 U/L 45-117 [facility] ALT [Catalytic activity/Vol] 22 U/L 13-56 [facility] CO2 [Moles/Vol] 27.0 mmol/L 21.0-32.0 [facility] Globulin (S) [Mass/Vol] 3.9 g/dL 2.2-4.2 [facility] Urea nitrogen/Creatinine [Mass ratio] 24.4 mg/mg 10-20 [facility] - Hematology and Cell countsOrdered By: [facility] on 02-17-2023 Erythrocyte distribution width (RBC) [Entitic vol] 45.9 fL 35.1-43.9 [facility] Erythrocyte distribution width (RBC) [Ratio] 12.9 % 11.6-14.6 [facility] Immature granulocytes/100 WBC (Bld) 0.700 % 0.0-0.9 [facility] Comment on above: IG% - Immature Granu locytes (promyelocytes, myelocytes and metamyelocytes) > 1% indicates that a LEFT SHIFT is Present. MCH (RBC) [Entitic mass] 29.1 pg 27.0-32.0 [facility] Nucleated RBC/100 WBC (Bld) [Ratio] 0 % 0-5 [facility] MCHC Auto (RBC) [Mass/Vol]Or dered By: John Cagle on 02-17-2023 MCHC (RBC) [Mass/Vol] 30.2 g/dL 32-36 [facility] No Panel InformationOrdered By: John Cagle on 02-17-2023 Estimated GFR (MDRD) Amer 89 mL/min >60 [facility] Comment on above: GFR Calc Estimated GFR (MDRD) Non-Af Amer 74 mL/min >60 [facility] Comment on above: Non- GFR Calc Thyroid Stimulating Hormone (TSH) 1.88 uIU/mL 0.358-3.74 [facility] Vitamin D 25-Hydroxy 65.2 ng/mL [facility] Comment on above: Vitamin D 25(OH) Sta tus Range Deficiency <20 ng/mL (50nmol/L) Insufficiency 20 - 30 ng/mL (50 - 75 nmol/L) Sufficiency 30 - 100 ng/mL (75 - 250 nmol/L) Toxicity >100 ng/mL (>250 nmol/L) Platelets bldOrdered By: John Cagle on 02-17-2023 Platelets (Bld) [#/Vol] 338 10*3/uL 150-450 [facility] Serum or plasma albumin rony urement (mass/volume)Ordered By: John Cagle on 02-17-2023 Albumin [Mass/Vol] 3.5 g/dL 3.2-5.0 [facility] Serum or plasma albumin/glob ulin mass ratioOrdered By: John Cagle on 02-17-2023 Albumin/Globulin [Mass ratio] 0.9 {ratio} 0.9-2.4 [facility] Serum or plasma calcium rony urement (mass/volume)Ordered By: John Cagle on 02-17-2023 Calcium [Mass/Vol] 8.9 mg/dL 8.5-10.1 [facility] Serum or plasma creatinine m easurement (mass/volume)Ordered By: John Cagle on 02-17-2023 Creatinine [Mass/Vol] 0.82 mg/dL 0.55-1.02 [facility] Comment on above: The validity of the calculated GFR & GFRAA in patients over 70 years has not been determined. Clinical correlation is essential. Serum or plasma urea nitroge n measurement (mass/volume)Ordered By: John Gurjit on 02-17-2023 Urea nitrogen [Mass/Vol] 20 mg/dL 7-18 [facility] Thin prep Papanicolaou smear with manual screeningOrdered By: John Cagle on 02-17-2023 Thin prep Papanicolaou smear with manual screening 16 U/L 15-37 [facility] Thin prep Papanicolaou smear with manual screening 7 5-15 [facility] Absolute lymphocyte countOrd ered By: John Cagle on 10-22-2022 Lymphocytes Auto (Unsp spec) [#/Vol] 2.21 10*3/uL 0.83-4.51 [facility] Basophil percentageOrdered B y: John Cagle on 10-22-2022 Basophils/100 WBC (Bld) 1.4 % 0-1 [facility] Bilirubin [Mass/Vol] 0.40 mg/dL 0.20-1.[address] [facility] Comment on above: For patients on eltr ombopag therapy, use of Dimension [place] TBIL is not recommended. Chloride [Moles/Vol] 100 mmol/L 98-[address] [facility] Eosinophils/100 WBC (Bld) 1.5 % 0-5 [facility] Glucose [Mass/Vol] 293 mg/dL 74-106 [facility] Comment on above: Glucose result great er than or equal to 200 mg/dLsuggests DIABETES MELLITUS per A.D.A. criteria. Neutrophils (Bld) [#/Vol] 4.5 10*3/uL 2.0-7.7 [facility] Neutrophils/100 WBC (Bld) 60.9 % 47-70 [facility] Potassium [Moles/Vol] 4.3 mmol/L 3.5-5.1 [facility] Protein [Mass/Vol] 7.8 g/dL 6.4-8.2 [facility] Sodium [Moles/Vol] 135 mmol/L 136-145 [facility] WBC (Bld) [#/Vol] 7.4 10*3/uL 4.4-11.0 [facility] Blood erythrocytes count (nu mber/volume)Ordered By: John Cagle on 10-22-2022 RBC (Bld) [#/Vol] 4.50 10*6/uL 4.2-5.4 [facility] Blood hemoglobin measurement (mass/volume)Ordered By: John Cagle on 10-22-2022 Hemoglobin (Bld) [Mass/Vol] 13.1 g/dL 12.0-15.0 [facility] Blood lymphocytes/100 leukoc ytesOrdered By: John Cagle on 10-22-2022 Lymphocytes/100 WBC (Bld) 29.9 % 19-41 [facility] Blood monocytes/100 leukocyt esOrdered By: [facility] Monocytes/100 WBC (Bld) 6.0 % 0-10 [facility] Blood platelet mean volumeOr dered By: John Cagle on 10-22-2022 Platelet mean volume (Bld) [Entitic vol] 9.9 fL 6.2-12.0 [facility] Determination of erythrocyte mean corpuscular volume (MCV)Ordered By: John Cagle on 10-22-2022 MCV (RBC) [Entitic vol] 92.9 fL 81-99 [facility] Hematocrit Auto (Bld) [Volum e fraction][facility] Hematocrit (Bld) [Volume fraction] 41.8 % 37-47 [facility] - Chemistry and C hemistry - challengeOrdered By: John Gurjit 10-22-2022 ALP [Catalytic activity/Vol] 73 U/L 45-117 [facility] ALT [Catalytic activity/Vol] 25 U/L 13-56 [facility] CO2 [Moles/Vol] 27.0 mmol/L 21.0-32.0 [facility] Globulin (S) [Mass/Vol] 4.1 g/dL 2.2-4.2 [facility] Urea nitrogen/Creatinine [Mass ratio] 18.9 mg/mg 10-20 [facility] - Hematology and Cell countsOrdered By: John Gurjit 10-22-2022 Erythrocyte distribution width (RBC) [Entitic vol] 43.7 fL 35.1-43.9 [facility] Erythrocyte distribution width (RBC) [Ratio] 12.8 % 11.6-14.6 [facility] Immature granulocytes/100 WBC (Bld) 0.300 % 0.0-0.9 [facility] Comment on above: IG% - Immature Granu locytes (promyelocytes, myelocytes and metamyelocytes) > 1% indicates that a LEFT SHIFT is Present. MCH (RBC) [Entitic mass] 29.1 pg 27.0-32.0 [facility] Nucleated RBC/100 WBC (Bld) [Ratio] 0 % 0-5 [facility] MCHC Auto (RBC) [Mass/Vol]Or dered By: John Cagle on 10-22-2022 MCHC (RBC) [Mass/Vol] 31.3 g/dL 32-36 [facility] No Panel InformationOrdered By: John Cagle on 10-22-2022 Estimated GFR (MDRD) Amer 63 mL/min >60 [facility] Comment on above: GFR Calc Estimated GFR (MDRD) Non-Af Amer 52 mL/min >60 [facility] Comment on above: Non- GFR Calc Thyroid Stimulating Hormone (TSH) 2.73 uIU/mL 0.358-3.74 [facility] Vitamin D 25-Hydroxy 76.1 ng/mL [facility] Comment on above: Vitamin D 25(OH) Sta tus Range Deficiency <20 ng/mL (50nmol/L) Insufficiency 20 - 30 ng/mL (50 - 75 nmol/L) Sufficiency 30 - 100 ng/mL (75 - 250 nmol/L) Toxicity >100 ng/mL (>250 nmol/L) Platelets bldOrdered By: John Cagle on 10-22-2022 Platelets (Bld) [#/Vol] 363 10*3/uL 150-450 [facility] Serum or plasma albumin rony urement (mass/volume)Ordered By: John Cagle on 10-22-2022 Albumin [Mass/Vol] 3.7 g/dL 3.2-5.0 [facility] Serum or plasma albumin/glob ulin mass ratioOrdered By: John Cagle on 10-22-2022 Albumin/Globulin [Mass ratio] 0.9 {ratio} 0.9-2.4 [facility] Serum or plasma calcium rony urement (mass/volume)Ordered By: John Cagle on 10-22-2022 Calcium [Mass/Vol] 9.4 mg/dL 8.5-10.1 [facility] Serum or plasma creatinine m easurement (mass/volume)Ordered By: John Cagle on 10-22-2022 Creatinine [Mass/Vol] 1.11 mg/dL 0.55-1.02 [facility] Comment on above: The validity of the calculated GFR & GFRAA in patients over 70 years has not been determined. Clinical correlation is essential. Serum or plasma urea nitroge n measurement (mass/volume)Ordered By: John Cagle on 10-22-2022 Urea nitrogen [Mass/Vol] 21 mg/dL 7-18 [facility] Thin prep Papanicolaou smear with manual screeningOrdered By: John Cagle on 10-22-2022 Thin prep Papanicolaou smear with manual screening 15 U/L 15-37 [facility] Thin prep Papanicolaou smear with manual screening 8 5-15 [facility] Absolute lymphocyte countOrd ered By: John Cagle on 07-23-2022 Lymphocytes Auto (Unsp spec) [#/Vol] 2.69 10*3/uL 0.83-4.51 [facility] Basophil percentageOrdered B y: John Cagle on 07-23-2022 Basophils/100 WBC (Bld) 1.2 % 0-1 [facility] Bilirubin [Mass/Vol] 0.30 mg/dL 0.20-1.[address] [facility] Comment on above: For patients on eltr ombopag therapy, use of Dimension [place] TBIL is not recommended. Chloride [Moles/Vol] 98 mmol/L 98-[address] [facility] Eosinophils/100 WBC (Bld) 2.0 % 0-5 [facility] Glucose [Mass/Vol] 271 mg/dL 74-106 [facility] Comment on above: Glucose result great er than or equal to 200 mg/dLsuggests DIABETES MELLITUS per A.D.A. criteria. Neutrophils (Bld) [#/Vol] 3.2 10*3/uL 2.0-7.7 [facility] Neutrophils/100 WBC (Bld) 48.9 % 47-70 [facility] Potassium [Moles/Vol] 4.6 mmol/L 3.5-5.1 [facility] Protein [Mass/Vol] 7.3 g/dL 6.4-8.2 [facility] Sodium [Moles/Vol] 133 mmol/L 136-145 [facility] WBC (Bld) [#/Vol] 6.6 10*3/uL 4.4-11.0 [facility] Blood erythrocytes count (nu mber/volume)Ordered By: John Cagle on 07-23-2022 RBC (Bld) [#/Vol] 4.17 10*6/uL 4.2-5.4 [facility] Blood hemoglobin measurement (mass/volume)Ordered By: John Cagle on 07-23-2022 Hemoglobin (Bld) [Mass/Vol] 12.0 g/dL 12.0-15.0 [facility] Blood lymphocytes/100 leukoc ytesOrdered By: John Cagle on 07-23-2022 Lymphocytes/100 WBC (Bld) 40.9 % 19-41 [facility] Blood monocytes/100 leukocyt esOrdered By: John Cagle on 07-23-2022 Monocytes/100 WBC (Bld) 6.5 % 0-10 [facility] Blood platelet mean volumeOr dered By: John Cagle on 07-23-2022 Platelet mean volume (Bld) [Entitic vol] 9.7 fL 6.2-12.0 [facility] Determination of erythrocyte mean corpuscular volume (MCV)Ordered By: John Cagle 07-23-2022 MCV (RBC) [Entitic vol] 93.5 fL 81-99 [facility] Hematocrit Auto (Bld) [Volum e fraction]Ordered By: John Cagle on 07-23-2022 Hematocrit (Bld) [Volume fraction] 39.0 % 37-47 [facility] - Chemistry and C hemistry - challengeOrdered By: John Cagle on 07-23-2022 ALP [Catalytic activity/Vol] 63 U/L 45-117 [facility] ALT [Catalytic activity/Vol] 23 U/L 13-56 [facility] CO2 [Moles/Vol] 28.0 mmol/L 21.0-32.0 [facility] Globulin (S) [Mass/Vol] 3.5 g/dL 2.2-4.2 [facility] Urea nitrogen/Creatinine [Mass ratio] 20.1 mg/mg 10-20 [facility] - Hematology and Cell countsOrdered By: John Cagle on 07-23-2022 Erythrocyte distribution width (RBC) [Entitic vol] 44.9 fL 35.1-43.9 [facility] Erythrocyte distribution width (RBC) [Ratio] 13.2 % 11.6-14.6 [facility] Immature granulocytes/100 WBC (Bld) 0.500 % 0.0-0.9 [facility] Comment on above: IG% - Immature Granu locytes (promyelocytes, myelocytes and metamyelocytes) > 1% indicates that a LEFT SHIFT is Present. MCH (RBC) [Entitic mass] 28.8 pg 27.0-32.0 [facility] Nucleated RBC/100 WBC (Bld) [Ratio] 0 % 0-5 [facility] MCHC Auto (RBC) [Mass/Vol]Or dered By: John Cagle on 07-23-2022 MCHC (RBC) [Mass/Vol] 30.8 g/dL 32-36 [facility] No Panel InformationOrdered By: John Cagle on 07-23-2022 Estimated GFR (MDRD) Amer 76 mL/min >60 [facility] Comment on above: GFR Calc Estimated GFR (MDRD) Non-Af Amer 63 mL/min >60 [facility] Comment on above: Non- GFR Calc Thyroid Stimulating Hormone (TSH) 2.18 uIU/mL 0.358-3.74 [facility] Vitamin D 25-Hydroxy 66.8 ng/mL [facility] Comment on above: Vitamin D 25(OH) Sta tus Range Deficiency <20 ng/mL (50nmol/L) Insufficiency 20 - 30 ng/mL (50 - 75 nmol/L) Sufficiency 30 - 100 ng/mL (75 - 250 nmol/L) Toxicity >100 ng/mL (>250 nmol/L) Platelets bldOrdered By: John Cagle on 07-23-2022 Platelets (Bld) [#/Vol] 376 10*3/uL 150-450 [facility] Serum or plasma albumin rony urement (mass/volume)Ordered By: John Cagle on 07-23-2022 Albumin [Mass/Vol] 3.8 g/dL 3.2-5.0 [facility] Serum or plasma albumin/glob ulin mass ratioOrdered By: John Cagle on 07-23-2022 Albumin/Globulin [Mass ratio] 1.1 {ratio} 0.9-2.4 [facility] Serum or plasma calcium rony urement (mass/volume)Ordered By: John Cagle on 07-23-2022 Calcium [Mass/Vol] 9.6 mg/dL 8.5-10.1 [facility] Serum or plasma creatinine m easurement (mass/volume)Ordered By: John Cagle on 07-23-2022 Creatinine [Mass/Vol] 0.94 mg/dL 0.55-1.02 [facility] Comment on above: The validity of the calculated GFR & GFRAA in patients over 70 years has not been determined. Clinical correlation is essential. Serum or plasma urea nitroge n measurement (mass/volume)Ordered By: John Cagle on 07-23-2022 Urea nitrogen [Mass/Vol] 19 mg/dL 7-18 [facility] Thin prep Papanicolaou smear with manual screeningOrdered By: John Cagle 07-23-2022 Thin prep Papanicolaou smear with manual screening 17 U/L 15-37 [facility] Thin prep Papanicolaou smear with manual screening 7 5-15 [facility] Absolute lymphocyte counton 12-31-2021 Lymphocytes Auto (Unsp spec) [#/Vol] 2.44 10*3/uL 0.83-4.51 [facility] Work Phone: Basophil percentageon 2021 Basophils/100 WBC (Bld) 1.1 % 0-1 [facility] Work Phone: Bilirubin [Mass/Vol] 0.20 mg/dL 0.20-1.[address] [facility] Work Phone: Comment on above: For patients on eltr ombopag therapy, use of Dimension [place] TBIL is not recommended. Chloride [Moles/Vol] 102 mmol/L 98-[address] [facility] Work Phone: Eosinophils/100 WBC (Bld) 1.8 % 0-5 [facility] Work Phone: Glucose [Mass/Vol] 151 mg/dL 74-106 [facility] Work Phone: Comment on above: Fasting Glucose resu lt greater than or equal to 126 mg/dL suggests DIABETES MELLITUS per A.D.A. criteria. Neutrophils (Bld) [#/Vol] 4.1 10*3/uL 2.0-7.7 [facility] Work Phone: Neutrophils/100 WBC (Bld) 56.3 % 47-70 [facility] Work Phone: Potassium [Moles/Vol] 5.1 mmol/L 3.5-5.1 [facility] Work Phone: Protein [Mass/Vol] 7.7 g/dL 6.4-8.2 [facility] Work Phone: Sodium [Moles/Vol] 136 mmol/L 136-145 [facility] Work Phone: WBC (Bld) [#/Vol] 7.3 10*3/uL 4.4-11.0 [facility] Work Phone: [phone] Blood erythrocytes count (nu mber/volume)on 12-31-2021 RBC (Bld) [#/Vol] 4.05 10*6/uL 4.2-5.4 [facility] Work Phone: Blood hemoglobin measurement (mass/volume)on 12-31-2021 Hemoglobin (Bld) [Mass/Vol] 12.2 g/dL 12.0-15.0 [facility] Work Phone: [phone] Blood lymphocytes/100 leukoc yteson 12-31-2021 Lymphocytes/100 WBC (Bld) 33.6 % 19-41 [facility] Work Phone: [phone] Blood monocytes/100 leukocyt eson 12-31-2021 Monocytes/100 WBC (Bld) 6.9 % 0-10 [facility] Work Phone: Blood platelet mean volumeon 12-31-2021 Platelet mean volume (Bld) [Entitic vol] 9.5 fL 6.2-12.0 [facility] Work Phone: Determination of erythrocyte mean corpuscular volume (MCV)on 12-31-2021 MCV (RBC) [Entitic vol] 95.1 fL 81-99 [facility] Work Phone: Hematocrit Auto (Bld) [Volum e fraction]on 12-31-2021 Hematocrit (Bld) [Volume fraction] 38.5 % 37-47 [facility] Work Phone: Laboratory - Chemistry and C hemistry - challengeon 12-31-2021 ALP [Catalytic activity/Vol] 64 U/L 45-117 [facility] Work Phone: ALT [Catalytic activity/Vol] 26 U/L 13-56 [facility] Work Phone: CO2 [Moles/Vol] 25.0 mmol/L 21.0-32.0 [facility] Work Phone: Globulin (S) [Mass/Vol] 4.4 g/dL 2.2-4.2 [facility] Work Phone: Urea nitrogen/Creatinine [Mass ratio] 24.2 mg/mg 10-20 [facility] Work Phone: Laboratory - Hematology and Cell countson 12-31-2021 Erythrocyte distribution width (RBC) [Entitic vol] 46.6 fL 35.1-43.9 [facility] Work Phone: Erythrocyte distribution width (RBC) [Ratio] 13.3 % 11.6-14.6 [facility] Work Phone: Immature granulocytes/100 WBC (Bld) 0.300 % 0.0-0.9 [facility] Work Phone: Comment on above: IG% - Immature Granu locytes (promyelocytes, myelocytes and metamyelocytes) > 1% indicates that a LEFT SHIFT is Present. MCH (RBC) [Entitic mass] 30.1 pg 27.0-32.0 [facility] Work Phone: Nucleated RBC/100 WBC (Bld) [Ratio] 0 % 0-5 [facility] Work Phone: MCHC Auto (RBC) [Mass/Vol]on 12-31-2021 MCHC (RBC) [Mass/Vol] 31.7 g/dL 32-36 [facility] Work Phone: No Panel Informationon 12-31 Estimated GFR (MDRD) Amer 71 mL/min >60 [facility] Work Phone: Comment on above: GFR Calc Estimated GFR (MDRD) Non-Af Amer 59 mL/min >60 [facility] Work Phone: Comment on above: Non- GFR Calc Thyroid Stimulating Hormone (TSH) 2.15 uIU/mL 0.358-3.74 [facility] Work Phone: Vitamin D 25-Hydroxy 73.4 ng/mL [facility] [facility] Work Phone: Comment on above: Vitamin D 25(OH) Sta tus Range Deficiency <20 ng/mL (50nmol/L) Insufficiency 20 - 30 ng/mL (50 - 75 nmol/L) Sufficiency 30 - 100 ng/mL (75 - 250 nmol/L) Toxicity >100 ng/mL (>250 nmol/L) Platelets bldon 12-31-2021 Platelets (Bld) [#/Vol] 373 10*3/uL 150-450 [facility] Work Phone: Serum or plasma albumin rony urement (mass/volume)on 12-31-2021 Albumin [Mass/Vol] 3.3 g/dL 3.2-5.0 [facility] Work Phone: Serum or plasma albumin/glob ulin mass ratioon 12-31-2021 Albumin/Globulin [Mass ratio] 0.8 {ratio} 0.9-2.4 [facility] Work Phone: Serum or plasma calcium rony urement (mass/volume)on 12-31-2021 Calcium [Mass/Vol] 9.4 mg/dL 8.5-10.1 [facility] Work Phone: Serum or plasma creatinine m easurement (mass/volume)on 12-31-2021 Creatinine [Mass/Vol] 0.99 mg/dL 0.55-1.02 [facility] Work Phone: Comment on above: The validity of the calculated GFR & GFRAA in patients over 70 years has not been determined. Clinical correlation is essential. Serum or plasma urea nitroge n measurement (mass/volume)on 12-31-2021 Urea nitrogen [Mass/Vol] 24 mg/dL 7-18 [facility] Work Phone: Thin prep Papanicolaou smear with manual screeningon 12-31-2021 Thin prep Papanicolaou smear with manual screening 17 U/L 15-37 [facility] Work Phone: Thin prep Papanicolaou smear with manual screening 9 5-15 [facility] Work Phone: Vital Signs Date Time Vital Sign Value Performing Clinician Faci lity 01-04-2025 08:16-0400 Body temperature 98.1 [degF] Dr. John Cagle MD Work Phone: [facility] 01-04-2025 08:16-0400 Diastolic blood pressure 63 mm[Hg] Dr. John Cagle MD Work Phone: [facility] 01-04-2025 08:16-0400 Heart rate 80 /min Dr. John Cagle MD Work Phone: [facility] 01-04-2025 08:16-0400 Respiratory rate 16 /min Dr. John Cagle MD Work Phone: [facility] 01-04-2025 08:16-0400 SaO2% (BldA) [Mass fraction] 100 % Dr. John Cagle MD Work Phone: [facility] 01-04-2025 08:16-0400 Systolic blood pressure 147 mm[Hg] Dr. John Cagle MD Work Phone: [facility] 01-02-2025 11:58-0400 Body height 165.[address] John Cagle MD Work Phone: [facility] 01-02-2025 11:58-0400 Body weight 56.[address] John Cagle MD Work Phone: [facility] 01-02-2025 10:02-0400 Body mass index (BMI) [Ratio] 20.7 kg/m2 Dr. John Cagle MD Work Phone: [facility] Encounters Encounter Date Encounter Type Care Provider Facility Start: 01-04-2025 Non-patient / Non-visit Dr. Kailey Mendoza MD -[facility] Work Phone: Start: 01-03-2025 Non-patient / Non-visit Dr. Kailey Mendoza MD -[facility] Work Phone: Start: 01-02-2025 Non-patient / Non-visit Dr. Kailey Mendoza MD -[facility] Work Phone: Start: 01-02-2025 ambulatory Colby Mendoza Fac ility:[facility] Start: 01-02-2025 End: 01-04-2025 Evaluation and management of inpatient Colby Mendoza Facility:[facility] Start: 03-07-2024 End: 03-07-2024 ambulatory FERNIE LAI Facility:[facility] Start: 02-21-2024 End: 02-21-2024 ambulatory John Garcia Gurjit Facility:[facility] Start: 02-17-2023 End: 02-17-2023 ambulatory [facility] Work Phone: Start: 02-17-2023 End: 02-17-2023 Patient encounter procedure [facility], Phy Office 3rd Flr Start: 10-22-2022 End: 10-22-2022 ambulatory [facility] Work Phone: Start: 10-22-2022 End: 10-22-2022 Patient encounter procedure [facility], Phy Office 3rd Dcr Start: 07-23-2022 End: 07-23-2022 Patient encounter procedure [facility], y Office 3rd Flr Start: 12-31-2021 End: 12-31-2021 ambulatory [facility] Work Phone: Start: 12-31-2021 End: 12-31-2021 Patient encounter procedure [facility], [facility] Office 3rd Flr Procedures Date Procedure Procedure [...] Activity Detail Author Start: 01-04-2025 Patient discharge [facility] Start: 01-03-2025 [facility] Start: 01-03-2025 Referral to occupati onal therapist [facility] Start: 01-03-2025 Referral for physical therapy [facility] Start: 01-02-2025 End: 01-02-2025 [facility] Start: 01-02-2025 Care regimes management [facility] Start: 01-02-2025 Notification of physician [facility] Start: 01-02-2025 End: 01-02-2025 Following clinical pathway protocol [facility] Start: 01-02-2025 Ambulation without limitation [facility] Start: 01-02-2025 Assessment of risk o f venous thromboembolism [facility] Start: 01-02-2025 Insertion of cathete r into peripheral vein [facility] Start: 01-02-2025 Providing care accor ding to standard [facility] Start: 01-02-2025 Referral to service [facility] Start: 01-02-2025 [facility] Start: 01-02-2025 Admission procedure [facility] Start: 01-02-2025 Consultation [facility] Start: 01-02-2025 Patient referral to dietitian [facility] Payers Date Payer Category Payer Medicare [id number] 2024 Self-pay [id number] 2011 Private Health Insurance [facility] [id number] Unknown [id number] [id number] [id number] Unknown [id number] 2.16.8 [id number] Unknown [id number] 2.16.8 [id number] Unknown [id number] 2.16.8 [id number] Unknown [id number] 2.16.8 [id number] Unknown [id number] 2.16.8 [id number] Social History Date Type Detail [facility] Work Phone: Start: 1955 Sex Assigned At Female [facility] Start: 01-02-2025 [facility] Sex Female [facility] Goals Date Patient Goal Desired Activity /State Functional Status Date Assessment Result Facility 01-04-2025 Functional status Ambulates [facility] Work Phone: Mental Status Date Assessment Result Facility 01-04-2025 Cognitive function Voice/Name [facility] Work Phone: Clinical Notes 01-02-2025 to 01-04-2025 Note Date & Type Note Facility 01-04-2025 Note [facility] Medical Records Department [address] [place] [address] Discharge Summary 01/04/25 1501 MR#: [id number] Acct: [id number] Name: ABBY JAEGER Rep #: [id number] : 1955 69 From: Colby Mendoza MD PCP: Dr. John Cagle MD Status:DIS IN Location: [facility] HL382-7 Providers Date of Admission: 01/02/25 Primary Care [...] Meaningful Use Info (more content not included)... [facility] 01-04-2025 Consult note [facility] 01-04-2025 Consult note Note Date/Time January 04, 2025 1:28pm [facility] Medical Records Department [address] [place] [address] Counseling Note - Pharmacy 01/04/25 1057 MR#: [id number] Acct: [id number] Name: ABBY JAEGER Rep #:[id number] : 1955 69 From: Roger gray PCP: Dr. John Cagle MD Status:ADM I N Y Location: [place] [address] [facility] [place] [facility] has performed discharge [...] Signature (if applicable): Date CC: ~ Signed [facility] Work Phone: 1(713) 224-622609-25-2025 Discharge summary Author Colby Mendoza [facility] Note Date/Time January 04, 2025 10:04am [facility] Medical Records Department [address] [place] [address] Instructions for Home/Discharge Instructions 01/04/25 1000 MR#: [id number] Acct: [id number] Name: ABBY JAEGER Rep #:[id number] : 1955 69 From: Colby urena MD [...] CC: Dr. John Cagle MD ~ Signed [facility] Work Phone: 1(292) 468-418309-25-2025 Discharge summary [facility] Medical Records Department [address] [place] [address] Instructions for Home/Discharge Instructions 01/04/25 1000 MR#: [id number] Acct: [id number] Name: ABBY JAEGER Rep #:[id number] : 1955 69 From: Colby urena MD [...] CC: Dr. John Cagle MD ~ Signed [facility]09-24-2025 Progress note Author Colby Mendoza [facility] Note Date/Time January 03, 2025 9:30am [facility] Medical Records Department [address] [facility] [place] [address] Progress Note - Hospitalist 01/03/25921 MR#: [id number] Acct: [id number] Name: ABBY JAEGER Rep #:[id number] : 1955 69 From: Colby urena MD PCP: Dr. John Cagle MD Status:ADM I N Location: SC3 MS503-4 Subjective Subjective Doing much better today, still [...] % (Auto) 58.3, Lymph % (Auto) 27.5, [place]% (Auto) 8.7, Eos % (Auto) 4.3, Baso [...] DVT: Lovenox Charges/Coding Visit Charges Inpatient E&M: 95060 Subs Hosp L2 01/03/25929 <Electronically signed by Colby Mendoza MD> Cosigner Signature (if applicable): CC: ~ Signed [facility] Work Phone: 1(294) 226-288809-24-2025 Progress note [facility] Medical Records Department [address] [place] [address] Progress Note - Hospitalist 01/03/25921 MR#: [id number] Acct: [id number] Name: ABBY JAEGER Rep #:[id number] : 1955 69 From: Colby urena MD PCP: Dr. John Cagle MD Status:ADM I N Location: [facility] LA713-1 Subjective Subjective Doing much better today, still [...] % (Auto) 58.3, Lymph % (Auto) 27.5, [place]% (Auto) 8.7, Eos % (Auto) 4.3, Baso [...] DVT: Lovenox Charges/Coding Visit Charges Inpatient E&M: 56088 Subs Hosp L2 01/03/25 8939 Cosigner Signature (if applicable): CC: ~ Signed [facility]09-23-2025 History and physical note [facility] Note Date/Time January 02, 2025 3:56pm [facility] Medical Records Department [address] [place] [address] H&P Exam - Hospitalist 01/02/25 1517 MR#: [id number] Acct: [id number] Name: ABBY JAEGER Rep #:[id number] : 1955 69 From: Colby urena MD PCP: Dr. John Cagle MD Status:ADM I N Location: SC3 UV225-7 HPI - General General Date of Admission: [...] was 4.42. Talk screen was also negative. [facility] Medical History (Updated 01/02/25 @ 07:27 by [...] 74.2 H, Lymph % (Auto) 17.5 L, [place] % (Auto) 5.7, Eos % (Auto) 1.3, [...] Urine Clarity Clear, UrinepH 5.0, Ur Specific [place] 1.020, Urine Protein 30 H, Urine Glucose [...] sinus. No acute intracranial pathology. Reading Location: [facility] Knee X-Ray 01/02/25 06:20 IMPRESSION: Mild, age consistent changes, no acute abnormalities Reading Location: [id number] Knee X-Ray 01/02/25 06:20 IMPRESSION: There is no fracture or dislocation identified. Reading Location: [facility] Assessment & Plan Assessment/Plan (1) Urinary [...] with colleagues Charges/Coding Visit Charges Inpatient E&M: 42417 Init Hosp L3 01/02/25 1556 <Electronically signed by Colby Mendoza MD> Cosigner Signature (if applicable): CC: Dr. Colby Mendoza MD; Dr. John Cagle MD~ Signed [facility] Work Phone: 1(996) 526-716109-23-2025 History and physical note [facility] Medical Records Department [address] [place] [address] H&P Exam - Hospitalist 01/02/25 1517 MR#: [id number] Acct: [id number] Name: ABBY JAEGER Rep #:[id number] : 1955 69 From: Colby urena MD PCP: Dr. John Cagle MD Status:ADM I N Location: [facility] IM925-8 HPI - General General Date of Admission: [...] was 4.42. Talk screen was also negative. [facility] Medical History (Updated 01/02/25 @ 07:27 by [...] 74.2 H, Lymph % (Auto) 17.5 L, [place] % (Auto) 5.7, Eos % (Auto) 1.3, [...] Urine Clarity Clear, UrinepH 5.0, Ur Specific [place] 1.020, Urine Protein 30 H, Urine Glucose [...] sinus. No acute intracranial pathology. Reading Location: [facility] Knee X-Ray 01/02/25 06:20 IMPRESSION: Mild, age consistent changes, no acute abnormalities Reading Location: [id number] Knee X-Ray 01/02/25 06:20 IMPRESSION: There is no fracture or dislocation identified. [facility] Assessment & Plan Assessment/Plan (1) Urinary tract [...] with colleagues Charges/Coding Visit Charges Inpatient E&M: 30593 Init Hosp L3 01/02/25 1556 Cosigner Signature (if applicable): CC: Dr. Colby Mendoza MD; Dr. John Cagle MD~ Signed [facility]09-23-2025 Discharge summary Author David Lemos [facility] Note Date/Time January 02, 2025 10:02am [facility] Medical Records Department [address] [place] [address] Emergency Department Summary 01/02/25 MR#: [id number] Acct: [id number] Name: ABBY JAEGER Rep #:[id number] : 1955 69 From: David Lemos DO PCP: Dr. John Cagle MD Status:ADM I N Location: MS3 OF413-[address] 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 [facility] Medical History Diabetes Anxiety Allergy/AdvReac Type [...] 74.2 H Lymph % (Auto) 17.5 L [place] % (Auto) 5.7 Eos % (Auto) 1.3 [...] Clarity Clear Urine pH 5.0 Ur Specific [place] 1.020 Urine Protein 30 H Urine Glucose [...] sinus. No acute intracranial pathology. Reading Location: [facility] Knee X-Ray 01/02/25 06:20 IMPRESSION: Mild, age consistent changes, no acute abnormalities Reading Location: [id number] Knee X-Ray 01/02/25 06:20 IMPRESSION: There is no fracture or dislocation identified. Reading Location: [facility] Bilateral knee x-rays as interpreted by the emergency medicine physician revealssoft tissue swelling without acute fracture or dislocation Management Discussion w/another healthcare provider: residential program worker/Case management Discharge Plan Triage Chief Complaint: Alt LOC ED Provider: David Lemos Dx/Rx/DC Orders Clinical Impression: Altered mental status, Urinary tract infection Primary Care Provider: John Cagle Chi Referrals: John Cagle Chi, MD [Primary Care Provider, Geriatrics] Print Language: Qatari What to do if you have Problems For any increased pain, shortness of breath, bleeding, nausea or vomiting, chestpain, or any unexpected problems, contact your Primary Care Provider. Call [facility] ([phone]) or report to the closest Emergency Room. Call 911 if necessary. 01/02/25 0735 <Electronically signed by David Lemos DO> Cosigner Signature (if applicable): CC: Dr. John Cagle MD ~ Signed [facility] Work Phone: 1(798) 405-566909-23-2025 Evaluation note* Diagnosis Onset Date Resolution Status Admit Date Altered mental status acute Sep tember 2024 9:37am Urinary tract infection acute S eptember 2024 9:37am [facility] Work Phone: 1(848) 684-960509-23-2025 Discharge summary [facility] Medical Records Department [address] [place] [address] Emergency Department Summary 01/02/25 MR#: [id number] Acct: [id number] Name: ABBY JAEGER Rep #:[id number] : 1955 69 From: David Lemos DO PCP: Dr. John Cagle MD Status:ADM I N [facility] 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 [facility] Medical History Diabetes Anxiety Allergy/AdvReac Type Severity [...] 74.2 H Lymph % (Auto) 17.5 L [place] % (Auto) 5.7 Eos % (Auto) 1.3 [...] Clarity Clear Urine pH 5.0 Ur Specific [place] 1.020 Urine Protein 30 H Urine Glucose [...] consistent changes, no acute abnormalities Reading Location: [id number] Knee X-Ray 01/02/25 06:20 IMPRESSION: There is no fracture or dislocation identified. Reading Location: [facility] Bilateral knee x-rays as interpreted by the emergency medicine physician revealssoft tissue swelling without acute fracture or dislocation Management Discussion w/another healthcare provider: residential program worker/Case management Discharge Plan Triage Chief Complaint: Alt LOC ED Provider: David Lemos Dx/Rx/DC Orders Clinical Impression: Altered mental status, Urinary tract infection Primary Care Provider: John Cagle Chi Referrals: John Cagle Chi, MD [Primary Care Provider, Geriatrics] Print Language: Qatari What to do if you have Problems For any increased pain, shortness of breath, bleeding, nausea or vomiting, chestpain, or any unexpected problems, contact your Primary Care Provider. Call [facility] ([phone]) or report tothe closest Emergency Room. Call 911 if necessary. 01/02/25 0735 Cosigner Signature (if applicable): CC: Dr. John Cagle MD ~ Signed [facility]09-23-2025 Radiology Diagnostic study note [facility] Imaging Services [address] [place] [address] Knee 3 Views MR#: [id number] Acct: [id number] Name: ABBY JAEGER Rep #: [id number] : 1955 F 69 From: Karlene Johnson MD PCP: Dr. John Cagle MD Status: REG E R Study:Knee 3 Views Date of Exam: 5 Exam# [id number] Ordering Dr: Elizabeth Lemos DO PROCEDURE: KNEE [...] John Cagle MD; David Lemos DO ~ Telehealth Nurse Educator: Signed [facility]09-23-2025 Radiology Diagnostic study note [facility] Imaging Services [address] [place] [address] Knee 3 Views MR#: [id number] Acct: [id number] Name: ABBY JAEGER Rep #: [id number] : 1955 F 69 From: Elias Flores MD PCP: Dr. John Cagle MD Status: REG E R Study:Knee 3 Views Date of Exam: 5 Exam# [id number] Ordering Dr: Elizabeth Lemos DO PROCEDURE: KNEE [...] consistent changes, no acute abnormalities Reading Location: [facility] CC: Dr. John Cagle MD; David Lemos DO ~ Telehealth Nurse Educator: Signed [facility]09-23-2025 Radiology Diagnostic study note [facility] Imaging Services [address] [place], [place] [address] Brain/Head without Contrast MR#: [id number] Acct: [id number] Name: ABBY JAEGER Rep #: [id number] : 1955 F 69 From: Karlene Johnson MD PCP: Dr. John Cagle MD Status: REG E R Study:Brain/Head without Contrast Date of Exa m: 01/02/25 Exam# [id number] Ordering Dr: Elizabeth Lemos DO EXAM: NONCONTRAST [...] Dr. John Cagle MD; DO Jamie Burleson Telehealth Nurse Educator: [facility]igned [facility] Author Roger Stone [facility] Note Date/Time January 04, 2025 1:28pm [facility] Medical Records Department [address] [place] [address] Counseling Note - Pharmacy 01/04/25 1057 MR#: [id number] Acct: [id number] Name: ABBY JAEGER Rep #:[id number] : 1955 69 From: Roger Millan ly PCP: Dr. John Cagle MD Status:ADM I N Y Location: [place] [address] [facility] [place] [facility] has performed discharge [...] Signature (if applicable): Date CC: ~ Signed [facility] Work Phone: Discharge summary [facility] Medical Records Department [address] [place] [address] Discharge Summary 01/04/25 1501 MR#: [id number] Acct: [id number] Name: ABBY JAEGER Rep #:[id number] : 1955 69 From: Colby urena MD PCP: Dr. John Cagle MD Status:DIS I N Location: [facility] QK300-3 Providers Date of Admission: 01/02/25 Primary Care [...] Self Care Charges/Coding Visit Charges Inpatient E&M: 73112 Disch Hosp >30min 01/04/25 1508 Cosigner Signature (if applicable): CC: Dr. Colby Mendoza MD; Dr. John Cagle MD~ [facility]igned [facility] Author David Lemos [facility] Note Date/Time January 02, 2025 10:02am [facility] Medical Records Department [address] [place] [address] Emergency Department Summary 01/02/25 MR#: [id number] Acct: [id number] Name: ABBY JAEGER Rep #:[id number] : 1955 69 From: David Lemos DO PCP: Dr. John Cagle MD Status:ADM I N Location: [facility] VU367-[address] 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 [facility] Medical History Diabetes Anxiety Allergy/AdvReac Type [...] 74.2 H Lymph % (Auto) 17.5 L [place] % (Auto) 5.7 Eos % (Auto) 1.3 [...] Clarity Clear Urine pH 5.0 Ur Specific [place] 1.020 Urine Protein 30 H Urine Glucose [...] sinus. No acute intracranial pathology. Reading Location: [facility] Knee X-Ray 01/02/25 06:20 IMPRESSION: Mild, age consistent changes, no acute abnormalities Reading Location: [facility] Knee X-Ray 01/02/25 06:20 IMPRESSION: There is no fracture or dislocation identified. Reading Location: [facility] Bilateral knee x-rays as interpreted by the emergency medicine physician revealssoft tissue swelling without acute fracture or dislocation Management Discussion w/another healthcare provider: residential program worker/Case management Discharge Plan Triage Chief Complaint: Alt LOC ED Provider: David Lemos Dx/Rx/DC Orders Clinical Impression: Altered mental status, Urinary tract infection Primary Care Provider: John Cagle Chi Referrals: John Cagle Chi, MD [Primary Care Provider, Geriatrics] Print Language: Qatari What to do if you have Problems For any increased pain, shortness of breath, bleeding, nausea or vomiting, chestpain, or any unexpected problems, contact your Primary Care Provider. Call [facility] ([phone]) or report to the closest Emergency Room. Call 911 if necessary. 01/02/25 0735 <Electronically signed by David Lemos DO> Cosigner Signature (if applicable): CC: Dr. John Cagle MD ~ Signed [facility] Work Phone: Discharge summary Author Colby Mendoza [facility] Note Date/Time January 04, 2025 10:04am [facility] Medical Records Department [address] [place] [address] Instructions for Home/Discharge Instructions 01/04/25 1000 MR#: [id number] Acct: [id number] Name: ABBY JAEGER Rep #:[id number] : 1955 69 From: Colby urena MD [...] CC: Dr. John Cagle MD ~ Signed [facility] Work Phone: Discharge summary Author Colby Mendoza [facility] Note Date/Time January 04, 2025 3:08pm [facility] Medical Records Department [address] [place] [address] Discharge Summary 01/04/25 1501 MR#: [id number] Acct: [id number] Name: ABBY JAEGER Rep #:[id number] : 1955 69 From: Colby urena MD PCP: Dr. John Cagle MD Status:DIS I N Location: [facility] EA601-4 Providers Date of Admission: 01/02/25 Primary Care [...] Self Care Charges/Coding Visit Charges Inpatient E&M: 43537 Disch Hosp >30min 01/04/25 1508 <Electronically signed by Colby Mendoza MD> Cosigner Signature (if applicable): CC: Dr. Colby Mendoza MD; Dr. Jonh Cagle MD~ Signed [facility] Work Phone: Evaluation noteNo assessment information available [facility] Work Phone: Evaluation note* Diagnosis Onset Date Resolution Status Admit Date Altered mental status acute Sep tember 2024 9:37am Urinary tract infection acute S eptember 2024 9:37am [facility] Work Phone: History and physical note Author Colby Mendoza [facility] Note Date/Time January 02, 2025 3:56pm [facility] Medical Records Department [address] [place] [address] H&P Exam - Hospitalist 01/02/25 1517 MR#: [id number] Acct: [id number] Name: ABBY JAEGER Rep #:[id number] : 1955 69 From: Colby urena MD PCP: Dr. John Cagle MD Status:ADM I N Location: SC3 [id number] HPI - General General Date of Admission: [...] was 4.42. Talk screen was also negative. [facility] Medical History (Updated 01/02/25 @ 07:27 by [...] 74.2 H, Lymph % (Auto) 17.5 L, [place] % (Auto) 5.7, Eos % (Auto) 1.3, [...] Urine Clarity Clear, UrinepH 5.0, Ur Specific [place] 1.020, Urine Protein 30 H, Urine Glucose [...] consistent changes, no acute abnormalities Reading Location: [id number] [place] X-Ray 01/02/25 06:20 IMPRESSION: There is no fracture or dislocation identified. Reading Location: [facility] Assessment & Plan Assessment/Plan (1) Urinary tract [...] with colleagues Charges/Coding Visit Charges Inpatient E&M: 27341 Init Hosp L3 01/02/25 1556 <Electronically signed by Colby Mendoza MD> Cosigner Signature (if applicable): CC: Dr. Colby Mendoza MD; Dr. John Cagle MD~ Signed [facility] Work Phone: Progress note Author Colby Mendoza [facility] Note Date/Time January 03, 2025 9:30am [facility] Medical Records Department [address] [place] [address] Progress Note - Hospitalist 01/03/25921 MR#: [id number] Acct: [id number] Name: ABBY JAEGER Rep #:[id number] : 1955 69 From: Colby urena MD PCP: Dr. John Cagle MD Status:ADM I N Location: [place] [address] Subjective Subjective Doing much better today, still [...] % (Auto) 58.3, Lymph % (Auto) 27.5, [place]% (Auto) 8.7, Eos % (Auto) 4.3, Baso [...] DVT: Lovenox Charges/Coding Visit Charges Inpatient E&M: 67148 Subs Hosp L2 01/03/25 3212 <Electronically signed by Colby Mendoza MD> Cosigner Signature (if applicable): CC: ~ Signed [facility] Work Phone: Reason for referral (narrative)No reason for referral information availableWMer[facility] Work Phone: Summary Purpose Family History Relationship Condition Age at Onset Recorded Date/T mona Not Specified Malignant neoplasm Unknown Advance Directives Advance Directive Response Recorded Date/ Time Do you have a Healthcare Power of Hide Puller? No January 02, 2025 10:02am Chief Complaint [...] section and content) DATE CREATED AUTHOR 01/05/2025 [facility] FOR RECORDS PERTAINING TO PATIENTS WHO [...] BE BASED ON THE PRIMARY CLINICAL RECORDS. [employer] provides no warranty or guarantee of the accuracy or completeness of information in this document.
[2025-01-13 10:30] LABS: Mucous, Urine 0 SEEN /hpf (<or=2+); Red Blood Cells-Urine 0 SEEN /hpf (0-5); Squamous Epithelial Cells - UA 0 SEEN /hpf (5-10)
[2025-01-13 10:57] LABS: Color, Urine Yellow (Yellow); Glucose, Dipstick Normal (Normal); Ketone-Dipstick Negative (Negative); Leukocyte Esterase-Dipstick 25 /ul (Negative); Nitrite-Dipstick Negative (Negative); Occult Blood-Urine Negative /ul (Negative); Protein-Dipstick 15 mg/dl (Negative); Specific Gravity, Urine 1.015 (1.002-1.030); Urine Bilirubin Dipstick Negative (Negative)
[2025-01-13 11:00] LABS: Hematocrit 34.0 % (37-47); Hemoglobin 10.8 g/dL (12.0-15.0); Immature Granulocytes Count 0.020 X10^3/uL (0.0-0.0); Mean Corp Hgb Conc 31.8 g/dL (32-36); Mean Corpuscular Volume 93.4 fL (81-99); Mean Platelet Vol. 9.2 fl (6.2-12.0); NRBC Flagged by Analyzer 0 % (0-5); Platelet Count 397 K/mm3 (150-450); RBC Distribution Width CV 13.5 % (11.6-14.6); RBC Distribution Width SD 45.7 fl (35.1-43.9); Red Blood Count 3.64 M/mm3 (4.2-5.4); White Blood Count 6.1 K/mm3 (4.4-11.0)
[2025-01-13 12:00] LABS: FOLATES,SERUM (FOLIC ACID) 10.80 ng/mL (4.60-34.80)
[2025-01-13 12:02] LABS: Albumin, Serum 4.3 g/dL (3.4-4.8); BUN 29 mg/dL (4-19); BUN/Creat Ratio 25.8 RATIO (10-20); Glucose 147 mg/dL (70-99)
[2025-01-13 12:03] LABS: AST(SGOT) 25 U/L (<=31); Alanine Aminotransfer ALT/SGPT 7 U/L (<=34); Alkaline Phosphatase 52 U/L (35-104); Anion Gap 13 (5-15); Calcium,Total 9.5 mg/dL (7.6-11.0); Carbon Dioxide 24.2 mmol/L (21.0-32.0); Chloride 102 mmol/L (98-108); Ferritin 52 ng/mL (22-378); Globulin 2.6 g/dL (2.2-4.2); Iron 65 ug/dL (50-170); Iron Binding Capacity,Total 321 ug/dL (250-450); Iron Binding Capacity,Unsat 256 ug/dL (228-428); Potassium 5.1 mmol/L (3.3-5.1); Vitamin B12 187 pg/mL (180-914); Vitamin D,25 Hydroxy 73.0 ng/mL (30-100)
[2025-01-13 12:17] LABS: Cholesterol 162 mg/dL (<=200); Low Density Lipoprotein Calc. 76 mg/dL; Triglycerides 74 mg/dL; Very Low Density Lipoprotein 15 mg/dL (5-40); cholesterol:hdl ratio screen 2.26
== END | disposition home or self-care (01) ==
PROVIDERS: PCP Nurse Practitioner Family; Referring Provider Nurse Practitioner Family; Visit Provider Nurse Practitioner Family
DX: E11.9 Type 2 diabetes mellitus without complications (principal); E78.5 Hyperlipidemia, unspecified; R41.89 Other symptoms and signs involving cognitive functions and awareness; N39.0 Urinary tract infection, site not specified
CPT/HCPCS: 36415; 80053; 80061; 81001; 82306; 82607; 82728; 82746; 83036; 83540; 83550; 84439; 84443; 85025; 87086; 87088

== ENCOUNTER → 2025-01-24 | Outpatient (CLI) | payer MEDICARE, SELFPAY | END | disposition home or self-care (01) | PROVIDERS: PCP Nurse Practitioner Family; Referring Provider Nurse Practitioner Family; Visit Provider Nurse Practitioner Family | DX: D64.9 Anemia, unspecified (principal); R53.83 Other fatigue; R94.4 Abnormal results of kidney function studies | CPT/HCPCS: 82274 ==

== ENCOUNTER → 2025-02-23 | Outpatient (CLI) | payer MEDICARE, SELFPAY ==
[2025-02-23 11:12] LABS: Hematocrit 35.9 % (37-47); Hemoglobin 11.1 g/dL (12.0-15.0); Immature Granulocytes Count 0.020 X10^3/uL (0.0-0.0); Mean Corp Hgb Conc 30.9 g/dL (32-36); Mean Corpuscular Volume 94.7 fL (81-99); Mean Platelet Vol. 9.4 fl (6.2-12.0); NRBC Flagged by Analyzer 0 % (0-5); Platelet Count 369 K/mm3 (150-450); RBC Distribution Width CV 13.2 % (11.6-14.6); RBC Distribution Width SD 45.8 fl (35.1-43.9); Red Blood Count 3.79 M/mm3 (4.2-5.4); White Blood Count 6.7 K/mm3 (4.4-11.0)
[2025-02-23 12:01] LABS: Ferritin 55 ng/mL (22-378); Iron 108 ug/dL (50-170); Iron Binding Capacity,Total 352 ug/dL (250-450); Iron Binding Capacity,Unsat 244 ug/dL (228-428)
[2025-02-24 07:08] LABS: Transferrin 293 mg/dL (192-364)
== END | disposition home or self-care (01) ==
LOC: LAB 10:46
PROVIDERS: PCP Nurse Practitioner Family; Referring Provider Nurse Practitioner Family; Visit Provider Nurse Practitioner Family
DX: D64.9 Anemia, unspecified (principal)
CPT/HCPCS: 36415; 82728; 83540; 83550; 84466; 85025

== ENCOUNTER → 2025-03-27 | Outpatient (CLI) | payer MEDICARE, SELFPAY ==
[2025-03-27 14:25] LABS: Red Blood Cells-Urine 0 SEEN /hpf (0-5)
[2025-03-27 16:49] LABS: Hematocrit 36.6 % (37-47); Hemoglobin 11.1 g/dL (12.0-15.0); Immature Granulocytes Count 0.010 X10^3/uL (0.0-0.0); Mean Corp Hgb Conc 30.3 g/dL (32-36); Mean Corpuscular Volume 96.1 fL (81-99); Mean Platelet Vol. 9.8 fl (6.2-12.0); NRBC Flagged by Analyzer 0 % (0-5); Platelet Count 336 K/mm3 (150-450); RBC Distribution Width CV 13.2 % (11.6-14.6); RBC Distribution Width SD 47.4 fl (35.1-43.9); Red Blood Count 3.81 M/mm3 (4.2-5.4); White Blood Count 5.7 K/mm3 (4.4-11.0)
[2025-03-27 16:52] LABS: Color, Urine Yellow (Yellow); Glucose, Dipstick 100 mg/dl (Normal); Ketone-Dipstick Negative (Negative); Leukocyte Esterase-Dipstick 500 /ul (Negative); Nitrite-Dipstick Negative (Negative); Occult Blood-Urine 10 /ul (Negative); Protein-Dipstick 30 mg/dl (Negative); Specific Gravity, Urine 1.015 (1.002-1.030); Urine Bilirubin Dipstick Negative (Negative)
[2025-03-27 17:31] LABS: Mucous, Urine 1+ /hpf (<or=2+); Squamous Epithelial Cells - UA 25-50 SEEN /hpf (5-10)
[2025-03-27 17:51] LABS: AST(SGOT) 17 U/L (<=31); Alanine Aminotransfer ALT/SGPT 13 U/L (<=34); Albumin, Serum 4.3 g/dL (3.4-4.8); Alkaline Phosphatase 45 U/L (35-104); Anion Gap 10 (5-15); BUN 27 mg/dL (4-19); BUN/Creat Ratio 22.3 RATIO (10-20); Calcium,Total 9.9 mg/dL (7.6-11.0); Carbon Dioxide 25.6 mmol/L (21.0-32.0); Chloride 101 mmol/L (98-108); Globulin 2.4 g/dL (2.2-4.2); Glucose 105 mg/dL (70-99); Potassium 5.2 mmol/L (3.3-5.1); Vitamin B12 586 pg/mL (180-914)
== END | disposition home or self-care (01) ==
LOC: VSLAB 14:20
PROVIDERS: PCP Nurse Practitioner Family; Referring Provider Nurse Practitioner Family; Visit Provider Nurse Practitioner Family
DX: E53.8 Deficiency of other specified B group vitamins (principal); R41.89 Other symptoms and signs involving cognitive functions and awareness
CPT/HCPCS: 36415; 80053; 81001; 82607; 85025; 87077; 87086; 87088; 87186